=== PATIENT | female | born 1945 | race Caucasian/White ===

== ENCOUNTER 2016-10-21 06:16 | Outpatient (CLI) | payer MEDICARE ==
[~2016-10-21] VITALS: Ht 170.2 cm; Wt 47.2 kg
[~2016-10-21 06:16] MED LIST: LEVO500T69 PO; METH4TAB PO; antibiotic; calcium; inhaler
[2016-10-21] MEDS ORDERED: RT-ALBUINH IH (15:09)
== END 2016-10-21 15:10 ==
LOC: PREOP 06:16
PROVIDERS: ATTEND Surgery
DX: Z01.818 Encounter for other preprocedural examination (principal); K62.5 Hemorrhage of anus and rectum

== ENCOUNTER 2016-10-25 08:40 | Day surgery (SDC) | payer MEDICARE ==
[~2016-10-25] VITALS: Ht 170.2 cm; Wt 47.2 kg
[~2016-10-25 08:40] MED LIST changes: +RT-ALBUINH IH
[2016-10-25] MEDS ORDERED: NS IV 500 ML 500 ML IV PRN (09:10)
[2016-10-25] MEDS ORDERED: NALOXONE 0.4 MG/ML 1 ML (NARCAN) VIAL IVP PRN (09:15)
[2016-10-25] MEDS ORDERED: FLUMAZENIL (ROMAZICON) 0.1 MG/ML 5 ML VIAL INJ PRN (09:15)
[2016-10-25 10:21] VITALS: BP 134/89
[2016-10-25] MEDS ORDERED: MIDAZOLAM 2 MG/2 ML (VERSED) VIAL ONE ×3 (10:31)
[2016-10-25] MEDS ORDERED: fentaNYL INJECTION 100 MCG/2 ML AMP ONE (10:32)
--- NOTE | 2016-10-25 10:41 | Conscious Sedation/ASA ---
Conscious Sedation Pre-Proced ASA Class: 2 Airway Mallampati Classification: (wilton appropriate class) I. II. III, IV Lungs Heart ASA score ASA 1: a normal healthy patient ASA 2: a patient with a mild systemic disease (mid diabetes, controlled hypertension, obesity ASA 3: a patient with a severe systemic disease that limits activity (angina , COPD, prior Myocardial infarction) ASA 4: a patient with an incapacitating disease that is a constant threat to life (CHF, renal failure) ASA 5: a moribund patient not expected to survive 24 hrs. (ruptured aneurysm) ASA 6: a declared brain patient whose organs are being harvested. For emergent operations, add the letter E after the classification Grade 1 Sedation Plan: Discussed options with patient/fam Note The patient is an appropriate candidate to undergo the planned procedure, sedation, and anesthesia. The patient immediately re-assessed prior to indication. TERE LANDA MD Oct 25, 2016 10:41 am
[2016-10-25] MEDS ORDERED: NS IV 500 ML 500 ML ONE (10:49)
[2016-10-25] MEDS: fentaNYL INJECTION 100 MCG/2 ML AMP IVP PRN ×2 (10:52→11:10)
[2016-10-25] MEDS: MIDAZOLAM 2 MG/2 ML (VERSED) VIAL IVP PRN ×3 (10:55→11:05)
--- NOTE | 2016-10-25 11:23 | Endoscopy Procedure Report ---
Endoscopy Report Date: Oct 25, 2016 Preoperative Diagnosis: rectal bleeding Study Performed: Colonoscopy Procedure Instrument: Colonoscope Procedure Procedure and Findings extensive sigmoid diverticulosis.2 mm and 1 mm polyp at the distal sigmoid colon Findings Findings 1.: Polyp, Diverticulosis Copy Copies To 1: TYRON BOOTHE MD, XAVIER M MD Oct 25, 2016 11:23 am
--- NOTE | 2016-10-25 11:24 | Discharge Inst-Simple/Standard ---
Discharge Inst-Standard Discharge Medications New, Converted or Re-Newed RX: Other Patient Instructions/Follow Up Plan of Care/Instructions/FU: to stay on clear liquids. Nothing by mouth from midnight. Please schedule a barium enema for tomorrow morning Activity as Tolerated: Yes Discharge Diet: Liquid Diet TERE LANDA MD Oct 25, 2016 11:24 am
[2016-10-25 11:45] VITALS: BP 118/70
[2016-10-25 12:15] VITALS: BP 130/85
[2016-10-25 12:20] VITALS: BP 130/85
--- NOTE | 2016-10-26 08:39 | PROCEDURE REPORT ---
PROCEDURE PHYSICIAN: TERE LANDA DATE OF PROCEDURE: 10/25/2016 PROCEDURE: 1. Flexible sigmoidoscopy. 2. Snare polypectomy x1. 3. Hot biopsy polypectomy x1. SURGEON: Dr. Landa. INDICATION FOR THE PROCEDURE: This lady came in for colonoscopy to evaluate rectal bleeding of fairly recent onset. An informed consent was obtained after reviewing the procedure in detail. DESCRIPTION OF PROCEDURE: She was placed in left lateral decubitus position and her vital signs were monitored. Conscious sedation was achieved using Versed and fentanyl. Digital rectal examination was unremarkable. The colonoscope was then introduced into the rectum and advanced to the distal sigmoid colon. Due to extensive diverticulosis and the lack of distensibility of the sigmoid colon, the colonoscope could not be advanced further, despite multiple attempts. FINDINGS: 1. Quite extensive diverticulosis. 2. 2 mm polyp at the distal sigmoid colon that was snared and retrieved. 3. 1 mm polyp adjacent to the index polyp noted above, that was excised with hot biopsy forceps. She tolerated the procedure well and was taken back to the nursing area in a stable condition. IMPRESSION: 1. Rectal bleeding. 2. Two small polyps excised from the distal sigmoid colon. Further examination could not be completed and therefore a barium enema will be obtained on 10/26/2016. Job ID: [id number] Dictated Date: 10/25/2016 11:21:46 Worm Raiser Date: 10/26/2016 08:36:19 / isabella DECKER
--- OUTSIDE RECORDS SUMMARY | 2016-11-28 05:50 | XMS REPORT | Continuity of Care Document ---
Author Author [facility] Organization [facility] Address Unknown Phone Unavailable Care Team Providers Care Mounting Inspector Name Role Phone TYRON BOOTHE MD PP Insurance Providers Payer Name Policy Number Subscriber Name Relationship [employer] [facility] Supp [id number] Mahesh Cantrell Self / Same As Patient Wps Medicare [id number] Mahesh Cantrell Self / Same As Patient Advance Directives Directive Response Recorded Date Advance Directives N 04/29/13 11:51am Problems No Known Problems or Medical conditions. Social History History Response Recorded Date/Time Alcohol Use Denies Use 04/29/13 11:51am Recreational Drug Use N 04/29/13 11:51am Allergies, Adverse Reactions, Alerts Allergen Type Severity Reaction Last Updated No Known Drug Allergies 04/29/13 Medications Medication Dose Units Route Sig Qty Days Methylprednisolone (Medrol Dose Pack) 0 PO UD 1 Levofloxacin (Levaquin 500 Mg) 1 Each PO DAILY 10 [calcium] [inhaler] [antibiotic] Response Recorded Date/Time Status not known Unknown Results No Known Relevant Diagnostic Tests, Laboratory Data and/or Discharge Summary. Encounters Encounter Location Date/Time Departed Emergency Room [facility] 01/04 11:38am
--- OUTSIDE RECORDS SUMMARY | 2016-11-28 05:50 | XMS REPORT | Continuity of Care Document ---
Author Author [facility] Organization [facility] Address Unknown Phone Unavailable Allergies Active Description Code Type Severity Reaction Onset Reported/Identified Relationship to Patient Clinical Status Yes No Known Drug Allergies [id number] Drug Allergy Unknown N/ A 04/29/2013 Medications Problems Date Dx Coded Attending Type Code Diagnosis Diagnosed By 10/25/2016 CORDELL LOPEZ, TERE Silverio Ot K57.90 DVRTCLOS OF INTEST, PART UNSP, W/O PERF 10/25/2016 TERE LANDA MD Ot K63.5 POLYP OF COLON 11/02/2016 TERE LANDA MD Ot K57.90 DVRTCLOS OF INTEST, PART UNSP, W/O PERF 11/02/2016 TERE LANDA MD Ot K63.5 POLYP OF COLON Procedures Results Encounters ACCT No. Visit Date/Time Discharge Status Pt. Type Provider Facility Loc./Unit Complaint [id number] 10/25/2016 08:40:00 2016 12:20:00 DIS Outpatient TERE LANDA MD [facility] ENDO RECTAL BLEEDING [id number] 10/21/2016 06:16:00 2016 15:10:00 DIS Outpatient TERE LANDA MD [facility] PREOP RECTAL BLEEDING [id number] 04/08/2014 12:37:00 2013 23:59:59 CLS Outpatient [id number] 04/29/2013 11:38:00 2012 13:44:00 DIS Emergency [id number] 04/23/2013 10:10:00 2012 23:59:59 CLS Outpatient [id number] 10/26/2016 09:57:00 ACT Outpatient TERE LANDA MD [facility] RAD RECTAL BLEEDING
== END 2016-10-25 12:20 | disposition home or self-care (01) ==
LOC: ENDO 08:40
PROVIDERS: ATTEND Surgery
DX: K63.5 Polyp of colon (principal); K57.90 Diverticulosis of intestine, part unspecified, without perforation or abscess without bleeding
CPT/HCPCS: 88305

== ENCOUNTER → 2016-10-26 | Outpatient (CLI) | payer MEDICARE ==
[~2016-10-26] MED LIST changes: +DIATRIZOATE MEGLUM/SODIUM 37% 120 ML (GASTROGRAFIN) RC ONE
--- NOTE | 2016-10-26 15:49 | Diagnostic Imaging Report ---
Gastrografin enema. INDICATION: Incomplete colonoscopy. There are no prior studies available for comparison. FINDINGS: The preliminary films failed to show any sign of pneumoperitoneum or of an acute abnormality. Reportedly, the patient underwent a complete colonoscopy exam yesterday. Gastrografin was introduced through the colon per rectum. There was some delay in the passage of Gastrografin into the colon as the patient did experience several episodes of spasm. Gradually, the contrast did extend through the entire colon and into the cecum. There are innumerable diverticula involving the sigmoid and descending colon. There are also a number of diverticula in the transverse and ascending colon. There is no sign of acute diverticulitis, however. During the initial filling of the cecum, there did appear to be a number of small rounded defects in the cecum. These defects cannot be identified on additional images. These small round defects may have been secondary to air bubbles. No mass or constricting lesion identified. The appendix was not opacified and there was no reflux into the terminal ileum. The postevacuation image shows that there is a moderate amount of residual contrast still present within the colon. IMPRESSION: 1. There is extensive diverticulosis of the sigmoid and descending colon and there are numerous diverticula scattered throughout the remainder of the colon. There is no sign of acute diverticulitis. 2. There is no mass or constricting lesion identified. 3. The multiple small rounded defects within the cecum seen on initial filling are probably related to air bubbles as opposed to an intraluminal nodules. Dictated by: Dictated on workstation # [id number]
== END ==
LOC: RAD 09:57
PROVIDERS: ATTEND Surgery
DX: K57.32 Diverticulitis of large intestine without perforation or abscess without bleeding (principal); K62.5 Hemorrhage of anus and rectum
CPT/HCPCS: 74270

== ENCOUNTER 2018-01-20 07:13 | Day surgery (SDC) | payer MEDICARE ==
[~2018-01-20] VITALS: Ht 170.2 cm; Wt 49.0 kg
[2018-01-20] MEDS: LACTATED RINGERS 1,000 ML IV PRN ×2 (06:40→09:23)
[~2018-01-20 07:13] MED LIST changes: -DIATRIZOATE MEGLUM/SODIUM 37% 120 ML (GASTROGRAFIN) RC ONE
[2018-01-20 07:30] VITALS: BP 140/93
[2018-01-20] MEDS ORDERED: BUP/EPI 0.5% 1:200,000 (SENSORCAINE) 30 ML VIAL ONE (07:32)
[2018-01-20] MEDS ORDERED: ceFAZolin INJECTION 1,000 MG in NS (IVPB) 50 ML IV ONE (07:45)
[2018-01-20] MEDS ORDERED: MIDAZOLAM 2 MG/2 ML (VERSED) VIAL ONE (08:30)
[2018-01-20] MEDS ORDERED: proPOfol 200 MG/20 ML (DIPRIVAN) VIAL IV ONE (08:30)
[2018-01-20] MEDS ORDERED: DEXAMETHASONE 10 MG/ML (DECADRON) 1 ML VIAL ONE (08:30)
[2018-01-20] MEDS ORDERED: LIDOCAINE PF 2% 5 ML (XYLOCAINE) VIAL ONE (08:30)
[2018-01-20] MEDS ORDERED: ONDANSETRON 4 MG/2 ML (SDV) Z0FRAN ONE (08:30)
[2018-01-20] MEDS ORDERED: fentaNYL INJECTION 100 MCG/2 ML AMP ONE (08:31)
--- NOTE | 2018-01-20 08:48 | Progress Note-Pre Operative ---
Pre-Operative Progress Note H&P Reviewed The H&P was reviewed, patient examined and no changes noted. Date Seen by Provider: Jan 16, 2018 Time Seen by Provider: 16:25 Date H&P Reviewed: Jan 20, 2018 Time H&P Reviewed: 08:48 Pre-Operative Diagnosis: Skin lesions*4 TERE LANDA MD Jan 20, 2018 8:48 am
[2018-01-20] MEDS ORDERED: SEVOFLURANE (ULTANE) 15 ML INHAL SOLN ONE ×3 (09:26→10:02)
[2018-01-20] MEDS ORDERED: TRAM50TA2 PO (09:33)
--- NOTE | 2018-01-20 09:33 | Operative Report ---
Operative Report Date of Procedure/Surgery Jan 20, 2018 Surgeon (s) TERE LANDA MD Fruit Or Nut Grower (s): Yamile Metcalf (Med Student) Post-Operative Diagnosis Same Procedure Performed Excision 4 Description of Procedure Anesthesia Type: General Estimated blood loss (mL): Minimal Specimen(s) collected/removed Skin lesions 4 Description of the Procedure Indication for the procedure: This lady presented with a total of 4, darkly pigmented lesions involving the left side of the neck, the skin overlying the left breast, right chest wall and the right lower quadrant of the abdominal wall requiring histologic confirmation. Therefore, she was offered full- thickness excision. Informed consent was obtained after reviewing the details of the procedure and complications of hematoma and wound infection. Should melanoma be confirmed, the potential for additional surgery including sentinel lymph node biopsy was discussed with her. Description of procedure: She was placed supine on the operating table and general anesthesia induced. A gram of Ancef was administered intravenously as prophylaxis against wound infection. 1. Lesion left side of neck: Preemptive analgesia was established using 0.5 percent Marcaine with epinephrine. An elliptical incision 2 cm in length by 1.5 cm in width was made and the lesion excised down to the subcutaneous tissue. Hemostasis was achieved using cautery and the defect closed using 6-0 nylon in a continuous fashion. 2. Lesion, skin over the left breast: A similar excision was performed after making an incision 3 cm in length by 2 cm in width. The defect was closed using 4-0 nylon, in an interrupted fashion 3. Lesion right chest wall: A similar excision was completed by making an incision 2 cm in length by 1.5 cm in width. The defect was closed using 4-0 nylon, in an interrupted fashion. 4. Patient right lower quadrant of the abdominal wall: An incision 2 cm in length by 1.5 cm in width was made and the lesion excised down to the subcutaneous tissue. Hemostasis was achieved using cautery and the incision closed using interrupted 4-0 nylon sutures. She tolerated the procedures well, was extubated in the operating room and taken to the recovery room in a stable condition. Findings of the Procedure see op report Allergies and Home Medications Allergies Coded Allergies: No Known Drug Allergies (Unverified , 01/18/18) Home Medications Albuterol Sulfate 1 Puff Puff, 2 PUFF IH Q4H PRN for SHORTNESS OF BREATH, ( Reported) 1 PUFF = 90 MCG Patient Home Medication List Home Medication List Reviewed: Yes TERE LANDA MD Jan 20, 2018 9:32 am
--- NOTE | 2018-01-20 09:34 | Discharge Inst-Simple/Standard ---
Discharge Inst-Standard Discharge Medications New, Converted or Re-Newed RX: RX on Chart Patient Instructions/Follow Up Plan of Care/Instructions/FU: Band-Aids off in 48 hours. Follow-up with my nurse in 10 days for suture removal Activity as Tolerated: Yes Discharge Diet: No Restrictions TERE LANDA MD Jan 20, 2018 9:34 am
[2018-01-20] MEDS ORDERED: morphine INJ 10 MG/ML 1ML (SYR OR VIAL) IVP PRN (10:15)
--- NOTE | 2018-01-20 10:49 | Anesthesia-General Post-Op ---
General Patient Condition Mental Status/LOC: Same as Preop Cardiovascular: Satisfactory Nausea/Vomiting: Absent Respiratory: Satisfactory Pain: Controlled Complications: Absent Post Op Complications Complications None Follow Up Care/Instructions Patient Instructions None needed. Anesthesia/Patient Condition Patient Condition Patient is doing well, no complaints, stable vital signs, no apparent adverse anesthesia problems. No complications reported per nursing. SIMON ROJO CRNA Jan 20, 2018 10:49
[2018-01-20 11:05] VITALS: BP 149/91
[2018-01-20 11:35] VITALS: BP 149/82
[2018-01-20 12:05] VITALS: BP 133/90
[2018-01-20] MEDS ORDERED: RT-ALBUTEROL SULF 2.5 MG/3 ML PRE-MIX VIAL ONE (12:13)
[2018-01-20] MEDS ORDERED: RT-ALBUTEROL SULF 2.5 MG/3 ML PRE-MIX VIAL INH ONE (12:15)
[2018-01-20 12:40] VITALS: BP 133/90
== END 2018-01-20 12:40 | disposition home or self-care (01) ==
LOC: SDC 07:13
PROVIDERS: ATTEND Surgery
DX: L82.1 Other seborrheic keratosis (principal); J44.9 Chronic obstructive pulmonary disease, unspecified; I34.1 Nonrheumatic mitral (valve) prolapse; Z87.891 Personal history of nicotine dependence; Z79.899 Other long term (current) drug therapy
CPT/HCPCS: 87081; 88305; 94640; 94664

== ENCOUNTER → 2018-10-16 | Outpatient (CLI) | payer MEDICARE ==
[~2018-10-16] MED LIST changes: +TRAM50TA2 PO
--- NOTE | 2018-10-16 15:44 | Diagnostic Imaging Report ---
INDICATION: Dyspnea and cough. PA and lateral views of the chest are obtained with comparison made to study of 04/29/2013. There is extensive air trapping, bilaterally. Prominent interstitial markings are seen throughout the lungs. There is no evidence of pneumothorax or consolidation. No significant pleural fluid is seen. IMPRESSION: Air trapping indicating emphysema and probable COPD. No acute abnormality or adverse change is identified. Dictated by: Dictated on workstation # [id number]
== END ==
LOC: RAD 14:52
PROVIDERS: ATTEND Family Medicine
DX: J43.9 Emphysema, unspecified (principal); R04.2 Hemoptysis
CPT/HCPCS: 71046

== ENCOUNTER 2019-08-15 15:52 | Inpatient (IN) | payer MEDICARE ==
[~2019-08-15] VITALS: Ht 172 cm; Wt 51.2 kg
[~2019-08-15 15:52] MED LIST changes: -TRAM50TA2 PO; +TRM50T PO
[2019-08-15] MEDS ORDERED: fentaNYL INJECTION 100 MCG/2 ML AMP IVP ONE (16:30)
--- NOTE | 2019-08-15 16:48 | ED Lower Extremity ---
General Chief Complaint: Trauma-Non Activation Stated Complaint: L HIP PAIN Nursing Triage Note: Discomfort to Lt hip. Nursing Sepsis Screen: No Definite Risk Source: patient Exam Limitations: no limitations History of Present Illness Date Seen by Provider: Aug 15, 2019 Time Seen by Provider: 16:02 Initial Comments To ER per EMS from home with reports of a fall. She was sitting in a recliner when she got up to answer her phone, her feet became and tangled in the blanket she was wrapped up in causing her to fall landing directly on the left hip. She denies hitting her head or any loss of consciousness. No other injury however she has been unable to bear weight and complains of severe left hip pain. EMS started an IV and gave 50 g of fentanyl in route to the hospital. Location Injury Occurred: Home Onset: just prior to arrival Severity: moderate Pain/Injury Location: left hip Method of Injury: fell Modifying Factors: Improves With Movement Allergies and Home Medications Allergies Coded Allergies: No Known Drug Allergies (Unverified , 01/18/18) Home Medications Albuterol Sulfate 1 Puff Puff, 2 PUFF IH Q4H PRN for SHORTNESS OF BREATH, (Reported) 1 PUFF = 90 MCG Tramadol HCl 50 Mg Tablet, 50 MG PO Q12H PRN for PAIN-MODERATE Prescribed by: TERE LANDA on 01/20/18 0933 Patient Home Medication List Home Medication List Reviewed: Yes Review of Systems Constitutional: see HPI EENTM: see HPI Respiratory: no symptoms reported Cardiovascular: no symptoms reported Genitourinary: no symptoms reported Musculoskeletal: see HPI Skin: no symptoms reported Psychiatric/Neurological: No Symptoms Reported Past Mcrxsdy-Bkzxdv-Cymcib Hx Patient Social History Alcohol Use: Denies Use Recreational Drug Use: No Smoking Status: Former Smoker Type Used: Cigarettes Former Smoker, Quit: May 25, 2016 Recent Foreign Travel: No Contact w/Someone Who Travel: No Recent Infectious Disease Expo: No Recent Hopitalizations: No Physical Abuse: No Sexual Abuse: No Immunizations Up To Date Tetanus Booster (TDap): Unknown Date of Pneumonia Vaccine: May 24, 2016 Date of Influenza Vaccine: May 09, 2017 Seasonal Allergies Seasonal Allergies: Yes (MILD) Past Medical History Surgeries: Yes Appendectomy Respiratory: Yes (O2 1L NC AT NIGHT) COPD Cardiac: Yes (MVP) Valvular Heart Disease Neurological: No Reproductive Disorders: No Sexually Transmitted Disease: No HIV/AIDS: No Gastrointestinal: No Musculoskeletal: No Endocrine: No Loss of Vision: Bilateral Hearing Impairment: Denies Cancer: No Psychosocial: No Integumentary: No Blood Disorders: No Adverse Reaction/Blood Tranf: No (N/A) Physical Exam Vital Signs Vital Signs - First Documented 08/15/19 15:55 Temp 37.0 Pulse 87 Resp 16 B/P (MAP) 139/93 (108) Pulse Ox 95 O2 Delivery Nasal Cannula O2 Flow Rate 2.00 Capillary Refill : Less Than 3 Seconds Height, Weight, BMI Height: 5'7.00" Weight: 108lbs. 0.0oz. 48.370020dr; 15.00 BMI Method:Stated General Appearance: WD/WN, no apparent distress HEENT: PERRL/EOMI, normal ENT inspection Neck: non-tender, full range of motion Respiratory: no respiratory distress, no accessory muscle use Hips: right hip non-tender, right hip normal inspection, right hip normal range of motion; left hip limited range of motion, left hip pain, left hip soft tissue tenderness Legs: bilateral leg non-tender, bilateral leg normal inspection, bilateral leg normal range of motion Knees: bilateral knee non-tender, bilateral knee normal inspection, bilateral knee normal range of motion Ankles: bilateral ankle non-tender, bilateral ankle normal inspection, bilateral ankle normal range of motion Neurologic/Psychiatric: alert, normal mood/affect, oriented x 3 Skin: normal color, warm/dry Strong posterior tibial pulse Progress/Results/Core Measures Results/Orders Lab Results Laboratory Tests Test 08/15/19 16:40 Range/Units White Blood Count 8.9 4.3-11.0 10^3/uL Red Blood Count 4.57 4.35-5.85 10^6/uL Hemoglobin 13.5 11.5-16.0 G/DL Hematocrit 41 35-52 % Mean Corpuscular Volume 89 80-99 FL Mean Corpuscular Hemoglobin 30 25-34 PG Mean Corpuscular Hemoglobin Concent 33 32-36 G/DL Red Cell Distribution Width 13.4 10.0-14.5 % Platelet Count 257 130-400 10^3/uL Mean Platelet Volume 8.8 7.4-10.4 FL Neutrophils (%) (Auto) 65 42-75 % Lymphocytes (%) (Auto) 23 12-44 % Monocytes (%) (Auto) 7 0-12 % Eosinophils (%) (Auto) 5 0-10 % Basophils (%) (Auto) 0 0-10 % Neutrophils # (Auto) 5.7 1.8-7.8 X 10^3 Lymphocytes # (Auto) 2.1 1.0-4.0 X 10^3 Monocytes # (Auto) 0.6 0.0-1.0 X 10^3 Eosinophils # (Auto) 0.4 H 0.0-0.3 10^3/uL Basophils # (Auto) 0.0 0.0-0.1 10^3/uL Prothrombin Time 13.3 12.2-14.7 SEC INR Comment 1.0 0.8-1.4 Sodium Level 140 135-145 MMOL/L Potassium Level 4.0 3.6-5.0 MMOL/L Chloride Level 108 H 98-107 MMOL/L Carbon Dioxide Level 21 21-32 MMOL/L Anion Gap 11 5-14 MMOL/L Blood Urea Nitrogen 14 7-18 MG/DL Creatinine 0.84 0.60-1.30 MG/DL Estimat Glomerular Filtration Rate > 60 BUN/Creatinine Ratio 17 Glucose Level 134 H 70-105 MG/DL Calcium Level 9.1 8.5-10.1 MG/DL Corrected Calcium 9.1 8.5-10.1 MG/DL Total Bilirubin 0.3 0.1-1.0 MG/DL Aspartate Amino Transf (AST/SGOT) 17 5-34 U/L Alanine Aminotransferase (ALT/SGPT) 12 0-55 U/L Alkaline Phosphatase 50 40-136 U/L Total Protein 6.3 L 6.4-8.2 GM/DL Albumin 4.0 3.2-4.5 GM/DL My Orders Orders - SHRAVAN ERICKSON APRN Cbc With Automated Diff (08/15/19 16:26) Comprehensive Metabolic Panel (08/15/19 16:26) Protime With Inr (08/15/19 16:26) Ua Culture If Indicated (08/15/19 16:26) Milligan Cath (08/15/19 16:26) Fentanyl Injection (Sublimaze Injection (08/15/19 16:30) Pelvis With Left Hip 2-3 Views (08/15/19 16:26) Morphine Injection (Morphine Injection (08/15/19 17:10) Medications Given in ED Current Medications Medications Dose Ordered Sig/Missy Route Start Time Stop Time Status Last Admin Dose Admin Fentanyl Citrate 50 mcg ONCE ONCE IVP 08/15/19 16:30 08/15/19 16:31 DC 08/15/19 16:38 50 MCG Vital Signs/I&O 08/15/19 15:55 Temp 37.0 Pulse 87 Resp 16 B/P (MAP) 139/93 (108) Pulse Ox 95 O2 Delivery Nasal Cannula O2 Flow Rate 2.00 Blood Pressure Mean: 108 Departure Communication (Admissions) Time/Spoke to Admitting Phy: 17:[address] Doyle, we will admit to primary care, pain control, 5 pounds of Mcelroy's traction, nothing by mouth after midnight and will plan for operative repair tomorrow. He'll see the patient in the morning. Spoke with Dr. Boothe , agrees to admit, would like home meds restarted. I questioned her about home meds, she states she only takes a nebulizer twice a day albuterol, Ventolin inh aler as needed and Singulair 10 mg at bedtime for history of COPD. NAME: MAHESH CANTRELL [facility] REC#: [id number] PT STATUS: REG ER : 1945 PHYSICIAN: SHRAVAN ERICKSON APRN ADMIT DATE: 08/15/19/ER Signed Date of Exam:08/15/19 PELVIS WITH LEFT HIP 2-3 VIEWS INDICATION: Injury with pain. FINDINGS: There is an intertrochanteric left hip fracture with mild varus angulation. No dislocation. IMPRESSION: Mild varus angulation associated with an acute intertrochanteric left hip fracture without dislocation. Dictated by: Dictated on workstation # [id number] Dict: 08/15/191735 Trans: 08/15/191746 [id number] [id number] Interpreted by: GUSTAVO JEAN-BAPTISTE Electronically signed by: GUSTAVO JEAN-BAPTISTE 08/15/191746 Impression Primary Impression: Closed left hip fracture Disposition: ADMITTED INPATIENT Condition: Stable Admissions Decision to Admit Reason: Admit from ER (General) Decision to Admit/Date: Aug 15, 2019 Time/Decision to Admit Time: 17:56 Departure-Patient Inst. Referrals: TYRON BOOTHE MD (PCP/Family) Primary Care Physician SHRAVAN ERICKSON APRN Aug 15, 2019 16:48
[2019-08-15 16:49] LABS: BASOPHILS % (AUTO) 0 % (0-10); EOSINOPHILS # (AUTO) 0.4 10^3/uL (0.0-0.3); EOSINOPHILS % (AUTO) 5 % (0-10); HEMATOCRIT 41 % (35-52); HEMOGLOBIN 13.5 G/DL (11.5-16.0); LYMPHOCYTES # (AUTO) 2.1 X 10^3 (1.0-4.0); LYMPHOCYTES % (AUTO) 23 % (12-44); MEAN CORPUSCULAR HEMOGLOBIN 30 PG (25-34); MEAN CORPUSCULAR HGB CONC 33 G/DL (32-36); MEAN CORPUSCULAR VOLUME 89 FL (80-99); MEAN PLATELET VOLUME 8.8 FL (7.4-10.4); MONOCYTES # (AUTO) 0.6 X 10^3 (0.0-1.0); MONOCYTES % (AUTO) 7 % (0-12); NEUTROPHILS # (AUTO) 5.7 X 10^3 (1.8-7.8); NEUTROPHILS % (AUTO) 65 % (42-75); PLATELET COUNT 257 10^3/uL (130-400); RED CELL DISTRIBUTION WIDTH 13.4 % (10.0-14.5); WHITE BLOOD COUNT 8.9 10^3/uL (4.3-11.0)
[2019-08-15 17:01] LABS: PROTHROMBIN TIME PATIENT 13.3 SEC (12.2-14.7)
[2019-08-15 17:09] LABS: ALANINE AMINOTRANSFERASE 12 U/L (0-55); ALKALINE PHOSPHATASE 50 U/L (40-136); BILIRUBIN,TOTAL 0.3 MG/DL (0.1-1.0); BUN/CREATININE RATIO 17; CALCIUM 9.1 MG/DL (8.5-10.1); CARBON DIOXIDE 21 MMOL/L (21-32); CHLORIDE 108 MMOL/L (98-107); CREATININE SERUM 0.84 MG/DL (0.60-1.30); GFR ESTIMATED > 60; GLUCOSE 134 MG/DL (70-105); SODIUM 140 MMOL/L (135-145); TOTAL PROTEIN 6.3 GM/DL (6.4-8.2)
[2019-08-15] MEDS ORDERED: morphine INJ 10 MG/ML 1ML (SYR OR VIAL) IVP STA (17:10)
--- NOTE | 2019-08-15 17:20 | NUR ---
Pelvic binder removed by CT staff after provider approval r/t imaging.
--- NOTE | 2019-08-15 17:39 | Diagnostic Imaging Report ---
INDICATION: Injury with pain. FINDINGS: There is an intertrochanteric left hip fracture with mild varus angulation. No dislocation. IMPRESSION: Mild varus angulation associated with an acute intertrochanteric left hip fracture without dislocation. Dictated by: Dictated on workstation # [id number]
[2019-08-15 18:25] LABS: BILIRUBIN,URINE NEGATIVE (NEGATIVE); CLARITY,URINE CLEAR; COLOR,URINE YELLOW; GLUCOSE, URINE (UA) NEGATIVE (NEGATIVE); KETONES,URINE NEGATIVE (NEGATIVE); LEUKOCYTE ESTERASE ,URINE NEGATIVE (NEGATIVE); NITRITE,URINE NEGATIVE (NEGATIVE); PROTEIN,URINE NEGATIVE (NEGATIVE)
[2019-08-15 18:33] LABS: BACTERIA,URINE NEGATIVE /HPF
[2019-08-15] MEDS ORDERED: CATHETER FLUSH 10 ML SYR IV PRN (19:00)
--- NOTE | 2019-08-15 19:00 | NUR ---
MAHESH CANTRELL admitted to room 413-1, with an admitting diagnosis of LEFT HIP FX, on 08/15/19 from ER, accompanied by ER STAFF. MAHESH CANTRELL introduced to surroundings, call light, bed controls, phone, TV, temperature control, lights, meal times, smoking policy, visitor policy, side rail policy, bathrooms and showers. Patient Rights given to patient in the handbook. MAHESH CANTRELL verbalizes understanding that [facility] is not responsible for the loss or damage to any personal effects or valuables that are kept in the patients posession during their hospitalization. MAHESH CANTRELL verbalizes understanding of Interdisciplinary Patient Education. Patient and/or family were informed about the Rapid Response Team and its purpose.
[2019-08-15 19:34] VITALS: BP 144/79
--- NOTE | 2019-08-15 19:48 | NUR ---
RT to assess or reevaluate in 72 hours or as needed. 02 to keep SAT greater than 90%. KIMBERLYN for SOA PRN Addendum: 08/15/19 at 1949 by KARYNA ESCAMILLA RT Amended: Links added.
[2019-08-15] MEDS: DOCUSATE SODIUM 100 MG (COLACE) CAP PO SCH (19:58)
[2019-08-15] MEDS: MONTELUKAST 10 MG (SINGULAIR) TAB PO SCH (19:58)
[2019-08-15] MEDS: NS IV 1000 ML 1,000 ML IV SCH (19:58)
[2019-08-15] MEDS: fentaNYL INJECTION 100 MCG/2 ML AMP IV PRN ×2 (19:58→23:49)
[2019-08-15] MEDS: ONDANSETRON 4 MG/2 ML (SDV) Z0FRAN IV PRN (19:59)
[2019-08-15] MEDS ORDERED: FLU QUADRIvalent (5+ YOA) 2019-2020 (AFLURIA) 0.5 ML IM ONE (20:00)
[2019-08-15] MEDS ORDERED: RT-ALBUTEROL/IPRATROPIUM 3 ML (DUONEB) VIAL INH PRN (21:45)
[2019-08-15] MEDS ORDERED: RT-ALBUTEROL/IPRATROPIUM 3 ML (DUONEB) VIAL INH SCH (21:45)
[2019-08-16] VITALS (13 sets, daily range): BP systolic 111–146; BP diastolic 63–92
[2019-08-16] MEDS: NS IV 1000 ML 1,000 ML IV SCH ×3 (03:40→18:19)
[2019-08-16] MEDS: fentaNYL INJECTION 100 MCG/2 ML AMP IV PRN ×4 (05:23→11:41)
--- NOTE | 2019-08-16 07:13 | History & Physicial ---
History of Present Illness History of Present Illness Reason for visit/HPI 74-year-old female presents to emergency department yesterday afternoon after having sustained a fall landing on her left hip. She apparently was sitting in her recliner with a blanket wrapped around herself. When the phone rang she got up and was unable to untangle her feet thus causing her to fall on the left hip. She denies any injury to the head or upper extremity. There was no loss of consciousness. She has no previous history of any hip fracture. She was with immediate pain to the left hip. Patient was brought in to via [facility] ER by EMS. Date of Admission Aug 15, 2019 at 17:44 Date Seen by a Provider: Aug 16, 2019 Time Seen by a Provider: 06:50 I consulted on this patient on 08/16/19 07:08 Attending Physician Nithin Boothe MD Admitting Physician Nithin Boothe MD Consult Allergies and Home Medications Allergies Coded Allergies: No Known Drug Allergies (Unverified , 01/18/18) Home Medications Albuterol Sulfate 1 Puff Puff, 2 PUFF IH Q4H PRN for SHORTNESS OF BREATH, (Reported) 1 PUFF = 90 MCG Tramadol HCl 50 Mg Tablet, 50 MG PO Q12H PRN for PAIN-MODERATE Prescribed by: TERE LANDA on 01/20/18 0933 Patient Home Medication List Home Medication List Reviewed: Yes Past Yswffsv-Qwiqua-Lagjji Hx Patient Social History Marrital Status: 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) Alcohol Use: Denies Use Recreational Drug Use: No Smoking Status: Former Smoker Former Smoker, Quit: May 25, 2016 Type Used: Cigarettes Recent Foreign Travel: No Contact w/other who traveled: No Recent Hopitalizations: No Recent Infectious Disease Expo: No Immunizations Up To Date Tetanus Booster (TDap): Unknown Date of Pneumonia Vaccine: May 24, 2017 Date of Influenza Vaccine: May 09, 2017 Seasonal Allergies Seasonal Allergies: Yes (MILD) Surgeries Yes Appendectomy Respiratory Yes (O2 1L NC AT NIGHT) Cardiovascular Yes (MVP) Valvular Heart Disease Neurological No Reproductive System Hx Reproductive Disorders: No Sexually Transmitted Disease: No HIV/AIDS: No Gastrointestinal No Musculoskeletal No Endocrine History of Endocrine Disorders: No HEENT Loss of Vision: Bilateral Hearing Impairment: Denies Cancer No Psychosocial History of Psychiatric Problem: No Integumentary History of Skin or Integumenta: No Blood Transfusions History of Blood Disorders: No Adverse Reaction to a Blood Tr: No (N/A) Review of Systems Constitutional: see HPI Physical Exam Vital Signs Vital Signs - First Documented 08/15/19 08/15/19 15:55 19:39 Temp 37.0 Pulse 87 Resp 16 B/P (MAP) 139/93 (108) Pulse Ox 95 O2 Delivery Nasal Cannula O2 Flow Rate 2.00 FiO2 28 Capillary Refill : Less Than 3 SecondsLess Than 3 Seconds Height, Weight, BMI Height: 5'7.00" Weight: 108lbs. 0.0oz. [id number]; 17.30 BMI Method:Stated General Appearance: Mild Distress (With movement of the left lower extremity) Eyes: Bilateral Eye Normal Inspection HEENT: Pharynx Normal Neck: Supple Respiratory: Lungs Clear (But distant lung sounds), No Respiratory Distress Cardiovascular: Regular Rate, Rhythm Gastrointestinal: Soft Rectal: Deferred Extremity: Normal Capillary Refill, Other (Tenderness of the anterior aspect of the left hip and thigh region) Neurologic/Psychiatric: Alert, Oriented x3 Skin: Normal Color Comments [facility], [place] NAME: MAHESH CANTRELL [facility] REC#: [id number] PT STATUS: REG ER : 1945 PHYSICIAN: SHRAVAN ERICKSON APRN ADMIT DATE: 08/15/19/ER Signed Date of Exam:08/15/19 PELVIS WITH LEFT HIP 2-3 VIEWS INDICATION: Injury with pain. FINDINGS: There is an intertrochanteric left hip fracture with mild varus angulation. No dislocation. IMPRESSION: Mild varus angulation associated with an acute intertrochanteric left hip fracture without dislocation. Dictated by: Dictated on workstation # [id number] Dict: 08/15/191735 Trans: 08/15/191746 AS6 [id number] Interpreted by: GUSTAVO JEAN-BAPTISTE Electronically signed by: GUSTAVO JEAN-BAPTISTE 08/15/19 1747 Assessment/Plan Assessment and Plan 1. Left intertrochanteric hip fractureacute -Orthopedics has been consult to and spoken to via ER provider during the afternoon of August 15, 2019. Plan is to repair the hip on August 16, 2019. -Hemoglobin stable -Patient does not have a cardiac history and is medically cleared for surgery. Her main risk factor is her COPD 2. COPD history of -We will maintain her on nasal cannula oxygen. She will also received albuterol breathing treatments as she effectively takes these typically twice daily. -She is currently nothing by mouth and she will have medications for her COPD restarted after surgery. Admission Diagnosis 1. Left intertrochanteric hip fractureacute 2. COPD history of Admission Status: Inpatient Order (span 2 midnights) Reason for Inpatient Admission: Orthopedics for surgical correction of the left intertrochanteric hip fracture Clinical Quality Measures DVT/VTE Risk/Contraindication: Risk Factor Score Per Nursin RFS Level Per Nursing on Admit: 4+=Very High NITHIN BOOTHE MD Aug 16, 2019 07:13
[2019-08-16] MEDS ORDERED: ALBU18HF2 INH (09:11)
[2019-08-16] MEDS ORDERED: ALBU2.5V4 NEB (09:11)
[2019-08-16] MEDS ORDERED: MONT10TA24 PO (09:11)
--- NOTE | 2019-08-16 09:53 | Consultation - Ortho ---
Consult - Ortho Subjective Date of Exam 08/16/19 Chief Complaint Intertrochanteric fracture left hip HPI/Events since last exam Mrs. Crooks is a 74-year-old white female who tripped getting out of her chair yesterday. She stated she landed directly on the left hip. She heard the hip fracture and she had immediate pain. She was brought to the emergency room where she is evaluated and x-rayed noted to have a 2 part intertrochanteric fracture left hip. She was admitted by Dr. Branch, her family physician. She is placed in Mcelroy's traction. She states she did not injure anything other than her hip. She denies any previous hip problems. No previous orthopedic problems other than a fracture of her right wrist several years ago. Medical, Surgical History Reviewed and no additions or changes Social History Reviewed and no additions or changes Family History Reviewed and no additions or changes Review of Systems Reviewed and no additions or changes Allergies: Coded Allergies: No Known Drug Allergies (Unverified , 01/18/18) Home Meds Reported Medications Albuterol Sulfate (Albuterol Sulfate) 2.5 Mg/3 Ml Vial.neb, 2.5 MG NEB BID, EA 08/16/19 Albuterol Sulfate (Ventolin Hfa) 18 Gm Hfa.aer.ad, 2 PUFF INH Q4H PRN for SHORTNESS OF BREATH, INHALER 08/16/19 Montelukast Sodium (Montelukast Sodium) 10 Mg Tablet, 10 MG PO HS, TAB 08/16/19 Discontinued Reported Medications Albuterol Sulfate (PROAIR HFA) 1 Puff Puff, 2 PUFF IH Q4H PRN for SHORTNESS OF BREATH, PUFF 1 PUFF = 90 MCG 10/21/16 Discontinued Scripts Tramadol HCl (Tramadol HCl) 50 Mg Tablet, 50 MG PO Q12H PRN for PAIN-MODERATE, #14 TAB Prov:TERE LANDA MD 01/20/18 Objective Exam Constitutional: [] HEENT: [] Neck: [] No pain with palpation or range of motion Cardiovascular: [] Respiratory: [] Gastrointestinal: [] Genitourinary: [] Skin: [] Back/Spine: [] No pain with palpation Extremities: [] No pain in the upper extremities. No deformity. No crepitation. Full range of motion without pain. Symmetrical strength. Equal ulcers. Normal sensation throughout Lower extremitiespain with palpation and any motion left lower extremity and the left hip region. No pain at the knee or ankle with palpation. Normal sensation to the foot and toes. Equal pulses in lower extremities. Right lower extremity no pain at the hip and knee or ankle with full motion. Normal sensation and good capillary refill. Neurologic: [] Psychiatric: [] Hematologic/lymphatic/immunologic: [] Vital Signs Vital Signs Date Time Temp Pulse Resp B/P (MAP) Pulse Ox O2 Delivery O2 Flow Rate FiO2 08/16/19 09:46 96 Nasal Cannula 2.00 08/16/19 09:34 36.8 81 96 28 08/16/19 08:51 36.8 80 20 125/68 (87) 95 Nasal Cannula 3.00 08/16/19 08:00 95 Nasal Cannula 3.00 08/16/19 07:52 95 Nasal Cannula 2.00 08/16/19 04:30 37.3 82 18 121/69 (86) 96 Nasal Cannula 3.00 08/16/19 00:05 37.0 79 16 111/63 (79) 95 Nasal Cannula 3.00 08/15/19 22:58 96 Nasal Cannula 2.00 08/15/19 19:50 Nasal Cannula 2.00 08/15/19 19:39 37.0 74 97 28 08/15/19 19:34 36.5 78 20 144/79 94 Nasal Cannula 3.00 08/15/19 19:34 36.5 78 20 144/79 (100) 94 Nasal Cannula 3.00 08/15/19 18:35 37.0 76 17 120/89 (108) 98 Nasal Cannula 2.00 08/15/19 15:55 37.0 87 16 139/93 (108) 95 Nasal Cannula 2.00 I & O 08/16/19 07:00 Intake Total 1200 ml Output Total 400 ml Balance 800 ml Lab Results Laboratory Tests 08/15/19 16:40: White Blood Count 8.9, Red Blood Count 4.57, Hemoglobin 13.5, Hematocrit 41, Mean Corpuscular Volume 89, Mean Corpuscular Hemoglobin 30, Mean Corpuscular Hemoglobin Concent 33, Red Cell Distribution Width 13.4, Platelet Count 257, Mean Platelet Volume 8.8, Neutrophils (%) (Auto) 65, Lymphocytes (%) (Auto) 23, Monocytes (%) (Auto) 7, Eosinophils (%) (Auto) 5, Basophils (%) (Auto) 0, Neutrophils # (Auto) 5.7, Lymphocytes # (Auto) 2.1, Monocytes # (Auto) 0.6, Eosinophils # (Auto) 0.4H, Basophils # (Auto) 0.0, Prothrombin Time 13.3, INR Comment 1.0, Sodium Level 140, Potassium Level 4.0, Chloride Level 108H, Carbon Dioxide Level 21, Anion Gap 11, Blood Urea Nitrogen 14, Creatinine 0.84, Estimat Glomerular Filtration Rate > 60, BUN/Creatinine Ratio 17, Glucose Level 134H, Calcium Level 9.1, Corrected Calcium 9.1, Total Bilirubin 0.3, Aspartate Amino Transf (AST/SGOT) 17, Alanine Aminotransferase (ALT/SGPT) 12, Alkaline Phosphatase 50, Total Protein 6.3L, Albumin 4.0 08/15/19 18:11: Urine Color YELLOW, Urine Clarity CLEAR, Urine pH 5.0, Urine Specific Drury >=1.030, Urine Protein NEGATIVE, Urine Glucose (UA) NEGATIVE, Urine Ketones NEGATIVE, Urine Nitrite NEGATIVE, Urine Bilirubin NEGATIVE, Urine Urobilinogen 0.2, Urine Leukocyte Esterase NEGATIVE, Urine RBC (Auto) NEGATIVE, Urine RBC N ONE, Urine WBC NONE, Urine Crystals NONE, Urine Bacteria NEGATIVE, Urine Casts NONE, Urine Mucus SMALLH, Urine Culture Indicated NO Imaging X-rays were reviewed of the pelvis and left hip which is a 2 part intertr ochanteric fracture with mild displacement Assessment and Plan Assessment Intertrochanteric fracture left hip Problem List 2 part intertrochanteric fracture left hip, closed Plan Treatment options were discussed with the patient. I do not feel that nonoperative treatment is an option. I recommended surgical treatment. I talked her about use of the trochanteric fixation nail. Talked to her about the procedure risk complications she would like to proceed. Also talked about use of anabolic sprain postop and also use of Lovenox postop for DVT prophylaxis as well as sequential compression devices. Again she would like to proceed with surgery. She is scheduled for approximately 1 o'clock this afternoon. I did discuss blood loss from the fracture as well as from the surgery and potential for blood transfusion postop which is probably not going to be necessary but we will follow her hemoglobin postop Final Diagonsis Closed 2 part intertrochanteric fracture left hip Level of the visit: Level 3 ELVIS ROBBINS MD Aug 16, 2019 09:53
[2019-08-16] MEDS: DOCUSATE SODIUM 100 MG (COLACE) CAP PO SCH ×2 (10:36→20:49)
[2019-08-16] MEDS ORDERED: LACTATED RINGERS 1,000 ML IV PRN (11:01)
[2019-08-16] MEDS ORDERED: NEO/POLY/BAC (NEOSPORIN) OINT 15 GM TUBE ONE (12:16)
[2019-08-16] MEDS ORDERED: SEVOFLURANE (ULTANE) 15 ML INHAL SOLN ONE ×4 (12:20→14:36)
[2019-08-16] MEDS ORDERED: MIDAZOLAM 2 MG/2 ML (VERSED) VIAL ONE (12:20)
[2019-08-16] MEDS ORDERED: fentaNYL INJECTION 100 MCG/2 ML AMP ONE (12:20)
[2019-08-16] MEDS ORDERED: proPOfol 200 MG/20 ML (DIPRIVAN) VIAL IV ONE (12:20)
[2019-08-16] MEDS ORDERED: DEXAMETHASONE 10 MG/ML (DECADRON) 1 ML VIAL ONE (12:20)
[2019-08-16] MEDS ORDERED: ONDANSETRON 4 MG/2 ML (SDV) Z0FRAN ONE (12:20)
[2019-08-16] MEDS ORDERED: LIDOCAINE PF 2% 5 ML (XYLOCAINE) VIAL ONE (12:20)
--- NOTE | 2019-08-16 12:47 | NUR ---
PATIENT LEFT FLOOR FOR SURGERY. [facility] SENT WITH PATIENT. FAMILY WENT TO SURGERY WAITING ROOM.
[2019-08-16] MEDS ORDERED: ceFAZolin 2 GM/50 ML NS 50 ML IV NR (13:00)
[2019-08-16] MEDS ORDERED: BUPIVACAINE 0.5% 30 ML (SENSORCAINE) VIAL ONE (13:58)
[2019-08-16] MEDS ORDERED: ONDANSETRON 4 MG/2 ML (SDV) Z0FRAN IVP PRN (14:30)
[2019-08-16] MEDS ORDERED: morphine INJ 10 MG/ML 1ML (SYR OR VIAL) IVP ONE (14:30)
[2019-08-16] MEDS ORDERED: HYDROmorphone 2 MG/ML VIAL (DILAUDID) IV ONE (14:30)
[2019-08-16] MEDS ORDERED: PHENYLEPHRINE 100 MCG/ML 10 ML (ANESTHESIA) SYR ONE (14:36)
[2019-08-16] MEDS ORDERED: fentaNYL INJECTION 100 MCG/2 ML AMP IVP PRN (15:00)
--- NOTE | 2019-08-16 15:08 | Operative Report - Ortho ---
Operative Report Surgeon (s)/Hse Advisor (s) Surgeon ELVIS ROBBINS MD Hse Advisor n/a Pre-Operative Diagnosis three-part intertrochanteric fracture left hip/closed Post-Operative Diagnosis same Operative Report Date of Procedure: Aug 16, 2019 Name of Procedure Performed: Short trochanteric fixation nail left hip Description & Findings The patient was seen in the preoperative area and she had no questions or concerns. She was taken to the operating room in her hospital bed and after general anesthesia was placed on the fracture table. Her left leg was placed in the traction boot and adduction and slight internal rotation. The right leg was placed in the well leg chu in flexion and abduction. He was given 2 g Ancef IV preoperatively. Timeout was performed. The left hip was then prepped and draped in the usual sterile manner. The left thigh was marked prior to surgery in her hospital room. Images used to visualize the fracture alignment with traction countertraction off a perineal post. Again was slight internal rotation the fracture lined up very well with some traction. An incision was made just proximal to the tip of the greater trochanter. This was taken down through subjacent tissue and through the gluteal fascia and musculature to the tip of the greater trochanter. Guidewire was placed through the tip of the greater trochanter slightly medial and on the lateral view in line with the femoral shaft. This was then overreamed with a 17 mm reamer. A short trochanteric fixation nail was selected 11 mm x 1 70 mm. This was inserted and positioned for placement of the helical blade. Through the lateral guide guidewire for the helical blade was placed through a skin incision into the central aspect of the neck and head. This was measured and an 85 mm helical blade was selected. Lateral cortex was then opened with the lateral cortex reamer. The 85 mm helical blade was inserted over the guidewire into the central aspect of the neck and head to within about 5 mm of the articular surface on both AP and lateral views. This was then locked into place and then compression was applied using the lateral guide. The lateral guide and guidewire were removed. The guide for the distal locking screw was inserted through a separate incision this was drilled measured and a 38 mm distal locking screw was inserted. Images used to visualize the entire fracture as well as a TFN in excellent alignment was noted. This was noted on both AP and lateral views. At this point the guide was removed. Wounds were irrigated with normal saline. Fascia was closed with 0 Vicryl. Subtenon's ti ssue with 2-0 Vicryl and the skin was closed with skin clips. Wounds were dressed with triple antibiotic ointment, Adaptic and 4 x 4's. ABDs was applied and taped in position. This point anesthesia inserted a fascial iliacus block. The patient was then transferred to her hospital bed and to recovery room in good condition she tolerated procedure well. When she is placed on the hospital bed she had equal internal and external rotation of her hips and had equal length of her legs. Blood [id number] mL's drainsnone Complicationsnone n/a Anesthesia Type Gen. Estimated Blood Loss 100 mls Packing none. Specimen(s) collected/removed none ELVIS ROBBINS MD Aug 16, 2019 15:08
[2019-08-16] MEDS: RT-ALBUTEROL/IPRATROPIUM 3 ML (DUONEB) VIAL INH SCH ×2 (15:16→22:34)
--- NOTE | 2019-08-16 15:20 | NUR ---
PATIENT RETURNED TO FLOOR FROM SURGERY. BEDSIDE REPORT FROM ORNAMENTAL METAL ERECTOR APPRENTICE DESIRE. DRESSING TO LEFT HIP IS DRY. SMALL DRAINAGE SHADOW AREA VISUALIZED AND CIRCLED. ICE TO LEFT HIP. BILATERAL PEDAL PULSES PRESENT. PATIENT DENIES PAIN AND IS RESTING COMFORTABLY WITH EYES CLOSED. WILL CONTINUE TO MONITOR.
--- NOTE | 2019-08-16 16:03 | Diagnostic Imaging Report ---
INDICATION: Hip fracture, undergoing fixation. TECHNIQUE: Three intraprocedural images of the left hip. FINDINGS: The hospital Radiology Department provided fluoroscopic imaging for the clinical service in support of an interventional procedure. A radiologist was not involved in the procedure. Please reference the operating provider's procedure note. FLUOROSCOPY TIME: 55.4 seconds IMPRESSION: Intraoperative imaging demonstrates placement of internal fixation hardware transfixing the intertrochanteric femur fracture. Dictated by: Dictated on workstation # [id number]
[2019-08-16] MEDS: HYDROcodone/APAP 5 MG/325 MG (LORTAB) TAB PO PRN (20:49)
[2019-08-16] MEDS: MONTELUKAST 10 MG (SINGULAIR) TAB PO SCH (20:49)
[2019-08-16] MEDS: ceFAZolin 2 GM/50 ML NS 50 ML IV SCH (20:50)
[2019-08-16] MEDS ORDERED: RT-ALBUTEROL/IPRATROPIUM 3 ML (DUONEB) VIAL INH SCH (21:00)
[2019-08-17] VITALS: BP 114/66
[2019-08-17] MEDS: NS IV 1000 ML 1,000 ML IV SCH ×3 (00:07→17:00)
[2019-08-17] MEDS: RT-ALBUTEROL/IPRATROPIUM 3 ML (DUONEB) VIAL INH SCH ×4 (02:38→19:19)
[2019-08-17 04:00] VITALS: BP 114/61
[2019-08-17 05:09] LABS: HEMOGLOBIN 10.1 G/DL (11.5-16.0)
[2019-08-17] MEDS: ENOXAPARIN 30 MG/0.3 ML (LOVENOX) SYR SC SCH (05:54)
[2019-08-17] MEDS: ceFAZolin 2 GM/50 ML NS 50 ML IV SCH ×2 (05:55→13:49)
[2019-08-17] MEDS: HYDROcodone/APAP 5 MG/325 MG (LORTAB) TAB PO PRN ×3 (05:56→20:34)
--- NOTE | 2019-08-17 06:50 | Anesthesia-General Post-Op ---
General Patient Condition Mental Status/LOC: Same as Preop Cardiovascular: Satisfactory Nausea/Vomiting: Absent Respiratory: Satisfactory Pain: Controlled Complications: Absent Post Op Complications Complications None Follow Up Care/Instructions Patient Instructions None needed. Anesthesia/Patient Condition Patient Condition Patient is doing well, no complaints, stable vital signs, no apparent adverse anesthesia problems. No complications reported per nursing. SIMON ROJO CRNA Aug 17, 2019 06:50
--- NOTE | 2019-08-17 07:18 | Progress Note ---
Subjective Date Seen by a Provider: Aug 17, 2019 Time Seen by a Provider: 07:00 Subjective/Events-last exam Patient in very good spirits this morning. She does have appetite as well. Her pain level is markedly improved from yesterday. She hasn't been up to walk but is planned for this afternoon along with physical therapy. She denies any shortness of breath or dyspnea Objective Exam Vital Signs Date Time Temp Pulse Resp B/P (MAP) Pulse Ox O2 Delivery O2 Flow Rate FiO2 08/17/19 04:00 36.1 69 18 114/61 (78) 97 Nasal Cannula 3.00 08/17/19 02:38 97 Nasal Cannula 2.00 08/17/19 00:00 36.2 74 18 114/66 (82) 95 Nasal Cannula 3.00 08/16/19 22:34 98 Nasal Cannula 2.00 08/16/19 20:00 96 Nasal Cannula 3.00 08/16/19 20:00 37.3 88 16 116/67 (83) 75 Nasal Cannula 3.00 08/16/19 16:00 37.1 87 16 132/66 (88) 95 Nasal Cannula 3.00 08/16/19 15:20 Nasal Cannula 2 08/16/19 15:20 36.4 14 130/89 (103) 96 Nasal Cannula 2 08/16/19 15:10 14 127/73 (91) 96 Nasal Cannula 2 08/16/19 15:05 Nasal Cannula 2 08/16/19 15:00 12 127/74 (91) 95 Nasal Cannula 2 08/16/19 14:50 12 146/82 (103) 98 Nasal Cannula 2 08/16/19 14:50 Nasal Cannula 2 08/16/19 14:40 16 143/92 (109) 98 OxyMask 4 08/16/19 14:35 OxyMask 4 08/16/19 14:30 14 137/71 (93) 99 OxyMask 4 08/16/19 14:20 OxyMask 4 08/16/19 14:20 37.2 21 129/84 (99) 99 OxyMask 4 08/16/19 11:00 96 Nasal Cannula 2.00 08/16/19 09:46 96 Nasal Cannula 2.00 08/16/19 09:34 36.8 81 96 28 08/16/19 08:51 36.8 80 20 125/68 (87) 95 Nasal Cannula 3.00 08/16/19 08:00 95 Nasal Cannula 3.00 08/16/19 07:52 95 Nasal Cannula 2.00 I & O 08/17/19 07:00 Intake Total 2300 ml Output Total 400 ml Balance 1900 ml Capillary Refill : Less Than 3 SecondsLess Than 3 Seconds General Appearance: No Apparent Distress HEENT: Pharynx Normal Neck: Supple Respiratory: Lungs Clear (But distant) Cardiovascular: Regular Rate, Rhythm Gastrointestinal: soft Neurologic/Psychiatric: Alert, Oriented x3 Results Lab Laboratory Tests 08/17/19 04:30: Hemoglobin 10.1#L, Hematocrit 31L Assessment/Plan Assessment/Plan Assess & Plan/Chief Complaint 1. Left intertrochanteric hip fractureacute -Orthopedics has been consult to and spoken to via ER provider during the afternoon of August 15, 2019. Plan is to repair the hip on August 16, 2019. -Hemoglobin stable -Patient does not have a cardiac history and is medically cleared for surgery. Her main risk factor is her COPD 08/17 -Status post repair of fracture day number 2 -Patient receiving Lovenox for DVT prevention -Hemoglobin monitoring 2. COPD history of -We will maintain her on nasal cannula oxygen. She will also received albuterol breathing treatments as she effectively takes these typically twice daily. -She is currently nothing by mouth and she will have medications for her COPD restarted after surgery. 08/17 -COPD today is very stable. She is on nasal cannula oxygen at 3 L. -Her home medications have been restarted Clinical Quality Measures Admission Status Admission Dx 1. Left intertrochanteric hip fractureacute -Orthopedics has been consult to and spoken to via ER provider during the afternoon of August 15, 2019. Plan is to repair the hip on August 16, 2019. -Hemoglobin stable -Patient does not have a cardiac history and is medically cleared for surgery. Her main risk factor is her COPD 2. COPD history of -We will maintain her on nasal cannula oxygen. She will also received albuterol breathing treatments as she effectively takes these typically twice daily. -She is currently nothing by mouth and she will have medications for her COPD restarted after surgery. DVT/VTE Risk/Contraindication: Risk Factor Score Per Nursin RFS Level Per Nursing on Admit: 4+=Very High TYRON BOOTHE MD Aug 17, 2019 07:18
[2019-08-17 08:00] VITALS: BP 112/58
[2019-08-17] MEDS: DOCUSATE SODIUM 100 MG (COLACE) CAP PO SCH ×2 (08:28→20:34)
[2019-08-17] MEDS: ONDANSETRON 4 MG/2 ML (SDV) Z0FRAN IV PRN (08:31)
--- NOTE | 2019-08-17 10:08 | Progress Note - Ortho ---
Progress Note Subjective Date of Exam 08/17/19 Chief Complaint POD#1 short TFN left hip for intertrochanteric fracture HPI/Events since last exam Mrs Crooks is 1 day postop short TFN left hip for intertrochanteric fracture. She states she's having mild pain. No spasms. She has not been out of bed yet or had physical therapy yet this morning. No problems with nausea or vomiting Review of Systems Reviewed and no additions or changes Allergies: Coded Allergies: No Known Drug Allergies (Unverified , 01/18/18) Home Meds Reported Medications Albuterol Sulfate (Albuterol Sulfate) 2.5 Mg/3 Ml Vial.neb, 2.5 MG NEB BID, EA 08/16/19 Albuterol Sulfate (Ventolin Hfa) 18 Gm Hfa.aer.ad, 2 PUFF INH Q4H PRN for SHORTNESS OF BREATH, INHALER 08/16/19 Montelukast Sodium (Montelukast Sodium) 10 Mg Tablet, 10 MG PO HS, TAB 08/16/19 Discontinued Reported Medications Albuterol Sulfate (PROAIR HFA) 1 Puff Puff, 2 PUFF IH Q4H PRN for SHORTNESS OF BREATH, PUFF 1 PUFF = 90 MCG 10/21/16 Discontinued Scripts Tramadol HCl (Tramadol HCl) 50 Mg Tablet, 50 MG PO Q12H PRN for PAIN-MODERATE, #14 TAB Prov:TERE LANDA MD 01/20/18 Objective Exam Constitutional: [] HEENT: [] Neck: [] Cardiovascular: [] Respiratory: [] Gastrointestinal: [] Genitourinary: [] Skin: [] Back/Spine: [] Extremities: [Left leg is in good position and a cold to the right side. No calf tenderness and negative Homans. Dressing is intact. She has normal sensation of the foot and toes with good cap refill and equal pulses. No weakness on dorsiflexion or plantar flexion of the foot and ankle. Mild pain with gentle range of motion left hip. No pain at the knee] Neurologic: [] Psychiatric: [] Hematologic/lymphatic/immunologic: [] Vital Signs Vital Signs Date Time Temp Pulse Resp B/P (MAP) Pulse Ox O2 Delivery O2 Flow Rate FiO2 08/17/19 08:03 97 Nasal Cannula 2.00 08/17/19 08:00 36.9 82 18 112/58 (76) 95 Nasal Cannula 3.00 08/17/19 04:00 36.1 69 18 114/61 (78) 97 Nasal Cannula 3.00 08/17/19 02:38 97 Nasal Cannula 2.00 08/17/19 00:00 36.2 74 18 114/66 (82) 95 Nasal Cannula 3.00 08/16/19 22:34 98 Nasal Cannula 2.00 08/16/19 20:00 96 Nasal Cannula 3.00 08/16/19 20:00 37.3 88 16 116/67 (83) 75 Nasal Cannula 3.00 08/16/19 16:00 37.1 87 16 132/66 (88) 95 Nasal Cannula 3.00 08/16/19 15:20 Nasal Cannula 2 08/16/19 15:20 36.4 14 130/89 (103) 96 Nasal Cannula 2 08/16/19 15:10 14 127/73 (91) 96 Nasal Cannula 2 08/16/19 15:05 Nasal Cannula 2 08/16/19 15:00 12 127/74 (91) 95 Nasal Cannula 2 08/16/19 14:50 12 146/82 (103) 98 Nasal Cannula 2 08/16/19 14:50 Nasal Cannula 2 08/16/19 14:40 16 143/92 (109) 98 OxyMask 4 08/16/19 14:35 OxyMask 4 08/16/19 14:30 14 137/71 (93) 99 OxyMask 4 08/16/19 14:20 OxyMask 4 08/16/19 14:20 37.2 21 129/84 (99) 99 OxyMask 4 08/16/19 11:00 96 Nasal Cannula 2.00 I & O 08/17/19 07:00 Intake Total 2700 ml Output Total 1250 ml Balance 1450 ml Lab Results Laboratory Tests 08/17/19 04:30: Hemoglobin 10.1#L, Hematocrit 31L Microbiology 08/16/19 MRSA Screen - Final, Complete MRSA not isolated Assessment and Plan Assessment Moving well first day postop Hemoglobin 10.1 Problem List Unchanged Plan Physical therapy, partial weightbearing on the left. Walker ambulation. Out of bed to chair as tolerated. Final Diagonsis Status post short TFN left hip Level of the visit: Level 3 Clinical Quality Measures DVT/VTE Risk/Contraindication: Risk Factor Score Per Nursin RFS Level Per Nursing on Admit: 4+=Very High ELVIS ROBBINS MD Aug 17, 2019 10:08
--- NOTE | 2019-08-17 10:13 | Physical Therapy Evaluation ---
PT Evaluation-General Medical Diagnosis Admission Date Aug 15, 2019 at 17:44 Medical Diagnosis: Left Hip Fracture Onset Date: Aug 15, 2019 Therapy Diagnosis Therapy Diagnosis: Debility Height/Weight Height (Feet): 5 Height (Inches): 7.00 Weight (Pounds): 108 Weight (Ounces): 0.0 Precautions Precautions/Isolations: Fall Prevention, Standard Precautions Weight Bear Status Right Lower Extremity: Right Full Weight Bearing Left Lower Extremity: Left Partial Weight Bearing Referral Physician: Vivek Reason for Referral: Evaluation/Treatment Medical History Pertinent Medical History: COPD, Smoking (Former, quit 2015) Additional Medical History Valvular Heart Disease Current History ER via EMS post fall Reviewed History: Yes Social History Home: Single Level Current Living Status: Spouse Entry Into Home: Ramp PT Steps Into Home: 0 PT Steps Inside Home: 0 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 5-Jpirczpidz-ekutomn completes the activity by him/herself with no assistance from a helper. 5-Set-up or Clean-up Assistance-helper sets up or cleans up; patient completes activity. [place] assists only prior to or following the activity. 4-Supervision or Touching Assistance-helper provides verbal cues and/or touching/steadying and/or contact guard assistance as patient completes activity. Assistance may be provided throughout the activity or intermittently. 3-Partial/Moderate Assistance-helper does LESS THAN HALF the effort. Cartwright lifts, holds or supports trunk or limbs, but provides less than half the effort. 2-Substantial/Maximal Assistance-helper does MORE THAN HALF the effort. [place]wright lifts or holds trunk or limbs and provides more than half the effort. 0-Sxqsftzha-aveqev does ALL the effort. Patient does none of the effort to complete the activity. Or, the assistance of 2 or more helpers is required for the patient to complete the activity. If activity was not attempted, code reason: 7-Patient Refused. 9-Not Applicable-not attempted and the patient did not perform the activity before the current illness, exacerbation or injury. 10-Not Attempted due to Environmental Limitations-(lack of equipment, weather restraints, etc.). 88-Not Attempted due to Medical Conditions or Safety Concerns. Bed Mobility: 6 Transfers (B,C,W/C): 6 Gait: 6 Stairs: 6 Indoor Mobility (Ambulation): Independent Stairs: Independent Prior Devices Use: None PT Evaluation-Current Subjective Patient is agreeable to therapy. Pain Numeric Pain Scale: 5-Moderate Pain Location: Left Location Body Site: Hip Objective Patient Orientation: Person, Place, Time, Situation Attachments: Oxygen, Milligan Catheter, IV ROM/Strength ROM Lower Extremities WFL BLE, patient is slow in moving LLE. Strength Lower Extremities WFL except LLE has expected weakness following surgery Integumentary/Posture Integumentary See nursing notes Bowel Incontinence: No Bladder Incontinence: Milligan Cath Posture WFL Neuromuscular (Tone, Coordination, Reflexes) Grossly intact Sensory Vision: Wears Glasses Hearing: Functional Sensation Right Lower Extremit: Intact Sensation Left Lower Extremity: Intact Transfers Roll Left to Right (QC): 3 Sit to Lying (QC): 3 Lying to Sitting/Side of Bed(Q: 3 Sit to Stand (QC): 4 Chair/Knn-mq-Rnngq Xfer(QC): 4 Patient is able to move LLE but in bed mobility lifted leg slightly as a guide but patient actively moved leg. Gait Does the Patient Walk?: Yes Mode of Locomotion: Walk Anticipated Mode of Locomotion: Walk Walk 10 feet (QC): 4 Distance: 10' Gait Assistive Device: FWW Comments/Gait Description CGA for safety. Wheelchair Training Does the Pt Use a Wheelchair?: No Balance Sitting Static: Normal Sitting Dynamic: Normal Standing Static: Normal Standing Dynamic: Normal Assessment/Needs Patient is able to maintain weight bearing status during ambulation. Patient ceased ambulation at this time due to fatigue. Patient encouraged to keep leg moving while sitting in chair or laying in bed throughout the day. Patient will benefit from skilled therapy to aide in reaching maximum LOF while at home. Rehab Potential: Good PT Correction Goals Licensed Reactor Operator Goals PT Correction Goals Time Frame: Aug 24, 2019 Roll Left & Right (QC): 6 Sit to Lying (QC): 6 Lying-Sitting on Side/Bed(QC): 6 Sit to Stand (QC): 6 Chair/Krb-tv-Fiqza Xfer(QC): 6 Does the Patient Walk: Yes Walk 10 feet (QC): 6 Walk 50ft with 2 Turns (QC): 6 Walk 150 ft (QC): 6 Does the Pt use WC or Scooter?: No PT Plan Problem List Problem List: Activity Tolerance, Functional Strength, Safety, Balance, Gait, Transfer, Bed Mobility, ROM Treatment/Plan Treatment Plan: Continue Plan of Care Treatment Plan: Bed Mobility, Education, Functional Activity Evelyn, Functional Strength, Gait, Safety, Therapeutic Exercise, Transfers Treatment Duration: Aug 24, 2019 Frequency: 11 times per week Estimated Hrs Per Day: .5 hour per day Patient and/or Family Agrees t: Yes Safety Risks/Education Patient Education: Gait Training, Transfer Techniques, Safety Issues Teaching Recipient: Patient Teaching Methods: Discussion Response to Teaching: Reinforcement Needed Discharge Recommendations Discharge Status/Home Program Patient would be good candidate for inpatient rehab to recover and reach maximum LOF. Time/GCodes Time In: 952 Time Out: 1009 Total Billed Treatment Time: 17 Total Billed Treatment 1 visit [facility] (17 minutes) KLEVER LAGUNAS PT Aug 17, 2019 10:13
--- NOTE | 2019-08-17 10:52 | Occupational Therapy Eval ---
OT Evaluation-General/PLF Medical Diagnosis Admission Date Aug 15, 2019 at 17:44 Medical Diagnosis: Left Hip Fracture Onset Date: Aug 15, 2019 Therapy Diagnosis Therapy Diagnosis: decreased self care skills Height/Weight Height (Feet): 5 Height (Inches): 7.00 Weight (Pounds): 108 Weight (Ounces): 0.0 Precautions Precautions/Isolations: Fall Prevention, Standard Precautions Safety Interventions: Reorient-PRN Weight Bear Status Weight Bearing Restriction: Partial Weight Bearing Location Restriction: L LE Referral Physician: Vivek Medical History Pertinent Medical History: COPD, Smoking (Former, quit 2016) Additional Medical History valvular heart disease Current History Pt admitted with left hip fracture. Status post short TFN left hip. Pt is PWB left LE Social History Home: Single Level Current Living Status: Spouse (Pt states she assists spouse) Entry Into Home: Ramp Steps Into Home: 0 Steps Inside Home: 0 ADL-Prior Level of Function SCALE: Activities may be completed with or without assistive devices. 1-Znkwygbmfc-xxxbyiq completes the activity by him/herself with no assistance from a helper. 5-Set-up or Clean-up Assistance-helper sets up or cleans up; patient completes activity. [place] assists only prior to or following the activity. 4-Supervision or Touching Assistance-helper provides verbal cues and/or touching/steadying and/or contact guard assistance as patient completes activity. Assistance may be provided throughout the activity or intermittently. 3-Partial/Moderate Assistance-helper does LESS THAN HALF the effort. [place]ax lift s, holds or supports trunk or limbs, but provides less than half the effort. 2-Substantial/Maximal Assistance-helper does MORE THAN HALF the effort. [place] lifts or holds trunk or limbs and provides more than half the effort. 8-Aqmenykzg-zprrcf does ALL the effort. Patient does none of the effort to complete the activity. Or, the assistance of 2 or more helpers is required for the patient to complete the activity. If activity was not attempted, code reason: 7-Patient Refused. 9-Not Applicable-not attempted and the patient did not perform the activity before the current illness, exacerbation or injury. 10-Not Attempted due to Environmental Limitations-(lack of equipment, weather restraints, etc.). 88-Not Attempted due to Medical Conditions or Safety Concerns. ADL PLOF Comments Pt reports being independent with ADLs and mobility prior to admission. Pt states she assists spouse who is in a w/c. 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 Self Care: Independent Functional Cognition: Independent DME/Equipment: Bath Chair, Grab Bars, Shower, Tall Toilet Drive Self: Yes OT Current Status Subjective Pt sitting in chair, agrees to therapy. Pt reports 6/10 pain in left LE. Mental Status/Objective Patient Orientation: Person, Place, Situation Attachments: Milligan Catheter, IV, Oxygen Current Glasses/Contacts: Yes Hand Dominance: Right Upper Extremity ROM WFL Upper Extremity Coordination Intact Upper Extremity Sensation Intact per pt report Upper Extremity Strength grossly WFL ADL-Treatment ADL-Current Pt sitting in chair, participated in UE assessment. Pt states she was able to feed herself this morning, but was only able to eat a little bit. Pt declined bathing or grooming at this time. Education was provided regarding completion of LE ADLs and use of adaptive equipment as needed. Educated pt on role of OT and plan of care. Pt states understanding of education and is in agreement with plan of care. Pt requests to remain seated in chair at this time. All needs met after session. Eating (QC): 6 (per pt report) Education OT Patient Education: Modified ADL techniques, Rehab process Teaching Recipient: Patient Teaching Methods: Discussion Response to Teaching: Verbalize Understanding OT Communication Equipment Repairer Goals Communication Equipment Repairer Goals Time Frame: Aug 31, 2019 Eating (QC): 6 Oral Hygiene (QC): 6 Toileting Hygiene (QC): 6 Shower/Bathe Self (QC): 6 Upper Body Dressing (QC): 6 Lower Body Dressing (QC): 6 On/Off Footwear (QC): 6 Additional Goals: 1-Demonstrate ADL Tasks, 2-Verbalize Understanding, 3- ImproveStrength/Evelyn 1=Demonstrate adherence to instructed precautions during ADL tasks. 2=Patient will verbalize/demonstrate understanding of assistive devices/modifications for ADL. 3=Patient will improve strength/tolerance for activity to enable patient to perform ADL's. OT Education/Plan Problem List/Assessment Assessment: Decreased Activ Tolerance, Impaired Self-Care Skills Pt admitted to hospital with left hip fracture, now s/p surgical intervention. Pt to benefit from skilled OT intervention for ADL training, transfers, strengthening, and home safety education to increase level of function and allow safe return home. Discharge Recommendations Plan/Recommendations: Continue POC Treatment Plan/Plan of Care Treatment,Training & Education: Yes Patient would benefit from OT for education, treatment and training to promote independence in ADL's, mobility, safety and/or upper extremity function for ADL's. Plan of Care: ADL Retraining, Functional Mobility, UE Funct Exercise/Act Treatment Duration: Aug 31, 2019 Frequency: 5 times per week Estimated Hrs Per Day: .25 hour per day Rehab Potential: Good Time/GCodes Start Time: 10:28 Stop Time: 10:40 Total Time Billed (hr/min): 12 Billed Treatment Time 1 visit, EVL(12minutes) STEVEN REBOLLAR OT Aug 17, 2019 10:52
[2019-08-17 12:00] VITALS: BP 113/58
--- NOTE | 2019-08-17 13:02 | NUR ---
"RD ASSESSMENT PMHx: COPD PT INTERACTION: Pt was awake and pleasant during nutrition assessment. Pt states current appetite is poor and has been for some time. Note avg PO intake of <25% x2meal per chart review. Pt states following a regular diet at home and has no issues with chewing/swallowing food. Pt states recent issues with n/v, and reports one episode of emesis after breakfast this morning. Pt states no issues with constipation/diarrhea and that her last BM was 08/15. Note pt currently on bowel regimen of colace BID, per chart review. Pt states no recent wt changes. Note unable to determine recent wt hx, per chart review. ABNORMAL NUTRITION-RELATED LAB VALUES LOW: Pro 6.3 HIGH: Cl 108; glu 134 Est. kcal needs: 9636-7031 kcal/kg Est. Pro needs: 51-61 g Pro | 1.0-1.2 g Pro/kg PES STATEMENT: Inadequate oral intake (NI-2.1) related to loss of appetite | nausea | vomiting as evidenced by pt interview | avg PO intake <25% x2meal INTERVENTION: Continue with current diet order of Regular diet. Add Ensure Clear to meals TID, for increased kcal intake. Provides 250 kcal and 8 g Pro per serving. Will continue to follow and reassess as pt needs and status change. MONITOR/EVALUATE: PO Intake; Plan of Care; Hydration Status; Weight Status; Lab Values Vasiliy Villela, MS, RD, LD"
--- NOTE | 2019-08-17 13:30 | Physical Therapy Daily Note ---
PT Daily Note-Current Subjective Patient in bed pre tx, agrees to PT reluctantly, has 6/10 pain in left leg. Patient is upset about being bothered so much in the hospital. Appearance Patient in recliner post tx with nurse call, phone, tray, family in the room. She doesn't want to be reclined because she says that's how she fell in the first place and now associates being in a recliner with falling. Mental Status Patient Orientation: Person, Place, Situation Attachments: Oxygen, Milligan Catheter, IV Transfers SCALE: Activities may be completed with or without assistive devices. 9-Cpgyaejdpq-wwrnhat completes the activity by him/herself with no assistance from a helper. 5-Set-up or Clean-up Assistance-helper sets up or cleans up; patient completes activity. Jordan assists only prior to or following the activity. 4-Supervision or Touching Assistance-helper provides verbal cues and/or touching/steadying and/or contact guard assistance as patient completes activity. Assistance may be provided throughout the activity or intermittently. 3-Partial/Moderate Assistance-helper does LESS THAN HALF the effort. Jordan lifts, holds or supports trunk or limbs, but provides less than half the effort. 2-Substantial/Maximal Assistance-helper does MORE THAN HALF the effort. Jordan lifts or holds trunk or limbs and provides more than half the effort. 5-Skuppixfg-cifdto does ALL the effort. Patient does none of the effort to complete the activity. Or, the assistance of 2 or more helpers is required for the patient to complete the activity. If activity was not attempted, code reason: 7-Patient Refused. 9-Not Applicable-not attempted and the patient did not perform the activity before the current illness, exacerbation or injury. 10-Not Attempted due to Environmental Limitations-(lack of equipment, weather restraints, etc.). 88-Not Attempted due to Medical Conditions or Safety Concerns. Roll Left & Right (QC): 6 Lying to Sitting/Side of Bed(Q: 4 Sit to Stand (QC): 4 Chair/Vrf-xg-Zykau Xfer(QC): 4 Weight Bearing Right Lower Extremity: Right Full Weight Bearing Left Lower Extremity: Left Partial Weight Bearing Gait Training Distance: 20' Walk 10 feet (QC): 4 Gait Persons Needed: 1 Gait Assistive Device: FWW Patient ambulates slowly but steady, good step through. She doesn't want to ambulate in the hallway and is for some reason opposed to being attached to a portable oxygen tank so she just ambulates in circles in her room beside her bed and then sits in the recliner afterward. Exercises Seated Therapy Exercises: Ankle pumps, Long arc quads Seated Reps: 15 (Patient states she is aware of the ankle pumps and has been doing them all the time already.) Treatments bed mobility and transfers, ambulation, LE exercise. Patient's O2 after ambulation was 93%. Assessment Current Status: Fair Progress further ambulation, patient is complaint with her weight bearing status. PT Detention Goals Automation Manager Goals PT Automation Manager Goals Time Frame: Aug 24, 2019 Roll Left & Right (QC): 6 Sit to Lying (QC): 6 Lying-Sitting on Side/Bed(QC): 6 Sit to Stand (QC): 6 Chair/Kpp-vl-Xsika Xfer(QC): 6 Does the Patient Walk: Yes Walk 10 feet (QC): 6 Walk 50ft with 2 Turns (QC): 6 Walk 150 ft (QC): 6 Does the Pt use WC or Scooter?: No PT Plan Problem List Problem List: Activity Tolerance, Functional Strength, Safety, Balance, Gait, Transfer, Bed Mobility, ROM Treatment/Plan Treatment Plan: Continue Plan of Care Treatment Plan: Bed Mobility, Education, Functional Activity Evelyn, Functional Strength, Gait, Safety, Therapeutic Exercise, Transfers Treatment Duration: Aug 24, 2019 Frequency: 11 times per week Estimated Hrs Per Day: .5 hour per day Patient and/or Family Agrees t: Yes Safety Risks/Education Patient Education: Gait Training, Transfer Techniques, Correct Positioning, Safety Issues Teaching Recipient: Patient Teaching Methods: Demonstration, Discussion Response to Teaching: Reinforcement Needed Time/GCodes Time In: 1311 Time Out: 1324 Total Billed Treatment Time: 13 Total Billed Treatment 1 visit FA SANJANA MCNEAL PT Aug 17, 2019 13:30
--- NOTE | 2019-08-17 15:49 | NUR ---
IRF Evaluation Order received to evaluate patient for the ARU. Chart review complete and findings discussed with Dr. Cobos - patient accepted for admission. Met with patient to discuss details specific to rehabilitation program. Patient states she is familiar with the program as her was once a patient. Patient states she intends to admit to the ARU, rather than pursuing outpatient therapy. Patient agreeable to required therapy regimen and admission. Anticipate admission, 08/19/19. Thank you for this referral.
[2019-08-17 16:22] VITALS: BP 105/56
[2019-08-17 19:46] VITALS: BP 108/58
[2019-08-17] MEDS: MONTELUKAST 10 MG (SINGULAIR) TAB PO SCH (20:34)
[2019-08-18] VITALS: BP 102/58
[2019-08-18] MEDS: NS IV 1000 ML 1,000 ML IV SCH ×3 (01:15→17:15)
[2019-08-18] MEDS: RT-ALBUTEROL/IPRATROPIUM 3 ML (DUONEB) VIAL INH SCH ×4 (02:20→20:51)
[2019-08-18 04:00] VITALS: BP 125/69
[2019-08-18] MEDS: HYDROcodone/APAP 5 MG/325 MG (LORTAB) TAB PO PRN ×2 (04:37→12:12)
[2019-08-18 04:57] LABS: HEMOGLOBIN 8.8 G/DL (11.5-16.0)
[2019-08-18] MEDS: ENOXAPARIN 30 MG/0.3 ML (LOVENOX) SYR SC SCH (06:29)
[2019-08-18 08:00] VITALS: BP 128/60
[2019-08-18] MEDS: DOCUSATE SODIUM 100 MG (COLACE) CAP PO SCH ×2 (09:07→21:18)
--- NOTE | 2019-08-18 09:51 | Physical Therapy Daily Note ---
PT Daily Note-Current Subjective Intense (L) hip pain with any (L) LE movement. (L) hip pain has made sleeping nearly impossible. Pain Numeric Pain Scale: 8 Location: Left Location Body Site: Hip Pain Description: Stabbing Mental Status Patient Orientation: Person, Place, Time, Situation Transfers SCALE: Activities may be completed with or without assistive devices. 2-Ljnpejkovl-ccorvis completes the activity by him/herself with no assistance from a helper. 5-Set-up or Clean-up Assistance-helper sets up or cleans up; patient completes activity. [place] assists only prior to or following the activity. 4-Supervision or Touching Assistance-helper provides verbal cues and/or touching/steadying and/or contact guard assistance as patient completes activity. Assistance may be provided throughout the activity or intermittently. 3-Partial/Moderate Assistance-helper does LESS THAN HALF the effort. [place] lifts, holds or supports trunk or limbs, but provides less than half the effort. 2-Substantial/Maximal Assistance-helper does MORE THAN HALF the effort. [place] lifts or holds trunk or limbs and provides more than half the effort. 7-Nsbvhzqcn-qceupn does ALL the effort. Patient does none of the effort to complete the activity. Or, the assistance of 2 or more helpers is required for the patient to complete the activity. If activity was not attempted, code reason: 7-Patient Refused. 9-Not Applicable-not attempted and the patient did not perform the activity before the current illness, exacerbation or injury. 10-Not Attempted due to Environmental Limitations-(lack of equipment, weather restraints, etc.). 88-Not Attempted due to Medical Conditions or Safety Concerns. Roll Left & Right (QC): 2 Sit to Lying (QC): 2 Lying to Sitting/Side of Bed(Q: 2 Sit to Stand (QC): 2 Weight Bearing Right Lower Extremity: Right Full Weight Bearing Left Lower Extremity: Left Partial Weight Bearing Gait Training Does the Patient Walk?: Yes Distance: 5ft Gait Assistive Device: FWW Exercises Seated Therapy Exercises: LE Protocol Seated Reps: 15 Assessment (L) hip and knee ROM are very limited due to (L) hip pain. She was able to perform sit to stand and ambulate a short distance but was limited by dyspnea. PT Kettle Skimmer Goals Shelter Goals PT Shelter Goals Time Frame: Aug 24, 2019 Roll Left & Right (QC): 6 Sit to Lying (QC): 6 Lying-Sitting on Side/Bed(QC): 6 Sit to Stand (QC): 6 Chair/Pnu-bq-Dxvjd Xfer(QC): 6 Does the Patient Walk: Yes Walk 10 feet (QC): 6 Walk 50ft with 2 Turns (QC): 6 Walk 150 ft (QC): 6 Does the Pt use WC or Scooter?: No PT Plan Treatment/Plan Treatment Plan: Continue Plan of Care Treatment Plan: Bed Mobility, Education, Functional Activity Evelyn, Functional Strength, Gait, Safety, Therapeutic Exercise, Transfers Treatment Duration: Aug 24, 2019 Frequency: 11 times per week Estimated Hrs Per Day: .5 hour per day Patient and/or Family Agrees t: Yes Time/GCodes Time In: 0810 Time Out: 0840 Total Billed Treatment Time: 30 Total Billed Treatment 1, ex 20, gt 10 KENISHA SAINZ PT Aug 18, 2019 09:51
--- NOTE | 2019-08-18 10:49 | Progress Note - Hospitalist ---
Subjective HPI/CC On Admission Date Seen by Provider: Aug 18, 2019 Time Seen by Provider: 11:00 Subjective/Events-last exam Patient feels tired Interrupted night last night Labs reviewed Iron level pending O2 at night 1 liter Bowels not moving and only moves about every 3 days Nebs ordered Singulair home med restarted IRF tomorrow Review of Systems General: Fatigue Musculoskeletal: leg pain Objective Exam Vital Signs Vital Signs Date Time Temp Pulse Resp B/P (MAP) Pulse Ox O2 Delivery O2 Flow Rate FiO2 08/18/19 12:00 37.9 89 18 135/77 (96) 96 Nasal Cannula 2.00 08/16/19 09:34 28 Capillary Refill : Less Than 3 SecondsLess Than 3 Seconds General Appearance: No Apparent Distress, WD/WN, Chronically ill, Thin Respiratory: No Accessory Muscle Use, No Respiratory Distress, Decreased Breath Sounds Cardiovascular: Regular Rate, Rhythm Extremity: Normal Capillary Refill, Normal Inspection, Normal Range of Motion (except left leg), Non Tender, No Calf Tenderness, No Pedal Edema Neurologic/Psychiatric: Alert, Oriented x3, No Motor/Sensory Deficits, Normal Mood/Affect Results/Procedures Lab Laboratory Tests 08/18/19 04:29 08/18/19 11:05 Patient resulted labs reviewed. Assessment/Plan Assessment and Plan Assess & Plan/Chief Complaint Assessment: Left hip fracture s/p uncomplicated repair COPD on O2 at night and takes Singulair Former smoker Post op constipation Post op anemia Lives at home with who is an amputee lower leg Plan: IRF tomorrow Labs reviewed Home meds BM regimen Diagnosis/Problems Diagnosis/Problems (1) Closed left hip fracture Status: Acute (2) COPD (chronic obstructive pulmonary disease) (3) Nocturnal hypoxia (4) Former smoker (5) Anemia (6) Constipation Clinical Quality Measures DVT/VTE Risk/Contraindication: Risk Factor Score Per Nursin RFS Level Per Nursing on Admit: 4+=Very High CARSON SCHAFFER DO Aug 18, 2019 10:49
[2019-08-18] MEDS ORDERED: BISACODYL 10 MG SUPP (DULCOLAX) PR PRN (11:00)
[2019-08-18] MEDS ORDERED: BISACODYL 10 MG SUPP (DULCOLAX) PR ONE (11:00)
[2019-08-18] MEDS ORDERED: SENNA W/DOCUSATE (SENOKOT S) TABLET PO ONE (11:00)
[2019-08-18] MEDS ORDERED: POLYETHYLENE GLYCOL 17 GM (MIRALAX) PACK PO ONE (11:00)
[2019-08-18 11:17] LABS: BASOPHILS % (AUTO) 0 % (0-10); EOSINOPHILS # (AUTO) 0.2 10^3/uL (0.0-0.3); EOSINOPHILS % (AUTO) 2 % (0-10); HEMATOCRIT 29 % (35-52); HEMOGLOBIN 9.5 G/DL (11.5-16.0); LYMPHOCYTES # (AUTO) 1.6 X 10^3 (1.0-4.0); LYMPHOCYTES % (AUTO) 15 % (12-44); MEAN CORPUSCULAR HEMOGLOBIN 30 PG (25-34); MEAN CORPUSCULAR HGB CONC 32 G/DL (32-36); MEAN CORPUSCULAR VOLUME 93 FL (80-99); MEAN PLATELET VOLUME 9.4 FL (7.4-10.4); MONOCYTES # (AUTO) 1.2 X 10^3 (0.0-1.0); MONOCYTES % (AUTO) 11 % (0-12); NEUTROPHILS % (AUTO) 73 % (42-75); PLATELET COUNT 177 10^3/uL (130-400); RED CELL DISTRIBUTION WIDTH 13.3 % (10.0-14.5)
[2019-08-18 11:34] LABS: ALANINE AMINOTRANSFERASE 9 U/L (0-55); ALBUMIN 3.2 GM/DL (3.2-4.5); ALKALINE PHOSPHATASE 39 U/L (40-136); BILIRUBIN,TOTAL 0.3 MG/DL (0.1-1.0); BUN/CREATININE RATIO 15; CALCIUM 7.9 MG/DL (8.5-10.1); CARBON DIOXIDE 22 MMOL/L (21-32); CHLORIDE 111 MMOL/L (98-107); CREATININE SERUM 0.67 MG/DL (0.60-1.30); GFR ESTIMATED > 60; GLUCOSE 98 MG/DL (70-105); POTASSIUM 3.6 MMOL/L (3.6-5.0); SODIUM 142 MMOL/L (135-145); TOTAL PROTEIN 5.3 GM/DL (6.4-8.2)
[2019-08-18 12:00] VITALS: BP 135/77
--- NOTE | 2019-08-18 12:41 | Physical Therapy Daily Note ---
PT Daily Note-Current Subjective Pt agreeable to PT session. States she is willing to work but needs slow movements and patience. Assured pt we will work with her as she needs. Pt stating she needs her leg exercised and moved some before even attempting to get out of bed. States she is having a lot of sharp shooting pains from L hip down leg sporadically. Denies pain at rest but pain increases with movement and WB. Pain Numeric Pain Scale: 9 Location: Left Location Body Site: Hip Comment: pt req and rcv'd pain med from nurse Mental Status Patient Orientation: Person, Place, Eyes Open, Situation Attachments: SCD's, Oxygen, Milligan Catheter, IV Transfers SCALE: Activities may be completed with or without assistive devices. 7-Tofbshdrem-lcltduo completes the activity by him/herself with no assistance from a helper. 5-Set-up or Clean-up Assistance-helper sets up or cleans up; patient completes activity. [place] assists only prior to or following the activity. 4-Supervision or Touching Assistance-helper provides verbal cues and/or touching/steadying and/or contact guard assistance as patient completes activity. Assistance may be provided throughout the activity or intermittently. 3-Partial/Moderate Assistance-helper does LESS THAN HALF the effort. [place] lifts, holds or supports trunk or limbs, but provides less than half the effort. 2-Substantial/Maximal Assistance-helper does MORE THAN HALF the effort. [place] lifts or holds trunk or limbs and provides more than half the effort. 5-Ndzjsztcs-zwkxbx does ALL the effort. Patient does none of the effort to complete the activity. Or, the assistance of 2 or more helpers is required for the patient to complete the activity. If activity was not attempted, code reason: 7-Patient Refused. 9-Not Applicable-not attempted and the patient did not perform the activity before the current illness, exacerbation or injury. 10-Not Attempted due to Environmental Limitations-(lack of equipment, weather restraints, etc.). 88-Not Attempted due to Medical Conditions or Safety Concerns. Sit to Lying (QC): 2 Lying to Sitting/Side of Bed(Q: 2 Sit to Stand (QC): 4 Chair/Jct-cm-Eztry Xfer(QC): 4 physical assisted required with LLE movement in and out of bed as well as [employer] PROGRAMS DIRECTOR pulling into sitting position, CGA with sit to and from stand transfers as well as stand pivot transfers, very slow movements with all movements and activities Weight Bearing Right Lower Extremity: Right Full Weight Bearing Left Lower Extremity: Left Partial Weight Bearing Gait Training Does the Patient Walk?: Yes Distance: 25 Walk 10 feet (QC): 4 (very guarded CGA due to occasional spasms with pain increased to 10/10 through L hip causing increased unsteadiness, pt was able to hold self and correct until spasm passed) Gait Assistive Device: FWW very slow antalgic guarded gait, decreased stance time LLE, decreased L length and height Exercises Supine Ex: Ankle pumps, Quad Set, Heel Slides, Hip abd/add Supine Reps: 15 (AROM to AAROM to PROM at times) Treatments education, safety, bed mobility, transfers, gait, ROM, strength, balance, functional mobility, activity tolerance Assessment pain limiting tolerance to activities although pt is trying. Pt becomes SOA easily with panting, inst for breathing techniques, pt attempts to follow instruction but with some difficulty as pt showing some signs of anxiety PT Shelter Goals Shelter Goals PT Marshmallow Maker Goals Time Frame: Aug 24, 2019 Roll Left & Right (QC): 6 Sit to Lying (QC): 6 Lying-Sitting on Side/Bed(QC): 6 Sit to Stand (QC): 6 Chair/Epg-zd-Kgybe Xfer(QC): 6 Does the Patient Walk: Yes Walk 10 feet (QC): 6 Walk 50ft with 2 Turns (QC): 6 Walk 150 ft (QC): 6 Does the Pt use WC or Scooter?: No PT Plan Treatment/Plan Treatment Plan: Continue Plan of Care Treatment Plan: Bed Mobility, Education, Functional Activity Evelyn, Functional Strength, Gait, Safety, Therapeutic Exercise, Transfers Treatment Duration: Aug 24, 2019 Frequency: 11 times per week Estimated Hrs Per Day: .5 hour per day Patient and/or Family Agrees t: Yes Safety Risks/Education Patient Education: Gait Training, Transfer Techniques, Reviewed Precautions, Correct Positioning, Disease Process, Safety Issues Teaching Recipient: Patient Teaching Methods: Demonstration, Discussion Response to Teaching: Verbalize Understanding, Return Demonstration, Reinforcement Needed Time/GCodes Time In: 1200 Time Out: 1230 Total Billed Treatment Time: 30 Total Billed Treatment 1 visit, GT x1 unit, EX x1 unit LUIS MIGUEL BLOUNT PTA Aug 18, 2019 12:40
--- NOTE | 2019-08-18 14:12 | Progress Note - Ortho ---
Progress Note Subjective Date of Exam 08/18/19 Chief Complaint POD#2 short TFN left hip for three-part intertrochanteric fracture HPI/Events since last exam Mrs Crooks is doing fairly well at 2 days postop. She states she's having some waves of pain from the hip go down into the leg but no numbness or tingling. With therapy this morning she did very well. Other than that she has no complaints. Review of Systems Reviewed and no additions or changes Allergies: Coded Allergies: No Known Drug Allergies (Unverified , 01/18/18) Home Meds Reported Medications Albuterol Sulfate (Albuterol Sulfate) 2.5 Mg/3 Ml Vial.neb, 2.5 MG NEB BID, EA 08/16/19 Albuterol Sulfate (Ventolin Hfa) 18 Gm Hfa.aer.ad, 2 PUFF INH Q4H PRN for SHORTNESS OF BREATH, INHALER 08/16/19 Montelukast Sodium (Montelukast Sodium) 10 Mg Tablet, 10 MG PO HS, TAB 08/16/19 Discontinued Reported Medications Albuterol Sulfate (PROAIR HFA) 1 Puff Puff, 2 PUFF IH Q4H PRN for SHORTNESS OF BREATH, PUFF 1 PUFF = 90 MCG 10/21/16 Discontinued Scripts Tramadol HCl (Tramadol HCl) 50 Mg Tablet, 50 MG PO Q12H PRN for PAIN-MODERATE, #14 TAB Prov:TERE LANDA MD 01/20/18 Objective Exam Constitutional: [] HEENT: [] Neck: [] Cardiovascular: [] Respiratory: [] Gastrointestinal: [] Genitourinary: [] Skin: [] Back/Spine: [] Extremities: [Dressing is intact. Appealed addressing back her incisions are healing well without redness or drainage. No bleeding. No calf tenderness and negative Homans. No weakness in left lower extremity compared to the right. Equal pulses and equal position of the leg] Neurologic: [] Psychiatric: [] Hematologic/lymphatic/immunologic: [] Vital Signs Vital Signs Date Time Temp Pulse Resp B/P (MAP) Pulse Ox O2 Delivery O2 Flow Rate FiO2 08/18/19 12:00 37.9 89 18 135/77 (96) 96 Nasal Cannula 2.00 08/18/19 10:24 94 Nasal Cannula 2.00 08/18/19 08:00 37.5 93 18 128/60 (82) 94 Nasal Cannula 2.00 08/18/19 08:00 Nasal Cannula 2.00 08/18/19 07:03 97 Nasal Cannula 2.00 08/18/19 04:00 37.6 89 18 125/69 (87) 90 Nasal Cannula 2.00 08/18/19 02:20 94 Nasal Cannula 2.00 08/18/19 00:00 37.6 93 16 102/58 (73) 91 Nasal Cannula 2.00 08/17/19 20:00 98 Nasal Cannula 2.00 08/17/19 19:46 37.5 90 18 108/58 (75) 96 Nasal Cannula 2.00 08/17/19 19:19 94 Nasal Cannula 2.00 08/17/19 16:22 37.3 88 17 105/56 (72) 95 Nasal Cannula 2.00 08/17/19 15:18 94 Nasal Cannula 2.00 I & O 08/18/19 07:00 Intake Total 3400 ml Output Total 2025 ml Balance 1375 ml Lab Results Laboratory Tests 08/18/19 04:29: Hemoglobin 8.8L, Hematocrit 27L 08/18/19 11:05: Hemoglobin 9.5L, Hematocrit 29L, White Blood Count 11.0, Red Blood Count 3.16L, Mean Corpuscular Volume 93, Mean Corpuscular Hemoglobin 30, Mean Corpuscular Hemoglobin Concent 32, Red Cell Distribution Width 13.3, Platelet Count 177, Mean Platelet Volume 9.4, Neutrophils (%) (Auto) 73, Lymphocytes (%) (Auto) 15, Monocytes (%) (Auto) 11, Eosinophils (%) (Auto) 2, Basophils (%) (Auto) 0, Neutrophils # (Auto) 8.0H, Lymphocytes # (Auto) 1.6, Monocytes # (Auto) 1.2H, Eosinophils # (Auto) 0.2, Basophils # (Auto) 0.0, Sodium Level 142, Potassium Level 3.6, Chloride Level 111H, Carbon Dioxide Level 22, Anion Gap 9, Blood Urea Nitrogen 10, Creatinine 0.67, Estimat Glomerular Filtration Rate > 60, BUN/Creatinine Ratio 15, Glucose Level 98, Calcium Level 7.9L, Corrected Calcium 8.5, Total Bilirubin 0.3, Aspartate Amino Transf (AST/SGOT) 20, Alanine Amino transferase (ALT/SGPT) 9, Alkaline Phosphatase 39L, Total Protein 5.3L, Albumin 3.2 Microbiology 08/16/19 MRSA Screen - Final, Complete MRSA not isolated Assessment and Plan Assessment Doing well second day postop Problem List Unchanged Plan Continue walker ambulation partial weightbearing on the left Final Diagonsis Status post short TFN left hip fracture Level of the visit: Level 3 Clinical Quality Measures DVT/VTE Risk/Contraindication: Risk Factor Score Per Nursin RFS Level Per Nursing on Admit: 4+=Very High ELVIS ROBBINS MD Aug 18, 2019 14:12
--- NOTE | 2019-08-18 14:30 | NUR ---
Doctor here and dressing removed. This RN applied a new dressing.
[2019-08-18 16:00] VITALS: BP 117/71
[2019-08-18 20:14] VITALS: BP 129/65
[2019-08-18] MEDS ORDERED: RT-ALBUTEROL SULF 2.5 MG/3 ML PRE-MIX VIAL INH SCH (21:00)
[2019-08-18] MEDS ORDERED: POLYETHYLENE GLYCOL 17 GM (MIRALAX) PACK PO SCH (21:00)
[2019-08-18] MEDS ORDERED: MONTELUKAST 10 MG (SINGULAIR) TAB PO SCH (21:00)
[2019-08-18] MEDS: MONTELUKAST 10 MG (SINGULAIR) TAB PO SCH (21:17)
[2019-08-18] MEDS: SENNA W/DOCUSATE (SENOKOT S) TABLET PO SCH (21:18)
[2019-08-19] VITALS: BP 119/69
[2019-08-19] MEDS: NS IV 1000 ML 1,000 ML IV SCH ×2 (01:22→08:24)
[2019-08-19] MEDS: RT-ALBUTEROL/IPRATROPIUM 3 ML (DUONEB) VIAL INH SCH (02:42)
[2019-08-19 02:53] VITALS: BP 119/69
[2019-08-19 04:55] VITALS: BP 136/70
[2019-08-19 05:10] LABS: BASOPHILS % (AUTO) 0 % (0-10); EOSINOPHILS # (AUTO) 0.2 10^3/uL (0.0-0.3); EOSINOPHILS % (AUTO) 3 % (0-10); HEMATOCRIT 26 % (35-52); HEMOGLOBIN 8.5 G/DL (11.5-16.0); LYMPHOCYTES # (AUTO) 1.4 X 10^3 (1.0-4.0); LYMPHOCYTES % (AUTO) 19 % (12-44); MEAN CORPUSCULAR HEMOGLOBIN 30 PG (25-34); MEAN CORPUSCULAR HGB CONC 33 G/DL (32-36); MEAN CORPUSCULAR VOLUME 92 FL (80-99); MEAN PLATELET VOLUME 9.4 FL (7.4-10.4); MONOCYTES # (AUTO) 0.9 X 10^3 (0.0-1.0); MONOCYTES % (AUTO) 12 % (0-12); NEUTROPHILS # (AUTO) 4.9 X 10^3 (1.8-7.8); NEUTROPHILS % (AUTO) 66 % (42-75); PLATELET COUNT 174 10^3/uL (130-400); RED CELL DISTRIBUTION WIDTH 12.8 % (10.0-14.5); WHITE BLOOD COUNT 7.3 10^3/uL (4.3-11.0)
[2019-08-19 05:32] LABS: ALANINE AMINOTRANSFERASE 9 U/L (0-55); ALBUMIN 2.7 GM/DL (3.2-4.5); ALKALINE PHOSPHATASE 32 U/L (40-136); BILIRUBIN,TOTAL 0.5 MG/DL (0.1-1.0); BUN/CREATININE RATIO 10; CALCIUM 7.7 MG/DL (8.5-10.1); CARBON DIOXIDE 20 MMOL/L (21-32); CHLORIDE 112 MMOL/L (98-107); CREATININE SERUM 0.58 MG/DL (0.60-1.30); GFR ESTIMATED > 60; GLUCOSE 104 MG/DL (70-105); POTASSIUM 3.3 MMOL/L (3.6-5.0); SODIUM 141 MMOL/L (135-145); TOTAL PROTEIN 4.7 GM/DL (6.4-8.2)
[2019-08-19] MEDS: ENOXAPARIN 30 MG/0.3 ML (LOVENOX) SYR SC SCH (06:10)
[2019-08-19 08:00] VITALS: BP 123/63
[2019-08-19] MEDS ORDERED: RT-ALBUTEROL/IPRATROPIUM 3 ML (DUONEB) VIAL INH SCH (08:00)
[2019-08-19] MEDS: DOCUSATE SODIUM 100 MG (COLACE) CAP PO SCH (08:24)
[2019-08-19] MEDS: SENNA W/DOCUSATE (SENOKOT S) TABLET PO SCH (08:24)
--- NOTE | 2019-08-19 09:16 | Discharge Summary ---
Diagnosis/Chief Complaint Date of Admission Aug 15, 2019 at 17:44 Date of Discharge Discharge Date: Aug 19, 2019 Discharge Diagnosis Left hip fracture Postop anemia COPD Former smoker Postop constipation Discharge Summary Discharge Physical Examination Allergies: Coded Allergies: No Known Drug Allergies (Unverified , 01/18/18) Vitals & I&Os Vital Signs Date Time Temp Pulse Resp B/P (MAP) Pulse Ox O2 Delivery O2 Flow Rate FiO2 08/19/19 10:27 37.3 98 16 123/63 99 Nasal Cannula 2.00 08/19/19 02:53 28 General Appearance: Alert, Oriented X3, Cooperative Respiratory: Clear to Auscultation, Normal Air Movement Cardiovascular: Regular Rate Psych/Mental Status: Mental Status NL Hospital Course Was the Problem List Reviewed?: Yes Hospital course: Patient had an uneventful hospital course after she sustained a hip fracture after a fall at home had an uncomplicated repair pain was well- controlled oxygen maintained for chronic COPD with chronic hypoxia and bowel started to move at time of discharge to inpatient rehabilitation. All labs remained stable slightly low iron level will be treated with oral Niferex and patient will be required to complete structure physical therapy in order to return home. Labs (last 24 hrs) Laboratory Tests 08/15/19 16:40: White Blood Count 8.9, Red Blood Count 4.57, Hemoglobin 13.5, Hematocrit 41, Mean Corpuscular Volume 89, Mean Corpuscular Hemoglobin 30, Mean Corpuscular Hemoglobin Concent 33, Red Cell Distribution Width 13.4, Platelet Count 257, Mean Platelet Volume 8.8, Neutrophils (%) (Auto) 65, Lymphocytes (%) (Auto) 23, Monocytes (%) (Auto) 7, Eosinophils (%) (Auto) 5, Basophils (%) (Auto) 0, Neutrophils # (Auto) 5.7, Lymphocytes # (Auto) 2.1, Monocytes # (Auto) 0.6, Eosinophils # (Auto) 0.4H, Basophils # (Auto) 0.0, Prothrombin Time 13.3, INR Comment 1.0, Sodium Level 140, Potassium Level 4.0, Chloride Level 108H, Carbon Dioxide Level 21, Anion Gap 11, Blood Urea Nitrogen 14, Creatinine 0.84, Estimat Glomerular Filtration Rate > 60, BUN/Creatinine Ratio 17, Glucose Level 134H, Calcium Level 9.1, Corrected Calcium 9.1, Total Bilirubin 0.3, Aspartate Amino Transf (AST/SGOT) 17, Alanine Aminotransferase (ALT/SGPT) 12, Alkaline Phosphatase 50, Total Protein 6.3L, Albumin 4.0 08/15/19 18:11: Urine Color YELLOW, Urine Clarity CLEAR, Urine pH 5.0, Urine Specific [place] >=1.030, Urine Protein NEGATIVE, Urine Glucose (UA) NEGATIVE, Urine Ketones NEGATIVE, Urine Nitrite NEGATIVE, Urine Bilirubin NEGATIVE, Urine Urobilinogen 0.2, Urine Leukocyte Esterase NEGATIVE, Urine RBC (Auto) NEGATIVE, Urine RBC NONE, Urine WBC NONE, Urine Crystals NONE, Urine Bacteria NEGATIVE, Urine Casts NONE, Urine Mucus SMALLH, Urine Culture Indicated NO 08/17/19 04:30: Hemoglobin 10.1#L, Hematocrit 31L 08/18/19 04:29: Hemoglobin 8.8L, Hematocrit 27L 08/18/19 11:05: White Blood Count 11.0, Red Blood Count 3.16L, Hemoglobin 9.5L, Hematocrit 29L, Mean Corpuscular Volume 93, Mean Corpuscular Hemoglobin 30, Mean Corpuscular Hemoglobin Concent 32, Red Cell Distribution Width 13.3, Platelet Count 177, Mean Platelet Volume 9.4, Neutrophils (%) (Auto) 73, Lymphocytes (%) (Auto) 15, Monocytes (%) (Auto) 11, Eosinophils (%) (Auto) 2, Basophils (%) (Auto) 0, Neutrophils # (Auto) 8.0H, Lymphocytes # (Auto) 1.6, Monocytes # (Auto) 1.2H, Eosinophils # (Auto) 0.2, Basophils # (Auto) 0.0, Sodium Level 142, Potassium Level 3.6, Chloride Level 111H, Carbon Dioxide Level 22, Anion Gap 9, Blood Urea Nitrogen 10, Creatinine 0.67, Estimat Glomerular Filtration Rate > 60, BUN/Creatinine Ratio 15, Glucose Level 98, Calcium Level 7.9L, Corrected Calcium 8.5, Iron Level 18L, Total Bilirubin 0.3, Aspartate Amino Transf (AST/SGOT) 20, Alanine Aminotransferase (ALT/SGPT) 9, Alkaline Phosphatase 39L, Total Protein 5.3L, Albumin 3.2 08/19/19 05:00: White Blood Count 7.3, Red Blood Count 2.81L, Hemoglobin 8.5L, Hematocrit 26L, Mean Corpuscular Volume 92, Mean Corpuscular Hemoglobin 30, Mean Corpuscular Hemoglobin Concent 33, Red Cell Distribution Width 12.8, Platelet Count 174, Mean Platelet Volume 9.4, Neutrophils (%) (Auto) 66, Lymphocytes (%) (Auto) 19, Monocytes (%) (Auto) 12, Eosinophils (%) (Auto) 3, Basophils (%) (Auto) 0, Neutrophils # (Auto) 4.9, Lymphocytes # (Auto) 1.4, Monocytes # (Auto) 0.9, Eosinophils # (Auto) 0.2, Basophils # (Auto) 0.0, Sodium Level 141, Potassium Level 3.3L, Chloride Level 112H, Carbon Dioxide Level 20L, Anion Gap 9, Blood Urea Nitrogen 6L, Creatinine 0.58L, Estimat Glomerular Filtration Rate > 60, BUN/Creatinine Ratio 10, Glucose Level 104, Calcium Level 7.7L, Corrected Ca lcium 8.7, Total Bilirubin 0.5, Aspartate Amino Transf (AST/SGOT) 17, Alanine Aminotransferase (ALT/SGPT) 9, Alkaline Phosphatase 32L, Total Protein 4.7L, Albumin 2.7L Microbiology 08/16/19 MRSA Screen - Final, Complete MRSA not isolated Pending Labs Microbiology Date/Time Source Procedure Growth Status 08/16/19 00:15 Nasal MRSA Screen - Final MRSA not isolated Complete Laboratory Tests 08/15/19 16:40: White Blood Count 8.9, Red Blood Count 4.57, Hemoglobin 13.5, Hematocrit 41, Mean Corpuscular Volume 89, Mean Corpuscular Hemoglobin 30, Mean Corpuscular Hemoglobin Concent 33, Red Cell Distribution Width 13.4, Platelet Count 257, Mean Platelet Volume 8.8, Neutrophils (%) (Auto) 65, Lymphocytes (%) (Auto) 23, Monocytes (%) (Auto) 7, Eosinophils (%) (Auto) 5, Basophils (%) (Auto) 0, Neutrophils # (Auto) 5.7, Lymphocytes # (Auto) 2.1, Monocytes # (Auto) 0.6, Eosinophils # (Auto) 0.4, Basophils # (Auto) 0.0, Prothrombin Time 13.3, INR Comment 1.0, Sodium Level 140, Potassium Level 4.0, Chloride Level 108, Carbon Dioxide Level 21, Anion Gap 11, Blood Urea Nitrogen 14, Creatinine 0.84, Estimat Glomerular Filtration Rate > 60, BUN/Creatinine Ratio 17, Glucose Level 134, Calcium Level 9.1, Corrected Calcium 9.1, Total Bilirubin 0.3, Aspartate Amino Transf (AST/SGOT) 17, Alanine Aminotransferase (ALT/SGPT) 12, Alkaline Phosphatase 50, Total Protein 6.3, Albumin 4.0 08/15/19 18:11: Urine Color YELLOW, Urine Clarity CLEAR, Urine pH 5.0, Urine Specific [place] >=1.030, Urine Protein NEGATIVE, Urine Glucose (UA) NEGATIVE, Urine Ketones NEGATIVE, Urine Nitrite NEGATIVE, Urine Bilirubin NEGATIVE, Urine Urobilinogen 0.2, Urine Leukocyte Esterase NEGATIVE, Urine RBC (Auto) NEGATIVE, Urine RBC NONE, Urine WBC NONE, Urine Crystals NONE, Urine Bacteria NEGATIVE, Urine Casts NONE, Urine Mucus SMALL, Urine Culture Indicated NO 08/17/19 04:30: Hemoglobin 10.1, Hematocrit 31 08/18/19 04:29: Hemoglobin 8.8, Hematocrit 27 08/18/19 11:05: White Blood Count 11.0, Red Blood Count 3.16, Hemoglobin 9.5, Hematocrit 29, Mean Corpuscular Volume 93, Mean Corpuscular Hemoglobin 30, Mean Corpuscular Hemoglobin Concent 32, Red Cell Distribution Width 13.3, Platelet Count 177, Mean Platelet Volume 9.4, Neutrophils (%) (Auto) 73, Lymphocytes (%) (Auto) 15, Monocytes (%) (Auto) 11, Eosinophils (%) (Auto) 2, Basophils (%) (Auto) 0, Neutrophils # (Auto) 8.0, Lymphocytes # (Auto) 1.6, Monocytes # (Auto) 1.2, Eosinophils # (Auto) 0.2, Basophils # (Auto) 0.0, Sodium Level 142, Potassium Level 3.6, Chloride Level 111, Carbon Dioxide Level 22, Anion Gap 9, Blood Urea Nitrogen 10, Creatinine 0.67, Estimat Glomerular Filtration Rate > 60, BUN/Creatinine Ratio 15, Glucose Level 98, Calcium Level 7.9, Corrected Calcium 8.5, Iron Level 18, Total Bilirubin 0.3, Aspartate Amino Transf (AST/SGOT) 20, Alanine Aminotransferase (ALT/SGPT) 9, Alkaline Phosphatase 39, Total Protein 5.3, Albumin 3.2 08/19/19 05:00: White Blood Count 7.3, Red Blood Count 2.81, Hemoglobin 8.5, Hematocrit 26, Mean Corpuscular Volume 92, Mean Corpuscular Hemoglobin 30, Mean Corpuscular Hemoglobin Concent 33, Red Cell Distribution Width 12.8, Platelet Count 174, Mean Platelet Volume 9.4, Neutrophils (%) (Auto) 66, Lymphocytes (%) (Auto) 19, Monocytes (%) (Auto) 12, Eosinophils (%) (Auto) 3, Basophils (%) (Auto) 0, Neutrophils # (Auto) 4.9, Lymphocytes # (Auto) 1.4, Monocytes # (Auto) 0.9, Eosinophils # (Auto) 0.2, Basophils # (Auto) 0.0, Sodium Level 141, Potassium Level 3.3, Chloride Level 112, Carbon Dioxide Level 20, Anion Gap 9, Blood Urea Nitrogen 6, Creatinine 0.58, Estimat Glomerular Filtration Rate > 60, BUN/Creatinine Ratio 10, Glucose Level 104, Calcium Level 7.7, Corrected Calcium 8.7, Total Bilirubin 0.5, Aspartate Amino Transf (AST/SGOT) 17, Alanine Aminotransferase (ALT/SGPT) 9, Alkaline Phosphatase 32, Total Protein 4.7, Al bumin 2.7 Discharge Home Medications: Active Scripts Active Reported Albuterol Sulfate 2.5 Mg/3 Ml Vial.neb 2.5 Mg NEB BID Ventolin Hfa (Albuterol Sulfate) 18 Gm Hfa.aer.ad 2 Puff INH Q4H PRN Montelukast Sodium 10 Mg Tablet 10 Mg PO HS Instructions to patient/family Please see electronic discharge instructions given to patient. Diagnosis/Problems Diagnosis/Problems (1) Closed left hip fracture Status: Acute (2) COPD (chronic obstructive pulmonary disease) (3) Nocturnal hypoxia (4) Former smoker (5) Anemia (6) Constipation Clinical Quality Measures DVT/VTE Risk/Contraindication: Risk Factor Score Per Nursin RFS Level Per Nursing on Admit: 4+=Very High CARSON SCHAFFER DO Aug 19, 2019 09:16
[2019-08-19] MEDS ORDERED: KCL 10 MEQ TAB (MICRO K) PO ONE (09:30)
[2019-08-19 10:27] VITALS: BP 123/63
--- NOTE | 2019-08-19 10:51 | NUR ---
report given to Vaishnavi WISEMAN in ARU. patient transferred to room 229 with all belongings. patient alert and orientated dressing and IV in tact
--- NOTE | 2019-08-20 11:53 | Physician Query Clarification ---
PQ-Further Specificity Admission/Discharge Admission Date: Aug 15, 2019 at 17:44 Discharge Date: Aug 19, 2019 at 10:27 The medical record reflects the following clinical scenario: History/Risk Factors: S/P ORIF displaced intertrochanteric fracture lt femur Clinical Findings: Hgb/Hct 8.12/17 Treatment: oral niferex Question: Can you further specify postop anemia per the clinical indicators above? Please document a response in the Progress Notes or Discharge Summary. 1. postop anemia due to acute blood loss 2. postop anemia due to dilutional anemia 3. Other, with explanation of the clinical findings. 4. Clinically undetermined, no explanation for the clinical findings. PHYSICIAN RESPONSE Can you specify per above: 1 Please remember a lack of response to the above will prompt a phone page by CDI/Coding staff. In responding to this query, please exercise your independent professional judgment. The purpose of this communication is to more accurately reflect the complexity of your patients condition. The fact that a question is asked does not imply that any particular answer is desired or expected. Thank you for your timely response to this clarification. Requestors name: Sara THIS PHYSICIAN QUERY FORM IS A PERMANENT PART OF THE MEDICAL RECORD SARA CASTAÑEDA Aug 20, 2019 11:53 CARSON SCHAFFER DO Aug 21, 2019 20:24
== END 2019-08-19 10:27 | DRG 481 ==
LOC: EDUNIT# 15:52 → ER 15:55 → 4TH 17:44
PROVIDERS: ADMIT Family Medicine; ATTEND Family Medicine
PROC: 0QS704Z Reposition Left Upper Femur with Internal Fixation Device, Open Approach (ICD-10-PCS; principal; 2019-08-16 13:00)
DX: S72.142A Displaced intertrochanteric fracture of left femur, initial encounter for closed fracture (principal); J44.9 Chronic obstructive pulmonary disease, unspecified; D62 Acute posthemorrhagic anemia; K59.09 Other constipation; R09.02 Hypoxemia; J30.2 Other seasonal allergic rhinitis; I34.1 Nonrheumatic mitral (valve) prolapse; Z99.81 Dependence on supplemental oxygen; Z87.891 Personal history of nicotine dependence; W18.31XA Fall on same level due to stepping on an object, initial encounter; Y92.009 Unspecified place in unspecified non-institutional (private) residence as the place of occurrence of the external cause
CPT/HCPCS: 36415; 51702; 80053; 81000; 83540; 85014; 85018; 85025; 85610; 87081; 94640; 94664; 94760; 96374; 96375

== ENCOUNTER 2019-08-19 10:20 | Inpatient (IN) | payer MEDICARE ==
[~2019-08-19] VITALS: Ht 170 cm; Wt 49.7 kg
[~2019-08-19 10:20] MED LIST changes: +ALBU18HF2 INH; +ALBU2.5V4 NEB; +ALPRAZolam 0.25 MG (XANAX) TAB PO PRN; +BISACODYL 10 MG SUPP (DULCOLAX) PR PRN; +CALCIUM CARBONATE 500 MG (TUMS) TAB.CHEW PO PRN; +DOCUSATE SODIUM 100 MG (COLACE) CAP PO PRN; +DOCUSATE SODIUM 100 MG (COLACE) CAP PO SCH; +FLEET ENEMA ADULT 1 EA BTL PR PRN; +LACTULOSE SYRUP 10GM/15ML (ENULOSE) 30ML UDC PO PRN; +LOPERAMIDE 2 MG (IMODIUM) TABLET PO PRN; +MONT10TA24 PO; +SENNA W/DOCUSATE (SENOKOT S) TABLET PO SCH; +guaiFENesin/CODEINE (ROBITUSSIN AC) 10ML UDC PO PRN; +polyethylene glycoL POWDER 17 GM (MIRALAX) PACK PO SCH
--- NOTE | 2019-08-19 10:20 | NUR ---
Pt admitted to room 229-1, with an admitting diagnosis of S/P Lt hip nailing after fall at home from 4th floor via w/c, accompanied by RN, & PCT. MAHESH CANTRELL introduced to surroundings, call light, bed controls, phone, TV, temperature control, lights, meal times, smoking policy, visitor policy, side rail policy, bathrooms and showers. Patient Rights given to patient in the handbook. MAHESH CANTRELL verbalizes understanding that [facility] is not responsible for the loss or damage to any personal effects or valuables that are kept in the patients posession during their hospitalization. The following Patient Care Plans were discussed with the pt: Discharge Planning, Impaired Mobility, Potential for fall/injury, Alteration in skin integrity. MAHESH CANTRELL verbalizes understanding of Interdisciplinary Patient Education. Patient and/or family were informed about the Rapid Response Team and its purpose. Patient received Patient Rights Booklet, which includes Privacy Act Statement and Data Collection Information Summary.
[2019-08-19 10:25] VITALS: BP 114/68
--- NOTE | 2019-08-19 12:50 | PM&R Post Admission Assessment ---
PM&R Date of Visit: Aug 19, 2019 Time of Visit: 12:30 History of Present Illness Chief complaint: Debility following left hip fracture History of present illness: This is a 74-year-old white female clinic patient of Dr. 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 She had an uncomplicated [facility] course and is ready for structured physical therapy in order to return home. Bowels are moving slowly although she reports she is not a regular bowel movement person but will continue stool softeners to keep the bowel movements soft. Postop anemia with slight iron level low at 40 prompted Niferex treatment. She has been maintained on oxygen of 2 L at night and nebulizer treatments along with Singulair regular home medicine. Her prior level of functioning was independent without the use of assistive devices. 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) Alcohol Use: Denies Use Smoking Status: Former Smoker Former Smoker, Quit: May 25, 2016 Type Used: Cigarettes Recent Hopitalizations: No Immunizations Up To Date Tetanus Booster (TDap): Unknown Date of Pneumonia Vaccine: May 24, 2017 Date of Influenza Vaccine: May 09, 2017 Seasonal Allergies Seasonal Allergies: Yes (MILD) Past Medical History Surgeries: Appendectomy Respiratory: COPD nighttime hypoxia O2 at night at 2 L Cardiac: Valvular Heart Disease Reproductive: No Sexually Transmitted Disease: No HIV/AIDS: No Musculoskeletal: Osteoporosis Loss of Vision: Bilateral Hearing Impairment: Denies History of Blood Disorders: No Adverse Reaction to Blood Louis: No (N/A) PM&R Allergy/Meds/Data Review Allergies Coded Allergies: No Known Drug Allergies (Unverified , 01/18/18) Home Medications Scheduled Albuterol Sulfate (Albuterol Sulfate), 2.5 MG NEB BID, (Reported) Montelukast Sodium (Montelukast Sodium), 10 MG PO HS, (Reported) Scheduled PRN Albuterol Sulfate (Ventolin Hfa), 2 PUFF INH Q4H PRN for SHORTNESS OF BREATH, (Reported) Discontinued Medications Albuterol Sulfate (Proair Hfa), 2 PUFF IH Q4H PRN for SHORTNESS OF BREATH, (Reported) Discontinued Reason: New Order Tramadol HCl (Tramadol HCl), 50 MG PO Q12H PRN for PAIN-MODERATE Discontinued Reason: No Longer Taking Current Medications Current Medications Reviewed Review of Systems Constitutional: see HPI, weakness Gastrointestinal: constipation Musculoskeletal: joint pain Psychiatric/Neurological: Anxiety, Depressed Physical Exam Physical Exam Vital Signs Vital Signs - First Documented 08/19/19 08/19/19 10:25 10:28 Temp 37.7 Pulse 97 Resp 22 B/P (MAP) 114/68 (83) Pulse Ox 86 O2 Delivery Room Air O2 Flow Rate 2.00 Capillary Refill : Height, Weight, BMI Height: 5'7.00" Weight: 108lbs. 0.0oz. 48.903198lt; 17.30 BMI Method:Stated General Appearance: No Apparent Distress, Chronically ill, Thin Eyes: Bilateral Eye Normal Inspection, Bilateral Eye PERRL HEENT: PERRL/EOMI, Normal ENT Inspection, Pharynx Normal Neck: Full Range of Motion, Normal Inspection, Non Tender, Supple, Carotid Bruit Respiratory: Chest Non Tender, Lungs Clear, Normal Breath Sounds, No Accessory Muscle Use, No Respiratory Distress, Decreased Breath Sounds Cardiovascular: Regular Rate, Rhythm, No Edema, No Gallop, No JVD, No Murmur, Normal Peripheral Pulses Gastrointestinal: Normal Bowel Sounds, No Organomegaly, No Pulsatile Mass, Non Tender, Soft Back: Normal Inspection, No CVA Tenderness, No Vertebral Tenderness Extremity: Normal Capillary Refill, Normal Inspection, Normal Range of Motion (except left leg), Non Tender, No Calf Tenderness, No Pedal Edema Neurologic/Psychiatric: Alert, Oriented x3, No Motor/Sensory Deficits, Normal Mood/Affect Skin: Normal Color, Warm/Dry Lymphatic: No Adenopathy PM&R Medical Assessment & Plan REHAB/MEDICAL ASSESSMENT AND PLAN: REHAB IMPAIRMENT GROUP: Left hip fracture ETIOLOGIC DIAGNOSIS: Left hip fracture The comorbidities that impact the patients function and/or functional outcome by: COPD maintain on oxygen at night, osteoporosis, thin habitus, poor reserve REHAB PLAN: The patient is being admitted to our comprehensive inpatient rehabilitation facility and can tolerate the intensity of service consisting of at least: 180 minutes of therapy a day, 5 out of 7 days a week Rehab treatment will consist of: PT and OT we'll focus on regaining independent ADLs and strength and prevent falls in order to return home with the use of a walker The patient/family has a good understanding of our discharge process and will benefit from an interdisciplinary inpatient rehabilitation program. The patient has potential to make improvement and is in need of at least two of the following multidisciplinary therapies including but not limited to physical, occupational, speech, and prosthetics and orthotics. Additionally the patient will need services from respiratory, nutritional services, wound care, psychology, etc. (Customize this to each patient). Given the patients complex condition and risk of further medical complications, rehabilitation services cannot be safely or effectively provided at a lower level of care such as a chcf facility. BARRIERS TO DISCHARGE: is an amputee and she lives at home ESTIMATED LOS: 7 days DISPOSITION: Home RELEVANT CHANGES SINCE PREADMISSION SCREENING: I have compared the patients medical and functional status at the time of the preadmission screening and there are: no changes PROGNOSIS: Good REHABILITATION GOALS: 1. PT and OT focused on regaining independence in ambulation and pain control All the above goals were reviewed with the patient and he/she is in agreement. By signing this document, I acknowledge that I have personally performed a full physical examination on this patient within 24 hours of admission to this inpatient rehabilitation facility and have determined the patient to be able to tolerate the above course of treatment at an intensive level for a reasonable period of time. I will be completing a detailed individualized Plan of Care for this patient by day #4 of the patients stay based upon the Preadmission Screen, the Post-Admission Evaluation, and the therapy evaluations. Admission Dx/Comorbidities: (1) Closed left hip fracture Status: Acute ICD Codes: S72.002A - Fracture of unspecified part of neck of left femur, initial encounter for closed fracture (2) Former smoker ICD Codes: Z87.891 - Personal history of nicotine dependence (3) Nocturnal hypoxia ICD Codes: G47.34 - Idiopathic sleep related nonobstructive alveolar hypoventilation (4) Anemia ICD Codes: D64.9 - Anemia, unspecified (5) Constipation ICD Codes: K59.00 - Constipation, unspecified (6) COPD (chronic obstructive pulmonary disease) ICD Codes: J44.9 - Chronic obstructive pulmonary disease, unspecified CARSON SCHAFFER DO Aug 19, 2019 12:50
[2019-08-19] MEDS ORDERED: CATHETER FLUSH 10 ML SYR IV PRN (13:00)
[2019-08-19] MEDS ORDERED: fentaNYL INJECTION 100 MCG/2 ML AMP IVP PRN (13:00)
[2019-08-19] MEDS ORDERED: BISACODYL 10 MG SUPP (DULCOLAX) PR PRN (13:00)
[2019-08-19] MEDS ORDERED: FLU QUADRIvalent (5+ YOA) 2019-2020 (AFLURIA) 0.5 ML IM ONE (17:00)
[2019-08-19 17:22] VITALS: BP 123/64
[2019-08-19] MEDS: RT-ALBUTEROL/IPRATROPIUM 3 ML (DUONEB) VIAL INH SCH (18:57)
[2019-08-19] MEDS: DOCUSATE SODIUM 100 MG (COLACE) CAP PO SCH (20:23)
[2019-08-19] MEDS: MELATONIN 3 MG TABLET PO PRN (20:23)
[2019-08-19] MEDS: MONTELUKAST 10 MG (SINGULAIR) TAB PO SCH (20:23)
[2019-08-19] MEDS: polyethylene glycoL POWDER 17 GM (MIRALAX) PACK PO SCH (20:24)
[2019-08-19] MEDS: SENNA W/DOCUSATE (SENOKOT S) TABLET PO SCH (20:24)
[2019-08-19] MEDS ORDERED: SENNA W/DOCUSATE (SENOKOT S) TABLET PO SCH (21:00)
[2019-08-19] MEDS ORDERED: MONTELUKAST 10 MG (SINGULAIR) TAB PO SCH (21:00)
[2019-08-19] MEDS ORDERED: DOCUSATE SODIUM 100 MG (COLACE) CAP PO SCH (21:00)
[2019-08-20 06:00] VITALS: BP 126/76
[2019-08-20] MEDS: ONDANSETRON 4 MG (ZOFRAN) ORAL DISSOLVE TAB PO PRN ×2 (06:06→17:23)
[2019-08-20] MEDS: ENOXAPARIN 30 MG/0.3 ML (LOVENOX) SYR SC SCH (06:06)
[2019-08-20] MEDS: HYDROcodone/APAP 5 MG/325 MG (LORTAB) TAB PO PRN ×3 (06:38→18:09)
[2019-08-20 06:41] LABS: BASOPHILS % (AUTO) 0 % (0-10); EOSINOPHILS # (AUTO) 0.5 10^3/uL (0.0-0.3); EOSINOPHILS % (AUTO) 7 % (0-10); HEMATOCRIT 26 % (35-52); HEMOGLOBIN 8.2 G/DL (11.5-16.0); LYMPHOCYTES # (AUTO) 1.6 X 10^3 (1.0-4.0); LYMPHOCYTES % (AUTO) 22 % (12-44); MEAN CORPUSCULAR HEMOGLOBIN 29 PG (25-34); MEAN CORPUSCULAR HGB CONC 32 G/DL (32-36); MEAN CORPUSCULAR VOLUME 91 FL (80-99); MEAN PLATELET VOLUME 9.6 FL (7.4-10.4); MONOCYTES # (AUTO) 0.7 X 10^3 (0.0-1.0); MONOCYTES % (AUTO) 10 % (0-12); NEUTROPHILS # (AUTO) 4.4 X 10^3 (1.8-7.8); NEUTROPHILS % (AUTO) 61 % (42-75); PLATELET COUNT 236 10^3/uL (130-400); WHITE BLOOD COUNT 7.2 10^3/uL (4.3-11.0)
[2019-08-20] MEDS ORDERED: KCL 10 MEQ TAB (MICRO K) PO SCH (07:00)
[2019-08-20 07:01] LABS: ALANINE AMINOTRANSFERASE 12 U/L (0-55); ALBUMIN 2.9 GM/DL (3.2-4.5); ALKALINE PHOSPHATASE 42 U/L (40-136); BILIRUBIN,TOTAL 0.7 MG/DL (0.1-1.0); BUN/CREATININE RATIO 12; CALCIUM 8.2 MG/DL (8.5-10.1); CARBON DIOXIDE 26 MMOL/L (21-32); CHLORIDE 111 MMOL/L (98-107); CREATININE SERUM 0.59 MG/DL (0.60-1.30); GFR ESTIMATED > 60; GLUCOSE 102 MG/DL (70-105); POTASSIUM 3.4 MMOL/L (3.6-5.0); SODIUM 143 MMOL/L (135-145)
[2019-08-20] MEDS: RT-ALBUTEROL/IPRATROPIUM 3 ML (DUONEB) VIAL INH SCH ×2 (07:36→18:52)
--- NOTE | 2019-08-20 08:11 | NUR ---
REVIEWED MED REC IT WAS REPORTED UPON ADMISSION TO 4TH FLOOR. NO CHANGES WERE MADE WHEN THE PATIENT DISCHARGED TO REHAB.
[2019-08-20] MEDS: SENNA W/DOCUSATE (SENOKOT S) TABLET PO SCH ×2 (08:18→20:45)
--- NOTE | 2019-08-20 08:38 | PM&R Progress Note ---
Subjective HPI/CC On Admission Date Seen by Provider: Aug 20, 2019 Time Seen by Provider: 08:45 Subjective/Events-last exam Pt doing pretty well today. Appears to be pretty comfortable. Denies any pain. Bowel medication will be maintained to prevent narcotic bowel. O2 maintained during activity for COPD, she uses it at night only at home. Checked meds and labs Conferred with RN Reviewed therapy notes Review of Systems General: Fatigue Pulmonary: Dyspnea Musculoskeletal: leg pain Objective Exam Vital Signs Vital Signs Date Time Temp Pulse Resp B/P (MAP) Pulse Ox O2 Delivery O2 Flow Rate FiO2 08/20/19 18:53 98 Nasal Cannula 2.00 08/20/19 18:00 37.5 80 18 129/72 (91) 08/20/19 16:18 28 Capillary Refill : Less Than 3 SecondsLess Than 3 Seconds General Appearance: No Apparent Distress, Chronically ill, Thin HEENT: PERRL/EOMI, Normal ENT Inspection, Pharynx Normal Neck: Full Range of Motion, Normal Inspection, Non Tender, Supple, Carotid Bruit Respiratory: Chest Non Tender, Lungs Clear, Normal Breath Sounds, No Accessory Muscle Use, No Respiratory Distress, Decreased Breath Sounds Cardiovascular: Regular Rate, Rhythm, No Edema, No Gallop, No JVD, No Murmur, Normal Peripheral Pulses Gastrointestinal: Normal Bowel Sounds, No Organomegaly, No Pulsatile Mass, Non Tender, Soft Back: Normal Inspection, No CVA Tenderness, No Vertebral Tenderness Extremity: Normal Capillary Refill, Normal Inspection, Normal Range of Motion (except left leg), Non Tender, No Calf Tenderness, No Pedal Edema Neurologic/Psychiatric: Alert, Oriented x3, No Motor/Sensory Deficits, Normal Mood/Affect Skin: Normal Color, Warm/Dry Lymphatic: No Adenopathy Results/Procedures Lab Laboratory Tests 08/20/19 05:45 Patient resulted labs reviewed. FIM Transfers Therapy Code Descriptions/Definitions Functional [place] Measure: 0=Not Assessed/NA 4=Minimal Assistance 1=Total Assistance 5=Supervision or Setup 2=Maximal Assistance 6=Modified [place] 3=Moderate Assistance 7=Complete IndependenceSCALE: Activities may be completed with or without assistive devices. 3-Tvstbiwjwl-fzuqlyk completes the activity by him/herself with no assistance from a helper. 5-Set-up or Clean-up Assistance-helper sets up or cleans up; patient completes activity. [place] assists only prior to or following the activity. 4-Supervision or Touching Assistance-helper provides verbal cues and/or touching/steadying and/or contact guard assistance as patient completes ac tivity. Assistance may be provided throughout the activity or intermittently. 3-Partial/Moderate Assistance-helper does LESS THAN HALF the effort. [place] lifts, holds or supports trunk or limbs, but provides less than half the effort. 2-Substantial/Maximal Assistance-helper does MORE THAN HALF the effort. [place] lifts or holds trunk or limbs and provides more than half the effort. 1-Ohxarhykv-bdotbd does ALL the effort. Patient does none of the effort to complete the activity. Or, the assistance of 2 or more helpers is required for the patient to complete the activity. If activity was not attempted, code reason: 7-Patient Refused. 9-Not Applicable-not attempted and the patient did not perform the activity before the current illness, exacerbation or injury. 10-Not Attempted due to Environmental Limitations-(lack of equipment, weather restraints, etc.). 88-Not Attempted due to Medical Conditions or Safety Concerns. Assessment/Plan Assessment and Plan Assess & Plan/Chief Complaint Assessment: Left hip fracture s/p uncomplicated repair COPD O2 dependency Frail status Former smoker Post op anemia Post op constipation Plan: BM regimen IRF protocol Monitor closely (1) Closed left hip fracture Status: Acute (2) Former smoker (3) Nocturnal hypoxia (4) Anemia (5) Constipation (6) COPD (chronic obstructive pulmonary disease) CARSON SCHAFFER DO Aug 20, 2019 08:38
[2019-08-20] MEDS: IRON POLYSAC 150 MG CAP (NIFEREX) PO SCH (09:04)
[2019-08-20] MEDS: DOCUSATE SODIUM 100 MG (COLACE) CAP PO SCH ×2 (09:04→20:45)
--- NOTE | 2019-08-20 09:23 | Physical Therapy Evaluation ---
PT Evaluation-General Medical Diagnosis Admission Date Aug 19, 2019 at 10:20 Medical Diagnosis: left hip fracture Onset Date: Aug 15, 2019 Therapy Diagnosis Therapy Diagnosis: impaired mobility, strength, endurance Height/Weight Height (Feet): 5 Height (Inches): 7.00 Weight (Pounds): 108 Weight (Ounces): 0.0 Precautions Precautions/Isolations: Fall Prevention, Standard Precautions, Pressure Ulcer Weight Bear Status Partial Weight Bearing Referral Physician: Itzel Cobos DO Reason for Referral: Evaluation/Treatment Medical History Pertinent Medical History: COPD, Smoking Additional Medical History Valvular Heart Disease Reviewed History: Yes Social History Home: Single Level Current Living Status: Spouse Entry Into Home: Ramp 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 6-Vsdqwcftif-coqxiuz completes the activity by him/herself with no assistance from a helper. 5-Set-up or Clean-up Assistance-helper sets up or cleans up; patient completes activity. [place] assists only prior to or following the activity. 4-Supervision or Touching Assistance-helper provides verbal cues and/or touching/steadying and/or contact guard assistance as patient completes activity. Assistance may be provided throughout the activity or intermittently. 3-Partial/Moderate Assistance-helper does LESS THAN HALF the effort. [place] lifts, holds or supports trunk or limbs, but provides less than half the effort. 2-Substantial/Maximal Assistance-helper does MORE THAN HALF the effort. [place] lifts or holds trunk or limbs and provides more than half the effort. 5-Dbebsbozu-czzvyc does ALL the effort. Patient does none of the effort to complete the activity. Or, the assistance of 2 or more helpers is required for the patient to complete the activity. If activity was not attempted, code reason: 7-Patient Refused. 9-Not Applicable-not attempted and the patient did not perform the activity before the current illness, exacerbation or injury. 10-Not Attempted due to Environmental Limitations-(lack of equipment, weather restraints, etc.). 88-Not Attempted due to Medical Conditions or Safety Concerns. Bed Mobility: 6 Transfers (B,C,W/C): 6 Gait: 6 Stairs: 6 Indoor Mobility (Ambulation): Independent Stairs: Independent PT Evaluation-Current Subjective Patient in bed pre tx, agrees to PT, has no pain at rest but 5/10 pain with activity. Pt/Family Goals to be independent at home Objective Patient Orientation: Person, Place, Situation ROM/Strength ROM Lower Extremities limited on LLE due to surgery Strength Lower Extremities NT due to fracture and surgery Sensory Vision: Wears Glasses Hearing: Functional Sensation Right Lower Extremit: Intact Sensation Left Lower Extremity: Intact Transfers Roll Left to Right (QC): 6 Sit to Lying (QC): 3 Lying to Sitting/Side of Bed(Q: 3 Sit to Stand (QC): 4 Chair/Xvm-pu-Ndrax Xfer(QC): 4 Toilet Transfer: 4 Car Transfer (QC): 3 Patient performs bed mobility with independence, supine <-> sit min assist, sit <-> stand CGA, transfers CGA, car transfer min assist. Patient has good use of hands on armrest when standing and sitting. Gait Does the Patient Walk?: Yes Mode of Locomotion: Walk Anticipated Mode of Locomotion: Walk Walk 10 feet (QC): 4 Walk 50 ft with 2 Turns(QC): 4 Walk 150 ft (QC): 88 Walking 10ft/uneven surface-QC: 4 Distance: 120', 60'x2 Gait Assistive Device: FWW Comments/Gait Description Patient can ambulate 120' with a rolling walker with CGA (including 50' with at least 2 turns of 90 degrees and 10' over an uneven surface). Patient ambulates slowly and is compliant with partial weight bearing on her left leg using the walker. Wheelchair Training Does the Pt Use a Wheelchair?: No Stairs #of Steps: 1 1 Step (curb) (QC): 4 4 Steps (QC): 88 12 Steps (QC): 88 Walking Assistive Device: Walker Patient can go up and down 1 step using a rolling walker with CGA, cues for foot placement and positioning. Balance Sitting Static: Normal Sitting Dynamic: Normal Standing Static: Good Standing Dynamic: Good Picking up an Object (QC): 88 Treatment NuStep level 1 for 15 min, parallel bars exercises left leg only x15 (hip flex, hip abd, hamstring curls, marching), LAQ left side for 5 min, supine exercises x15 LLE (AP, QS, HS, SAQ, SLR, hip abd, GS) Assessment/Needs Patient gets SOB with activity and needs frequent rest breaks, pain with activity. Rehab Potential: Fair PT Short Term Goals Short Term Goals Time Frame: Aug 27, 2019 Roll Left & Right: 6 Sit to lyin Lying to sitting on side of be: 4 Sit to stand: 4 Chair/baf-mt-ghqqr transfer: 4 Walk 10 feet: 4 Walk 50 feet with two turns: 4 Walk 150 feet: 4 PT Smoke Eater Goals Retirement Goals PT Smoke Eater Goals Time Frame: Sep 10, 2019 Roll Left & Right (QC): 6 Sit to Lying (QC): 6 Lying-Sitting on Side/Bed(QC): 6 Sit to Stand (QC): 6 Chair/Egz-uu-Veacy Xfer(QC): 6 Toilet Transfer (QC): 6 Car Transfer (QC): 6 Walk 10 feet (QC): 6 Walk 50ft with 2 Turns (QC): 6 Walk 150 ft (QC): 6 Walking 10ft on Uneven Surface: 6 1 Step (curb) (QC): 4 4 Steps (QC): 4 PT Plan Problem List Problem List: Activity Tolerance, Functional Strength, Safety, Balance, Gait, Transfer, Bed Mobility, ROM Treatment/Plan Treatment Plan: Continue Plan of Care Treatment Plan: Bed Mobility, Education, Functional Activity Evelyn, Functional Strength, Group Therapy, Gait, Safety, Therapeutic Exercise, Transfers Treatment Duration: Sep 10, 2019 Frequency: At least 5 of 7 days/Wk (IRF) Estimated Hrs Per Day: 1.5 hours per day Patient and/or Family Agrees t: Yes Safety Risks/Education Patient Education: Gait Training, Transfer Techniques, Steps, Reviewed Precautions, Correct Positioning, Safety Issues Teaching Recipient: Patient Teaching Methods: Demonstration, Discussion Response to Teaching: Reinforcement Needed Discharge Recommendations Plan Patient will perform bed mobility and transfer training, balance and endurance training, functional strengthening, stair training, gait training, and education, to improve functional mobility and independence at home. Therapy Discharge Recommendati: Home & Family Time/GCodes Time In: 0800 Time Out: 0930 Total Billed Treatment Time: 90 Total Billed Treatment 1 visit EVM 30' GT 30' EX 30' SANJANA ESCOBAR PT Aug 20, 2019 09:23
--- NOTE | 2019-08-20 10:34 | Occupational Therapy Eval ---
OT Evaluation-General/PLF Medical Diagnosis Admission Date Aug 19, 2019 at 10:20 Medical Diagnosis: left hip fracture Onset Date: Aug 15, 2019 Therapy Diagnosis Therapy Diagnosis: Decreased ADL function Height/Weight Height (Feet): 5 Height (Inches): 7.00 Weight (Pounds): 108 Weight (Ounces): 0.0 Precautions Precautions/Isolations: Fall Prevention, Standard Precautions, Pressure Ulcer Safety Interventions: None Weight Bear Status Weight Bearing Restriction: Partial Weight Bearing Location Restriction: L LE Referral Physician: Itzel Cobos DO Referral Reason: Activity Tolerance, Self Care, Evaluation/Treatment, Strengthening/ROM Medical History Pertinent Medical History: COPD, Smoking Additional Medical History see above Current History Pt got tangled in blanket when rising from chair and fell on L hip. ER called. Hip fx with nail in place. Reviewed History: Yes Social History Home: Single Level Current Living Status: Spouse Entry Into Home: Ramp ADL-Prior Level of Function SCALE: Activities may be completed with or without assistive devices. 7-Acvigywxnz-mpqnhuk completes the activity by him/herself with no assistance from a helper. 5-Set-up or Clean-up Assistance-helper sets up or cleans up; patient completes activity. Napoleon assists only prior to or following the activity. 4-Supervision or Touching Assistance-helper provides verbal cues and/or touching/steadying and/or contact guard assistance as patient completes a ctivity. Assistance may be provided throughout the activity or intermittently. 3-Partial/Moderate Assistance-helper does LESS THAN HALF the effort. Napoleon lifts, holds or supports trunk or limbs, but provides less than half the effort. 2-Substantial/Maximal Assistance-helper does MORE THAN HALF the effort. Napoleon lifts or holds trunk or limbs and provides more than half the effort. 0-Cweglxydj-dhrdaf does ALL the effort. Patient does none of the effort to complete the activity. Or, the assistance of 2 or more helpers is required for the patient to complete the activity. If activity was not attempted, code reason: 7-Patient Refused. 9-Not Applicable-not attempted and the patient did not perform the activity before the current illness, exacerbation or injury. 10-Not Attempted due to Environmental Limitations-(lack of equipment, weather restraints, etc.). 88-Not Attempted due to Medical Conditions or Safety Concerns. ADL PLOF Comments Pt IND without AE. Self Care: Independent Functional Cognition: Independent DME/Equipment: Bath Chair, Grab Bars, Shower, Tall Toilet DME/Equipment Comments Pt has GBs in shower and by toilet, shower, SC, tall toilet. Pt does not own walker. 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 Pt seen in recliner chair, agreeable to OT eval/ treat. Pt states she is "wearing down" post-PT session, states at ~60 min that she requires a rest break and would like to have time between OT/ speech. Mental Status/Objective Patient Orientation: Person, Place, Situation, Normal For Age Attachments: Oxygen (2L) Current Glasses/Contacts: Yes Hearing Aids: No Dentures/Partials: No Hand Dominance: Right Upper Extremity ROM WFL BUE Upper Extremity Coordination WFL BUE Upper Extremity Sensation WFL no c/o paresthesias Upper Extremity Strength WFL BUE ~4/5 Edema: LLE into medial thigh ADL-Treatment Eating (QC): 6 Oral Hygiene (QC): 4 (SBA at sink.) Shower/Bathe Self (QC): 3 (Pt requires assist with BLE/ feet. Pt given and educated on LHS and use of it for BLE/ feet- able to complete with LHS. Pt completes nael/ bottom with SBA at walker.) Upper Body Dressing (QC): 5 (s/u) Lower Body Dressing (QC): 3 (Pt requires min A for LB dressing (cues for dressing LLE first, assist in threading), pt requires SBA in stance to complete over hips; pt educated on use of dressing stick for doffing. ) On/Off Footwear (QC): 2 (Pt requires max A for LLE sock doff/ donning. Pt educated on dressing stick for sock doffing and sock donning with sock aide. Pt completes with SBA (cues) with AE.) Toileting Hygiene (QC): 4 (SBA in stance.) Other Treatments Pt completes eval/ history while in recliner chair. Pt demonstrates fair-good UE strength. OT role and ARU standards explained. Pt states she is "fairly healthy," and has had no major health concerns prior to fall. Pt states she assists with all IADLs, driving. Pt's house s/u for who is double ambutee with shower, gbs, and tall toilet, ramp. Pt SOB in stance, use of 02 throughout session at 2 L. Pt states at home she utilizes 2L at night and intermittently through day; here, however, pt states she has been SOB and has been utilizing 2L throughout day. Pt completes ~6 sit to stands from recliner to walker, able to complete with SBA-SUP. Pt ambulates to sink and brushes teeth, SOB noted. Cues for breathing techniques. Post-ADLs, YOLANDA hose donned with TD. Pt states she is worn out and does not desire to continue/ requires rest. Pt educated on minutes required and goals of further session. Pt agrees, call light in reach, all needs met. Education OT Patient Education: Correct positioning, Modified ADL techniques, Progress toward Goal/Update tx plan, Purpose of tx/functional activities, Rehab process, Safety issues, Transfer techniques, Use of adapted equipment Teaching Recipient: Patient Teaching Methods: Demonstration, Discussion Response to Teaching: Verbalize Understanding, Return Demonstration OT Short Term Goals Short Term Goals Upper body dressin Lower body dressin OT Factorer Goals Longterm Goals Time Frame: Sep 03, 2019 Eating (QC): 6 Oral Hygiene (QC): 6 Toileting Hygiene (QC): 6 Shower/Bathe Self (QC): 6 Upper Body Dressing (QC): 6 Lower Body Dressing (QC): 6 On/Off Footwear (QC): 6 Additional Goals: 1-Demonstrate ADL Tasks, 2-Verbalize Understanding, 3- ImproveStrength/Evelyn 1=Demonstrate adherence to instructed precautions during ADL tasks. 2=Patient will verbalize/demonstrate understanding of assistive devices/modifications for ADL. 3=Patient will improve strength/tolerance for activity to enable patient to perform ADL's. OT Education/Plan Problem List/Assessment Assessment: Decreased Activ Tolerance, Edema, Impaired Funct Balance, Impaired I ADL's, Impaired Self-Care Skills Discharge Recommendations Plan/Recommendations: Continue POC Therapy Discharge Recommendati: Home & Family Treatment Plan/Plan of Care Treatment,Training & Education: Yes Patient would benefit from OT for education, treatment and training to promote independence in ADL's, mobility, safety and/or upper extremity function for ADL's. Plan of Care: ADL Retraining, Functional Mobility, UE Funct Exercise/Act Treatment Duration: Sep 03, 2019 Frequency: At least 5 of 7 days/Wk (IRF) Estimated Hrs Per Day: 1.5 hours per day Agreement: Yes Rehab Potential: Fair Time/GCodes Start Time: 09:30 Stop Time: 10:40 Total Time Billed (hr/min): 70 Billed Treatment Time 1, EVL (10), ADL 4 (60)= 70 FIDENCIO NARAYANAN OTR Aug 20, 2019 10:34
--- NOTE | 2019-08-20 11:39 | Progress Note - Ortho ---
Progress Note Subjective Date of Exam 08/20/19 Chief Complaint POD#4 short TFN left hip HPI/Events since last exam Mrs. Crooks is 4 days postop short TFN left hip for three-part intertrochanteric fracture. She states she is having less pain. She is up ambulating with a walker with therapy partial weightbearing on the left. She states she is having no problems. She has noted some swelling and bruising in her left thigh. She denies any numbness or tingling. She denies any calf tenderness or pain Review of Systems Reviewed and no additions or changes Allergies: Coded Allergies: No Known Drug Allergies (Unverified , 01/18/18) Home Meds Reported Medications Albuterol Sulfate (Albuterol Sulfate) 2.5 Mg/3 Ml Vial.neb, 2.5 MG NEB BID, EA 08/16/19 Albuterol Sulfate (Ventolin Hfa) 18 Gm Hfa.aer.ad, 2 PUFF INH Q4H PRN for SHORTNESS OF BREATH, INHALER 08/16/19 Montelukast Sodium (Montelukast Sodium) 10 Mg Tablet, 10 MG PO HS, TAB 08/16/19 Discontinued Reported Medications Albuterol Sulfate (PROAIR HFA) 1 Puff Puff, 2 PUFF IH Q4H PRN for SHORTNESS OF B REATH, PUFF 1 PUFF = 90 MCG 10/21/16 Discontinued Scripts Tramadol HCl (Tramadol HCl) 50 Mg Tablet, 50 MG PO Q12H PRN for PAIN-MODERATE, #14 TAB Prov:TERE LANDA MD 01/20/18 Objective Exam Constitutional: [] HEENT: [] Neck: [] Cardiovascular: [] Respiratory: [] Gastrointestinal: [] Genitourinary: [] Skin: [] Back/Spine: [] Extremities: Mild swelling left thigh. Dressing intact. No calf tenderness negative Homans. Good position of the left leg equal to the right. No weakness in the left lower extremity. Normal sensation of the foot and toes with good capillary refill and equal pulses] Neurologic: [] Psychiatric: [] Hematologic/lymphatic/immunologic: [] Vital Signs Vital Signs Date Time Temp Pulse Resp B/P (MAP) Pulse Ox O2 Delivery O2 Flow Rate FiO2 08/20/19 08:00 Nasal Cannula 2.00 08/20/19 07:36 96 Nasal Cannula 2.00 08/20/19 06:00 Nasal Cannula 2.00 08/20/19 06:00 37.1 89 20 126/76 (93) 93 Nasal Cannula 2.00 08/19/19 21:00 97 Nasal Cannula 2.00 08/19/19 18:57 98 Nasal Cannula 2.00 08/19/19 17:22 37.8 92 21 123/64 (83) 97 Nasal Cannula 2.00 I & O 08/20/19 07:00 Intake Total 950 ml Output Total 2100 ml Balance -1150 ml Lab Results Laboratory Tests 08/20/19 05:45: White Blood Count 7.2, Red Blood Count 2.79L, Hemoglobin 8.2L, Hematocrit 26L, Mean Corpuscular Volume 91, Mean Corpuscular Hemoglobin 29, Mean Corpuscular Hemoglobin Concent 32, Red Cell Distribution Width 13.0, Platelet Count 236, Mean Platelet Volume 9.6, Neutrophils (%) (Auto) 61, Lymphocytes (%) (Auto) 22, Monocytes (%) (Auto) 10, Eosinophils (%) (Auto) 7, Basophils (%) (Auto) 0, Neutrophils # (Auto) 4.4, Lymphocytes # (Auto) 1.6, Monocytes # (Auto) 0.7, Eosinophils # (Auto) 0.5H, Basophils # (Auto) 0.0, Sodium Level 143, Potassium Level 3.4L, Chloride Level 111H, Carbon Dioxide Level 26, Anion Gap 6, Blood Urea Nitrogen 7, Creatinine 0.59L, Estimat Glomerular Filtration Rate > 60, BUN/Creatinine Ratio 12, Glucose Level 102, Calcium Level 8.2L, Corrected Calcium 9.1, Total Bilirubin 0.7, Aspartate Amino Transf (AST/SGOT) 18, Alanine Aminotransferase (ALT/SGPT) 12, Alkaline Phosphatase 42, Total Protein 5.0L, Albumin 2.9L Assessment and Plan Assessment Doing well 4 days postop Problem List Unchanged Plan Continue with physical therapy, walker ambulation partial weightbearing on the left Final Diagonsis Status post short TFN left hip Level of the visit: Level 3 Clinical Quality Measures DVT/VTE Risk/Contraindication: Risk Factor Score Per Nursin RFS Level Per Nursing on Admit: 4+=Very High ELVIS ROBBINS MD Aug 20, 2019 11:39
[2019-08-20] MEDS: KCL 10 MEQ TAB (MICRO K) PO SCH ×2 (12:42→19:19)
--- NOTE | 2019-08-20 13:17 | NUR ---
Pt is Buddhism and declines Communion until she sees a electronic prepress operator.
--- NOTE | 2019-08-20 13:24 | ST Cognitive Linguistic Eval ---
Speech Evaluation-General Medical Diagnosis left hip fracture Onset Date: Aug 15, 2019 Therapy Diagnosis Therapy Diagnosis: Cognitive-communication Referral Referring Physician: Dr. Cobos Reason for Referral: Evaluation/Treatment Medical History Pertinent Medical History: COPD, Smoking Reviewed History: Yes Social History Current Living Status: Spouse Speech PLF-Current Status Prior Level of Function Patient reports that she wishes to return home to prior level of mobility and independence. Subjective Patient was alert and cooperative for all evaluation tasks. Patient reported that she was feeling very tired from having a full morning of PT and OT. Patient was sitting upright in her chair for the duration of the evaluation. Language Eval: Auditory Comprehends Simple Yes/No Ques: Functional Indent/Objects Multiple Mcghee: Functional Ident/Pics in Multiple Mcghee: Functional Follows 1-Step Commands: Functional Follows Complex Directions: Functional Follows General Conversations: Functional Language Eval: Verbal Language Completes Spontaneous Greeting: Functional Produces Auto, Serial Info: Functional Imitates Simple Words/Phrases: Functional Word Finding: Functional Requests Basic Needs: Functional States Basic Personal Info: Functional Expresses Complex Ideas: Functional Objective Cognitive Domain Attention: WNL Memory: WNL Problem Solving: Functional Executive Functions: WNL Visuospatial Skills: WNL Composite Severity Rating: WNL Clock Drawing Severity Rating: WNL Objective Formal/Standardized Tests [facility] Mental Status (UMS) Examination was administered. Results Patient was administered the SLUMS and scored 29/30 which falls within normal limits of cognitive function. Oral Motor/Speech Production Within functional limits. Impression Patient was admitted to the ARU s/p left hip injury. Patient scored a 29/30 on the SLUMS which is indicative of normal cognitive functions. Patient does not require skilled ST therapy at this time. Speech Patient Assess Expression of Ideas/Wants: Expression (4) Understanding Verbal Content: Understands (4) Brief Interview-Mental Status: Yes Repetition of Three Words: Three (3) Temporal Orientation: Year: Correct (3) Temporal Orientation: Month: Accurate within 5 days(2) Temporal Orientation: Day: Correct (1) Recall : Wear to say "Sock": Yes, no cue required (2) Recall : Color: Yes, no cue required (2) Recall : Bed: Yes, no cue required (2) Memory/Recall Ability: Current season, That he or she is in a hsp/hsp unit Speech-Plan Patient/Family Goals Patient/Family Goals: Patient reports that she would like to return home upon discharge from the ARU. Treatment Plan Speech Therapy Treatment Plan: Discontinue ST Treatment Duration: Aug 20, 2019 Frequency: 1 time per week Estimated Hrs Per Day: .25 hour per day Rehab Potential: Fair Barriers to Learning: Current medical status Pt/Family Agrees to Plan: Yes Safety Risks/Education Teaching Recipient: Patient Teaching Methods: Demonstration, Discussion Response to Teaching: Verbalize Understanding Education Topics Provided: Patient understood rationale behind evaluation tasks and safety awareness upon discharge from the ARU. Time Speech Therapy Time In: 11:15 Speech Therapy Time Out: 11:30 Total Billed Time: 15 Billed Treatment Time 1, SHADIA Anderson Aug 20, 2019 13:24
--- NOTE | 2019-08-20 13:43 | NUR ---
CM/SS ADMISSION Patient was admitted to ARU 08/19/19 from [facility] Med/Surg for Left Hip Fracture and post surgical repair. Patient was IADL and driving prior to falling at home. She was in a chair with their pet dog and her feet became tangled in a blanket when trying to get up. She was unable to prevent the accident and sustained the fracture during the fall. She resides with her spouse Catarino Crooks who is disabled, Right BKA approximately 9 years ago. He does not drive due to vision loss. Their home accommodates his needs, including ramp entry. Patient indicates he is capable to care for himself except for cooking and she has a friend who is preparing meals in portions he can heat up. CONTACTS: Patient has a daughter, Olive Javier, and three granddaughters who will be assisting as needed both now and after her discharge and return home. Olive Javier, Daughter [phone] Granddaughters: Zion 19; Tony 17; Dennis 10 DME: Patient has not used any assistive devices for herself, new FWW is anticipated and other recommendations to follow from therapy team. She is established with home O2 through [employer] at 1L nocturnal. She did purchase an Inogen which she just received, she intends to use it for ambulation and times when she feels SOA and needs supplemental O2 to recover. Monitor O2 saturations. PCP: Dr. Nithin Branch MD INSURANCE: Medicare, [facility] Supp ADVANCED DIRECTIVE: None at this time and patient stated no interest at present for further information. PHARMACY: [facility] Purpose of Weekly Team Conference was explained, patient indicated understanding. Her plans are to return home as before. Monitoring for DME and possible HHC RN/PT.
--- NOTE | 2019-08-20 14:21 | NUR ---
RD ASSESSMENT PMHx: PT INTERACTION: Pt was awake and pleasant during nutrition assessment. Pt states current appetite is fair. Note avg PO intake of <50% x2meal, per chart review. Pt states the amount of food provided by [facility] is "too much for her to consume. I eat until I am full and it's not a lot of food." Pt states no recent issues with n/v/c/d at this time. Note last BM was 08/20 and pt currently on bowel regimen of miralax HS; senna BID; and colace BID, per chart review. Pt states no recent wt changes. Note unable to determine recent wt hx, per chart review. ABNORMAL NUTRITION-RELATED LAB VALUES LOW: K 3.4; cr 0.59; Ca 8.2; Pro 5.0; alb 2.9 HIGH: Est. kcal needs: 8811-2864 kcal | 25-30 kcal/kg Est. Pro needs: 65-76 g Pro | 1.2-1.4 g Pro/kg PES STATEMENT: Inadequate oral intake (NI-2.1) related to loss of appetite as evidenced by pt interview | avg PO intake <50% x2meal INTERVENTION: Continue with current diet order of Regular diet. Continue with current supplementation order of Ensure Clear with meals TID. Provides 250 kcal and 8 g Pro per serving. Will continue to follow and reassess as pt needs and status change. MONITOR/EVALUATE: PO Intake; Plan of Care; Hydration Status; Weight Status; Lab Values Vasiliy Villela, MS, RD, LD
[2019-08-20 16:18] VITALS: BP 126/76
[2019-08-20 18:00] VITALS: BP 129/72
[2019-08-20] MEDS: MELATONIN 3 MG TABLET PO PRN (19:19)
[2019-08-20] MEDS: MONTELUKAST 10 MG (SINGULAIR) TAB PO SCH (20:45)
[2019-08-20] MEDS: polyethylene glycoL POWDER 17 GM (MIRALAX) PACK PO SCH (20:48)
[2019-08-20] MEDS: ONDANSETRON 4 MG/2 ML (SDV) Z0FRAN IV PRN (21:06)
--- NOTE | 2019-08-20 21:17 | Individualized Plan of Care ---
Individualized Plan of Care Rehab Nursing IPOC Order Admission Date Aug 19, 2019 at 10:20 Current Orders Orders Admission Order(Inpt,Obs,Sdc) (08/18/19 12:11) Darwin Newton (08/18/19 12:11) Sequential Compression Device Q4H (08/18/19 12:11) Chip Washer-Inpt Rehab Con (08/18/19 12:11) Rehab Nursing Orders-Ipoc (08/18/19 12:11) Physical Therapy Rehab Orders (08/18/19 12:11) Occupational Therapy Rehab Ord (08/18/19 12:11) Speech Therapy Rehab Orders (08/18/19 12:11) General/Regular (08/18/19 Dinner) Precautions (Aru) (08/18/19 12:11) Rehab-Intensity Of Therapy (08/18/19 12:11) Initiate Admission Nursing Pro .admission (08/18/19 12:11) Alprazolam Tablet (Xanax Tablet) (08/18/19 12:15) Calcium Carbonate Chew Tablet (Antacid C (08/18/19 12:15) Diphenhydramine Tablet (Benadryl Tablet) (08/18/19 12:15) Docusate Sodium Capsule (Colace Capsule) (08/18/19 21:00) Docusate Sodium Capsule (Colace Capsule) (08/18/19 12:15) Bisacodyl Suppository (Dulcolax Supposit (08/18/19 12:15) Lactulose Oral Solution (Enulose Oral So (08/18/19 12:15) Na Phos/Na Biphos Enema (Fleet Enema Vicente (08/18/19 12:15) Guaifenesin/Codeine Syrup (Robitussin Ac (08/18/19 12:15) Loperamide Tablet (Imodium Tablet) (08/18/19 12:15) Melatonin Tablet (Melatonin Tablet) (08/18/19 12:15) Ondansetron Oral Dissolve Tab (Zofran (08/18/19 12:15) Senna S Tablet (Senokot S Tablet) (08/18/19 21:00) Admission Arrival Bed Request (08/19/19 10:20) General/Regular (08/19/19 Lunch) Code/Resuscitation (08/19/19 12:50) Ambulate 08,12,20 (08/19/19 12:50) Oxygen-Administer 07,19 (08/19/19 12:50) Ensure Clear (08/19/19 Dinner) General/Regular (08/19/19 Dinner) Albuterol/Ipra Inhalation Soln (Duoneb I (08/19/19 21:00) Hydrocodone/Apap 5/325 Tablet (Lortab 5 (08/19/19 13:00) Enoxaparin Injection (Lovenox Injection) (08/20/19 07:00) Montelukast Tablet (Singulair Tablet) (08/19/19 21:00) Ondansetron Injection (Zofran Injectio (08/19/19 13:00) Polyethylene Glycol Powder Pkt (Miralax (08/19/19 21:00) Sodium Chloride Flush (Catheter Flush Sy (08/19/19 13:00) Fentanyl Injection (Sublimaze Injection (08/19/19 13:00) Consult Orthopedic Surgery (08/19/19 12:50) Incentive Spirometry Initial (08/19/19 12:50) Rt Request For Service (08/19/19 12:50) Svn Small Volume Nebulizer (08/19/19 12:50) Incentive Spirometry (Nursing) Q2H (08/19/19 12:50) Catheter(Urinary) Discontinue (08/19/19 12:50) Nursing Communication (Order) (08/19/19 12:50) Potassium Chloride (Tablet) (Klor Con Ta (08/20/19 07:00) Iron Polysaccaride Capsule (Niferex Caps (08/20/19 09:00) Cbc With Automated Diff (08/20/19 06:00) Comprehensive Metabolic Panel (08/20/19 06:00) Sequential Compression Device Q4H (08/19/19 14:36) Dvt/Vte Risk - Notifiy Physici Q4H (08/19/19 14:36) Docusate Sodium Capsule (Colace Capsule) (08/19/19 21:00) Senna S Tablet (Senokot S Tablet) (08/19/19 21:00) Montelukast Tablet (Singulair Tablet) (08/19/19 21:00) Influenza Quad (5+Yoa) 2018- (Afluria (08/19/19 17:00) Potassium Chloride (Tablet) (Klor Con Ta (08/20/19 12:00) Patient Visit (08/20/19 ) Speech Sound Lang Comp (08/20/19 ) Patient Visit (08/20/19 ) Pt Eval Moderate Complexity (08/20/19 ) Gait Training, Ea 15 Min (08/20/19 ) Exercise Therap, Ea 15 Min (08/20/19 ) Albuterol/Ipra Inhalation Soln (Duoneb I (08/20/19 21:00) Mat Initiate Protocol (08/20/19 16:18) Albuterol/Ipra Inhalation Soln (Duoneb I (08/20/19 17:00) Patient Visit (08/21/19 ) Gait Training, Ea 15 Min (08/21/19 ) Exercise Therap, Ea 15 Min (08/21/19 ) Sodium Chloride Flush (Catheter Flush Sy (08/21/19 13:45) Sodium Chloride Flush (Catheter Flush Sy (08/21/19 14:00) Rehab Nursing Orders: Ongoing Assess. of Cognitive Status, Ongoing Assess. of Function Status, Bowel Management, Disease Management & Educaiton, DVT Prophylaxis, Fall Prevention, Fluid/Electrolyte/Nutrition Mgmt, Infection Prevention, Medication Management & Education, Management of Risks & Complications, Management of Skin Intergrity, Nutrition Management, Pain Management, Patient/Family Support, Safety Management, Weight Bearing Precaution Intensity of Therapy to be met Patient to be seen: Min.3h per day/5 of 7d PT IPOC Problem List: Activity Tolerance, Functional Strength, Safety, Balance, Gait, Transfer, Bed Mobility, ROM Treatment Plan: Continue Plan of Care Bed Mobility, Education, Functional Activity Evelyn, Functional Strength, Group Therapy, Gait, Safety, Therapeutic Exercise, Transfers Treatment Duration: Sep 10, 2019 Frequency: At least 5 of 7 days/Wk (IRF) Estimated Hrs Per Day: 1.5 hours per day OT IPOC Problems: Decreased Activ Tolerance, Edema, Impaired Funct Balance, Impaired I ADL's, Impaired Self-Care Skills OT Treatment, Training and Edu: Yes Plan of Care: ADL Retraining, Functional Mobility, UE Funct Exercise/Act Treatment Duration: Sep 03, 2019 Frequency: At least 5 of 7 days/Wk (IRF) Estimated Hrs Per Day: 1.[address] IPOC Speech Therapy Treatment Plan: Discontinue ST Treatment Duration: Aug 20, 2019 Frequency: 1 time per week Estimated Hrs Per Day: .25 hour per day Chip Washer/Case Mgmt Chip Washer/Case Managemen: Discharge Planning Dietitian/Customer Engagement Analyst Dietitian/Customer Engagement Analyst to monitor nutritional status and make changes and/or recommendations as needed and work with speech pathology on dietary upgrades as the occur. Physician IPOC Medical Issues being managed closely and that require the 24 hour availability of a physician: Recent hip fracture with severe O2 dependent COPD will be at risk for decompensation Medical Issues: Bowel/Bladder Function, DVT Prophylaxis, Falls Precautions, Fluid/Electrolyte/Nutrition Balance, Infection Protection, Pain Management Brief Synthesis of Preadmission Screen, Post-Admission Evaluation, and Therapy Evaluations: PT and OT will aggressively treat patient to regain function in order to return home Medical Prognosis: Good Anticipated Length of Stay: 7 days CARSON SCHAFFER DO Aug 20, 2019 21:17
[2019-08-21] MEDS: RT-ALBUTEROL/IPRATROPIUM 3 ML (DUONEB) VIAL INH SCH ×4 (02:37→21:28)
[2019-08-21 05:46] VITALS: BP 149/70
[2019-08-21] MEDS: KCL 10 MEQ TAB (MICRO K) PO SCH ×3 (06:11→16:17)
[2019-08-21] MEDS: ONDANSETRON 4 MG (ZOFRAN) ORAL DISSOLVE TAB PO PRN (06:11)
[2019-08-21] MEDS: HYDROcodone/APAP 5 MG/325 MG (LORTAB) TAB PO PRN ×4 (06:12→21:17)
[2019-08-21] MEDS: ENOXAPARIN 30 MG/0.3 ML (LOVENOX) SYR SC SCH (06:12)
--- NOTE | 2019-08-21 08:00 | NUR ---
STATES [place] ADEQUATELY CONTROLLING LEFT HIP PAIN. GETS SOB WITH EXERTION. O2 EXTENSION TUBING PUT ON SO PATIENT WILL WEAR OXYGEN WHEN GOING TO BATHROOM. NO OTHER O Addendum: 08/21/19 at 0955 by FRANCOIS CHUN RN COMPLAINTS.
[2019-08-21] MEDS: SENNA W/DOCUSATE (SENOKOT S) TABLET PO SCH ×2 (08:01→20:06)
[2019-08-21] MEDS: DOCUSATE SODIUM 100 MG (COLACE) CAP PO SCH ×2 (08:01→20:06)
[2019-08-21] MEDS: IRON POLYSAC 150 MG CAP (NIFEREX) PO SCH (08:02)
--- NOTE | 2019-08-21 08:02 | PM&R Progress Note ---
Subjective HPI/CC On Admission Date Seen by Provider: Aug 21, 2019 Time Seen by Provider: 08:00 Subjective/Events-last exam Potassium 10 milliequivalents with meal was ordered Bowels moved today Hgb 8.2 Zofran before breakfast for uneasy stomach Lortab working for the pain Checked meds and labs Conferred with RN Reviewed therapy notes Review of Systems General: Fatigue Pulmonary: Dyspnea Musculoskeletal: leg pain Objective Exam Vital Signs Vital Signs Date Time Temp Pulse Resp B/P (MAP) Pulse Ox O2 Delivery O2 Flow Rate FiO2 08/21/19 17:08 37.4 76 18 115/72 (86) 94 Nasal Cannula 2.00 08/20/19 16:18 28 Capillary Refill : Less Than 3 SecondsLess Than 3 Seconds General Appearance: No Apparent Distress, Chronically ill, Thin HEENT: PERRL/EOMI, Normal ENT Inspection, Pharynx Normal Neck: Full Range of Motion, Normal Inspection, Non Tender, Supple, Carotid Bruit Respiratory: Chest Non Tender, Lungs Clear, Normal Breath Sounds, No Accessory Muscle Use, No Respiratory Distress, Decreased Breath Sounds Cardiovascular: Regular Rate, Rhythm, No Edema, No Gallop, No JVD, No Murmur, Normal Peripheral Pulses Gastrointestinal: Normal Bowel Sounds, No Organomegaly, No Pulsatile Mass, Non Tender, Soft Back: Normal Inspection, No CVA Tenderness, No Vertebral Tenderness Extremity: Normal Capillary Refill, Normal Inspection, Normal Range of Motion (except left leg), Non Tender, No Calf Tenderness, No Pedal Edema Neurologic/Psychiatric: Alert, Oriented x3, No Motor/Sensory Deficits, Normal Mood/Affect Skin: Normal Color, Warm/Dry Lymphatic: No Adenopathy Results/Procedures Lab Patient resulted labs reviewed. FIM Transfers Therapy Code Descriptions/Definitions Functional [place] Measure: 0=Not Assessed/NA 4=Minimal Assistance 1=Total Assistance 5=Supervision or Setup 2=Maximal Assistance 6=Modified [place] 3=Moderate Assistance 7=Complete IndependenceSCALE: Activities may be completed with or without assistive devices. 8-Lsaytpyptk-gemvedm completes the activity by him/herself with no assistance from a helper. 5-Set-up or Clean-up Assistance-helper sets up or cleans up; patient completes activity. [place] assists only prior to or following the activity. 4-Supervision or Touching Assistance-helper provides verbal cues and/or touching/steadying and/or contact guard assistance as patient completes activity. Assistance may be provided throughout the activity or intermittently. 3-Partial/Moderate Assistance-helper does LESS THAN HALF the effort. [place] lifts, holds or supports trunk or limbs, but provides less than half the effort. 2-Substantial/Maximal Assistance-helper does MORE THAN HALF the effort. [place] lifts or holds trunk or limbs and provides more than half the effort. 0-Rfwfqvyvx-khszfp does ALL the effort. Patient does none of the effort to complete the activity. Or, the assistance of 2 or more helpers is required for the patient to complete the activity. If activity was not attempted, code reason: 7-Patient Refused. 9-Not Applicable-not attempted and the patient did not perform the activity before the current illness, exacerbation or injury. 10-Not Attempted due to Environmental Limitations-(lack of equipment, weather restraints, etc.). 88-Not Attempted due to Medical Conditions or Safety Concerns. Roll Left to Right (QC): 6 Sit to Lying (QC): 3 Sit to Stand (QC): 4 Chair/Xff-rl-Ixqru Xfer(QC): 4 Car Transfer (QC): 3 Gait Training Does the Patient Walk?: Yes Walk 10 feet (QC): 4 Walk 50 ft with 2 Turns(QC): 4 Walk 150 ft (QC): 88 Walking 10ft/uneven surface-QC: 4 Gait Assistive Device: FWW Wheelchair Training Does the Pt Use a Wheelchair?: No Stair Training #of Steps: 1 1 Step (curb) (QC): 4 4 Steps (QC): 88 12 Steps (QC): 88 Balance Picking up an Object (QC): 88 ADL-Treatment Eating (QC): 6 Oral Hygiene (QC): 4 (SBA at sink.) Shower/Bathe Self (QC): 3 (Pt requires assist with BLE/ feet. Pt given and educated on LHS and use of it for BLE/ feet- able to complete with LHS. Pt completes nael/ bottom with SBA at walker.) Upper Body Dressing (QC): 5 (s/u) Lower Body Dressing (QC): 3 (Pt requires min A for LB dressing (cues for dressing LLE first, assist in threading), pt requires SBA in stance to complete over hips; pt educated on use of dressing stick for doffing. ) On/Off Footwear (QC): 2 (Pt requires max A for LLE sock doff/ donning. Pt educated on dressing stick for sock doffing and sock donning with sock aide. Pt completes with SBA (cues) with AE.) Toileting Hygiene (QC): 4 (SBA in stance.) Assessment/Plan Assessment and Plan Assess & Plan/Chief Complaint Assessment: Left hip fracture s/p uncomplicated repair COPD O2 dependency Frail status Former smoker Post op anemia Post op constipation resolving Plan: BM regimen IRF protocol Monitor closely Pain control (1) Closed left hip fracture Status: Acute (2) Former smoker (3) Nocturnal hypoxia (4) Anemia (5) Constipation (6) COPD (chronic obstructive pulmonary disease) CARSON SCHAFFER DO Aug 21, 2019 08:02
--- NOTE | 2019-08-21 09:23 | Physical Therapy Daily Note ---
PT Daily Note-Current Subjective Patient in bed pre tx, agrees to PT, has 6/10 pain, states she has already had pain meds. Appearance Patient in recliner post tx with nurse call, phone, tray, legs not elevated, all needs met. Mental Status Patient Orientation: Person, Place, Situation Attachments: Oxygen 2L O2 nasal canula Transfers SCALE: Activities may be completed with or without assistive devices. 5-Wthgdjyhyy-iufxjlk completes the activity by him/herself with no assistance from a helper. 5-Set-up or Clean-up Assistance-helper sets up or cleans up; patient completes activity. [place] assists only prior to or following the activity. 4-Supervision or Touching Assistance-helper provides verbal cues and/or touching/steadying and/or contact guard assistance as patient completes activity. Assistance may be provided throughout the activity or intermittently. 3-Partial/Moderate Assistance-helper does LESS THAN HALF the effort. [place] lifts, holds or supports trunk or limbs, but provides less than half the effort. 2-Substantial/Maximal Assistance-helper does MORE THAN HALF the effort. [place] lifts or holds trunk or limbs and provides more than half the effort. 5-Heaaixszk-wkkhul does ALL the effort. Patient does none of the effort to co mplete the activity. Or, the assistance of 2 or more helpers is required for the patient to complete the activity. If activity was not attempted, code reason: 7-Patient Refused. 9-Not Applicable-not attempted and the patient did not perform the activity before the current illness, exacerbation or injury. 10-Not Attempted due to Environmental Limitations-(lack of equipment, weather restraints, etc.). 88-Not Attempted due to Medical Conditions or Safety Concerns. Roll Left & Right (QC): 6 Lying to Sitting/Side of Bed(Q: 4 Sit to Stand (QC): 4 Chair/Feu-ux-Utcot Xfer(QC): 4 supine -> sit with SBA today, no assist needed with left leg but required quite a bit of effort on her part. Weight Bearing Partial Weight Bearing Gait Training Distance: 150'x2, 120'x2 Walk 10 feet (QC): 4 Walk 50 ft with 2 Turns(QC): 4 Walk 150 ft (QC): 4 Gait Assistive Device: FWW SBA, slow, antalgic, compliant with PWB on left leg, steady. Patient needs a rolling walker for home, outreach and education social worker notified. Exercises Supine Ex: Ankle pumps, Quad Set, Glut sets, Heel Slides, Short Arc Quads, Straight leg raise, Hip abd/add Supine Reps: 20 (AAROM with SLR, hip abd, and heel slides) Standing: Hamstring curls, 3 way Ex=Flex, Abd, Ext (not extension), Marching Standing Reps: 20 (just left leg) NuStep Minutes: 15 NuStep Workload: 1 Treatments bed mobility and transfers, ambulation, LE exercise and ROM Assessment Current Status: Fair Progress improving ambulation but patient still needs frequent rest breaks due to fatigue and SOB PT Short Term Goals Short Term Goals Time Frame: Aug 27, 2019 Roll Left & Right: 6 Sit to lyin Lying to sitting on side of be: 4 Sit to stand: 4 Chair/xlc-bw-otwdp transfer: 4 Walk 10 feet: 4 Walk 50 feet with two turns: 4 Walk 150 feet: 4 PT Custodial Goals Storage Consultant Goals PT Custodial Goals Time Frame: Sep 10, 2019 Roll Left & Right (QC): 6 Sit to Lying (QC): 6 Lying-Sitting on Side/Bed(QC): 6 Sit to Stand (QC): 6 Chair/Otz-uj-Binsa Xfer(QC): 6 Toilet Transfer (QC): 6 Car Transfer (QC): 6 Walk 10 feet (QC): 6 Walk 50ft with 2 Turns (QC): 6 Walk 150 ft (QC): 6 Walking 10ft on Uneven Surface: 6 1 Step (curb) (QC): 4 4 Steps (QC): 4 PT Plan Problem List Problem List: Activity Tolerance, Functional Strength, Safety, Balance, Gait, Transfer, Bed Mobility, ROM Treatment/Plan Treatment Plan: Continue Plan of Care Treatment Plan: Bed Mobility, Education, Functional Activity Evelyn, Functional Strength, Group Therapy, Gait, Safety, Therapeutic Exercise, Transfers Treatment Duration: Sep 10, 2019 Frequency: At least 5 of 7 days/Wk (IRF) Estimated Hrs Per Day: 1.5 hours per day Patient and/or Family Agrees t: Yes Safety Risks/Education Patient Education: Gait Training, Transfer Techniques, Reviewed Precautions, Correct Positioning, Safety Issues Teaching Recipient: Patient Teaching Methods: Demonstration, Discussion Response to Teaching: Reinforcement Needed Time/GCodes Time In: 0800 Time Out: 0930 Total Billed Treatment Time: 90 Total Billed Treatment 1 visit GT 45' EX 45' SANJANA ESCOBAR PT Aug 21, 2019 09:23
--- NOTE | 2019-08-21 09:35 | Occupational Ther Daily Note ---
OT Current Status-Daily Note Subjective Pt seen in bed, states just got settled in bed. Pt agreeable to OT tx session, denies OOB. Min pain while in supine. Mental Status/Objective Patient Orientation: Normal For Age Attachments: Oxygen ADL-Treatment Therapy Code Descriptions/Definitions Functional [place] Measure: 0=Not Assessed/NA 4=Minimal Assistance 1=Total Assistance 5=Supervision or Setup 2=Maximal Assistance 6=Modified [place] 3=Moderate Assistance 7=Complete IndependenceSCALE: Activities may be completed with or without assistive devices. 0-Stkrhdjfiv-swedahf completes the activity by him/herself with no assistance from a helper. 5-Set-up or Clean-up Assistance-helper sets up or cleans up; patient completes activity. [place] assists only prior to or following the activity. 4-Supervision or Touching Assistance-helper provides verbal cues and/or touching/steadying and/or contact guard assistance as patient completes activity. Assistance may be provided throughout the activity or intermittently. 3-Partial/Moderate Assistance-helper does LESS THAN HALF the effort. [place] lifts, holds or supports trunk or limbs, but provides less than half the effort. 2-Substantial/Maximal Assistance-helper does MORE THAN HALF the effort. [place] lifts or holds trunk or limbs and provides more than half the effort. 0-Dybxtsuqk-ihyieb does ALL the effort. Patient does none of the effort to complete the activity. Or, the assistance of 2 or more helpers is required for the patient to complete the activity. If activity was not attempted, code reason: 7-Patient Refused. 9-Not Applicable-not attempted and the patient did not perform the activity before the current illness, exacerbation or injury. 10-Not Attempted due to Environmental Limitations-(lack of equipment, weather restraints, etc.). 88-Not Attempted due to Medical Conditions or Safety Concerns. Other Treatment Pt completes UE exercises with HEPand mod cues/ demonstration for guidance. Pt completes 5-10 reps of each exercise; back flies, shoulder external rotation, biceps, triceps, and scaption. Educated on benefits. Pt has phone call during session, pt left in bed with call light in reach, all needs met. Education OT Patient Education: Exercise program, Home exercise program Teaching Recipient: Patient Teaching Methods: Demonstration, Discussion Response to Teaching: Verbalize Understanding, Return Demonstration OT Short Term Goals Short Term Goals Upper body dressin Lower body dressin OT Retirement Goals Laminating Machine Offbearer Goals Time Frame: Sep 03, 2019 Eating (QC): 6 Oral Hygiene (QC): 6 Toileting Hygiene (QC): 6 Shower/Bathe Self (QC): 6 Upper Body Dressing (QC): 6 Lower Body Dressing (QC): 6 On/Off Footwear (QC): 6 Additional Goals: 1-Demonstrate ADL Tasks, 2-Verbalize Understanding, 3- ImproveStrength/Evelyn 1=Demonstrate adherence to instructed precautions during ADL tasks. 2=Patient will verbalize/demonstrate understanding of assistive devices/modif ications for ADL. 3=Patient will improve strength/tolerance for activity to enable patient to perform ADL's. OT Education/Plan Problem List/Assessment Assessment: Decreased Activ Tolerance, Edema, Impaired I ADL's, Impaired Self- Care Skills Discharge Recommendations Plan/Recommendations: Continue POC Treatment Plan/Plan of Care Patient would benefit from OT for education, treatment and training to promote i ndependence in ADL's, mobility, safety and/or upper extremity function for ADL's. Plan of Care: ADL Retraining, Functional Mobility, UE Funct Exercise/Act Treatment Duration: Sep 03, 2019 Frequency: At least 5 of 7 days/Wk (IRF) Estimated Hrs Per Day: 1.5 hours per day Agreement: Yes Rehab Potential: Fair Time/GCodes Start Time: 13:00 Stop Time: 13:10 Total Time Billed (hr/min): 10 Billed Treatment Time 1, EX (10) This note is for 08/20/19, delayed note. FIDENCIO NARAYANAN OTR Aug 21, 2019 09:35
--- NOTE | 2019-08-21 11:50 | Occupational Ther Daily Note ---
OT Current Status-Daily Note Subjective Pt sitting upright in recliner, finishing with RT. Pt declined bathing/dressing on this date, stating her family is supposed to be bringing her new clothes this evening and she would prefer to complete these tomorrow. Pt stated her pain in her left hip 6-01/31, requesting pain pill. OT notified nursing. Mental Status/Objective Attachments: Oxygen (1L) ADL-Treatment Therapy Code Descriptions/Definitions Functional [place] Measure: 0=Not Assessed/NA 4=Minimal Assistance 1=Total Assistance 5=Supervision or Setup 2=Maximal Assistance 6=Modified [place] 3=Moderate Assistance 7=Complete IndependenceSCALE: Activities may be completed with or without assistive devices. 7-Phhuounfmh-xbgqdmp completes the activity by him/herself with no assistance from a helper. 5-Set-up or Clean-up Assistance-helper sets up or cleans up; patient completes activity. [place] assists only prior to or following the activity. 4-Supervision or Touching Assistance-helper provides verbal cues and/or touching/steadying and/or contact guard assistance as patient completes activity. Assistance may be provided throughout the activity or intermittently. 3-Partial/Moderate Assistance-helper does LESS THAN HALF the effort. [place] lifts, holds or supports trunk or limbs, but provides less than half the effort. 2-Substantial/Maximal Assistance-helper does MORE THAN HALF the effort. [place] lifts or holds trunk or limbs and provides more than half the effort. 2-Kifxpjmvi-tvsepj does ALL the effort. Patient does none of the effort to complete the activity. Or, the assistance of 2 or more helpers is required for the patient to complete the activity. If activity was not attempted, code reason: 7-Patient Refused. 9-Not Applicable-not attempted and the patient did not perform the activity before the current illness, exacerbation or injury. 10-Not Attempted due to Environmental Limitations-(lack of equipment, weather restraints, etc.). 88-Not Attempted due to Medical Conditions or Safety Concerns. Oral Hygiene (QC): 5 (set up/clean up of task at tray table as pt sat in recliner. ) Toileting Hygiene (QC): 4 (SBA in stance) Toilet Transfer (QC): 4 (SBA during transfer on/off toilet) Other Treatment Pt sitting in recliner at start of session, declines bathing/dressing but agreeable to washing her face and brushing her teeth. Pt stated she is currently fatigued after walking back to her room from PT, she agreed to complete ADLs at seated level. OT set up tasks at tray table, pt was able to complete tasks as she sat in recliner. Pt then agreed to performing functional mobility to the gym in order to work on BUE functional endurance and strength. Pt used FWW as she ambulated to the gym with SBA, OT managed O2 tank. Pt then completed the following functional activities: 1) 1" foam pegboard with 1lb wrist cuff BUES, pt placed/removed x100 pegs, alternating hands, no rest breaks required. 2) Arm bike, min resistance x15 mins with 5 rest breaks throughout task. She was able to take breaks as needed and utilized pursed lip breathing without cues. 3) pt removed small objects from red theraputty, no rest breaks needed & 4) nut/bolts fine motor activity with no rest breaks required. Pt then ambulated back to her room where she completed toileting, then requested to lay down. Pt completed sit to supine transfer with assist of BLEs into bed. Post OT session, pt laying in bed, call light in reach and all needs met. Education OT Patient Education: Correct positioning, Energy conservation, Exercise program, Modified ADL techniques, Progress toward Goal/Update tx plan, Purpose of tx/functional activities, Transfer techniques Teaching Recipient: Patient Teaching Methods: Demonstration, Discussion Response to Teaching: Verbalize Understanding, Return Demonstration OT Short Term Goals Short Term Goals Upper body dressin Lower body dressin OT Manganese Heater Goals Manganese Heater Goals Time Frame: Sep 03, 2019 Eating (QC): 6 Oral Hygiene (QC): 6 Toileting Hygiene (QC): 6 Shower/Bathe Self (QC): 6 Upper Body Dressing (QC): 6 Lower Body Dressing (QC): 6 On/Off Footwear (QC): 6 Additional Goals: 1-Demonstrate ADL Tasks, 2-Verbalize Understanding, 3- ImproveStrength/Evelyn 1=Demonstrate adherence to instructed precautions during ADL tasks. 2=Patient will verbalize/demonstrate understanding of assistive devices/modifications for ADL. 3=Patient will improve strength/tolerance for activity to enable patient to perform ADL's. OT Education/Plan Problem List/Assessment Assessment: Decreased Activ Tolerance, Decreased UE Strength, Impaired I ADL's, Impaired Self-Care Skills Discharge Recommendations Plan/Recommendations: Continue POC Treatment Plan/Plan of Care Patient would benefit from OT for education, treatment and training to promote independence in ADL's, mobility, safety and/or upper extremity function for ADL's. Plan of Care: ADL Retraining, Functional Mobility, UE Funct Exercise/Act Treatment Duration: Sep 03, 2019 Frequency: At least 5 of 7 days/Wk (IRF) Estimated Hrs Per Day: 1.5 hours per day Agreement: Yes Rehab Potential: Fair Time/GCodes Start Time: 09:35 Stop Time: 11:05 Total Time Billed (hr/min): 90 Billed Treatment Time 1, ADL 2 (25'), Ex (15'), FA 3 (50') SERENA RAMIREZ OT Aug 21, 2019 11:50
[2019-08-21] MEDS ORDERED: CATHETER FLUSH 10 ML SYR IV PRN (13:45)
[2019-08-21] MEDS: CATHETER FLUSH 10 ML SYR IV SCH ×2 (14:35→20:06)
[2019-08-21 17:08] VITALS: BP 115/72
--- NOTE | 2019-08-21 18:00 | NUR ---
STATES APPETITE HAS IMPROVED TODAY. NO COMPLAINTS OF NAUSEA.
[2019-08-21] MEDS: MONTELUKAST 10 MG (SINGULAIR) TAB PO SCH (20:06)
[2019-08-21] MEDS: polyethylene glycoL POWDER 17 GM (MIRALAX) PACK PO SCH (20:09)
[2019-08-22] MEDS: RT-ALBUTEROL/IPRATROPIUM 3 ML (DUONEB) VIAL INH SCH ×4 (02:44→21:11)
[2019-08-22] MEDS: RT-ALBUTEROL/IPRATROPIUM 3 ML (DUONEB) VIAL INH PRN (03:14)
[2019-08-22 05:15] VITALS: BP 115/72
[2019-08-22] MEDS: KCL 10 MEQ TAB (MICRO K) PO SCH ×3 (06:23→16:56)
[2019-08-22] MEDS: ENOXAPARIN 30 MG/0.3 ML (LOVENOX) SYR SC SCH (06:23)
[2019-08-22] MEDS: CATHETER FLUSH 10 ML SYR IV SCH ×3 (06:23→20:15)
[2019-08-22] MEDS: HYDROcodone/APAP 5 MG/325 MG (LORTAB) TAB PO PRN ×2 (07:14→16:04)
--- NOTE | 2019-08-22 08:00 | NUR ---
COMPLAIN NAUSEA THIS AM. STATES FOOD DID NOT TASTE GOOD THIS MORNING. HIP PAIN IMPROVED AFTER LORTAB.
--- NOTE | 2019-08-22 08:33 | PM&R Progress Note ---
Subjective HPI/CC On Admission Date Seen by Provider: Aug 22, 2019 Time Seen by Provider: 08:45 Subjective/Events-last exam Pt ate a little better. Giulia not taken and now she is queasy from breakfast. Remains at 2 Liters from nasal cannula. Overall feels much better and pain is controlled. Checked meds and labs Conferred with RN Reviewed therapy notes Review of Systems General: Fatigue Pulmonary: Dyspnea Musculoskeletal: leg pain Objective Exam Vital Signs Vital Signs Date Time Temp Pulse Resp B/P (MAP) Pulse Ox O2 Delivery O2 Flow Rate FiO2 08/22/19 20:20 Nasal Cannula 2.00 08/22/19 17:39 37.2 74 18 127/73 (91) 96 08/20/19 16:18 28 Capillary Refill : Less Than 3 SecondsLess Than 3 Seconds General Appearance: No Apparent Distress, Chronically ill, Thin HEENT: PERRL/EOMI, Normal ENT Inspection, Pharynx Normal Neck: Full Range of Motion, Normal Inspection, Non Tender, Supple, Carotid Bruit Respiratory: Chest Non Tender, Lungs Clear, Normal Breath Sounds, No Accessory Muscle Use, No Respiratory Distress, Decreased Breath Sounds Cardiovascular: Regular Rate, Rhythm, No Edema, No Gallop, No JVD, No Murmur, Normal Peripheral Pulses Gastrointestinal: Normal Bowel Sounds, No Organomegaly, No Pulsatile Mass, Non Tender, Soft Back: Normal Inspection, No CVA Tenderness, No Vertebral Tenderness Extremity: Normal Capillary Refill, Normal Inspection, Normal Range of Motion (except left leg), Non Tender, No Calf Tenderness, No Pedal Edema Neurologic/Psychiatric: Alert, Oriented x3, No Motor/Sensory Deficits, Normal Mood/Affect Skin: Normal Color, Warm/Dry Lymphatic: No Adenopathy Results/Procedures Lab Patient resulted labs reviewed. FIM Transfers Therapy Code Descriptions/Definitions Functional [place] Measure: 0=Not Assessed/NA 4=Minimal Assistance 1=Total Assistance 5=Supervision or Setup 2=Maximal Assistance 6=Modified [place] 3=Moderate Assistance 7=Complete IndependenceSCALE: Activities may be completed with or without assistive devices. 6-Dzmklaqdnj-mfgzbpt completes the activity by him/herself with no assistance from a helper. 5-Set-up or Clean-up Assistance-helper sets up or cleans up; patient completes activity. [place] assists only prior to or following the activity. 4-Supervision or Touching Assistance-helper provides verbal cues and/or touching/steadying and/or contact guard assistance as patient completes activity. Assistance may be provided throughout the activity or intermittently. 3-Partial/Moderate Assistance-helper does LESS THAN HALF the effort. [place] lifts, holds or supports trunk or limbs, but provides less than half the effort. 2-Substantial/Maximal Assistance-helper does MORE THAN HALF the effort. [place] lifts or holds trunk or limbs and provides more than half the effort. 8-Hcgedghla-qrguhj does ALL the effort. Patient does none of the effort to complete the activity. Or, the assistance of 2 or more helpers is required for the patient to complete the activity. If activity was not attempted, code reason: 7-Patient Refused. 9-Not Applicable-not attempted and the patient did not perform the activity before the current illness, exacerbation or injury. 10-Not Attempted due to Environmental Limitations-(lack of equipment, weather restraints, etc.). 88-Not Attempted due to Medical Conditions or Safety Concerns. Roll Left to Right (QC): 6 Sit to Lying (QC): 3 Sit to Stand (QC): 4 Chair/Juw-nv-Xiynk Xfer(QC): 4 Car Transfer (QC): 3 Gait Training Does the Patient Walk?: Yes Distance: 150'x2, 120'x2 Walk 10 feet (QC): 4 Walk 50 ft with 2 Turns(QC): 4 Walk 150 ft (QC): 4 Walking 10ft/uneven surface-QC: 4 Gait Assistive Device: FWW Wheelchair Training Does the Pt Use a Wheelchair?: No Stair Training #of Steps: 1 1 Step (curb) (QC): 4 4 Steps (QC): 88 12 Steps (QC): 88 Balance Picking up an Object (QC): 88 ADL-Treatment Eating (QC): 6 Oral Hygiene (QC): 5 (set up/clean up of task at tray table as pt sat in recliner. ) Shower/Bathe Self (QC): 3 (Pt requires assist with BLE/ feet. Pt given and educated on LHS and use of it for BLE/ feet- able to complete with LHS. Pt compl etes nael/ bottom with SBA at walker.) Upper Body Dressing (QC): 5 (s/u) Lower Body Dressing (QC): 3 (Pt requires min A for LB dressing (cues for dressing LLE first, assist in threading), pt requires SBA in stance to complete over hips; pt educated on use of dressing stick for doffing. ) On/Off Footwear (QC): 2 (Pt requires max A for LLE sock doff/ donning. Pt educated on dressing stick for sock doffing and sock donning with sock aide. Pt completes with SBA (cues) with AE.) Toileting Hygiene (QC): 4 (SBA in stance) Toilet Transfer (QC): 4 (SBA during transfer on/off toilet) Assessment/Plan Assessment and Plan Assess & Plan/Chief Complaint Assessment: Left hip fracture s/p uncomplicated repair COPD O2 dependency Frail status Former smoker Post op anemia Post op constipation resolving Plan: BM regimen IRF protocol Monitor closely Pain control (1) Closed left hip fracture Status: Acute (2) Former smoker (3) Nocturnal hypoxia (4) Anemia (5) Constipation (6) COPD (chronic obstructive pulmonary disease) CARSON SCHAFFER DO Aug 22, 2019 08:33
--- NOTE | 2019-08-22 09:44 | Occupational Ther Daily Note ---
OT Current Status-Daily Note Subjective Pt agreeable to therapy this am. Reports 6/10 pain in left LE, states she already had pain medication. Mental Status/Objective Attachments: Oxygen ADL-Treatment Pt in restroom when therapist arrives. Pt able to complete toileting hygiene and clothing management with SBA. Stood with supervision using grab bar. Pt transferred to walk in shower with SBA and verbal cues for safety using grab bar and FWW. Pt requires assist to doff YOLANDA hose, but able to doff other clothing without assist. Seated bathing completed using hand held shower. Pt able to wash/dry upper body with set up. Assist to dry left foot. Don pullover shirt with setup. Pt donned underwear and pants with CGA for balance during standing for pant hike. Pt required assist to don YOLANDA hose. Pt donned right sock with set up. Used sock aid to don left sock with verbal cues for technique. Pt requires increased time for ADL tasks. Pt fatigues with activity and requires occasional rest breaks throughout ADL tasks. Therapy Code Descriptions/Definitions Functional [place] Measure: 0=Not Assessed/NA 4=Minimal Assistance 1=Total Assistance 5=Supervision or Setup 2=Maximal Assistance 6=Modified [place] 3=Moderate Assistance 7=Complete IndependenceSCALE: Activities may be completed with or without assistive devices. 2-Wwnvaqbnvn-fmptyvf completes the activity by him/herself with no assistance from a helper. 5-Set-up or Clean-up Assistance-helper sets up or cleans up; patient completes activity. [place] assists only prior to or following the activity. 4-Supervision or Touching Assistance-helper provides verbal cues and/or touching/steadying and/or contact guard assistance as patient completes activity. Assistance may be provided throughout the activity or intermittently. 3-Partial/Moderate Assistance-helper does LESS THAN HALF the effort. [place] lifts, holds or supports trunk or limbs, but provides less than half the effort. 2-Substantial/Maximal Assistance-helper does MORE THAN HALF the effort. [place] lifts or holds trunk or limbs and provides more than half the effort. 0-Rsdvadnry-hpcmml does ALL the effort. Patient does none of the effort to complete the activity. Or, the assistance of 2 or more helpers is required for the patient to complete the activity. If activity was not attempted, code reason: 7-Patient Refused. 9-Not Applicable-not attempted and the patient did not perform the activity before the current illness, exacerbation or injury. 10-Not Attempted due to Environmental Limitations-(lack of equipment, weather restraints, etc.). 88-Not Attempted due to Medical Conditions or Safety Concerns. Oral Hygiene (QC): 7 (Pt declined to complete at this time.) Shower/Bathe Self (QC): 3 Upper Body Dressing (QC): 5 Lower Body Dressing (QC): 4 On/Off Footwear: 3 (assist for YOLANDA hose) Toileting Hygiene (QC): 4 (SBA) Toilet Transfer (QC): 4 (SBA) Other Treatment Pt performed gait to therapy gym with FWW, able to maintain WB status. Assist to manage O2. Pt completed arm bike activity [id number] to increase overall strength and activity tolerance needed for functional task completion. Pt performed task with minimal resistance and slow pace. Pt took 4 rest breaks during task secondary to decreased activity tolerance. Pt returned to room, transferred to EOB with SBA. Sit to supine with assist for left LE. Pt resting in bed with needs met after session. Education OT Patient Education: Modified ADL techniques Teaching Recipient: Patient Teaching Methods: Discussion Response to Teaching: Verbalize Understanding OT Short Term Goals Short Term Goals Upper body dressin Lower body dressin OT Installation And Repair Technician Goals Installation And Repair Technician Goals Time Frame: Sep 03, 2019 Eating (QC): 6 Oral Hygiene (QC): 6 Toileting Hygiene (QC): 6 Shower/Bathe Self (QC): 6 Upper Body Dressing (QC): 6 Lower Body Dressing (QC): 6 On/Off Footwear (QC): 6 Additional Goals: 1-Demonstrate ADL Tasks, 2-Verbalize Understanding, 3-ImproveStrength/Evelyn 1=Demonstrate adherence to instructed precautions during ADL tasks. 2=Patient will verbalize/demonstrate understanding of assistive devices/modifications for ADL. 3=Patient will improve strength/tolerance for activity to enable patient to perform ADL's. OT Education/Plan Discharge Recommendations Plan/Recommendations: Continue POC Treatment Plan/Plan of Care Patient would benefit from OT for education, treatment and training to promote independence in ADL's, mobility, safety and/or upper extremity function for ADL's. Plan of Care: ADL Retraining, Functional Mobility, UE Funct Exercise/Act Treatment Duration: Sep 03, 2019 Frequency: At least 5 of 7 days/Wk (IRF) Estimated Hrs Per Day: 1.5 hours per day Agreement: Yes Rehab Potential: Fair Time/GCodes Start Time: 08:00 Stop Time: 09:30 Total Time Billed (hr/min): 90 Billed Treatment Time 1 visit, ADLx5(70minutes), EX(20minutes) STEVEN REBOLLAR OT Aug 22, 2019 09:44
[2019-08-22] MEDS: IRON POLYSAC 150 MG CAP (NIFEREX) PO SCH (10:11)
[2019-08-22] MEDS: DOCUSATE SODIUM 100 MG (COLACE) CAP PO SCH ×2 (10:11→20:15)
[2019-08-22] MEDS: SENNA W/DOCUSATE (SENOKOT S) TABLET PO SCH ×2 (10:11→20:15)
--- NOTE | 2019-08-22 10:53 | Physical Therapy Daily Note ---
PT Daily Note-Current Subjective Pt laying Supine in bed upon arrival. Pt reports feeling nauseated, nurse aware. Pt agrees to PT. Pain Numeric Pain Scale: 6 Location: Left Location Body Site: Hip Pain Description: Ache, Tightness Mental Status Patient Orientation: Person, Place, Situation Attachments: Oxygen (2L) Transfers SCALE: Activities may be completed with or without assistive devices. 8-Jccctzxnbu-wdiklsx completes the activity by him/herself with no assistance from a helper. 5-Set-up or Clean-up Assistance-helper sets up or cleans up; patient completes activity. [place] assists only prior to or following the activity. 4-Supervision or Touching Assistance-helper provides verbal cues and/or touching/steadying and/or contact guard assistance as patient completes activity. Assistance may be provided throughout the activity or intermittently. 3-Partial/Moderate Assistance-helper does LESS THAN HALF the effort. [place] lifts, holds or supports trunk or limbs, but provides less than half the effort. 2-Substantial/Maximal Assistance-helper does MORE THAN HALF the effort. [place] lifts or holds trunk or limbs and provides more than half the effort. 6-Nvkmsernh-fjurdb does ALL the effort. Patient does none of the effort to complete the activity. Or, the assistance of 2 or more helpers is required for the patient to complete the activity. If activity was not attempted, code reason: 7-Patient Refused. 9-Not Applicable-not attempted and the patient did not perform the activity before the current illness, exacerbation or injury. 10-Not Attempted due to Environmental Limitations-(lack of equipment, weather restraints, etc.). 88-Not Attempted due to Medical Conditions or Safety Concerns. Roll Left & Right (QC): 5 Sit to Lying (QC): 4 Lying to Sitting/Side of Bed(Q: 4 Sit to Stand (QC): 5 Toilet Transfer (QC): 5 Weight Bearing Right Lower Extremity: Right Full Weight Bearing Left Lower Extremity: Left Full Weight Bearing Gait Training Does the Patient Walk?: Yes Distance: 150' x2 Walk 10 feet (QC): 5 Walk 50 ft with 2 Turns(QC): 5 Walk 150 ft (QC): 5 Gait Persons Needed: 1 Gait Assistive Device: FWW Pt walks with slow but steady joão. Pt reports more SOA today. Exercises Seated Therapy Exercises: Ankle pumps, Long arc quads, Hip flexion, Kicking activity Seated Reps: 15 NuStep Minutes: 10 NuStep Workload: 1 Treatments Pt transfers from bed to standing. Pt uses restroom then ambulates in hallway. Pt completes Seated Ex in chair and uses NuStep for 10m at WL 1 due to hip pain. Pt ambulates in hallway. Pt returns to room to rest in bed at end of Rx. Pt has all needs met, call light in hand. Assessment Current Status: Fair Progress Pt feels more SOA today, Nurse advised. Dr Cobos had listened to pt's lungs and did not hear anything to be concern with at this time. PT Short Term Goals Short Term Goals Time Frame: Aug 27, 2019 Roll Left & Right: 6 Sit to lyin Lying to sitting on side of be: 4 Sit to stand: 4 Chair/jdv-yv-mhiad transfer: 4 Walk 10 feet: 4 Walk 50 feet with two turns: 4 Walk 150 feet: 4 PT [place] Digger Goals Mcfp Goals PT Mcfp Goals Time Frame: Sep 10, 2019 Roll Left & Right (QC): 6 Sit to Lying (QC): 6 Lying-Sitting on Side/Bed(QC): 6 Sit to Stand (QC): 6 Chair/Yxb-fd-Tifgg Xfer(QC): 6 Toilet Transfer (QC): 6 Car Transfer (QC): 6 Walk 10 feet (QC): 6 Walk 50ft with 2 Turns (QC): 6 Walk 150 ft (QC): 6 Walking 10ft on Uneven Surface: 6 1 Step (curb) (QC): 4 4 Steps (QC): 4 PT Plan Problem List Problem List: Activity Tolerance, Functional Strength, Transfer Treatment/Plan Treatment Plan: Continue Plan of Care Treatment Plan: Bed Mobility, Education, Functional Activity Evelyn, Functional Strength, Group Therapy, Gait, Safety, Therapeutic Exercise, Transfers Treatment Duration: Sep 10, 2019 Frequency: At least 5 of 7 days/Wk (IRF) Estimated Hrs Per Day: 1.5 hours per day Patient and/or Family Agrees t: Yes Safety Risks/Education Patient Education: Gait Training, Transfer Techniques, Correct Positioning, Safety Issues Teaching Recipient: Patient Teaching Methods: Discussion Response to Teaching: Verbalize Understanding Time/GCodes Time In: 945 Time Out: 1045 Total Billed Treatment Time: 60 Total Billed Treatment 1, GT (20m), EX x2 (25m) & FA (15m) LUIS ESTEBAN [employer]CEL POST WEIGHER Aug 22, 2019 10:53
--- NOTE | 2019-08-22 11:25 | Physician Query Clarification ---
PQ-Further Specificity Admission/Discharge Admission Date: Aug 19, 2019 at 10:20 Discharge Date: The medical record reflects the following clinical scenario: History/Risk Factors: LT Intertrochanteric femur fracture, postop anemia, COPD Clinical Findings: Hgb 8.2 Treatment: 150 mg PO Niferex Question: Can you further specify postop anemia per the clinical indicators above? Please document a response in the Progress Notes or Discharge Summary. 1. postop anemia due to acute blood loss 2. postop anemia unknown etiology 3. Other, with explanation of the clinical findings. 4. Clinically undetermined, no explanation for the clinical findings. PHYSICIAN RESPONSE Can you specify per above: 1 Please remember a lack of response to the above will prompt a phone page by CDI/Coding staff. In responding to this query, please exercise your independent professional judgment. The purpose of this communication is to more accurately reflect the complexity of your patients condition. The fact that a question is asked does not imply that any particular answer is desired or expected. Thank you for your timely response to this clarification. Requestors name: Sara THIS PHYSICIAN QUERY FORM IS A PERMANENT PART OF THE MEDICAL RECORD SARA CASTAÑEDA Aug 22, 2019 11:25 CARSON SCHAFFER DO Aug 22, 2019 20:51
[2019-08-22] MEDS: ONDANSETRON 4 MG/2 ML (SDV) Z0FRAN IV PRN (12:23)
--- NOTE | 2019-08-22 14:28 | Physical Therapy Daily Note ---
PT Daily Note-Current Subjective Pt laying Supine in bed with HOB raised. Pt reports more nausea this afternoon, Nurse is aware & has given med. Pt agrees to limited PT due to nausea. Pain Numeric Pain Scale: 6 Location: Left Location Body Site: Hip Pain Description: Ache, Tightness Mental Status Patient Orientation: Person, Place, Time, Situation Attachments: Oxygen (2L) Transfers SCALE: Activities may be completed with or without assistive devices. 5-Gaiqjagztv-eajsqix completes the activity by him/herself with no assistance from a helper. 5-Set-up or Clean-up Assistance-helper sets up or cleans up; patient completes activity. [place] assists only prior to or following the activity. 4-Supervision or Touching Assistance-helper provides verbal cues and/or touch ing/steadying and/or contact guard assistance as patient completes activity. Assistance may be provided throughout the activity or intermittently. 3-Partial/Moderate Assistance-helper does LESS THAN HALF the effort. [place] lifts, holds or supports trunk or limbs, but provides less than half the effort. 2-Substantial/Maximal Assistance-helper does MORE THAN HALF the effort. [place] lifts or holds trunk or limbs and provides more than half the effort. 9-Ymjfqywmq-fsqjdu does ALL the effort. Patient does none of the effort to complete the activity. Or, the assistance of 2 or more helpers is required for the patient to complete the activity. If activity was not attempted, code reason: 7-Patient Refused. 9-Not Applicable-not attempted and the patient did not perform the activity before the current illness, exacerbation or injury. 10-Not Attempted due to Environmental Limitations-(lack of equipment, weather restraints, etc.). 88-Not Attempted due to Medical Conditions or Safety Concerns. Roll Left & Right (QC): 5 Sit to Lying (QC): 4 Lying to Sitting/Side of Bed(Q: 4 Sit to Stand (QC): 5 Weight Bearing Right Lower Extremity: Right Full Weight Bearing Left Lower Extremity: Left Full Weight Bearing Gait Training Does the Patient Walk?: Yes Distance: 15 x2 Walk 10 feet (QC): 5 Gait Persons Needed: 1 Gait Assistive Device: FWW Exercises Supine Ex: Ankle pumps, Quad Set, Glut sets, Heel Slides, Straight leg raise, Hip abd/add Supine Reps: 20 Treatments Pt transfers from bed to standing and ambulates to restroom. Pt returns to bed to rest then completes Supine Ex in bed with several RB as needed for SOA. Pt resting in bed at end of Rx with all needs met, call light in hand. Assessment Current Status: Fair Progress Pt continues to reports nausea during Rx but participated despite this fact. PT Short Term Goals Short Term Goals Time Frame: Aug 27, 2019 Roll Left & Right: 6 Sit to lyin Lying to sitting on side of be: 4 Sit to stand: 4 Chair/fgu-bx-kksqk transfer: 4 Walk 10 feet: 4 Walk 50 feet with two turns: 4 Walk 150 feet: 4 PT Sleeve Sewer Goals Sleeve Sewer Goals PT Sleeve Sewer Goals Time Frame: Sep 10, 2019 Roll Left & Right (QC): 6 Sit to Lying (QC): 6 Lying-Sitting on Side/Bed(QC): 6 Sit to Stand (QC): 6 Chair/Ojc-bg-Hadjf Xfer(QC): 6 Toilet Transfer (QC): 6 Car Transfer (QC): 6 Walk 10 feet (QC): 6 Walk 50ft with 2 Turns (QC): 6 Walk 150 ft (QC): 6 Walking 10ft on Uneven Surface: 6 1 Step (curb) (QC): 4 4 Steps (QC): 4 PT Plan Problem List Problem List: Activity Tolerance, Functional Strength, Gait, Transfer Treatment/Plan Treatment Plan: Continue Plan of Care Treatment Plan: Bed Mobility, Education, Functional Activity Evelyn, Functional Strength, Group Therapy, Gait, Safety, Therapeutic Exercise, Transfers Treatment Duration: Sep 10, 2019 Frequency: At least 5 of 7 days/Wk (IRF) Estimated Hrs Per Day: 1.5 hours per day Patient and/or Family Agrees t: Yes Safety Risks/Education Patient Education: Gait Training, Transfer Techniques, Correct Positioning, Safety Issues Teaching Recipient: Patient Teaching Methods: Discussion Response to Teaching: Verbalize Understanding Time/GCodes Time In: 1300 Time Out: 1330 Total Billed Treatment Time: 30 Total Billed Treatment 1, EX x2 (30m) LUIS ESTEBAN PTA Aug 22, 2019 14:28
--- NOTE | 2019-08-22 16:00 | NUR ---
IV SITE 7 DAYS OLD AND MICHELE'Shilpa.
[2019-08-22 17:39] VITALS: BP 127/73
[2019-08-22] MEDS: polyethylene glycoL POWDER 17 GM (MIRALAX) PACK PO SCH (19:53)
[2019-08-22] MEDS: MONTELUKAST 10 MG (SINGULAIR) TAB PO SCH (20:15)
[2019-08-23] MEDS: RT-ALBUTEROL/IPRATROPIUM 3 ML (DUONEB) VIAL INH SCH ×3 (01:26→22:12)
[2019-08-23 05:30] VITALS: BP 124/72
[2019-08-23] MEDS: CATHETER FLUSH 10 ML SYR IV SCH (05:46)
[2019-08-23] MEDS: KCL 10 MEQ TAB (MICRO K) PO SCH ×3 (06:02→17:21)
[2019-08-23] MEDS: ENOXAPARIN 30 MG/0.3 ML (LOVENOX) SYR SC SCH (06:02)
[2019-08-23 06:12] LABS: HEMOGLOBIN 9.4 G/DL (11.5-16.0); MEAN PLATELET VOLUME 9.3 FL (7.4-10.4); RED CELL DISTRIBUTION WIDTH 13.8 % (10.0-14.5); WHITE BLOOD COUNT 7.7 10^3/uL (4.3-11.0)
[2019-08-23] MEDS: HYDROcodone/APAP 5 MG/325 MG (LORTAB) TAB PO PRN ×2 (07:44→17:21)
--- NOTE | 2019-08-23 07:45 | NUR ---
MEDICATED REQUESTED WITH [facility] PRIOR TO PHYSICAL THERAPY. DENIES NAUSEA THIS AM. IS RELIEVED THAT IS FEELING BETTER TODAY.
[2019-08-23] MEDS: SENNA W/DOCUSATE (SENOKOT S) TABLET PO SCH ×2 (08:13→21:21)
[2019-08-23] MEDS: DOCUSATE SODIUM 100 MG (COLACE) CAP PO SCH ×2 (08:13→21:21)
[2019-08-23] MEDS: IRON POLYSAC 150 MG CAP (NIFEREX) PO SCH (08:14)
--- NOTE | 2019-08-23 08:56 | PM&R Progress Note ---
Subjective HPI/CC On Admission Date Seen by Provider: Aug 23, 2019 Time Seen by Provider: 09:00 Subjective/Events-last exam Will DC the heplock No nausea today Slept pretty well last night Had a small BM today Participating in all therapy Checked meds and labs Conferred with RN Reviewed therapy notes Review of Systems Pulmonary: Dyspnea Musculoskeletal: leg pain Objective Exam Vital Signs Vital Signs Date Time Temp Pulse Resp B/P (MAP) Pulse Ox O2 Delivery O2 Flow Rate FiO2 08/24/19 05:09 37.0 83 20 130/73 (92) 96 Nasal Cannula 2.00 08/23/19 15:39 28 Capillary Refill : Less Than 3 SecondsLess Than 3 Seconds General Appearance: No Apparent Distress, Chronically ill, Thin HEENT: PERRL/EOMI, Normal ENT Inspection, Pharynx Normal Neck: Full Range of Motion, Normal Inspection, Non Tender, Supple, Carotid Bruit Respiratory: Chest Non Tender, Lungs Clear, Normal Breath Sounds, No Accessory Muscle Use, No Respiratory Distress, Decreased Breath Sounds Cardiovascular: Regular Rate, Rhythm, No Edema, No Gallop, No JVD, No Murmur, Normal Peripheral Pulses Gastrointestinal: Normal Bowel Sounds, No Organomegaly, No Pulsatile Mass, Non Tender, Soft Back: Normal Inspection, No CVA Tenderness, No Vertebral Tenderness Extremity: Normal Capillary Refill, Normal Inspection, Normal Range of Motion (except left leg), Non Tender, No Calf Tenderness, No Pedal Edema Neurologic/Psychiatric: Alert, Oriented x3, No Motor/Sensory Deficits, Normal Mood/Affect Skin: Normal Color, Warm/Dry Lymphatic: No Adenopathy Results/Procedures Lab Patient resulted labs reviewed. FIM Transfers Therapy Code Descriptions/Definitions Functional [place] Measure: 0=Not Assessed/NA 4=Minimal Assistance 1=Total Assistance 5=Supervision or Setup 2=Maximal Assistance 6=Modified [place] 3=Moderate Assistance 7=Complete IndependenceSCALE: Activities may be completed with or without assistive devices. 6-Iabjpbemro-ybyqxjm completes the activity by him/herself with no assistance from a helper. 5-Set-up or Clean-up Assistance-helper sets up or cleans up; patient completes activity. [place] assists only prior to or following the activity. 4-Supervision or Touching Assistance-helper provides verbal cues and/or touching/steadying and/or contact guard assistance as patient completes activity. Assistance may be provided throughout the activity or intermittently. 3-Partial/Moderate Assistance-helper does LESS THAN HALF the effort. [place] lifts, holds or supports trunk or limbs, but provides less than half the effort. 2-Substantial/Maximal Assistance-helper does MORE THAN HALF the effort. [place] lifts or holds trunk or limbs and provides more than half the effort. 8-Ngnaxzshz-yftohj does ALL the effort. Patient does none of the effort to complete the activity. Or, the assistance of 2 or more helpers is required for the patient to complete the activity. If activity was not attempted, code reason: 7-Patient Refused. 9-Not Applicable-not attempted and the patient did not perform the activity before the current illness, exacerbation or injury. 10-Not Attempted due to Environmental Limitations-(lack of equipment, weather restraints, etc.). 88-Not Attempted due to Medical Conditions or Safety Concerns. Roll Left to Right (QC): 5 Sit to Lying (QC): 4 Sit to Stand (QC): 5 Chair/Qlt-re-Lsymb Xfer(QC): 4 Car Transfer (QC): 3 Gait Training Does the Patient Walk?: Yes Distance: 15 x2 Walk 10 feet (QC): 5 Walk 50 ft with 2 Turns(QC): 5 Walk 150 ft (QC): 5 Walking 10ft/uneven surface-QC: 4 Gait Persons Needed: 1 Gait Assistive Device: FWW Wheelchair Training Does the Pt Use a Wheelchair?: No Stair Training #of Steps: 1 1 Step (curb) (QC): 4 4 Steps (QC): 88 12 Steps (QC): 88 Balance Picking up an Object (QC): 88 ADL-Treatment Eating (QC): 6 Oral Hygiene (QC): 7 (Pt declined to complete at this time.) Shower/Bathe Self (QC): 3 Upper Body Dressing (QC): 5 Lower Body Dressing (QC): 4 On/Off Footwear (QC): 3 (assist for YOLANDA hose) Toileting Hygiene (QC): 4 (SBA) Toilet Transfer (QC): 4 (SBA) Assessment/Plan Assessment and Plan Assess & Plan/Chief Complaint Assessment: Left hip fracture s/p uncomplicated repair COPD O2 dependency Frail status Former smoker Post op anemia Post op constipation resolving Plan: BM regimen IRF protocol Monitor closely Pain control Maintain O2 at daytime may need that addition when she DC (1) Closed left hip fracture Status: Acute (2) Former smoker (3) Nocturnal hypoxia (4) Anemia (5) Constipation (6) COPD (chronic obstructive pulmonary disease) CARSON SCHAFFER DO Aug 23, 2019 08:56
--- NOTE | 2019-08-23 09:00 | NUR ---
PER PATIENT'S REQUEST IF WEIGHT BEARING STATUS COULD BE CHANGED: DR. ROBBINS STATES XRAY WILL BE DONE 2 WEEKS POST OP AND WILL DETERMINE AT THAT TIME IF WEIGHT BEARING STATUS COULD BE CHANGED. TO KEEP LEFT LE PWB AT THIS TIME.
--- NOTE | 2019-08-23 09:00 | Physical Therapy Daily Note ---
PT Daily Note-Current Subjective Pt sitting in recliner upon arrival. Pt agrees to PT and reports feeling better, no nausea this morning. Pain Numeric Pain Scale: 5-Moderate Pain Location: Left Location Body Site: Hip Pain Description: Ache, Tightness Mental Status Patient Orientation: Person, Place, Time, Situation Attachments: Oxygen (2L) Transfers SCALE: Activities may be completed with or without assistive devices. 2-Lirchhjbyr-nzywtyq completes the activity by him/herself with no assistance from a helper. 5-Set-up or Clean-up Assistance-helper sets up or cleans up; patient completes activity. [place] assists only prior to or following the activity. 4-Supervision or Touching Assistance-helper provides verbal cues and/or touching/steadying and/or contact guard assistance as patient completes activity. Assistance may be provided throughout the activity or intermittently. 3-Partial/Moderate Assistance-helper does LESS THAN HALF the effort. [place] lifts, holds or supports trunk or limbs, but provides less than half the effort. 2-Substantial/Maximal Assistance-helper does MORE THAN HALF the effort. [place] lifts or holds trunk or limbs and provides more than half the effort. 8-Lahuvtetz-faotio does ALL the effort. Patient does none of the effort to complete the activity. Or, the assistance of 2 or more helpers is required for the patient to complete the activity. If activity was not attempted, code reason: 7-Patient Refused. 9-Not Applicable-not attempted and the patient did not perform the activity befo re the current illness, exacerbation or injury. 10-Not Attempted due to Environmental Limitations-(lack of equipment, weather re straints, etc.). 88-Not Attempted due to Medical Conditions or Safety Concerns. Sit to Stand (QC): 5 Weight Bearing Right Lower Extremity: Right Full Weight Bearing Left Lower Extremity: Left Full Weight Bearing Gait Training Does the Patient Walk?: Yes Distance: 150' x2 Walk 10 feet (QC): 5 Walk 50 ft with 2 Turns(QC): 5 Walk 150 ft (QC): 5 Gait Persons Needed: 1 Gait Assistive Device: FWW Wheelchair Training Does the Pt Use a Wheelchair?: No Exercises Seated Therapy Exercises: Ankle pumps, Long arc quads, Hip flexion, Kicking activity Seated Reps: 15 NuStep Minutes: 15 NuStep Workload: 1 Treatments Pt transfers to standing then ambulates to restroom. Pt ambulates in hallway. Pt completes Seated Ex in chair as well as uses NuStep for 15 at WL 1 for ROM. Pt ambulates back to room at end of Rx to rest with all needs met, call light in hand. Assessment Current Status: Good Progress Pt tolerates Rx well, increased strength and endurance. Nurse reports same WB status of PWB per surgeon until Xray next week. PT Short Term Goals Short Term Goals Time Frame: Aug 27, 2019 Roll Left & Right: 6 Sit to lyin Lying to sitting on side of be: 4 Sit to stand: 4 Chair/rdp-ll-knwef transfer: 4 Walk 10 feet: 4 Walk 50 feet with two turns: 4 Walk 150 feet: 4 PT Size Worker Goals Size Worker Goals PT [facility] Goals Time Frame: Sep 10, 2019 Roll Left & Right (QC): 6 Sit to Lying (QC): 6 Lying-Sitting on Side/Bed(QC): 6 Sit to Stand (QC): 6 Chair/Rar-oy-Ydyrm Xfer(QC): 6 Toilet Transfer (QC): 6 Car Transfer (QC): 6 Walk 10 feet (QC): 6 Walk 50ft with 2 Turns (QC): 6 Walk 150 ft (QC): 6 Walking 10ft on Uneven Surface: 6 1 Step (curb) (QC): 4 4 Steps (QC): 4 PT Plan Problem List Problem List: Activity Tolerance, Functional Strength, Gait Treatment/Plan Treatment Plan: Continue Plan of Care Treatment Plan: Bed Mobility, Education, Functional Activity Evelyn, Functional Strength, Group Therapy, Gait, Safety, Therapeutic Exercise, Transfers Treatment Duration: Sep 10, 2019 Frequency: At least 5 of 7 days/Wk (IRF) Estimated Hrs Per Day: 1.5 hours per day Patient and/or Family Agrees t: Yes Safety Risks/Education Patient Education: Gait Training, Transfer Techniques, Correct Positioning, Safety Issues Teaching Recipient: Patient Teaching Methods: Discussion Response to Teaching: Verbalize Understanding Time/GCodes Time In: 800 Time Out: 900 Total Billed Treatment Time: 60 Total Billed Treatment 1, GT (20m), FA (10m) & EX x2 (30m) LUIS ESTEBAN LICENSED GUIDE Aug 23, 2019 09:00
--- NOTE | 2019-08-23 11:01 | Occupational Ther Daily Note ---
OT Current Status-Daily Note Subjective Pt seen in recliner chair. Pt states mod pain in L hip during stance and sit to stands. Pt agreeable to OT tx session with goals of sponge bath and UB/ standing tolerance with PWB status. Mental Status/Objective Patient Orientation: Normal For Age Attachments: Oxygen ADL-Treatment Therapy Code Descriptions/Definitions Functional [place] Measure: 0=Not Assessed/NA 4=Minimal Assistance 1=Total Assistance 5=Supervision or Setup 2=Maximal Assistance 6=Modified [place] 3=Moderate Assistance 7=Complete IndependenceSCALE: Activities may be completed with or without assistive devices. 5-Zvzxjrxuqa-ahlzuti completes the activity by him/herself with no assistance from a helper. 5-Set-up or Clean-up Assistance-helper sets up or cleans up; patient completes activity. [place] assists only prior to or following the activity. 4-Supervision or Touching Assistance-helper provides verbal cues and/or t ouching/steadying and/or contact guard assistance as patient completes activity. Assistance may be provided throughout the activity or intermittently. 3-Partial/Moderate Assistance-helper does LESS THAN HALF the effort. [place] lifts, holds or supports trunk or limbs, but provides less than half the effort. 2-Substantial/Maximal Assistance-helper does MORE THAN HALF the effort. [place] lifts or holds trunk or limbs and provides more than half the effort. 6-Qpqcjghfp-njwgwq does ALL the effort. Patient does none of the effort to complete the activity. Or, the assistance of 2 or more helpers is required for the patient to complete the activity. If activity was not attempted, code reason: 7-Patient Refused. 9-Not Applicable-not attempted and the patient did not perform the activity before the current illness, exacerbation or injury. 10-Not Attempted due to Environmental Limitations-(lack of equipment, weather restraints, etc.). 88-Not Attempted due to Medical Conditions or Safety Concerns. Eating (QC): 6 Oral Hygiene (QC): 4 (SUP with walker in front of sink. Good balance) Shower/Bathe Self (QC): 4 (SUP during stance/ nael/ bottom hygiene. Pt washes all areas.) Upper Body Dressing (QC): 5 Lower Body Dressing (QC): 4 ( Pt doffs/ dons with SUP) On/Off Footwear: 5 (Pt doffs socks with mod I, able to doff R yolanda hose, requires assist doffing L YOLANDA hose. Pt dons R YOLANDA hose IND, dons L with s/u for threading hose onto sock aide. Completes with mod I post-s/u.) Toileting Hygiene (QC): 4 (SUP) Toilet Transfer (QC): 4 (SUP, use of walker.) Other Treatment Pt states "worn out" from PT session. Denies shower, agrees to modified sponge bath. Pt completes bathing/ dressing tasks in recliner chair. Pt's L proximal leg edematous, pt educated on manual edema drainage techniques through retrograde massage of bruised areas. L hip dressing not touched. Pt educated on completing while laying in bed to encourage edema management. Pt then completes standing tolerance activity with UB movements, completes 2 rounds of 5 min standing at walker while doffing/ donning resistance clothes pins on table with ~75* shoulder flexion to prepare for hbah-wv-nqxl tasks of hairdressing. Pt completes, 02 lkerkaykp80% or above. Pt sits in recliner, completes 2 sets of 20 reps of UB ex with 1# weights donned bilaterally. Pt completes shoulder flexion to 90*, shoulder abduction full range, and bicep curls. Pt requires rest breaks to maintain breaths. Pt and OT discuss kitchen modifications/ rest breaks in home. Pt states she can bring chair in or go to table. Pt stays in recliner end of session, call light in reach, all needs met. Education OT Patient Education: Correct positioning, Exercise program, Home exercise program, Modified ADL techniques, Purpose of tx/functional activities, Reviewed precautions, Safety issues, Use of adapted equipment Teaching Recipient: Patient Teaching Methods: Demonstration, Discussion Response to Teaching: Verbalize Understanding, Return Demonstration OT Short Term Goals Short Term Goals Upper body dressin Lower body dressin OT Care Home Goals Care Home Goals Time Frame: Sep 03, 2019 Eating (QC): 6 (met) Oral Hygiene (QC): 6 Toileting Hygiene (QC): 6 Shower/Bathe Self (QC): 6 Upper Body Dressing (QC): 6 Lower Body Dressing (QC): 6 On/Off Footwear (QC): 6 Additional Goals: 1-Demonstrate ADL Tasks, 2-Verbalize Understanding, 3- ImproveStrength/Evelyn 1=Demonstrate adherence to instructed precautions during ADL tasks. 2=Patient will verbalize/demonstrate understanding of assistive devices/modifications for ADL. 3=Patient will improve strength/tolerance for activity to enable patient to perform ADL's. OT Education/Plan Problem List/Assessment Assessment: Decreased Activ Tolerance, Edema, Impaired Bed Mobility, Impaired I ADL's, Impaired Self-Care Skills Discharge Recommendations Plan/Recommendations: Continue POC Therapy Discharge Recommendati: Home & Family Treatment Plan/Plan of Care Treatment,Training & Education: Yes Patient would benefit from OT for education, treatment and training to promote independence in ADL's, mobility, safety and/or upper extremity function for ADL's. Plan of Care: ADL Retraining, Functional Mobility, UE Funct Exercise/Act Treatment Duration: Sep 03, 2019 Frequency: At least 5 of 7 days/Wk (IRF) Estimated Hrs Per Day: 1.5 hours per day Agreement: Yes Rehab Potential: Fair Time/GCodes Start Time: 09:30 Stop Time: 11:00 Total Time Billed (hr/min): 90 Billed Treatment Time 1, ADL 3 (45), MAN (15), EX 2 (30)= 90 FIDENCIO NARAYANAN OTR Aug 23, 2019 11:01
--- NOTE | 2019-08-23 11:38 | NUR ---
Pt expecting visit from [facility] today. Declines sacraments until then.
--- NOTE | 2019-08-23 15:24 | NUR ---
CM/SS WEEKLY TEAM CONFERENCE SUMMARY Reviewed Summary with patient and she is in agreement to a re-evaluation in 7 days. Patient still having nausea/queasiness, pleasant and appeared better during our conversation. Still on O2, following for possible continuous need/upgrade. Patient still verbalizes pain with any weight bear and that ortho surgeon plans xray to review. Patient's spouse has been here to visit her daily but he apparently wasn't feeling well today and will be staying home. DME: Aware a FWW is needed, possible upgrade of home O2. HHC: Following for progress closer to discharge regarding any recommendations.
--- NOTE | 2019-08-23 15:36 | Physical Therapy Daily Note ---
PT Daily Note-Current Subjective Pt sitting in recliner upon arrival. Pt asks to use restroom to begin Rx. Pain Numeric Pain Scale: 5-Moderate Pain Location: Left Location Body Site: Hip Pain Description: Ache, Tightness Mental Status Patient Orientation: Person, Place, Time, Situation Transfers SCALE: Activities may be completed with or without assistive devices. 9-Udjzokkdrj-dmmfetx completes the activity by him/herself with no assistance from a helper. 5-Set-up or Clean-up Assistance-helper sets up or cleans up; patient completes activity. [place] assists only prior to or following the activity. 4-Supervision or Touching Assistance-helper provides verbal cues and/or touching/steadying and/or contact guard assistance as patient completes activity. Assistance may be provided throughout the activity or intermittently. 3-Partial/Moderate Assistance-helper does LESS THAN HALF the effort. [place] lifts, holds or supports trunk or limbs, but provides less than half the effort. 2-Substantial/Maximal Assistance-helper does MORE THAN HALF the effort. [place] lifts or holds trunk or limbs and provides more than half the effort. 7-Slqjcxvfk-onmqkr does ALL the effort. Patient does none of the effort to complete the activity. Or, the assistance of 2 or more helpers is required for the patient to complete the activity. If activity was not attempted, code reason: 7-Patient Refused. 9-Not Applicable-not attempted and the patient did not perform the activity before the current illness, exacerbation or injury. 10-Not Attempted due to Environmental Limitations-(lack of equipment, weather restraints, etc.). 88-Not Attempted due to Medical Conditions or Safety Concerns. Sit to Lying (QC): 4 Lying to Sitting/Side of Bed(Q: 4 Sit to Stand (QC): 4 Toilet Transfer (QC): 4 Weight Bearing Right Lower Extremity: Right Full Weight Bearing Left Lower Extremity: Left Full Weight Bearing Wheelchair Training Does the Pt Use a Wheelchair?: No Exercises Supine Ex: Ankle pumps, Quad Set, Glut sets, Heel Slides, Hip abd/add Supine Reps: 15 Treatments Pt transfers from recliner to standing, uses restroom before returning to EOB. Pt transfers to supine and completes Supine Ex. Pt resting in bed with all needs met, call light in hand. Assessment Current Status: Good Progress Pt is fatigued in afternoon. Pt is able to complete Ex despite reporting pain with movement. PT Short Term Goals Short Term Goals Time Frame: Aug 27, 2019 Roll Left & Right: 6 Sit to lyin Lying to sitting on side of be: 4 Sit to stand: 4 Chair/avz-cg-cdddv transfer: 4 Walk 10 feet: 4 Walk 50 feet with two turns: 4 Walk 150 feet: 4 PT Technical Services Analyst Goals Technical Services Analyst Goals PT Technical Services Analyst Goals Time Frame: Sep 10, 2019 Roll Left & Right (QC): 6 Sit to Lying (QC): 6 Lying-Sitting on Side/Bed(QC): 6 Sit to Stand (QC): 6 Chair/Pqi-gi-Fntjm Xfer(QC): 6 Toilet Transfer (QC): 6 Car Transfer (QC): 6 Walk 10 feet (QC): 6 Walk 50ft with 2 Turns (QC): 6 Walk 150 ft (QC): 6 Walking 10ft on Uneven Surface: 6 1 Step (curb) (QC): 4 4 Steps (QC): 4 PT Plan Problem List Problem List: Activity Tolerance, Functional Strength, Transfer Treatment/Plan Treatment Plan: Continue Plan of Care Treatment Plan: Bed Mobility, Education, Functional Activity Evelyn, Functional Strength, Group Therapy, Gait, Safety, Therapeutic Exercise, Transfers Treatment Duration: Sep 10, 2019 Frequency: At least 5 of 7 days/Wk (IRF) Estimated Hrs Per Day: 1.5 hours per day Patient and/or Family Agrees t: Yes Safety Risks/Education Patient Education: Correct Positioning, Safety Issues Teaching Recipient: Patient Teaching Methods: Discussion Response to Teaching: Verbalize Understanding Time/GCodes Time In: 1300 Time Out: 1330 Total Billed Treatment Time: 30 Total Billed Treatment 1, FA (10m) & EX (20m) LUIS ESTEBAN OFFICE MAIL CLERK Aug 23, 2019 15:36
[2019-08-23 15:39] VITALS: BP 124/72
[2019-08-23 18:00] VITALS: BP 128/75
[2019-08-23] MEDS: polyethylene glycoL POWDER 17 GM (MIRALAX) PACK PO SCH (20:21)
[2019-08-23] MEDS: MONTELUKAST 10 MG (SINGULAIR) TAB PO SCH (21:21)
[2019-08-24] MEDS: RT-ALBUTEROL/IPRATROPIUM 3 ML (DUONEB) VIAL INH SCH ×4 (03:26→19:34)
[2019-08-24 05:09] VITALS: BP 130/73
[2019-08-24] MEDS: ENOXAPARIN 30 MG/0.3 ML (LOVENOX) SYR SC SCH (05:58)
[2019-08-24] MEDS: KCL 10 MEQ TAB (MICRO K) PO SCH ×3 (05:58→16:46)
[2019-08-24] MEDS: HYDROcodone/APAP 5 MG/325 MG (LORTAB) TAB PO PRN ×2 (07:59→20:45)
[2019-08-24] MEDS: SENNA W/DOCUSATE (SENOKOT S) TABLET PO SCH ×2 (08:00→20:45)
[2019-08-24] MEDS: DOCUSATE SODIUM 100 MG (COLACE) CAP PO SCH ×2 (08:00→20:45)
[2019-08-24] MEDS: IRON POLYSAC 150 MG CAP (NIFEREX) PO SCH (08:00)
--- NOTE | 2019-08-24 09:03 | Occupational Ther Daily Note ---
OT Current Status-Daily Note Subjective Pt seated upright in recliner at start of session, agreeable to OT tx with focus on ADLs. She states her pain is decreasing, and is no longer a sharp pain. She did not verbalize her pain rating during tx. Mental Status/Objective Attachments: Oxygen (2L) ADL-Treatment Therapy Code Descriptions/Definitions Functional [place] Measure: 0=Not Assessed/NA 4=Minimal Assistance 1=Total Assistance 5=Supervision or Setup 2=Maximal Assistance 6=Modified [place] 3=Moderate Assistance 7=Complete IndependenceSCALE: Activities may be completed with or without assistive devices. 4-Wrguxjnbsi-ojykjve completes the activity by him/herself with no assistance from a helper. 5-Set-up or Clean-up Assistance-helper sets up or cleans up; patient completes activity. [place] assists only prior to or following the activity. 4-Supervision or Touching Assistance-helper provides verbal cues and/or touching/steadying and/or contact guard assistance as patient completes activity. Assistance may be provided throughout the activity or intermittently. 3-Partial/Moderate Assistance-helper does LESS THAN HALF the effort. [place] lifts, holds or supports trunk or limbs, but provides less than half the effort. 2-Substantial/Maximal Assistance-helper does MORE THAN HALF the effort. [place] lifts or holds trunk or limbs and provides more than half the effort. 8-Svssdhoey-ogldsi does ALL the effort. Patient does none of the effort to complete the activity. Or, the assistance of 2 or more helpers is required for the patient to complete the activity. If activity was not attempted, code reason: 7-Patient Refused. 9-Not Applicable-not attempted and the patient did not perform the activity bef ore the current illness, exacerbation or injury. 10-Not Attempted due to Environmental Limitations-(lack of equipment, weather r estraints, etc.). 88-Not Attempted due to Medical Conditions or Safety Concerns. Oral Hygiene (QC): 4 (SBA standing at sink) Shower/Bathe Self (QC): 4 (SBA in stance at grab bars during buttocks/ pericare.) Upper Body Dressing (QC): 5 (set up and clean up assist) Lower Body Dressing (QC): 4 (SBA in stance at FWW, set up and clean up assist. Pt able to complete all parts of task. Pt used dressing stick.) On/Off Footwear: 2 (Pt able to doff/red BLE socks, required total assist donning YOLANDA hose. Pt used dressing stick and sock aide.) Toileting Hygiene (QC): 4 (SBA in stance for clothing management. Pt completed all parts of task.) Toilet Transfer (QC): 4 (SBA on/off toilet using GB and FWW.) Other Treatment Pt completed ADL session in her room, then performed functional mobility to therapy gym using FWW with SBA as OT managed O2 tank and lines.. In order to increase BUE strength and functional endurance with tasks, pt completed x15 mins on arm bike with min resistance, 4 rest breaks during task. Pt then completed fine motor nuts/bolts, functional activity in order to increase functional en durance with tasks and fine motor skills. Pt performed functional mobility back to her room using FWW with SBA as OT managed O2 tank & lines. Post OT session, pt seated in recliner, call light in reach and all needs met. Education OT Patient Education: Correct positioning, Energy conservation, Exercise program, Modified ADL techniques, Progress toward Goal/Update tx plan, Purpose of tx/functional activities, Transfer techniques, Use of adapted equipment Teaching Recipient: Patient Teaching Methods: Demonstration, Discussion Response to Teaching: Verbalize Understanding, Return Demonstration OT Short Term Goals Short Term Goals Upper body dressin Lower body dressin OT Detention Goals Attenuator Goals Time Frame: Sep 03, 2019 Eating (QC): 6 (met) Oral Hygiene (QC): 6 Toileting Hygiene (QC): 6 Shower/Bathe Self (QC): 6 Upper Body Dressing (QC): 6 Lower Body Dressing (QC): 6 On/Off Footwear (QC): 6 Additional Goals: 1-Demonstrate ADL Tasks, 2-Verbalize Understanding, 3- ImproveStrength/Evelyn 1=Demonstrate adherence to instructed precautions during ADL tasks. 2=Patient will verbalize/demonstrate understanding of assistive devic es/modifications for ADL. 3=Patient will improve strength/tolerance for activity to enable patient to perform ADL's. OT Education/Plan Problem List/Assessment Assessment: Decreased Activ Tolerance, Decreased UE Strength, Impaired Funct Balance, Impaired I ADL's, Impaired Self-Care Skills Discharge Recommendations Plan/Recommendations: Continue POC Treatment Plan/Plan of Care Patient would benefit from OT for education, treatment and training to promote independence in ADL's, mobility, safety and/or upper extremity function for ADL's. Plan of Care: ADL Retraining, Functional Mobility, UE Funct Exercise/Act Treatment Duration: Sep 03, 2019 Frequency: At least 5 of 7 days/Wk (IRF) Estimated Hrs Per Day: 1.5 hours per day Agreement: Yes Rehab Potential: Fair Time/GCodes Start Time: 08:00 Stop Time: 09:30 Total Time Billed (hr/min): 90 Billed Treatment Time 1, ADL 4 (60'), EX (20'), FA (10') SERENA RAMIREZ OT Aug 24, 2019 09:03
--- NOTE | 2019-08-24 09:47 | PM&R Progress Note ---
Subjective HPI/CC On Admission Date Seen by Provider: Aug 24, 2019 Time Seen by Provider: 12:00 Subjective/Events-last exam Had a BM today. IS not really being used. X-ray next week to see if we can lift the weight restrictions. Hematoma noted and that is resolving. Participating in all therapy Checked meds and labs Conferred with RN Reviewed therapy notes Review of Systems General: Fatigue Pulmonary: Dyspnea Musculoskeletal: leg pain Objective Exam Vital Signs Vital Signs Date Time Temp Pulse Resp B/P (MAP) Pulse Ox O2 Delivery O2 Flow Rate FiO2 08/24/19 09:46 95 Nasal Cannula 2.00 08/24/19 05:09 37.0 83 20 130/73 (92) 08/23/19 15:39 28 Capillary Refill : Less Than 3 SecondsLess Than 3 Seconds General Appearance: No Apparent Distress, Chronically ill, Thin HEENT: PERRL/EOMI, Normal ENT Inspection, Pharynx Normal Neck: Full Range of Motion, Normal Inspection, Non Tender, Supple, Carotid Bruit Respiratory: Chest Non Tender, Lungs Clear, Normal Breath Sounds, No Accessory Muscle Use, No Respiratory Distress, Decreased Breath Sounds Cardiovascular: Regular Rate, Rhythm, No Edema, No Gallop, No JVD, No Murmur, Normal Peripheral Pulses Gastrointestinal: Normal Bowel Sounds, No Organomegaly, No Pulsatile Mass, Non Tender, Soft Back: Normal Inspection, No CVA Tenderness, No Vertebral Tenderness Extremity: Normal Capillary Refill, Normal Inspection, Normal Range of Motion (except left leg), Non Tender, No Calf Tenderness, No Pedal Edema Neurologic/Psychiatric: Alert, Oriented x3, No Motor/Sensory Deficits, Normal Mood/Affect Skin: Normal Color, Warm/Dry Lymphatic: No Adenopathy Results/Procedures Lab Patient resulted labs reviewed. FIM Transfers Therapy Code Descriptions/Definitions Functional [place] Measure: 0=Not Assessed/NA 4=Minimal Assistance 1=Total Assistance 5=Supervision or Setup 2=Maximal Assistance 6=Modified [place] 3=Moderate Assistance 7=Complete IndependenceSCALE: Activities may be completed with or without assistive devices. 7-Bojvjnwhci-yzyhqtm completes the activity by him/herself with no assistance from a helper. 5-Set-up or Clean-up Assistance-helper sets up or cleans up; patient completes activity. [place] assists only prior to or following the activity. 4-Supervision or Touching Assistance-helper provides verbal cues and/or touching/steadying and/or contact guard assistance as patient completes activity. Assistance may be provided throughout the activity or intermittently. 3-Partial/Moderate Assistance-helper does LESS THAN HALF the effort. [place] lifts, holds or supports trunk or limbs, but provides less than half the effort. 2-Substantial/Maximal Assistance-helper does MORE THAN HALF the effort. [place] lifts or holds trunk or limbs and provides more than half the effort. 3-Qzomfsdov-nxjuhq does ALL the effort. Patient does none of the effort to complete the activity. Or, the assistance of 2 or more helpers is required for the patient to complete the activity. If activity was not attempted, code reason: 7-Patient Refused. 9-Not Applicable-not attempted and the patient did not perform the activity before the current illness, exacerbation or injury. 10-Not Attempted due to Environmental Limitations-(lack of equipment, weather restraints, etc.). 88-Not Attempted due to Medical Conditions or Safety Concerns. Roll Left to Right (QC): 5 Sit to Lying (QC): 4 Sit to Stand (QC): 4 Chair/Bid-xt-Axgfb Xfer(QC): 4 Car Transfer (QC): 3 Gait Training Does the Patient Walk?: Yes Distance: 150' x2 Walk 10 feet (QC): 5 Walk 50 ft with 2 Turns(QC): 5 Walk 150 ft (QC): 5 Walking 10ft/uneven surface-QC: 4 Gait Persons Needed: 1 Gait Assistive Device: FWW Wheelchair Training Does the Pt Use a Wheelchair?: No Stair Training #of Steps: 1 1 Step (curb) (QC): 4 4 Steps (QC): 88 12 Steps (QC): 88 Balance Picking up an Object (QC): 88 ADL-Treatment Eating (QC): 6 Oral Hygiene (QC): 4 Shower/Bathe Self (QC): 4 Upper Body Dressing (QC): 5 Lower Body Dressing (QC): 4 On/Off Footwear (QC): 2 Toileting Hygiene (QC): 4 Toilet Transfer (QC): 4 Assessment/Plan Assessment and Plan Assess & Plan/Chief Complaint Assessment: Left hip fracture s/p uncomplicated repair COPD O2 dependency Frail status Former smoker Post op anemia Post op constipation resolving Plan: BM regimen IRF protocol Monitor closely Pain control Maintain O2 at daytime may need that addition when she DC Xrays next week to see if wt restrictions can be lifted (1) Closed left hip fracture Status: Acute (2) Former smoker (3) Nocturnal hypoxia (4) Anemia (5) Constipation (6) COPD (chronic obstructive pulmonary disease) CARSON SCHAFFER DO Aug 24, 2019 09:47
--- NOTE | 2019-08-24 11:07 | Physical Therapy Daily Note ---
PT Daily Note-Current Subjective Pt. agrees to Rx , states she has had it reinforced by Dr that she is to only bear 50% wt LLE. Pt. denies pain until the end of Rx when she states on the walk back that she Mental Status Patient Orientation: Normal For Age Transfers SCALE: Activities may be completed with or without assistive devices. 2-Ztzkmpemmv-jqfzsby completes the activity by him/herself with no assistance from a helper. 5-Set-up or Clean-up Assistance-helper sets up or cleans up; patient completes activity. [place] assists only prior to or following the activity. 4-Supervision or Touching Assistance-helper provides verbal cues and/or touching/steadying and/or contact guard assistance as patient completes activity. Assistance may be provided throughout the activity or intermittently. 3-Partial/Moderate Assistance-helper does LESS THAN HALF the effort. [place] lifts, holds or supports trunk or limbs, but provides less than half the effort. 2-Substantial/Maximal Assistance-helper does MORE THAN HALF the effort. [place] lifts or holds trunk or limbs and provides more than half the effort. 1-Muiynxjol-zntrns does ALL the effort. Patient does none of the effort to complete the activity. Or, the assistance of 2 or more helpers is required for the patient to complete the activity. If activity was not attempted, code reason: 7-Patient Refused. 9-Not Applicable-not attempted and the patient did not perform the activity before the current illness, exacerbation or injury. 10-Not Attempted due to Environmental Limitations-(lack of equipment, weather restraints, etc.). 88-Not Attempted due to Medical Conditions or Safety Concerns. Roll Left & Right (QC): 6 Sit to Lying (QC): 5 Lying to Sitting/Side of Bed(Q: 5 Sit to Stand (QC): 5 pt. uses UEs to assist LLE into and out of bed Weight Bearing Right Lower Extremity: Right Full Weight Bearing Left Lower Extremity: Left Full Weight Bearing Gait Training Does the Patient Walk?: Yes Walk 10 feet (QC): 5 Walk 50 ft with 2 Turns(QC): 5 Walk 150 ft (QC): 5 Gait Persons Needed: 1 Gait Assistive Device: FWW emphasized walking with flat foot, heel touching but maintaining 50% wt bearing on LLE. pt. did accomplish this and was educated as to why and keeping left heel cord stretched Exercises Supine Ex: Ankle pumps, Quad Set, Rolling, Glut sets, Heel Slides, Short Arc Quads, Scooting, Straight leg raise, Hip abd/add Supine Reps: 15 Seated Therapy Exercises: Ankle pumps, Sit to stand, Long arc quads, Hip abd/add Seated Reps: 15 NuStep Minutes: 10 NuStep Workload: 3 Assessment Current Status: Good Progress PT Short Term Goals Short Term Goals Time Frame: Aug 27, 2019 Roll Left & Right: 6 Sit to lyin Lying to sitting on side of be: 4 Sit to stand: 4 Chair/nhe-pq-jlgke transfer: 4 Walk 10 feet: 4 Walk 50 feet with two turns: 4 Walk 150 feet: 4 PT Snf Goals Snf Goals PT Multiple Punch Press Operator Goals Time Frame: Sep 10, 2019 Roll Left & Right (QC): 6 Sit to Lying (QC): 6 Lying-Sitting on Side/Bed(QC): 6 Sit to Stand (QC): 6 Chair/Jdx-ew-Npqsj Xfer(QC): 6 Toilet Transfer (QC): 6 Car Transfer (QC): 6 Walk 10 feet (QC): 6 Walk 50ft with 2 Turns (QC): 6 Walk 150 ft (QC): 6 Walking 10ft on Uneven Surface: 6 1 Step (curb) (QC): 4 4 Steps (QC): 4 PT Plan Treatment/Plan Treatment Plan: Continue Plan of Care Treatment Plan: Bed Mobility, Education, Functional Activity Evelyn, Functional Strength, Group Therapy, Gait, Safety, Therapeutic Exercise, Transfers Treatment Duration: Sep 10, 2019 Frequency: At least 5 of 7 days/Wk (IRF) Estimated Hrs Per Day: 1.5 hours per day Patient and/or Family Agrees t: Yes Safety Risks/Education Patient Education: Gait Training, Transfer Techniques, Correct Positioning, Disease Process, Safety Issues Teaching Recipient: Patient Teaching Methods: Demonstration, Discussion Response to Teaching: Verbalize Understanding, Return Demonstration, Reinforcement Needed Time/GCodes Time In: 1000 Time Out: 1100 Total Billed Treatment Time: 60 Total Billed Treatment 1,GT15m,EX25m,FA20m KATIE ZARATE [employer] Aug 24, 2019 11:07
--- NOTE | 2019-08-24 14:28 | Physical Therapy Daily Note ---
PT Daily Note-Current Subjective Pt. agrees to Rx. States she is having some pain in her right hip but wants to wait until this evening for a pain pill til bed time if she can Pain Numeric Pain Scale: 5-Moderate Pain Location: Right Location Body Site: Hip Pain Description: Ache Mental Status Patient Orientation: Normal For Age Transfers SCALE: Activities may be completed with or without assistive devices. 3-Oipxotrvkg-dadihmi completes the activity by him/herself with no assistance from a helper. 5-Set-up or Clean-up Assistance-helper sets up or cleans up; patient completes activity. [place] assists only prior to or following the activity. 4-Supervision or Touching Assistance-helper provides verbal cues and/or touching/steadying and/or contact guard assistance as patient completes ac tivity. Assistance may be provided throughout the activity or intermittently. 3-Partial/Moderate Assistance-helper does LESS THAN HALF the effort. [place] lifts, holds or supports trunk or limbs, but provides less than half the effort. 2-Substantial/Maximal Assistance-helper does MORE THAN HALF the effort. [place] lifts or holds trunk or limbs and provides more than half the effort. 8-Tttbrclgs-ptlhad does ALL the effort. Patient does none of the effort to complete the activity. Or, the assistance of 2 or more helpers is required for the patient to complete the activity. If activity was not attempted, code reason: 7-Patient Refused. 9-Not Applicable-not attempted and the patient did not perform the activity before the current illness, exacerbation or injury. 10-Not Attempted due to Environmental Limitations-(lack of equipment, weather restraints, etc.). 88-Not Attempted due to Medical Conditions or Safety Concerns. all sit to stand indep, all sup to sit and sit to sup min to CGA Weight Bearing Right Lower Extremity: Right Full Weight Bearing Left Lower Extremity: Left Full Weight Bearing Gait Training Does the Patient Walk?: Yes Gait Assistive Device: FWW 170 ft x 2 maintaining wt bearing status as ordered at [facility] Exercises Supine Ex: Ankle pumps, Quad Set, Rolling, Glut sets, Heel Slides, Short Arc Quads, Scooting, Straight leg raise (assisted R), Hip abd/add Supine Reps: 15 Assessment Current Status: Good Progress PT Short Term Goals Short Term Goals Time Frame: Aug 27, 2019 Roll Left & Right: 6 Sit to lyin Lying to sitting on side of be: 4 Sit to stand: 4 Chair/pqf-lk-bnbtj transfer: 4 Walk 10 feet: 4 Walk 50 feet with two turns: 4 Walk 150 feet: 4 PT [place]inder Goals Group Home Goals PT [place] Winder Goals Time Frame: Sep 10, 2019 Roll Left & Right (QC): 6 Sit to Lying (QC): 6 Lying-Sitting on Side/Bed(QC): 6 Sit to Stand (QC): 6 Chair/Nnb-jd-Ajopc Xfer(QC): 6 Toilet Transfer (QC): 6 Car Transfer (QC): 6 Walk 10 feet (QC): 6 Walk 50ft with 2 Turns (QC): 6 Walk 150 ft (QC): 6 Walking 10ft on Uneven Surface: 6 1 Step (curb) (QC): 4 4 Steps (QC): 4 PT Plan Treatment/Plan Treatment Plan: Continue Plan of Care Treatment Plan: Bed Mobility, Education, Functional Activity [place], Functional Strength, Group Therapy, Gait, Safety, Therapeutic Exercise, Transfers Treatment Duration: Sep 10, 2019 Frequency: At least 5 of 7 days/Wk (IRF) Estimated Hrs Per Day: 1.5 hours per day Patient and/or Family Agrees t: Yes Safety Risks/Education Patient Education: Gait Training, Transfer Techniques, Correct Positioning, Disease Process, Safety Issues Teaching Recipient: Patient Teaching Methods: Demonstration, Discussion Response to Teaching: Verbalize Understanding, Return Demonstration, Reinforcement Needed Time/GCodes Time In: 1400 Time Out: 1430 Total Billed Treatment Time: 30 Total Billed Treatment 1,GT15m,EX15m KATIE ZARATE [employer] Aug 24, 2019 14:28
[2019-08-24 18:00] VITALS: BP 111/64
[2019-08-24] MEDS: polyethylene glycoL POWDER 17 GM (MIRALAX) PACK PO SCH (19:52)
[2019-08-24] MEDS: MONTELUKAST 10 MG (SINGULAIR) TAB PO SCH (20:45)
[2019-08-25] MEDS: RT-ALBUTEROL/IPRATROPIUM 3 ML (DUONEB) VIAL INH SCH ×4 (02:10→20:29)
[2019-08-25 05:29] VITALS: BP 124/71
[2019-08-25] MEDS: ENOXAPARIN 30 MG/0.3 ML (LOVENOX) SYR SC SCH (06:23)
[2019-08-25] MEDS: KCL 10 MEQ TAB (MICRO K) PO SCH ×3 (06:23→17:02)
[2019-08-25] MEDS: SENNA W/DOCUSATE (SENOKOT S) TABLET PO SCH ×2 (08:17→20:26)
[2019-08-25] MEDS: HYDROcodone/APAP 5 MG/325 MG (LORTAB) TAB PO PRN ×2 (08:17→20:26)
[2019-08-25] MEDS: IRON POLYSAC 150 MG CAP (NIFEREX) PO SCH (08:17)
[2019-08-25] MEDS: DOCUSATE SODIUM 100 MG (COLACE) CAP PO SCH ×2 (08:17→20:26)
--- NOTE | 2019-08-25 12:25 | PM&R Progress Note ---
Subjective HPI/CC On Admission Date Seen by Provider: Aug 25, 2019 Time Seen by Provider: 12:30 Subjective/Events-last exam Had a BM today. IS not really being used. X-ray next week to see if we can lift the weight restrictions. Hematoma noted and that is resolving. Visitors come to see her today Chronically minimal appetite Participating in all therapy Checked meds and labs Conferred with RN Reviewed therapy notes Review of Systems Pulmonary: Dyspnea Musculoskeletal: leg pain Objective Exam Vital Signs Vital Signs Date Time Temp Pulse Resp B/P (MAP) Pulse Ox O2 Delivery O2 Flow Rate FiO2 08/25/19 09:27 97 Nasal Cannula 2.00 08/25/19 05:29 36.8 78 18 124/71 (88) 08/23/19 15:39 28 Capillary Refill : Less Than 3 SecondsLess Than 3 Seconds General Appearance: No Apparent Distress, Chronically ill, Thin HEENT: PERRL/EOMI, Normal ENT Inspection, Pharynx Normal Neck: Full Range of Motion, Normal Inspection, Non Tender, Supple, Carotid Bruit Respiratory: Chest Non Tender, Lungs Clear, Normal Breath Sounds, No Accessory Muscle Use, No Respiratory Distress, Decreased Breath Sounds Cardiovascular: Regular Rate, Rhythm, No Edema, No Gallop, No JVD, No Murmur, Normal Peripheral Pulses Gastrointestinal: Normal Bowel Sounds, No Organomegaly, No Pulsatile Mass, Non Tender, Soft Back: Normal Inspection, No CVA Tenderness, No Vertebral Tenderness Extremity: Normal Capillary Refill, Normal Inspection, Normal Range of Motion (except left leg), Non Tender, No Calf Tenderness, No Pedal Edema Neurologic/Psychiatric: Alert, Oriented x3, No Motor/Sensory Deficits, Normal Mood/Affect Skin: Normal Color, Warm/Dry Lymphatic: No Adenopathy Results/Procedures Lab Patient resulted labs reviewed. FIM Transfers Therapy Code Descriptions/Definitions Functional [place] Measure: 0=Not Assessed/NA 4=Minimal Assistance 1=Total Assistance 5=Supervision or Setup 2=Maximal Assistance 6=Modified [place] 3=Moderate Assistance 7=Complete IndependenceSCALE: Activities may be completed with or without assistive devices. 0-Bkmmkfsldf-jhymzwd completes the activity by him/herself with no assistance from a helper. 5-Set-up or Clean-up Assistance-helper sets up or cleans up; patient completes activity. [place] assists only prior to or following the activity. 4-Supervision or Touching Assistance-helper provides verbal cues and/or touching/steadying and/or contact guard assistance as patient completes activity. Assistance may be provided throughout the activity or intermittently. 3-Partial/Moderate Assistance-helper does LESS THAN HALF the effort. [place] lif ts, holds or supports trunk or limbs, but provides less than half the effort. 2-Substantial/Maximal Assistance-helper does MORE THAN HALF the effort. [place] lifts or holds trunk or limbs and provides more than half the effort. 5-Dvkpxuaho-pqvjnb does ALL the effort. Patient does none of the effort to complete the activity. Or, the assistance of 2 or more helpers is required for the patient to complete the activity. If activity was not attempted, code reason: 7-Patient Refused. 9-Not Applicable-not attempted and the patient did not perform the activity before the current illness, exacerbation or injury. 10-Not Attempted due to Environmental Limitations-(lack of equipment, weather restraints, etc.). 88-Not Attempted due to Medical Conditions or Safety Concerns. Roll Left to Right (QC): 6 Sit to Lying (QC): 5 Sit to Stand (QC): 5 Chair/Quc-cf-Imkmv Xfer(QC): 4 Car Transfer (QC): 3 Gait Training Does the Patient Walk?: Yes Distance: 150' x2 Walk 10 feet (QC): 5 Walk 50 ft with 2 Turns(QC): 5 Walk 150 ft (QC): 5 Walking 10ft/uneven surface-QC: 4 Gait Persons Needed: 1 Gait Assistive Device: FWW Wheelchair Training Does the Pt Use a Wheelchair?: No Stair Training #of Steps: 1 1 Step (curb) (QC): 4 4 Steps (QC): 88 12 Steps (QC): 88 Balance Picking up an Object (QC): 88 ADL-Treatment Eating (QC): 6 Oral Hygiene (QC): 4 Shower/Bathe Self (QC): 4 Upper Body Dressing (QC): 5 Lower Body Dressing (QC): 4 On/Off Footwear (QC): 2 Toileting Hygiene (QC): 4 Toilet Transfer (QC): 4 Assessment/Plan Assessment and Plan Assess & Plan/Chief Complaint Assessment: Left hip fracture s/p uncomplicated repair COPD O2 dependency Frail status Former smoker Post op anemia Post op constipation resolving Plan: BM regimen IRF protocol Monitor closely Pain control Maintain O2 at daytime may need that addition when she DC Xrays next week to see if wt restrictions can be lifted Very frail status BMI 18 (1) Closed left hip fracture Status: Acute (2) Former smoker (3) Nocturnal hypoxia (4) Anemia (5) Constipation (6) COPD (chronic obstructive pulmonary disease) CARSON SCHAFFER DO Aug 25, 2019 12:25
[2019-08-25 16:28] VITALS: BP 106/73
[2019-08-25] MEDS: MONTELUKAST 10 MG (SINGULAIR) TAB PO SCH (20:26)
[2019-08-25] MEDS: polyethylene glycoL POWDER 17 GM (MIRALAX) PACK PO SCH (20:32)
[2019-08-26 05:21] VITALS: BP 122/75
[2019-08-26] MEDS: ENOXAPARIN 30 MG/0.3 ML (LOVENOX) SYR SC SCH (06:21)
[2019-08-26] MEDS: KCL 10 MEQ TAB (MICRO K) PO SCH ×3 (06:21→17:27)
[2019-08-26] MEDS: SENNA W/DOCUSATE (SENOKOT S) TABLET PO SCH ×2 (08:25→20:19)
[2019-08-26] MEDS: DOCUSATE SODIUM 100 MG (COLACE) CAP PO SCH ×2 (08:25→20:19)
[2019-08-26] MEDS: IRON POLYSAC 150 MG CAP (NIFEREX) PO SCH (08:25)
[2019-08-26] MEDS: HYDROcodone/APAP 5 MG/325 MG (LORTAB) TAB PO PRN ×2 (08:26→20:20)
[2019-08-26] MEDS: RT-ALBUTEROL/IPRATROPIUM 3 ML (DUONEB) VIAL INH SCH ×3 (09:01→19:27)
--- NOTE | 2019-08-26 11:55 | PM&R Progress Note ---
Subjective HPI/CC On Admission Date Seen by Provider: Aug 26, 2019 Time Seen by Provider: 12:00 Subjective/Events-last exam Had a BM today. IS not really being used even though we have encouraged her to use it X-ray this week to see if we can lift the weight restrictions. Hematoma noted and that is resolving. Visitors have come to see her again today Chronically minimal appetite Participating in all therapy Checked meds and labs Conferred with RN Reviewed therapy notes Review of Systems Musculoskeletal: leg pain Objective Exam Vital Signs Vital Signs Date Time Temp Pulse Resp B/P (MAP) Pulse Ox O2 Delivery O2 Flow Rate FiO2 08/26/19 09:01 98 Nasal Cannula 2.00 08/26/19 05:21 36.8 85 18 122/75 (91) 08/23/19 15:39 28 Capillary Refill : Less Than 3 SecondsLess Than 3 Seconds General Appearance: No Apparent Distress, Chronically ill, Thin HEENT: PERRL/EOMI, Normal ENT Inspection, Pharynx Normal Neck: Full Range of Motion, Normal Inspection, Non Tender, Supple, Carotid Bruit Respiratory: Chest Non Tender, Lungs Clear, Normal Breath Sounds, No Accessory Muscle Use, No Respiratory Distress, Decreased Breath Sounds Cardiovascular: Regular Rate, Rhythm, No Edema, No Gallop, No JVD, No Murmur, Normal Peripheral Pulses Gastrointestinal: Normal Bowel Sounds, No Organomegaly, No Pulsatile Mass, Non Tender, Soft Back: Normal Inspection, No CVA Tenderness, No Vertebral Tenderness Extremity: Normal Capillary Refill, Normal Inspection, Normal Range of Motion (except left leg), Non Tender, No Calf Tenderness, No Pedal Edema Neurologic/Psychiatric: Alert, Oriented x3, No Motor/Sensory Deficits, Normal Mood/Affect Skin: Normal Color, Warm/Dry Lymphatic: No Adenopathy Results/Procedures Lab Patient resulted labs reviewed. FIM Transfers Therapy Code Descriptions/Definitions Functional [place] Measure: 0=Not Assessed/NA 4=Minimal Assistance 1=Total Assistance 5=Supervision or Setup 2=Maximal Assistance 6=Modified [place] 3=Moderate Assistance 7=Complete IndependenceSCALE: Activities may be completed with or without assistive devices. 1-Wcziknvowp-diuwxia completes the activity by him/herself with no assistance from a helper. 5-Set-up or Clean-up Assistance-helper sets up or cleans up; patient completes activity. [place] assists only prior to or following the activity. 4-Supervision or Touching Assistance-helper provides verbal cues and/or touching/steadying and/or contact guard assistance as patient completes activity. Assistance may be provided throughout the activity or intermittently. 3-Partial/Moderate Assistance-helper does LESS THAN HALF the effort. [place] lifts, holds or supports trunk or limbs, but provides less than half the effort. 2-Substantial/Maximal Assistance-helper does MORE THAN HALF the effort. [place] lifts or holds trunk or limbs and provides more than half the effort. 4-Urlzjjegu-pxttgb does ALL the effort. Patient does none of the effort to complete the activity. Or, the assistance of 2 or more helpers is required for the patient to complete the activity. If activity was not attempted, code reason: 7-Patient Refused. 9-Not Applicable-not attempted and the patient did not perform the activity before the current illness, exacerbation or injury. 10-Not Attempted due to Environmental Limitations-(lack of equipment, weather restraints, etc.). 88-Not Attempted due to Medical Conditions or Safety Concerns. Roll Left to Right (QC): 6 Sit to Lying (QC): 5 Sit to Stand (QC): 5 Chair/Qrb-bn-Nmuyb Xfer(QC): 4 Car Transfer (QC): 3 Gait Training Does the Patient Walk?: Yes Distance: 150' x2 Walk 10 feet (QC): 5 Walk 50 ft with 2 Turns(QC): 5 Walk 150 ft (QC): 5 Walking 10ft/uneven surface-QC: 4 Gait Persons Needed: 1 Gait Assistive Device: FWW Wheelchair Training Does the Pt Use a Wheelchair?: No Stair Training #of Steps: 1 1 Step (curb) (QC): 4 4 Steps (QC): 88 12 Steps (QC): 88 Balance Picking up an Object (QC): 88 ADL-Treatment Eating (QC): 6 Oral Hygiene (QC): 4 Shower/Bathe Self (QC): 4 Upper Body Dressing (QC): 5 Lower Body Dressing (QC): 4 On/Off Footwear (QC): 2 Toileting Hygiene (QC): 4 Toilet Transfer (QC): 4 Assessment/Plan Assessment and Plan Assess & Plan/Chief Complaint Assessment: Left hip fracture s/p uncomplicated repair COPD O2 dependency Frail status Former smoker Post op anemia Post op constipation resolving Plan: BM regimen IRF protocol Monitor closely Pain control Maintain O2 at daytime may need that addition when she DC Xrays this week to see if wt restrictions can be lifted Very frail status BMI 18 (1) Closed left hip fracture Status: Acute (2) Former smoker (3) Nocturnal hypoxia (4) Anemia (5) Constipation (6) COPD (chronic obstructive pulmonary disease) CARSON SCHAFFER DO Aug 26, 2019 11:55
[2019-08-26 18:12] VITALS: BP 96/66
[2019-08-26] MEDS: MONTELUKAST 10 MG (SINGULAIR) TAB PO SCH (20:19)
[2019-08-26] MEDS: polyethylene glycoL POWDER 17 GM (MIRALAX) PACK PO SCH (20:23)
[2019-08-27] MEDS: RT-ALBUTEROL/IPRATROPIUM 3 ML (DUONEB) VIAL INH SCH ×4 (02:34→21:57)
[2019-08-27 05:11] VITALS: BP 125/77
[2019-08-27] MEDS: KCL 10 MEQ TAB (MICRO K) PO SCH ×3 (06:39→17:38)
[2019-08-27] MEDS: ENOXAPARIN 30 MG/0.3 ML (LOVENOX) SYR SC SCH (06:39)
[2019-08-27 07:21] LABS: BASOPHILS # (AUTO) 0.1 10^3/uL (0.0-0.1); BASOPHILS % (AUTO) 1 % (0-10); EOSINOPHILS # (AUTO) 0.3 10^3/uL (0.0-0.3); EOSINOPHILS % (AUTO) 4 % (0-10); HEMATOCRIT 33 % (35-52); HEMOGLOBIN 10.4 G/DL (11.5-16.0); LYMPHOCYTES # (AUTO) 2.2 X 10^3 (1.0-4.0); LYMPHOCYTES % (AUTO) 26 % (12-44); MEAN CORPUSCULAR HEMOGLOBIN 31 PG (25-34); MEAN CORPUSCULAR HGB CONC 32 G/DL (32-36); MEAN CORPUSCULAR VOLUME 96 FL (80-99); MEAN PLATELET VOLUME 9.1 FL (7.4-10.4); MONOCYTES # (AUTO) 0.9 X 10^3 (0.0-1.0); MONOCYTES % (AUTO) 11 % (0-12); NEUTROPHILS % (AUTO) 59 % (42-75); PLATELET COUNT 440 10^3/uL (130-400); RED CELL DISTRIBUTION WIDTH 14.6 % (10.0-14.5); WHITE BLOOD COUNT 8.5 10^3/uL (4.3-11.0)
[2019-08-27 07:45] LABS: ALANINE AMINOTRANSFERASE 26 U/L (0-55); ALBUMIN 3.7 GM/DL (3.2-4.5); ALKALINE PHOSPHATASE 126 U/L (40-136); BUN/CREATININE RATIO 28; CALCIUM 9.2 MG/DL (8.5-10.1); CARBON DIOXIDE 26 MMOL/L (21-32); CHLORIDE 105 MMOL/L (98-107); CREATININE SERUM 0.69 MG/DL (0.60-1.30); GFR ESTIMATED > 60; GLUCOSE 94 MG/DL (70-105); POTASSIUM 4.7 MMOL/L (3.6-5.0); SODIUM 139 MMOL/L (135-145)
[2019-08-27] MEDS: IRON POLYSAC 150 MG CAP (NIFEREX) PO SCH (08:05)
[2019-08-27] MEDS: HYDROcodone/APAP 5 MG/325 MG (LORTAB) TAB PO PRN ×3 (08:05→21:11)
[2019-08-27] MEDS: DOCUSATE SODIUM 100 MG (COLACE) CAP PO SCH ×2 (08:07→20:35)
[2019-08-27] MEDS: SENNA W/DOCUSATE (SENOKOT S) TABLET PO SCH ×2 (08:07→20:35)
--- NOTE | 2019-08-27 08:40 | PM&R Progress Note ---
Subjective HPI/CC On Admission Date Seen by Provider: Aug 27, 2019 Time Seen by Provider: 08:45 Subjective/Events-last exam Pt doing very well. Hgb 10.2. Pain pill given in the morning before therapy. Nausea continues. Showed me a picture of her granddaughters prom dress she got in [place]. Participating in all therapy Checked meds and labs Conferred with RN Reviewed therapy notes Review of Systems General: Fatigue Musculoskeletal: leg pain Objective Exam Vital Signs Vital Signs Date Time Temp Pulse Resp B/P (MAP) Pulse Ox O2 Delivery O2 Flow Rate FiO2 08/27/19 18:15 36.7 88 20 106/62 (77) 98 Nasal Cannula 2.00 08/23/19 15:39 28 Capillary Refill : Less Than 3 SecondsLess Than 3 Seconds General Appearance: No Apparent Distress, Chronically ill, Thin HEENT: PERRL/EOMI, Normal ENT Inspection, Pharynx Normal Neck: Full Range of Motion, Normal Inspection, Non Tender, Supple, Carotid Bruit Respiratory: Chest Non Tender, Lungs Clear, Normal Breath Sounds, No Accessory Muscle Use, No Respiratory Distress, Decreased Breath Sounds Cardiovascular: Regular Rate, Rhythm, No Edema, No Gallop, No JVD, No Murmur, Normal Peripheral Pulses Gastrointestinal: Normal Bowel Sounds, No Organomegaly, No Pulsatile Mass, Non Tender, Soft Back: Normal Inspection, No CVA Tenderness, No Vertebral Tenderness Extremity: Normal Capillary Refill, Normal Inspection, Normal Range of Motion (except left leg), Non Tender, No Calf Tenderness, No Pedal Edema Neurologic/Psychiatric: Alert, Oriented x3, No Motor/Sensory Deficits, Normal Mood/Affect Skin: Normal Color, Warm/Dry Lymphatic: No Adenopathy Results/Procedures Lab Laboratory Tests 08/27/19 06:30 Patient resulted labs reviewed. FIM Transfers Therapy Code Descriptions/Definitions Functional [place] Measure: 0=Not Assessed/NA 4=Minimal Assistance 1=Total Assistance 5=Supervision or Setup 2=Maximal Assistance 6=Modified [place] 3=Moderate Assistance 7=Complete IndependenceSCALE: Activities may be completed with or without assistive devices. 5-Fayhfydgkm-ypahuvc completes the activity by him/herself with no assistance from a helper. 5-Set-up or Clean-up Assistance-helper sets up or cleans up; patient completes activity. [place] assists only prior to or following the activity. 4-Supervision or Touching Assistance-helper provides verbal cues and/or touching/steadying and/or contact guard assistance as patient completes activity. Assistance may be provided throughout the activity or intermittently. 3-Partial/Moderate Assistance-helper does LESS THAN HALF the effort. [place] lifts, holds or supports trunk or limbs, but provides less than half the effort. 2-Substantial/Maximal Assistance-helper does MORE THAN HALF the effort. [place] lifts or holds trunk or limbs and provides more than half the effort. 4-Jmgniiqon-qpekav does ALL the effort. Patient does none of the effort to complete the activity. Or, the assistance of 2 or more helpers is required for the patient to complete the activity. If activity was not attempted, code reason: 7-Patient Refused. 9-Not Applicable-not attempted and the patient did not perform the activity before the current illness, exacerbation or injury. 10-Not Attempted due to Environmental Limitations-(lack of equipment, weather restraints, etc.). 88-Not Attempted due to Medical Conditions or Safety Concerns. Roll Left to Right (QC): 6 Sit to Lying (QC): 5 Sit to Stand (QC): 5 Chair/Zdg-he-Geyiu Xfer(QC): 4 Car Transfer (QC): 3 Gait Training Does the Patient Walk?: Yes Distance: 150' x2 Walk 10 feet (QC): 5 Walk 50 ft with 2 Turns(QC): 5 Walk 150 ft (QC): 5 Walking 10ft/uneven surface-QC: 4 Gait Persons Needed: 1 Gait Assistive Device: FWW Wheelchair Training Does the Pt Use a Wheelchair?: No Stair Training #of Steps: 1 1 Step (curb) (QC): 4 4 Steps (QC): 88 12 Steps (QC): 88 Balance Picking up an Object (QC): 88 ADL-Treatment Eating (QC): 6 Oral Hygiene (QC): 4 Shower/Bathe Self (QC): 4 Upper Body Dressing (QC): 5 Lower Body Dressing (QC): 4 On/Off Footwear (QC): 2 Toileting Hygiene (QC): 4 Toilet Transfer (QC): 4 Assessment/Plan Assessment and Plan Assess & Plan/Chief Complaint Assessment: Left hip fracture s/p uncomplicated repair COPD O2 dependency Frail status Former smoker Post op anemia Post op constipation resolving Plan: BM regimen IRF protocol Monitor closely Pain control Maintain O2 at daytime may need that addition when she DC Xrays this week to see if wt restrictions can be lifted Very frail status BMI 18 (1) Closed left hip fracture Status: Acute (2) Former smoker (3) Nocturnal hypoxia (4) Anemia (5) Constipation (6) COPD (chronic obstructive pulmonary disease) CARSON SCHAFFER DO Aug 27, 2019 08:39
--- NOTE | 2019-08-27 10:45 | Occupational Ther Daily Note ---
OT Current Status-Daily Note Subjective Pt states 6/10 pain this am. Seen in bed, states good weekend/ slept well. Pt agreeable to OT tx session. Mental Status/Objective Patient Orientation: Normal For Age Attachments: Oxygen (2L) ADL-Treatment Therapy Code Descriptions/Definitions Functional [place] Measure: 0=Not Assessed/NA 4=Minimal Assistance 1=Total Assistance 5=Supervision or Setup 2=Maximal Assistance 6=Modified [place] 3=Moderate Assistance 7=Complete IndependenceSCALE: Activities may be completed with or without assistive devices. 8-Upxaeugaze-vrjznwp completes the activity by him/herself with no assistance from a helper. 5-Set-up or Clean-up Assistance-helper sets up or cleans up; patient completes activity. [place] assists only prior to or following the activity. 4-Supervision or Touching Assistance-helper provides verbal cues and/or touching/steadying and/or contact guard assistance as patient completes activi ty. Assistance may be provided throughout the activity or intermittently. 3-Partial/Moderate Assistance-helper does LESS THAN HALF the effort. [place] lifts, holds or supports trunk or limbs, but provides less than half the effort. 2-Substantial/Maximal Assistance-helper does MORE THAN HALF the effort. [place] lifts or holds trunk or limbs and provides more than half the effort. 9-Ehjpymicr-azuhrk does ALL the effort. Patient does none of the effort to complete the activity. Or, the assistance of 2 or more helpers is required for the patient to complete the activity. If activity was not attempted, code reason: 7-Patient Refused. 9-Not Applicable-not attempted and the patient did not perform the activity before the current illness, exacerbation or injury. 10-Not Attempted due to Environmental Limitations-(lack of equipment, weather restraints, etc.). 88-Not Attempted due to Medical Conditions or Safety Concerns. Eating (QC): 6 Oral Hygiene (QC): 6 Shower/Bathe Self (QC): 5 (s/u in shower. Completes on shower bench. ) Upper Body Dressing (QC): 6 (completes in chair.) Lower Body Dressing (QC): 4 (Pt completes undergarments/ pants with SBA. ) On/Off Footwear: 4 (Assist in doffing YOLANDA hose on L side. Completes doffing R YOLANDA hose with dressing stick. Dons YOLANDA hose with sock aide, socks without AE) Toileting Hygiene (QC): 4 (SUP) Toilet Transfer (QC): 4 (SUP) Other Treatment Pt completes bed mob with SUP, sit to stand SUP, completes toileting/ showering in bathroom. Pt dresses on chair inside bathroom. Pt's nurse notified of pt position for dressing change. Education on use of supply chain intern for Pt completes standing tolerance/ UB ex with theraband in stance in front of walker in room. Pt completes 15 reps of each exercise bilaterally with mod cues for slow movement and min-mod rest breaks to catch breath: shoulder flexion, horizontal shoulder adduction, internal/ external shoulder rotation, shoulder extension past midline. Pt dresses in pants post-dressing change. Ambulates with walker and 02 (2L) to therapy gym, completes 15 minutes min resistance arm bike with 3 rest breaks. Pt educated on use of minimal resistance for longer time period to increase respiratory/ muscle endurance. Pt ambulates back to room, sits in recliner chair, all needs met, call light in reach. Education OT Patient Education: Exercise program, Home exercise program, Modified ADL techniques, Progress toward Goal/Update tx plan, Safety issues, Use of adapted equipment Teaching Recipient: Patient Teaching Methods: Demonstration, Discussion Response to Teaching: Verbalize Understanding, Return Demonstration OT Short Term Goals Short Term Goals Upper body dressin Lower body dressin OT Mammalogy Teacher Goals Mammalogy Teacher Goals Time Frame: Sep 03, 2019 Eating (QC): 6 (met) Oral Hygiene (QC): 6 Toileting Hygiene (QC): 6 Shower/Bathe Self (QC): 6 Upper Body Dressing (QC): 6 Lower Body Dressing (QC): 6 On/Off Footwear (QC): 6 Additional Goals: 1-Demonstrate ADL Tasks, 2-Verbalize Understanding, 3- ImproveStrength/Evelyn 1=Demonstrate adherence to instructed precautions during ADL tasks. 2=Patient will verbalize/demonstrate understanding of assistive devices/modifications for ADL. 3=Patient will improve strength/tolerance for activity to enable patient to perform ADL's. OT Education/Plan Problem List/Assessment Assessment: Decreased Activ Tolerance, Edema, Impaired I ADL's, Impaired Self- Care Skills Discharge Recommendations Plan/Recommendations: Continue POC Therapy Discharge Recommendati: Home & Family Equpiment Recommendations-D/C: Hip Kit, Other, See Comments (shanta wmoack.) Treatment Plan/Plan of Care Treatment,Training & Education: Yes Patient would benefit from OT for education, treatment and training to promote independence in ADL's, mobility, safety and/or upper extremity function for ADL's. Plan of Care: ADL Retraining, Functional Mobility, UE Funct Exercise/Act Treatment Duration: Sep 03, 2019 Frequency: At least 5 of 7 days/Wk (IRF) Estimated Hrs Per Day: 1.5 hours per day Agreement: Yes Rehab Potential: Fair Time/GCodes Start Time: 09:30 Stop Time: 11:00 Total Time Billed (hr/min): 90 Billed Treatment Time 1, ADL 4 (60), EX 2 (30)= 90 FIDENCIO NARAYANAN OTR Aug 27, 2019 10:45
--- NOTE | 2019-08-27 11:35 | NUR ---
CM/SS CONCURRENT NOTE Reviewed EMR and patient progress with therapies. She continues to require continuous O2 and weight bear status remains at partial until post surgical x-rays are performed/reviewed.
--- NOTE | 2019-08-27 12:04 | Physical Therapy Daily Note ---
PT Daily Note-Current Subjective Pt. agrees to Rx. States she feels she is making good progress. Agrees to try steps but is a little skeptical Pain Location: No Pain Reported Mental Status Patient Orientation: Normal For Age Transfers SCALE: Activities may be completed with or without assistive devices. 7-Xcqrmsnepq-iztgmbi completes the activity by him/herself with no assistance from a helper. 5-Set-up or Clean-up Assistance-helper sets up or cleans up; patient completes activity. [place] assists only prior to or following the activity. 4-Supervision or Touching Assistance-helper provides verbal cues and/or touching/steadying and/or contact guard assistance as patient completes activity. Assistance may be provided throughout the activity or intermittently. 3-Partial/Moderate Assistance-helper does LESS THAN HALF the effort. [place] lifts, holds or supports trunk or limbs, but provides less than half the effort. 2-Substantial/Maximal Assistance-helper does MORE THAN HALF the effort. [place] lifts or holds trunk or limbs and provides more than half the effort. 5-Sbadtyuit-faojfu does ALL the effort. Patient does none of the effort to complete the activity. Or, the assistance of 2 or more helpers is required for the patient to complete the activity. If activity was not attempted, code reason: 7-Patient Refused. 9-Not Applicable-not attempted and the patient did not perform the activity before the current illness, exacerbation or injury. 10-Not Attempted due to Environmental Limitations-(lack of equipment, weather restraints, etc.). 88-Not Attempted due to Medical Conditions or Safety Concerns. Roll Left & Right (QC): 6 Sit to Lying (QC): 6 Lying to Sitting/Side of Bed(Q: 6 Sit to Stand (QC): 6 Chair/Cim-qi-Wzktx Xfer(QC): 6 Weight Bearing Right Lower Extremity: Right Full Weight Bearing Left Lower Extremity: Left Full Weight Bearing Gait Training Does the Patient Walk?: Yes Walk 10 feet (QC): 5 Walk 50 ft with 2 Turns(QC): 5 Walk 150 ft (QC): 5 Gait Persons Needed: 1 Gait Assistive Device: FWW Stair Training Stair Training: Handrails/: 2 handrails #of Steps: 4 4 Steps (QC): 4 Stairs: Pattern: Step to maintained proper wt bearing , educated about sequence etc Exercises Supine Ex: Ankle pumps, Quad Set, Rolling, Glut sets, Heel Slides, Short Arc Quads, Scooting, Straight leg raise (assisted), Hip abd/add Supine Reps: 15 Seated Therapy Exercises: Ankle pumps, Sit to stand, Long arc quads Seated Reps: 15 NuStep Minutes: 10 NuStep Workload: 2 PT Short Term Goals Short Term Goals Time Frame: Aug 27, 2019 Roll Left & Right: 6 Sit to lyin Lying to sitting on side of be: 4 Sit to stand: 4 Chair/xih-yq-ssnqb transfer: 4 Walk 10 feet: 4 Walk 50 feet with two turns: 4 Walk 150 feet: 4 PT Senior Living Goals Senior Living Goals PT Water Softener Servicer Goals Time Frame: Sep 10, 2019 Roll Left & Right (QC): 6 Sit to Lying (QC): 6 Lying-Sitting on Side/Bed(QC): 6 Sit to Stand (QC): 6 Chair/Lzm-ha-Rtmng Xfer(QC): 6 Toilet Transfer (QC): 6 Car Transfer (QC): 6 Walk 10 feet (QC): 6 Walk 50ft with 2 Turns (QC): 6 Walk 150 ft (QC): 6 Walking 10ft on Uneven Surface: 6 1 Step (curb) (QC): 4 4 Steps (QC): 4 PT Plan Treatment/Plan Treatment Plan: Continue Plan of Care Treatment Plan: Bed Mobility, Education, Functional Activity [place], Functional Strength, Group Therapy, Gait, Safety, Therapeutic Exercise, Transfers Treatment Duration: Sep 10, 2019 Frequency: At least 5 of 7 days/Wk (IRF) Estimated Hrs Per Day: 1.5 hours per day Patient and/or Family Agrees t: Yes Safety Risks/Education Patient Education: Gait Training, Transfer Techniques, Steps, Correct Positioning, Disease Process, Safety Issues Teaching Recipient: Patient Teaching Methods: Demonstration, Discussion Response to Teaching: Verbalize Understanding, Return Demonstration, Reinforcement Needed Time/GCodes Time In: 1100 Time Out: 1200 Total Billed Treatment Time: 60 Total Billed Treatment 1,EX30m,FA15m,GT15m KATIE ZARATE VETERINARY X RAY OPERATOR Aug 27, 2019 12:04
--- NOTE | 2019-08-27 14:03 | Physical Therapy Daily Note ---
PT Daily Note-Current Subjective Agrees to Rx. c/o pain in hip at 01/01, nurse called to request meds for pain Pain Numeric Pain Scale: 6 Location: Left Location Body Site: Hip Pain Description: Ache Mental Status Patient Orientation: Normal For Age Transfers SCALE: Activities may be completed with or without assistive devices. 2-Xadwkmfzyw-klrucoq completes the activity by him/herself with no assistance from a helper. 5-Set-up or Clean-up Assistance-helper sets up or cleans up; patient completes activity. [place] assists only prior to or following the activity. 4-Supervision or Touching Assistance-helper provides verbal cues and/or touching/steadying and/or contact guard assistance as patient completes activity. Assistance may be provided throughout the activity or intermittently. 3-Partial/Moderate Assistance-helper does LESS THAN HALF the effort. [place] lifts, holds or supports trunk or limbs, but provides less than half the effort. 2-Substantial/Maximal Assistance-helper does MORE THAN HALF the effort. [place] lifts or holds trunk or limbs and provides more than half the effort. 4-Bqattfnil-wtrwzc does ALL the effort. Patient does none of the effort to complete the activity. Or, the assistance of 2 or more helpers is required for the patient to complete the activity. If activity was not attempted, code reason: 7-Patient Refused. 9-Not Applicable-not attempted and the patient did not perform the activity before the current illness, exacerbation or injury. 10-Not Attempted due to Environmental Limitations-(lack of equipment, weather restraints, etc.). 88-Not Attempted due to Medical Conditions or Safety Concerns. all sup to sit and sit to stand SBA Weight Bearing Right Lower Extremity: Right Full Weight Bearing Left Lower Extremity: Left Full Weight Bearing Gait Training Does the Patient Walk?: Yes Gait Assistive Device: FWW 250ft, 150 ft SBA, no LOB, regards wt bearing restrictions Exercises Supine Ex: Ankle pumps, Quad Set, Rolling, Glut sets, Heel Slides, Short Arc Quads, Scooting, Straight leg raise (assisted left), Hip abd/add Supine Reps: 10 (x2) Seated Therapy Exercises: Ankle pumps, Sit to stand, Long arc quads, Hip abd/add Seated Reps: 12 Assessment Current Status: Good Progress PT Short Term Goals Short Term Goals Time Frame: Aug 27, 2019 Roll Left & Right: 6 Sit to lyin Lying to sitting on side of be: 4 Sit to stand: 4 Chair/ezl-od-sxwdy transfer: 4 Walk 10 feet: 4 Walk 50 feet with two turns: 4 Walk 150 feet: 4 PT Long-Term Goals Long-Term Goals PT Delinquent Tax Collection Assistant Goals Time Frame: Sep 10, 2019 Roll Left & Right (QC): 6 Sit to Lying (QC): 6 Lying-Sitting on Side/Bed(QC): 6 Sit to Stand (QC): 6 Chair/Nlp-ue-Alyoi Xfer(QC): 6 Toilet Transfer (QC): 6 Car Transfer (QC): 6 Walk 10 feet (QC): 6 Walk 50ft with 2 Turns (QC): 6 Walk 150 ft (QC): 6 Walking 10ft on Uneven Surface: 6 1 Step (curb) (QC): 4 4 Steps (QC): 4 PT Plan Treatment/Plan Treatment Plan: Continue Plan of Care Treatment Plan: Bed Mobility, Education, Functional Activity Evelyn, Functional Strength, Group Therapy, Gait, Safety, Therapeutic Exercise, Transfers Treatment Duration: Sep 10, 2019 Frequency: At least 5 of 7 days/Wk (IRF) Estimated Hrs Per Day: 1.5 hours per day Patient and/or Family Agrees t: Yes Safety Risks/Education Patient Education: Gait Training, Transfer Techniques, Safety Issues Teaching Recipient: Patient Teaching Methods: Demonstration, Discussion Response to Teaching: Verbalize Understanding, Return Demonstration Time/GCodes Time In: 1325 Time Out: 1355 Total Billed Treatment Time: 30 Total Billed Treatment 1,GT15m,EX15m KATIE ZARATE OUTDOOR POWER EQUIPMENT MECHANIC Aug 27, 2019 14:03
--- NOTE | 2019-08-27 14:56 | NUR ---
"RD ASSESSMENT PMHx: valvular heart disease PT INTERACTION: Pt was awake and pleasant during nutrition follow-up. Pt states she has been eating well since last assessment. Note avg PO intake of 44% x6d, per chart review. Pt states her normal PO intake is not a lot, and despite what the reports say, she is eating enough to feel full. Pt states no issues with n/v/c/d since last assessment. Note last BM was 2/2 and pt currently on bowel regimen of miralax HS; senna BID; and colace BID, per chart review. ABNORMAL NUTRITION-RELATED LAB VALUES LOW: Pro 6.0 HIGH: BUN 19 Est. kcal needs: 9687-6157 kcal | 25-30 kcal/kg Est. Pro needs: 65-76 g Pro | 1.2-1.4 g Pro/kg PES STATEMENT: Given pt's PO intake, no nutrition diagnosis at this time (NO-1.1) INTERVENTION: Continue with current diet order of Regular diet. Will continue to follow and reassess as pt needs and status change. MONITOR/EVALUATE: PO Intake; Plan of Care; Hydration Status; Weight Status; Lab Values Vasiliy Villela, MS, RD, LD"
[2019-08-27 18:15] VITALS: BP 106/62
[2019-08-27] MEDS: polyethylene glycoL POWDER 17 GM (MIRALAX) PACK PO SCH (20:35)
[2019-08-27] MEDS: MONTELUKAST 10 MG (SINGULAIR) TAB PO SCH (20:35)
[2019-08-28] MEDS: RT-ALBUTEROL/IPRATROPIUM 3 ML (DUONEB) VIAL INH SCH ×4 (01:55→19:23)
[2019-08-28 05:26] VITALS: BP 123/63
[2019-08-28] MEDS: KCL 10 MEQ TAB (MICRO K) PO SCH ×3 (06:16→17:25)
[2019-08-28] MEDS: ENOXAPARIN 30 MG/0.3 ML (LOVENOX) SYR SC SCH (06:16)
[2019-08-28] MEDS: SENNA W/DOCUSATE (SENOKOT S) TABLET PO SCH ×2 (07:52→21:34)
[2019-08-28] MEDS: IRON POLYSAC 150 MG CAP (NIFEREX) PO SCH (07:52)
[2019-08-28] MEDS: HYDROcodone/APAP 5 MG/325 MG (LORTAB) TAB PO PRN ×3 (07:52→21:35)
[2019-08-28] MEDS: DOCUSATE SODIUM 100 MG (COLACE) CAP PO SCH ×2 (07:52→21:34)
--- NOTE | 2019-08-28 09:11 | Physical Therapy Daily Note ---
PT Daily Note-Current Subjective Pt sitting in recliner upon arrival. Pt agrees to PT. Pt reports pain is improving, bruising from surgery is also improving. Pain Numeric Pain Scale: 6 Location: Left Location Body Site: Hip Pain Description: Ache, Tightness Mental Status Patient Orientation: Person, Place, Time, Situation Attachments: Oxygen (2L) Transfers SCALE: Activities may be completed with or without assistive devices. 1-Ykokrhkdab-swirhdt completes the activity by him/herself with no assistance from a helper. 5-Set-up or Clean-up Assistance-helper sets up or cleans up; patient completes activity. [place] assists only prior to or following the activity. 4-Supervision or Touching Assistance-helper provides verbal cues and/or touching/steadying and/or contact guard assistance as patient completes activity. Assistance may be provided throughout the activity or intermittently. 3-Partial/Moderate Assistance-helper does LESS THAN HALF the effort. [place] lifts, holds or supports trunk or limbs, but provides less than half the effort. 2-Substantial/Maximal Assistance-helper does MORE THAN HALF the effort. [place] lifts or holds trunk or limbs and provides more than half the effort. 0-Jhkokbsxw-luweum does ALL the effort. Patient does none of the effort to com plete the activity. Or, the assistance of 2 or more helpers is required for the patient to complete the activity. If activity was not attempted, code reason: 7-Patient Refused. 9-Not Applicable-not attempted and the patient did not perform the activity before the current illness, exacerbation or injury. 10-Not Attempted due to Environmental Limitations-(lack of equipment, weather restraints, etc.). 88-Not Attempted due to Medical Conditions or Safety Concerns. Sit to Stand (QC): 5 Weight Bearing Right Lower Extremity: Right Full Weight Bearing Left Lower Extremity: Left Full Weight Bearing Gait Training Does the Patient Walk?: Yes Distance: 150', 75', 75',125' Walk 10 feet (QC): 5 Walk 50 ft with 2 Turns(QC): 5 Walk 150 ft (QC): 5 Gait Persons Needed: 1 Gait Assistive Device: FWW Pt fatigues quickly, reporting SOA. Pt takes short RB to recover. Wheelchair Training Does the Pt Use a Wheelchair?: No Stair Training Stair Training: Handrails/: 2 handrails #of Steps: 4 1 Step (curb) (QC): 5 4 Steps (QC): 5 Stairs: Pattern: Step to Exercises Seated Therapy Exercises: Ankle pumps, Long arc quads, Hip flexion, Kicking activity Seated Reps: 20 NuStep Minutes: 8 NuStep Workload: 4 Treatments Pt transfers from recliner to standing. Pt ambualtes in hallway. Pt uses NuStep for 8m at WL 4 but takes a couple of RB during. Pt completes Seated Ex. Pt ambulates in hallway with a couple of RB before returning to room to rest in recliner at end of Rx. Pt has all needs met, call light in hand. Assessment Current Status: Fair Progress Pt fatigues quickly, citing SOA. Pt reports feeling "stuffy in my nose". Nurse is notified for possible medication relief. PT Short Term Goals Short Term Goals Time Frame: Aug 27, 2019 Roll Left & Right: 6 Sit to lyin Lying to sitting on side of be: 4 Sit to stand: 4 Chair/abj-qc-lchfc transfer: 4 Walk 10 feet: 4 Walk 50 feet with two turns: 4 Walk 150 feet: 4 PT Aviation Electrician Goals Aviation Electrician Goals PT Aviation Electrician Goals Time Frame: Sep 10, 2019 Roll Left & Right (QC): 6 Sit to Lying (QC): 6 Lying-Sitting on Side/Bed(QC): 6 Sit to Stand (QC): 6 Chair/Rcz-rh-Nvadk Xfer(QC): 6 Toilet Transfer (QC): 6 Car Transfer (QC): 6 Walk 10 feet (QC): 6 Walk 50ft with 2 Turns (QC): 6 Walk 150 ft (QC): 6 Walking 10ft on Uneven Surface: 6 1 Step (curb) (QC): 4 4 Steps (QC): 4 PT Plan Problem List Problem List: Activity Tolerance, Functional Strength Treatment/Plan Treatment Plan: Continue Plan of Care Treatment Plan: Bed Mobility, Education, Functional Activity Evelyn, Functional Strength, Group Therapy, Gait, Safety, Therapeutic Exercise, Transfers Treatment Duration: Sep 10, 2019 Frequency: At least 5 of 7 days/Wk (IRF) Estimated Hrs Per Day: 1.5 hours per day Patient and/or Family Agrees t: Yes Safety Risks/Education Patient Education: Gait Training, Transfer Techniques, Correct Positioning, Safety Issues Teaching Recipient: Patient Teaching Methods: Discussion Response to Teaching: Verbalize Understanding Time/GCodes Time In: 810 Time Out: 910 Total Billed Treatment Time: 60 Total Billed Treatment 1, GT x2 (35m) & EX x2 (25m) LUIS ESTEBAN COMPUTATIONAL THEORY SCIENTIST Aug 28, 2019 09:11
--- NOTE | 2019-08-28 09:41 | PM&R Progress Note ---
Subjective HPI/CC On Admission Date Seen by Provider: Aug 28, 2019 Time Seen by Provider: 09:45 Subjective/Events-last exam Coarseness in lungs noted by nurse, but when I listened to her she was clear after a breathing treatment Flu vaccine will be given No significant complaints Frail status and thin due to poor appetite but that is chronic and pt doing very well Will discuss disposition tomorrow Checked meds and labs Conferred with RN Reviewed therapy notes Review of Systems Pulmonary: Dyspnea Musculoskeletal: leg pain Objective Exam Vital Signs Vital Signs Date Time Temp Pulse Resp B/P (MAP) Pulse Ox O2 Delivery O2 Flow Rate FiO2 08/28/19 16:00 37.2 67 16 108/70 (83) 96 Room Air 08/28/19 14:51 2.00 08/23/19 15:39 28 Capillary Refill : Less Than 3 SecondsLess Than 3 Seconds General Appearance: No Apparent Distress, Chronically ill, Thin HEENT: PERRL/EOMI, Normal ENT Inspection, Pharynx Normal Neck: Full Range of Motion, Normal Inspection, Non Tender, Supple, Carotid Bru it Respiratory: Chest Non Tender, Lungs Clear, Normal Breath Sounds, No Accessory Muscle Use, No Respiratory Distress, Decreased Breath Sounds Cardiovascular: Regular Rate, Rhythm, No Edema, No Gallop, No JVD, No Murmur, Normal Peripheral Pulses Gastrointestinal: Normal Bowel Sounds, No Organomegaly, No Pulsatile Mass, Non Tender, Soft Back: Normal Inspection, No CVA Tenderness, No Vertebral Tenderness Extremity: Normal Capillary Refill, Normal Inspection, Normal Range of Motion (except left leg), Non Tender, No Calf Tenderness, No Pedal Edema Neurologic/Psychiatric: Alert, Oriented x3, No Motor/Sensory Deficits, Normal Mood/Affect Skin: Normal Color, Warm/Dry Lymphatic: No Adenopathy Results/Procedures Lab Patient resulted labs reviewed. FIM Transfers Therapy Code Descriptions/Definitions Functional [place] Measure: 0=Not Assessed/NA 4=Minimal Assistance 1=Total Assistance 5=Supervision or Setup 2=Maximal Assistance 6=Modified [place] 3=Moderate Assistance 7=Complete IndependenceSCALE: Activities may be completed with or without assistive devices. 0-Qcmaffbfjr-zksaqig completes the activity by him/herself with no assistance from a helper. 5-Set-up or Clean-up Assistance-helper sets up or cleans up; patient completes activity. [place] assists only prior to or following the activity. 4-Supervision or Touching Assistance-helper provides verbal cues and/or touching/steadying and/or contact guard assistance as patient completes activity. Assistance may be provided throughout the activity or intermittently. 3-Partial/Moderate Assistance-helper does LESS THAN HALF the effort. [place] lifts, holds or supports trunk or limbs, but provides less than half the effort. 2-Substantial/Maximal Assistance-helper does MORE THAN HALF the effort. [place] lifts or holds trunk or limbs and provides more than half the effort. 8-Wasbxowzm-mspkse does ALL the effort. Patient does none of the effort to complete the activity. Or, the assistance of 2 or more helpers is required for the patient to complete the activity. If activity was not attempted, code reason: 7-Patient Refused. 9-Not Applicable-not attempted and the patient did not perform the activity before the current illness, exacerbation or injury. 10-Not Attempted due to Environmental Limitations-(lack of equipment, weather restraints, etc.). 88-Not Attempted due to Medical Conditions or Safety Concerns. Roll Left to Right (QC): 6 Sit to Lying (QC): 6 Sit to Stand (QC): 5 Chair/Tvg-cq-Goedj Xfer(QC): 6 Car Transfer (QC): 3 Gait Training Does the Patient Walk?: Yes Distance: 150', 75', 75',125' Walk 10 feet (QC): 5 Walk 50 ft with 2 Turns(QC): 5 Walk 150 ft (QC): 5 Walking 10ft/uneven surface-QC: 4 Gait Persons Needed: 1 Gait Assistive Device: FWW Wheelchair Training Does the Pt Use a Wheelchair?: No Stair Training Stair Training: Handrails/: 2 handrails #of Steps: 4 1 Step (curb) (QC): 5 4 Steps (QC): 5 12 Steps (QC): 88 Stairs: Pattern: Step to Balance Picking up an Object (QC): 88 ADL-Treatment Eating (QC): 6 Oral Hygiene (QC): 6 Shower/Bathe Self (QC): 5 (s/u in shower. Completes on shower bench. ) Upper Body Dressing (QC): 6 (completes in chair.) Lower Body Dressing (QC): 4 (Pt completes undergarments/ pants with SBA. ) On/Off Footwear (QC): 4 (Assist in doffing YOLANDA hose on L side. Completes doffing R YOLANDA hose with dressing stick. Dons YOLANDA hose with sock aide, socks without AE) Toileting Hygiene (QC): 4 (SUP) Toilet Transfer (QC): 4 (SUP) Assessment/Plan Assessment and Plan Assess & Plan/Chief Complaint Assessment: Left hip fracture s/p uncomplicated repair COPD O2 dependency Frail status Former smoker Post op anemia Post op constipation resolving Plan: BM regimen IRF protocol Monitor closely Pain control Maintain O2 at daytime may need that addition when she DC Xrays this week to see if wt restrictions can be lifted Very frail status BMI 18 (1) Closed left hip fracture Status: Acute (2) Former smoker (3) Nocturnal hypoxia (4) Anemia (5) Constipation (6) COPD (chronic obstructive pulmonary disease) CARSON SCHAFFER DO Aug 28, 2019 09:41
--- NOTE | 2019-08-28 11:01 | Occupational Ther Daily Note ---
OT Current Status-Daily Note Subjective Pt seen in recliner chair, pt agreeable to OT tx session. Pt states 5-6/10 pain in L hip. Mental Status/Objective Patient Orientation: Normal For Age Attachments: Oxygen (2L) ADL-Treatment Therapy Code Descriptions/Definitions Functional [place] Measure: 0=Not Assessed/NA 4=Minimal Assistance 1=Total Assistance 5=Supervision or Setup 2=Maximal Assistance 6=Modified [place] 3=Moderate Assistance 7=Complete IndependenceSCALE: Activities may be completed with or without assistive devices. 9-Khxqrhiulv-ovwrydo completes the activity by him/herself with no assistance from a helper. 5-Set-up or Clean-up Assistance-helper sets up or cleans up; patient completes activity. [place] assists only prior to or following the activity. 4-Supervision or Touching Assistance-helper provides verbal cues and/or touching/steadying and/or contact guard assistance as patient completes activity. Assistance may be provided throughout the activity or intermittently. 3-Partial/Moderate Assistance-helper does LESS THAN HALF the effort. [place] lifts, holds or supports trunk or limbs, but provides less than half the effort. 2-Substantial/Maximal Assistance-helper does MORE THAN HALF the effort. [place] lifts or holds trunk or limbs and provides more than half the effort. 3-Ojgadpwxy-dvsmql does ALL the effort. Patient does none of the effort to complete the activity. Or, the assistance of 2 or more helpers is required for the patient to complete the activity. If activity was not attempted, code reason: 7-Patient Refused. 9-Not Applicable-not attempted and the patient did not perform the activity before the current illness, exacerbation or injury. 10-Not Attempted due to Environmental Limitations-(lack of equipment, weather restraints, etc.). 88-Not Attempted due to Medical Conditions or Safety Concerns. Eating (QC): 6 Oral Hygiene (QC): 6 Shower/Bathe Self (QC): 7 Upper Body Dressing (QC): 5 (s/u) Lower Body Dressing (QC): 5 (s/u) On/Off Footwear: 5 (s/u- clothing items and sock aide given to pt. Pt completes YOLANDA hose and sock donning with IND.) Toileting Hygiene (QC): 7 Toilet Transfer (QC): 7 Other Treatment Pt completes sit to stands to change clothing items with walker/ with SUP. Pt expresses she would like to work towards higher endurance as her SOB has increased this morning. States she just finished breathing tx. Pt asked if she would need to work towards anything to master home environment, pt states no due to home set up. Pt completes oral hygiene with IND with walker. Pt ambulates to gym with SBA, no SOB noted. Pt completes standing tolerance activities (5 min intervals), SOB noted at 5 minutes with pure standing, at 2 min with increased UB activity. Pt completes standing activities with UB movement/ without for total of 15 minutes. Pt sits when needed, able to self-manage breaks. Pt completes UB ex EOB, focusing on strength, endurance, and balance. Pt completes with weighted bar and 4# attached: 15 reps of each: shoulder flexion, abdominal twists, bicep curls. Pt completes same movements in standing, SOB noted at ~1 min with added weight. Pt denies arm bike, states rather complete additional standing ex, completes 10 min of standing with 3 breaks in between. Pt returns to room, completes footwear with s/u. All needs met, call light in reach. Education OT Patient Education: Correct positioning, Exercise program, Home exercise program, Safety issues Teaching Recipient: Patient Teaching Methods: Demonstration, Discussion Response to Teaching: Verbalize Understanding, Return Demonstration OT Short Term Goals Short Term Goals Upper body dressin Lower body dressin OT Senior Care Goals Senior Care Goals Time Frame: Sep 03, 2019 Eating (QC): 6 (met) Oral Hygiene (QC): 6 (met) Toileting Hygiene (QC): 6 Shower/Bathe Self (QC): 6 Upper Body Dressing (QC): 6 Lower Body Dressing (QC): 6 On/Off Footwear (QC): 6 Additional Goals: 1-Demonstrate ADL Tasks, 2-Verbalize Understanding, 3- ImproveStrength/Evelyn 1=Demonstrate adherence to instructed precautions during ADL tasks. 2=Patient will verbalize/demonstrate understanding of assistive devices/modifications for ADL. 3=Patient will improve strength/tolerance for activity to enable patient to perform ADL's. OT Education/Plan Problem List/Assessment Assessment: Decreased Activ Tolerance, Edema, Impaired I ADL's, Impaired Self- Care Skills Discharge Recommendations Plan/Recommendations: Continue POC Therapy Discharge Recommendati: Home & Family Equpiment Recommendations-D/C: Sock Aide, Walker Bag or Basket Treatment Plan/Plan of Care Treatment,Training & Education: Yes Patient would benefit from OT for education, treatment and training to promote independence in ADL's, mobility, safety and/or upper extremity function for ADL's. Plan of Care: ADL Retraining, Functional Mobility, UE Funct Exercise/Act Treatment Duration: Sep 03, 2019 Frequency: At least 5 of 7 days/Wk (IRF) Estimated Hrs Per Day: 1.5 hours per day Agreement: Yes Rehab Potential: Fair Time/GCodes Start Time: 09:30 Stop Time: 11:00 Total Time Billed (hr/min): 90 Billed Treatment Time 1, ADL, FA, EX 4 (90) FIDENCIO NARAYANAN OTR Aug 28, 2019 11:01
[2019-08-28] MEDS: diphenhydrAMINE 25 MG TAB (BENADRYL) PO PRN ×2 (13:33→21:34)
--- NOTE | 2019-08-28 13:50 | Physical Therapy Daily Note ---
PT Daily Note-Current Subjective Pt sitting in recliner upon arrival. Pt reports just using restroom but would like to walk for PT Rx. Pain Numeric Pain Scale: 6 Location: Left Location Body Site: Hip Pain Description: Ache, Tightness Mental Status Patient Orientation: Person, Place, Time, Situation Attachments: Oxygen (2L) Transfers SCALE: Activities may be completed with or without assistive devices. 6-Cyrspzqdsb-owarxtp completes the activity by him/herself with no assistance from a helper. 5-Set-up or Clean-up Assistance-helper sets up or cleans up; patient completes activity. [place] assists only prior to or following the activity. 4-Supervision or Touching Assistance-helper provides verbal cues and/or touching/steadying and/or contact guard assistance as patient completes activity. Assistance may be provided throughout the activity or intermittently. 3-Partial/Moderate Assistance-helper does LESS THAN HALF the effort. [place] lifts, holds or supports trunk or limbs, but provides less than half the effort. 2-Substantial/Maximal Assistance-helper does MORE THAN HALF the effort. [place] lifts or holds trunk or limbs and provides more than half the effort. 9-Dotowpwxp-qpffxr does ALL the effort. Patient does none of the effort to complete the activity. Or, the assistance of 2 or more helpers is required for the patient to complete the activity. If activity was not attempted, code reason: 7-Patient Refused. 9-Not Applicable-not attempted and the patient did not perform the activity before the current illness, exacerbation or injury. 10-Not Attempted due to Environmental Limitations-(lack of equipment, weather restraints, etc.). 88-Not Attempted due to Medical Conditions or Safety Concerns. Sit to Lying (QC): 5 Lying to Sitting/Side of Bed(Q: 5 Sit to Stand (QC): 5 Weight Bearing Right Lower Extremity: Right Full Weight Bearing Left Lower Extremity: Left Full Weight Bearing Gait Training Does the Patient Walk?: Yes Distance: 150', 100' Walk 10 feet (QC): 5 Walk 50 ft with 2 Turns(QC): 5 Walk 150 ft (QC): 5 Gait Persons Needed: 1 Gait Assistive Device: FWW Exercises Supine Ex: Ankle pumps, Quad Set, Glut sets, Heel Slides, Hip abd/add Supine Reps: 15 Treatments Pt transfers from recliner to standing and ambulates in hallway using FWW. Pt returns to room to rest Supine in bed. Pt completes Supine EX in bed before resting. Pt has all needs met, call light in hand. Assessment Current Status: Good Progress Pt is motivated to continue to get stronger. Pt demonstrates decrease in pain during Rx with increase of mobility. PT Short Term Goals Short Term Goals Time Frame: Aug 27, 2019 Roll Left & Right: 6 Sit to lyin Lying to sitting on side of be: 4 Sit to stand: 4 Chair/qny-va-nkodh transfer: 4 Walk 10 feet: 4 Walk 50 feet with two turns: 4 Walk 150 feet: 4 PT Admissions Counselor Goals Fpc Goals PT Fpc Goals Time Frame: Sep 10, 2019 Roll Left & Right (QC): 6 Sit to Lying (QC): 6 Lying-Sitting on Side/Bed(QC): 6 Sit to Stand (QC): 6 Chair/Ykk-tm-Iivut Xfer(QC): 6 Toilet Transfer (QC): 6 Car Transfer (QC): 6 Walk 10 feet (QC): 6 Walk 50ft with 2 Turns (QC): 6 Walk 150 ft (QC): 6 Walking 10ft on Uneven Surface: 6 1 Step (curb) (QC): 4 4 Steps (QC): 4 PT Plan Problem List Problem List: Activity Tolerance, Functional Strength Treatment/Plan Treatment Plan: Continue Plan of Care Treatment Plan: Bed Mobility, Education, Functional Activity Evelyn, Functional Strength, Group Therapy, Gait, Safety, Therapeutic Exercise, Transfers Treatment Duration: Sep 10, 2019 Frequency: At least 5 of 7 days/Wk (IRF) Estimated Hrs Per Day: 1.5 hours per day Patient and/or Family Agrees t: Yes Safety Risks/Education Patient Education: Gait Training, Transfer Techniques, Correct Positioning, Safety Issues Teaching Recipient: Patient Teaching Methods: Discussion Response to Teaching: Verbalize Understanding Time/GCodes Time In: 1315 Time Out: 1345 Total Billed Treatment Time: 30 Total Billed Treatment 1, GT (15m) & EX (15m) LUIS ESTEBAN PTA Aug 28, 2019 13:50
[2019-08-28 16:00] VITALS: BP 108/70
--- NOTE | 2019-08-28 20:30 | NUR ---
STATES EATING BETTER THE PAST FEW DAYS - STATES FOOD IS TASTING GOOD. STATES [facility] WORKED WELL THIS AFTERNOON FOR SINUS/ALLERGIES AND REQUESTING IT AGAIN TONIGHT.
[2019-08-28] MEDS: MONTELUKAST 10 MG (SINGULAIR) TAB PO SCH (21:00)
--- NOTE | 2019-08-28 21:00 | NUR ---
PATIENT REQUESTED [facility] TONIGHT FOR ALLERGIES, SO TERESA HELD.
[2019-08-28] MEDS: polyethylene glycoL POWDER 17 GM (MIRALAX) PACK PO SCH (21:34)
[2019-08-29] MEDS: RT-ALBUTEROL/IPRATROPIUM 3 ML (DUONEB) VIAL INH SCH ×2 (03:30→19:55)
[2019-08-29 06:00] VITALS: BP 111/65
[2019-08-29] MEDS: ENOXAPARIN 30 MG/0.3 ML (LOVENOX) SYR SC SCH (06:12)
[2019-08-29] MEDS: KCL 10 MEQ TAB (MICRO K) PO SCH ×3 (06:12→17:42)
[2019-08-29 08:24] VITALS: BP 156/79
[2019-08-29] MEDS: HYDROcodone/APAP 5 MG/325 MG (LORTAB) TAB PO PRN ×3 (08:52→22:10)
[2019-08-29] MEDS: IRON POLYSAC 150 MG CAP (NIFEREX) PO SCH (08:53)
[2019-08-29] MEDS: SENNA W/DOCUSATE (SENOKOT S) TABLET PO SCH ×2 (08:54→21:03)
[2019-08-29] MEDS: DOCUSATE SODIUM 100 MG (COLACE) CAP PO SCH ×2 (08:54→21:03)
--- NOTE | 2019-08-29 09:49 | PM&R Progress Note ---
Subjective HPI/CC On Admission Date Seen by Provider: Aug 29, 2019 Time Seen by Provider: 09:30 Subjective/Events-last exam Pt doing very well. Set for discharge on Tuesday. Pain pills taken about three times a day- morning, evening and night-time. Bowels are moving well. Remaining on oxygen 14/02. Checked meds and labs Conferred with RN Reviewed therapy notes Review of Systems Pulmonary: Dyspnea Musculoskeletal: leg pain Objective Exam Vital Signs Vital Signs Date Time Temp Pulse Resp B/P (MAP) Pulse Ox O2 Delivery O2 Flow Rate FiO2 08/29/19 18:01 37.0 57 20 115/70 (85) 98 Nasal Cannula 2.00 08/29/19 10:13 28 Capillary Refill : Less Than 3 SecondsLess Than 3 Seconds General Appearance: No Apparent Distress, Chronically ill, Thin HEENT: PERRL/EOMI, Normal ENT Inspection, Pharynx Normal Neck: Full Range of Motion, Normal Inspection, Non Tender, Supple, Carotid Bruit Respiratory: Chest Non Tender, Lungs Clear, Normal Breath Sounds, No Accessory Muscle Use, No Respiratory Distress, Decreased Breath Sounds Cardiovascular: Regular Rate, Rhythm, No Edema, No Gallop, No JVD, No Murmur, Normal Peripheral Pulses Gastrointestinal: Normal Bowel Sounds, No Organomegaly, No Pulsatile Mass, Non Tender, Soft Back: Normal Inspection, No CVA Tenderness, No Vertebral Tenderness Extremity: Normal Capillary Refill, Normal Inspection, Normal Range of Motion (except left leg), Non Tender, No Calf Tenderness, No Pedal Edema Neurologic/Psychiatric: Alert, Oriented x3, No Motor/Sensory Deficits, Normal Mood/Affect Skin: Normal Color, Warm/Dry Lymphatic: No Adenopathy Results/Procedures Lab Patient resulted labs reviewed. FIM Transfers Therapy Code Descriptions/Definitions Functional [place] Measure: 0=Not Assessed/NA 4=Minimal Assistance 1=Total Assistance 5=Supervision or Setup 2=Maximal Assistance 6=Modified [place] 3=Moderate Assistance 7=Complete IndependenceSCALE: Activities may be completed with or without assistive devices. 5-Fvnwnjmggr-mdgbmro completes the activity by him/herself with no assistance from a helper. 5-Set-up or Clean-up Assistance-helper sets up or cleans up; patient completes activity. [place] assists only prior to or following the activity. 4-Supervision or Touching Assistance-helper provides verbal cues and/or touching/steadying and/or contact guard assistance as patient completes activity. Assistance may be provided throughout the activity or intermittently. 3-Partial/Moderate Assistance-helper does LESS THAN HALF the effort. [place] lifts, holds or supports trunk or limbs, but provides less than half the effort. 2-Substantial/Maximal Assistance-helper does MORE THAN HALF the effort. [place] lifts or holds trunk or limbs and provides more than half the effort. 4-Wyubwgoos-wloaek does ALL the effort. Patient does none of the effort to complete the activity. Or, the assistance of 2 or more helpers is required for the patient to complete the activity. If activity was not attempted, code reason: 7-Patient Refused. 9-Not Applicable-not attempted and the patient did not perform the activity before the current illness, exacerbation or injury. 10-Not Attempted due to Environmental Limitations-(lack of equipment, weather restraints, etc.). 88-Not Attempted due to Medical Conditions or Safety Concerns. Roll Left to Right (QC): 6 Sit to Lying (QC): 5 Sit to Stand (QC): 5 Chair/Xlq-tj-Ubtmq Xfer(QC): 6 Car Transfer (QC): 3 Gait Training Does the Patient Walk?: Yes Distance: 150', 100' Walk 10 feet (QC): 5 Walk 50 ft with 2 Turns(QC): 5 Walk 150 ft (QC): 5 Walking 10ft/uneven surface-QC: 4 Gait Persons Needed: 1 Gait Assistive Device: FWW Wheelchair Training Does the Pt Use a Wheelchair?: No Stair Training Stair Training: Handrails/: 2 handrails #of Steps: 4 1 Step (curb) (QC): 5 4 Steps (QC): 5 12 Steps (QC): 88 Stairs: Pattern: Step to Balance Picking up an Object (QC): 88 ADL-Treatment Eating (QC): 6 Oral Hygiene (QC): 6 Shower/Bathe Self (QC): 7 Upper Body Dressing (QC): 5 (s/u) Lower Body Dressing (QC): 5 (s/u) On/Off Footwear (QC): 5 (s/u- clothing items and sock aide given to pt. Pt completes YOLANDA hose and sock donning with IND.) Toileting Hygiene (QC): 7 Toilet Transfer (QC): 7 Assessment/Plan Assessment and Plan Assess & Plan/Chief Complaint Assessment: Left hip fracture s/p uncomplicated repair COPD O2 dependency Frail status Former smoker Post op anemia Post op constipation resolving Plan: BM regimen IRF protocol Monitor closely Pain control Maintain O2 at daytime may need that addition when she DC Xrays this week to see if wt restrictions can be lifted Very frail status BMI 18 DC Tuesday (1) Closed left hip fracture Status: Acute (2) Former smoker (3) Nocturnal hypoxia (4) Anemia (5) Constipation (6) COPD (chronic obstructive pulmonary disease) CARSON SCHAFFER DO Aug 29, 2019 09:49
[2019-08-29 10:13] VITALS: BP 111/65
[2019-08-29] MEDS: RT-ALBUTEROL/IPRATROPIUM 3 ML (DUONEB) VIAL INH PRN (10:57)
--- NOTE | 2019-08-29 11:02 | Occupational Ther Daily Note ---
OT Current Status-Daily Note Subjective Pt seen in recliner, states 6/10 pain in L hip. Pt states had pain meds ~30 min prior, agreeable to ADLs in room. Mental Status/Objective Patient Orientation: Normal For Age Attachments: Oxygen (2L) ADL-Treatment Therapy Code Descriptions/Definitions Functional [place] Measure: 0=Not Assessed/NA 4=Minimal Assistance 1=Total Assistance 5=Supervision or Setup 2=Maximal Assistance 6=Modified [place] 3=Moderate Assistance 7=Complete IndependenceSCALE: Activities may be completed with or without assistive devices. 9-Jvtpiqyqbi-jqfbyqp completes the activity by him/herself with no assistance from a helper. 5-Set-up or Clean-up Assistance-helper sets up or cleans up; patient completes activity. [place] assists only prior to or following the activity. 4-Supervision or Touching Assistance-helper provides verbal cues and/or touching/steadying and/or contact guard assistance as patient completes activity. Assistance may be provided throughout the activity or intermittently. 3-Partial/Moderate Assistance-helper does LESS THAN HALF the effort. [place] lifts, holds or supports trunk or limbs, but provides less than half the effort. 2-Substantial/Maximal Assistance-helper does MORE THAN HALF the effort. [place] lifts or holds trunk or limbs and provides more than half the effort. 2-Rhtvnibcf-tldiyq does ALL the effort. Patient does none of the effort to complete the activity. Or, the assistance of 2 or more helpers is required for the patient to complete the activity. If activity was not attempted, code reason: 7-Patient Refused. 9-Not Applicable-not attempted and the patient did not perform the activity before the current illness, exacerbation or injury. 10-Not Attempted due to Environmental Limitations-(lack of equipment, weather restraints, etc.). 88-Not Attempted due to Medical Conditions or Safety Concerns. Eating (QC): 6 Oral Hygiene (QC): 6 Shower/Bathe Self (QC): 4 (SUP during transfersshowering with mod I on bench.) Upper Body Dressing (QC): 6 Lower Body Dressing (QC): 6 (completes with IND.) On/Off Footwear: 6 (Completes mod I with sock aide for YOLANDA hose/ sock on L and IND on R) Toileting Hygiene (QC): 4 (SUP) Toilet Transfer (QC): 4 (SUP) Other Treatment Pt completes showering/ dressing in bathroom. Oral hygiene in stance at sink. Pt completes all with 2L O2 attached. Pt increased IND with ADLs (LB dress/ footwear) this date. Pt returns to recliner chair, nursing notified of pt position for dressing change. Pt requires bathroom, comletes toileting with SUP. Pt requires rest post-shower/ toileting, recovers breath in ~2 min. Pt ambulates to gym, requires rest break once there. Pt picks items up from floor with vice president of manufacturing, transfers item to hand and to OT across body- completes with good balance. Pt then completes standing tolerance/ UE movements at arm arch- compeltes 2 rounds and requires rest break x2. Pt then completes LB/ UB movements/ ex EOM to increase endurance/ strength. Pt completes 3 exercises with 2 minute intervals and 3 exercises with 1 minute intervals. Pt requires ~1-2 min rest break in between for respiratory recovery. pt returns to room, call light in reach, all needs met. Pt states if she returns home this week she would like to go Tuesday due to timing/ working of family members.Pt and OT agree pt ready for d/c. Pt requires walker, walker basket, hip kit for d/c. Education OT Patient Education: Exercise program, Home exercise program, Safety issues Teaching Recipient: Patient Teaching Methods: Demonstration, Discussion Response to Teaching: Verbalize Understanding, Return Demonstration OT Short Term Goals Short Term Goals Upper body dressin Lower body dressin OT Temporary Administrative Assistant Goals Snf Goals Time Frame: Sep 03, 2019 Eating (QC): 6 (met) Oral Hygiene (QC): 6 (met) Toileting Hygiene (QC): 6 Shower/Bathe Self (QC): 6 Upper Body Dressing (QC): 6 (met) Lower Body Dressing (QC): 6 On/Off Footwear (QC): 6 (met) Additional Goals: 1-Demonstrate ADL Tasks, 2-Verbalize Understanding, 3- ImproveStrength/Evelyn 1=Demonstrate adherence to instructed precautions during ADL tasks. 2=Patient will verbalize/demonstrate understanding of assistive devices/modif ications for ADL. 3=Patient will improve strength/tolerance for activity to enable patient to perform ADL's. OT Education/Plan Problem List/Assessment Assessment: Decreased Activ Tolerance, Edema (small amount still present -inner L thigh), Impaired I ADL's Discharge Recommendations Plan/Recommendations: Continue POC Therapy Discharge Recommendati: Home & Family Equpiment Recommendations-D/C: Hip Kit, Walker Bag or Basket Treatment Plan/Plan of Care Treatment,Training & Education: Yes Patient would benefit from OT for education, treatment and training to promote independence in ADL's, mobility, safety and/or upper extremity function for ADL's. Plan of Care: ADL Retraining, Functional Mobility, UE Funct Exercise/Act Treatment Duration: Sep 03, 2019 Frequency: At least 5 of 7 days/Wk (IRF) Estimated Hrs Per Day: 1.5 hours per day Agreement: Yes Rehab Potential: Fair Time/GCodes Start Time: 09:30 Stop Time: 11:00 Total Time Billed (hr/min): 90 Billed Treatment Time 1, ADL 3, EX 3 (90) FIDENCIO NARAYANAN OTR Aug 29, 2019 11:02
--- NOTE | 2019-08-29 12:13 | Physical Therapy Daily Note ---
PT Daily Note-Current Subjective Pt sitting in recliner upon arrival. Pt agrees to PT, citing feeling good & ready to D/C later this week. Pain Numeric Pain Scale: 4 Location: Left Location Body Site: Hip Pain Description: Ache, Tightness Mental Status Patient Orientation: Person, Place, Time, Situation Attachments: Oxygen (2L) Transfers SCALE: Activities may be completed with or without assistive devices. 9-Qlxjvozgvr-vjnihnp completes the activity by him/herself with no assistance from a helper. 5-Set-up or Clean-up Assistance-helper sets up or cleans up; patient completes activity. [place] assists only prior to or following the activity. 4-Supervision or Touching Assistance-helper provides verbal cues and/or touching/steadying and/or contact guard assistance as patient completes activity. Assistance may be provided throughout the activity or intermittently. 3-Partial/Moderate Assistance-helper does LESS THAN HALF the effort. [place] lifts, holds or supports trunk or limbs, but provides less than half the effort. 2-Substantial/Maximal Assistance-helper does MORE THAN HALF the effort. [place] lifts or holds trunk or limbs and provides more than half the effort. 5-Obfsyezpi-zdpxsy does ALL the effort. Patient does none of the effort to complete the activity. Or, the assistance of 2 or more helpers is required for the patient to complete the activity. If activity was not attempted, code reason: 7-Patient Refused. 9-Not Applicable-not attempted and the patient did not perform the activity before the current illness, exacerbation or injury. 10-Not Attempted due to Environmental Limitations-(lack of equipment, weather restraints, etc.). 88-Not Attempted due to Medical Conditions or Safety Concerns. Sit to Lying (QC): 5 Lying to Sitting/Side of Bed(Q: 5 Sit to Stand (QC): 6 Chair/Oca-ne-Aepoh Xfer(QC): 5 Car Transfer (QC): 5 Pt is using gait belt looped to assist lifting L LE into bed. Weight Bearing Right Lower Extremity: Right Full Weight Bearing Left Lower Extremity: Left Full Weight Bearing Gait Training Does the Patient Walk?: Yes Distance: 150', 150' Walk 10 feet (QC): 6 Walk 50 ft with 2 Turns(QC): 6 Walk 150 ft (QC): 6 Gait Persons Needed: 1 Gait Assistive Device: FWW Wheelchair Training Does the Pt Use a Wheelchair?: No Stair Training Stair Training: Handrails/: 2 handrails #of Steps: 8 1 Step (curb) (QC): 5 4 Steps (QC): 5 Stairs: Pattern: Step to Exercises Seated Therapy Exercises: Ankle pumps, Long arc quads, Hip flexion, Kicking activity Seated Reps: 15 (2 sets of 15 reps) Treatments Pt transfers from recliner to standing. Pt practices EOB to Supine in bed, using gait belt looped to assist lifting L LE. Pt transfers from bed to standing and ambulates in hallway. Pt completes 2 sets of 4 steps. Pt completes Seated EX in chair before ambulating again in hallway. Pt returns to room to rest at end of Rx with all needs met, call light in hand. Assessment Current Status: Good Progress Pt is gaining strength, mobility & independence of tasks. PT Short Term Goals Short Term Goals Time Frame: Aug 27, 2019 Roll Left & Right: 6 Sit to lyin Lying to sitting on side of be: 4 Sit to stand: 4 Chair/trk-kp-umqhu transfer: 4 Walk 10 feet: 4 Walk 50 feet with two turns: 4 Walk 150 feet: 4 PT Weatherization Specialist Goals Intermediate Goals PT Intermediate Goals Time Frame: Sep 10, 2019 Roll Left & Right (QC): 6 Sit to Lying (QC): 6 Lying-Sitting on Side/Bed(QC): 6 Sit to Stand (QC): 6 Chair/Rwb-zk-Nlwwv Xfer(QC): 6 Toilet Transfer (QC): 6 Car Transfer (QC): 6 Walk 10 feet (QC): 6 Walk 50ft with 2 Turns (QC): 6 Walk 150 ft (QC): 6 Walking 10ft on Uneven Surface: 6 1 Step (curb) (QC): 4 4 Steps (QC): 4 PT Plan Problem List Problem List: Activity Tolerance Treatment/Plan Treatment Plan: Continue Plan of Care Treatment Plan: Bed Mobility, Education, Functional Activity [place], Functional Strength, Group Therapy, Gait, Safety, Therapeutic Exercise, Transfers Treatment Duration: Sep 10, 2019 Frequency: At least 5 of 7 days/Wk (IRF) Estimated Hrs Per Day: 1.5 hours per day Patient and/or Family Agrees t: Yes Safety Risks/Education Patient Education: Gait Training, Transfer Techniques, Steps, Correct Positioning, Safety Issues Teaching Recipient: Patient Teaching Methods: Discussion Response to Teaching: Verbalize Understanding Time/GCodes Time In: 1100 Time Out: 1200 Total Billed Treatment Time: 60 Total Billed Treatment 1, GT (20m), FA (10m), EX x2 (30m) LUIS ESTEBAN SHAREPOINT NET DEVELOPER Aug 29, 2019 12:13
[2019-08-29] MEDS: diphenhydrAMINE 25 MG TAB (BENADRYL) PO PRN ×2 (14:17→22:09)
--- NOTE | 2019-08-29 14:24 | NUR ---
Pt requested pain med & Benadryl for hip pain, & allergies. Pt states, "I think I should have asked for the pain pill earlier, because I just got done working w therapy; also states that she believes that the Benadryl has been helping unclog her sinuses; states that earlier, she was able to blow her nose, & she got out quite a bit of clear mucous." Pt declined offer of humidifier placed on . Pt agreed to saline nasal gel for her nose, notified Dr. Cobos, & rec'd orders.
[2019-08-29] MEDS ORDERED: SOD CHL GEL 0.5 OZ (AYR SALINE NASAL GEL) TUBE TOP PRN (14:30)
--- NOTE | 2019-08-29 14:53 | Physical Therapy Daily Note ---
PT Daily Note-Current Subjective Pt resting in recliner upon arrival. Pt agrees to PT. Pain Numeric Pain Scale: 4 Location: Left Location Body Site: Hip Pain Description: Ache, Tightness Mental Status Patient Orientation: Person, Place, Time, Situation Attachments: Oxygen (2L) Transfers SCALE: Activities may be completed with or without assistive devices. 6-Wwvqowdqtt-faljrlu completes the activity by him/herself with no assistance from a helper. 5-Set-up or Clean-up Assistance-helper sets up or cleans up; patient completes activity. [place] assists only prior to or following the activity. 4-Supervision or Touching Assistance-helper provides verbal cues and/or touching/steadying and/or contact guard assistance as patient completes activity. Assistance may be provided throughout the activity or intermittently. 3-Partial/Moderate Assistance-helper does LESS THAN HALF the effort. [place] lifts, holds or supports trunk or limbs, but provides less than half the effort. 2-Substantial/Maximal Assistance-helper does MORE THAN HALF the effort. [place] lifts or holds trunk or limbs and provides more than half the effort. 5-Nitdjijaq-lwlzba does ALL the effort. Patient does none of the effort to complete the activity. Or, the assistance of 2 or more helpers is required for the patient to complete the activity. If activity was not attempted, code reason: 7-Patient Refused. 9-Not Applicable-not attempted and the patient did not perform the activity before the current illness, exacerbation or injury. 10-Not Attempted due to Environmental Limitations-(lack of equipment, weather restraints, etc.). 88-Not Attempted due to Medical Conditions or Safety Concerns. Sit to Stand (QC): 6 Toilet Transfer (QC): 6 Weight Bearing Right Lower Extremity: Right Full Weight Bearing Left Lower Extremity: Left Full Weight Bearing Gait Training Does the Patient Walk?: Yes Distance: 325' Walk 10 feet (QC): 6 Walk 50 ft with 2 Turns(QC): 6 Walk 150 ft (QC): 6 Gait Persons Needed: 1 Gait Assistive Device: FWW Pt takes standing RB as needed to recover as pt fatigues. Wheelchair Training Does the Pt Use a Wheelchair?: No Treatments Pt transfers from recliner to standing to use restroom. Pt then ambulates in hallway, taking standing RB as needed. Pt returns to room at end of Rx to rest in bed. Pt has all needs met at end of Rx, call light in hand. Assessment Current Status: Good Progress Pt reports decrease in pain during Rx compared to previous Rx but asks for pain med after Rx complete. PT Short Term Goals Short Term Goals Time Frame: Aug 27, 2019 Roll Left & Right: 6 Sit to lyin Lying to sitting on side of be: 4 Sit to stand: 4 Chair/rxk-cv-sgjtj transfer: 4 Walk 10 feet: 4 Walk 50 feet with two turns: 4 Walk 150 feet: 4 PT [facility] Goals Form Builder Goals PT Form Builder Goals Time Frame: Sep 10, 2019 Roll Left & Right (QC): 6 Sit to Lying (QC): 6 Lying-Sitting on Side/Bed(QC): 6 Sit to Stand (QC): 6 Chair/Tyo-en-Auisx Xfer(QC): 6 Toilet Transfer (QC): 6 Car Transfer (QC): 6 Walk 10 feet (QC): 6 Walk 50ft with 2 Turns (QC): 6 Walk 150 ft (QC): 6 Walking 10ft on Uneven Surface: 6 1 Step (curb) (QC): 4 4 Steps (QC): 4 PT Plan Problem List Problem List: Activity Tolerance, Functional Strength Treatment/Plan Treatment Plan: Continue Plan of Care Treatment Plan: Bed Mobility, Education, Functional Activity [place]elyn, Functional Strength, Group Therapy, Gait, Safety, Therapeutic Exercise, Transfers Treatment Duration: Sep 10, 2019 Frequency: At least 5 of 7 days/Wk (IRF) Estimated Hrs Per Day: 1.5 hours per day Patient and/or Family Agrees t: Yes Safety Risks/Education Patient Education: Gait Training, Transfer Techniques, Correct Positioning, Safety Issues Teaching Recipient: Patient Teaching Methods: Discussion Response to Teaching: Verbalize Understanding Time/GCodes Time In: 1345 Time Out: 1415 Total Billed Treatment Time: 30 Total Billed Treatment 1, FA (15m) & GT (15m) LUIS ESTEBAN BALLROOM DANCE INSTRUCTOR Aug 29, 2019 14:53
--- NOTE | 2019-08-29 16:35 | NUR ---
CM/SS WEEKLY TEAM CONFERENCE SUMMARY Visited with patient and her daughter Olive Javier. They are in agreement for targeted discharge 09/01/19, and would like to take patient home by noon. DME: FWW needed, will coordinate with patient preferred agency, [facility]. Patient requests this item be delivered to her hospital room Tuesday. Patient will have RT study for continuous O2 with orders to [facility] as appropriate. Daughter will private pay purchase walker basket and hip kit. HHC: For RN and PT, to be arranged with patient preferred agency. Finalize discharge when orders received.
[2019-08-29 18:01] VITALS: BP 115/70
[2019-08-29] MEDS: MONTELUKAST 10 MG (SINGULAIR) TAB PO SCH (21:03)
[2019-08-29] MEDS: polyethylene glycoL POWDER 17 GM (MIRALAX) PACK PO SCH (21:04)
[2019-08-30 05:07] VITALS: BP 109/66
[2019-08-30] MEDS: ENOXAPARIN 30 MG/0.3 ML (LOVENOX) SYR SC SCH (06:19)
[2019-08-30] MEDS: KCL 10 MEQ TAB (MICRO K) PO SCH (06:19)
[2019-08-30] MEDS: IRON POLYSAC 150 MG CAP (NIFEREX) PO SCH (07:52)
[2019-08-30] MEDS: DOCUSATE SODIUM 100 MG (COLACE) CAP PO SCH ×2 (07:53→21:52)
[2019-08-30] MEDS: SENNA W/DOCUSATE (SENOKOT S) TABLET PO SCH ×2 (07:53→21:52)
--- NOTE | 2019-08-30 08:41 | PM&R Progress Note ---
Subjective HPI/CC On Admission Date Seen by Provider: Aug 30, 2019 Time Seen by Provider: 08:45 Subjective/Events-last exam DC is planned for Tuesday X ray today and Dr. Doyle saw her and lifted all weight bearing restrictions Will get her flu shot today Will get home O2 evaluation because she will need daytime oxygen on Tuesday when she is discharged since she only takes it at home anyway Remaining on oxygen 14/02. Checked meds and labs Conferred with RN Reviewed therapy notes Review of Systems Pulmonary: Dyspnea Musculoskeletal: leg pain Objective Exam Vital Signs Vital Signs Date Time Temp Pulse Resp B/P (MAP) Pulse Ox O2 Delivery O2 Flow Rate FiO2 08/30/19 17:19 37.3 53 16 117/69 (85) 96 Nasal Cannula 2.00 08/29/19 10:13 28 Capillary Refill : Less Than 3 SecondsLess Than 3 Seconds General Appearance: No Apparent Distress, Chronically ill, Thin HEENT: PERRL/EOMI, Normal ENT Inspection, Pharynx Normal Neck: Full Range of Motion, Normal Inspection, Non Tender, Supple, Carotid Br uit Respiratory: Chest Non Tender, Lungs Clear, Normal Breath Sounds, No Accessory Muscle Use, No Respiratory Distress, Decreased Breath Sounds Cardiovascular: Regular Rate, Rhythm, No Edema, No Gallop, No JVD, No Murmur, Normal Peripheral Pulses Gastrointestinal: Normal Bowel Sounds, No Organomegaly, No Pulsatile Mass, Non Tender, Soft Back: Normal Inspection, No CVA Tenderness, No Vertebral Tenderness Extremity: Normal Capillary Refill, Normal Inspection, Normal Range of Motion (except left leg), Non Tender, No Calf Tenderness, No Pedal Edema Neurologic/Psychiatric: Alert, Oriented x3, No Motor/Sensory Deficits, Normal Mood/Affect Skin: Normal Color, Warm/Dry Lymphatic: No Adenopathy Results/Procedures Lab Patient resulted labs reviewed. FIM Transfers Therapy Code Descriptions/Definitions Functional [place] Measure: 0=Not Assessed/NA 4=Minimal Assistance 1=Total Assistance 5=Supervision or Setup 2=Maximal Assistance 6=Modified [place] 3=Moderate Assistance 7=Complete IndependenceSCALE: Activities may be completed with or without assistive devices. 7-Ifpkieqkdl-wrpfsaj completes the activity by him/herself with no assistance from a helper. 5-Set-up or Clean-up Assistance-helper sets up or cleans up; patient completes activity. [place] assists only prior to or following the activity. 4-Supervision or Touching Assistance-helper provides verbal cues and/or touching/steadying and/or contact guard assistance as patient completes activity. Assistance may be provided throughout the activity or intermittently. 3-Partial/Moderate Assistance-helper does LESS THAN HALF the effort. [place] lifts, holds or supports trunk or limbs, but provides less than half the effort. 2-Substantial/Maximal Assistance-helper does MORE THAN HALF the effort. [place] lifts or holds trunk or limbs and provides more than half the effort. 5-Hejpawilo-nkiwwr does ALL the effort. Patient does none of the effort to complete the activity. Or, the assistance of 2 or more helpers is required for the patient to complete the activity. If activity was not attempted, code reason: 7-Patient Refused. 9-Not Applicable-not attempted and the patient did not perform the activity before the current illness, exacerbation or injury. 10-Not Attempted due to Environmental Limitations-(lack of equipment, weather restraints, etc.). 88-Not Attempted due to Medical Conditions or Safety Concerns. Roll Left to Right (QC): 6 Sit to Lying (QC): 5 Sit to Stand (QC): 6 Chair/Tsh-ah-Wdzhz Xfer(QC): 5 Car Transfer (QC): 5 Gait Training Does the Patient Walk?: Yes Distance: 325' Walk 10 feet (QC): 6 Walk 50 ft with 2 Turns(QC): 6 Walk 150 ft (QC): 6 Walking 10ft/uneven surface-QC: 4 Gait Persons Needed: 1 Gait Assistive Device: FWW Wheelchair Training Does the Pt Use a Wheelchair?: No Stair Training Stair Training: Handrails/: 2 handrails #of Steps: 8 1 Step (curb) (QC): 5 4 Steps (QC): 5 12 Steps (QC): 88 Stairs: Pattern: Step to Balance Picking up an Object (QC): 88 ADL-Treatment Eating (QC): 6 Oral Hygiene (QC): 6 Shower/Bathe Self (QC): 4 (SUP during transfersshowering with mod I on bench.) Upper Body Dressing (QC): 6 Lower Body Dressing (QC): 6 (completes with IND.) On/Off Footwear (QC): 6 (Completes mod I with sock aide for YOLANDA hose/ sock on L and IND on R) Toileting Hygiene (QC): 4 (SUP) Toilet Transfer (QC): 4 (SUP) Assessment/Plan Assessment and Plan Assess & Plan/Chief Complaint Assessment: Left hip fracture s/p uncomplicated repair COPD O2 dependency Frail status Former smoker Post op anemia Post op constipation resolving Plan: BM regimen IRF protocol Monitor closely Pain control Maintain O2 at daytime may need that addition when she DC Xrays this week to see if wt restrictions can be lifted Very frail status BMI 18 DC Tuesday (1) Closed left hip fracture Status: Acute (2) Former smoker (3) Nocturnal hypoxia (4) Anemia (5) Constipation (6) COPD (chronic obstructive pulmonary disease) CARSON SCHAFFER DO Aug 30, 2019 08:41
[2019-08-30] MEDS: RT-ALBUTEROL/IPRATROPIUM 3 ML (DUONEB) VIAL INH SCH (09:05)
[2019-08-30] MEDS: HYDROcodone/APAP 5 MG/325 MG (LORTAB) TAB PO PRN ×2 (09:05→21:55)
--- NOTE | 2019-08-30 09:25 | NUR ---
DR. ROBBINS HERE TO SEE PATIENT. ORDERS TO REMOVE URBANO AND APPLY STERI STRIPS TO LEFT HIP INCISION. ALSO, ADVANCE TO FULL WEIGHT BEARING.
--- NOTE | 2019-08-30 09:56 | Diagnostic Imaging Report ---
INDICATION: Follow-up left hip fracture. TIME OF EXAM: 8:18 AM FINDINGS: Postsurgical changes of left hip are noted. There is intramedullary rajeev and compression screw transfixing the left hip fracture. Alignment is anatomic. Femoral acetabular alignment is normal. Hardware is intact. IMPRESSION: Satisfactory postop left hip. Dictated by: Dictated on workstation # [id number]
--- NOTE | 2019-08-30 10:04 | Progress Note - Ortho ---
Progress Note Subjective Date of Exam 08/30/19 Chief Complaint POD#14 HPI/Events since last exam Mrs Crooks is 14 days postop short TFN left hip for a three-part intertroch anteric fracture. She states the pain is less but improving. No other complaints. Review of Systems Reviewed and no additions or changes Allergies: Coded Allergies: No Known Drug Allergies (Unverified , 01/18/18) Home Meds Reported Medications Albuterol Sulfate (Albuterol Sulfate) 2.5 Mg/3 Ml Vial.neb, 2.5 MG NEB BID, EA 08/16/19 Albuterol Sulfate (Ventolin Hfa) 18 Gm Hfa.aer.ad, 2 PUFF INH Q4H PRN for SHORTNESS OF BREATH, INHALER 08/16/19 Montelukast Sodium (Montelukast Sodium) 10 Mg Tablet, 10 MG PO HS, TAB 08/16/19 Objective Exam Constitutional: [] HEENT: [] Neck: [] Cardiovascular: [] Respiratory: [] Gastrointestinal: [] Genitourinary: [] Skin: [] Back/Spine: [] Extremities: [Incisions are healing well without redness or drainage. Good motion left hip with minimal pain. No calf tenderness and negative Homans. She is neurovascularly intact in both lower extremities. Equal position of both lower extremities] Neurologic: [] Psychiatric: [] Hematologic/lymphatic/immunologic: [] Vital Signs Vital Signs Date Time Temp Pulse Resp B/P (MAP) Pulse Ox O2 Delivery O2 Flow Rate FiO2 08/30/19 09:05 97 Nasal Cannula 2.00 08/30/19 08:43 Nasal Cannula 2.00 08/30/19 05:07 37.2 69 16 109/66 (80) 98 Nasal Cannula 2.00 08/29/19 21:28 Nasal Cannula 2.00 08/29/19 19:55 99 Nasal Cannula 2.00 08/29/19 18:01 37.0 57 20 115/70 (85) 98 Nasal Cannula 2.00 08/29/19 10:57 98 Nasal Cannula 2.00 08/29/19 10:13 36.8 91 98 28 I & O 08/30/19 07:00 Intake Total 1400 ml Balance 1400 ml Imaging X-rays taken today shows good position of the short TFN left hip in good position of the three-part intertrochanteric fracture. There is some minimal displacement. Assessment and Plan Assessment Doing well at 14 days post op Problem List Unchanged Plan Increase wt to full wt as tolerated on left. The patient is planning on D/C home on 09/01. F/U in the office in 2 weeks. Repeat xrays at that time [place] out today Final Diagonsis S/P short TFN left hip for 3 part intertrochanteric fracture left hip Level of the visit: Level 3 Clinical Quality Measures DVT/VTE Risk/Contraindication: Risk Factor Score Per Nursin RFS Level Per Nursing on Admit: 4+=Very High ELVIS ROBBINS MD Aug 30, 2019 10:04
[2019-08-30] MEDS ORDERED: ACHD5005 PO (10:19)
[2019-08-30] MEDS ORDERED: IRON150C3 PO (10:19)
[2019-08-30] MEDS ORDERED: MONT10TA24 PO (10:19)
[2019-08-30] MEDS ORDERED: DOCU-244 PO (10:19)
--- NOTE | 2019-08-30 10:21 | D/C HH Face to Face Order ---
D/C Face to Face Orders Reconcile Patient Problems Problems Reviewed?: Yes Instructions for Patient Home Health Patient Instructions/FollowUp: Dr Branch in [address] Doyle 1 week Physician to follow Patient: Dr Branch Discharge Diet for Home: No Restrictions Patient Problems: hip fracture copd Goals for Patient: [place] Patient Data-Allergies,Ht & Wt Patient Allergies: Coded Allergies: No Known Drug Allergies (Unverified , 01/18/18) Height (Feet): 5 Height (Inches): 7.00 Weight (Pounds): 108 Weight (Ounces): 0.0 Home Health Need/Face to Face Date of Face to Face: Aug 30, 2019 Clinical Findings: Generalized weakness and fatigue, Muscle weakness, Pain with ambulation, Unsteady gait I have seen Pt jprk-jk-lpkb: Yes Discharged To: Home Diagnosis/Conditions: hip fracture copd Patient is Homebound due to: CognItive deficits, Rob fall risk due to instabilty, Muscle weakness, Pain w/ambulation, Shortness of breath/distress Homebound Status Due to the above stated illness, injury or surgical procedure (medical condition or diagnosis) and associated clinical findings, the patient is homebound because of his/her inability to leave home except with aid of a supportive device and/or person AND leaving the home requires a considerable and taxing effort or is medically contraindicated. Pt req the following assistanc: Walker Home Health Nursing Orders Home Health Services Order: Nursing Services, Drawer Liner-Evaluate & Treat, Physical Therapy-Evaluate & Treat Certify Stmt I certify that this patient is under my care and that I, a nurse practitioner or a physician; a travel assistant working with me, had a face to face encounter that - meets the physician face to face encounter requirements with this patient as dated. CARSON SCHAFFER DO Aug 30, 2019 10:21
--- NOTE | 2019-08-30 11:10 | Occupational Ther Daily Note ---
OT Current Status-Daily Note Subjective Pt states 6/10 pain, had x-ray this morning. States she is now FWB rather than partial. Pt agreeable to OT tx session, goals of showering tomorrow rather than today. Mental Status/Objective Patient Orientation: Normal For Age Attachments: Oxygen (2L) ADL-Treatment Therapy Code Descriptions/Definitions Functional [place] Measure: 0=Not Assessed/NA 4=Minimal Assistance 1=Total Assistance 5=Supervision or Setup 2=Maximal Assistance 6=Modified [place] 3=Moderate Assistance 7=Complete IndependenceSCALE: Activities may be completed with or without assistive devices. 8-Zmbpjtjioc-dptflsm completes the activity by him/herself with no assistance from a helper. 5-Set-up or Clean-up Assistance-helper sets up or cleans up; patient completes activity. [place] assists only prior to or following the activity. 4-Supervision or Touching Assistance-helper provides verbal cues and/or touching/steadying and/or contact guard assistance as patient completes activity. Assistance may be provided throughout the activity or intermittently. 3-Partial/Moderate Assistance-helper does LESS THAN HALF the effort. [place] lifts, holds or supports trunk or limbs, but provides less than half the effort. 2-Substantial/Maximal Assistance-helper does MORE THAN HALF the effort. [place] lifts or holds trunk or limbs and provides more than half the effort. 6-Irqncxdkb-ndlcpw does ALL the effort. Patient does none of the effort to complete the activity. Or, the assistance of 2 or more helpers is required for the patient to complete the activity. If activity was not attempted, code reason: 7-Patient Refused. 9-Not Applicable-not attempted and the patient did not perform the activity before the current illness, exacerbation or injury. 10-Not Attempted due to Environmental Limitations-(lack of equipment, weather restraints, etc.). 88-Not Attempted due to Medical Conditions or Safety Concerns. Eating (QC): 6 Oral Hygiene (QC): 6 Shower/Bathe Self (QC): 7 Upper Body Dressing (QC): 6 Lower Body Dressing (QC): 6 (without use of AE.) On/Off Footwear: 6 (with sock aide.) Toileting Hygiene (QC): 6 Toilet Transfer (QC): 6 Other Treatment Pt completes toileting/ dressing/ oral hygiene in room. Pt able to ambulate to washer/ dryer, demonstrates ability to reach in washer and dryer to retrieve items with good balance. Pt agrees to endurance ex in gym, ambulates with walker. Pt stands at table height completing limited AROM for 8 min prior to taking 3 min rest break. Pt completes standing tolerance once more at 8 min, rests for 2 min. Pt completes UE ex in stance with weighted bar, shifts weight on each leg. Pt able to complete 1 min of this activity prior to rest break. Pt then completes torso twists with 5# bar in stance, completes 2x for 1 min each. Pt states her breathing is better due to nasal gel, but requires breaks. Pt completes standing balance activity with good balance, states need for BM. Completes toileting with IND. Pt denies return to gym, states she is "worn out and hurting." Pt denies need for pain meds, completes modified theraband ex seated in chair (5 reps per side and then break of each ex: back flies, ext shoulder rotation, shoulder scaption). Pt remains in chair end of session, all needs met, call light in reach. Education OT Patient Education: Exercise program, Home exercise program, Modified ADL techniques, Purpose of tx/functional activities, Reviewed precautions, Use of adapted equipment Teaching Recipient: Patient Teaching Methods: Demonstration, Discussion Response to Teaching: Verbalize Understanding, Return Demonstration OT Short Term Goals Short Term Goals Upper body dressin (met) Lower body dressin (met) OT Group Home Goals Group Home Goals Time Frame: Sep 03, 2019 Eating (QC): 6 (met) Oral Hygiene (QC): 6 (met) Toileting Hygiene (QC): 6 (met) Shower/Bathe Self (QC): 6 Upper Body Dressing (QC): 6 (met) Lower Body Dressing (QC): 6 (met) On/Off Footwear (QC): 6 (met) Additional Goals: 1-Demonstrate ADL Tasks, 2-Verbalize Understanding, 3-ImproveStrength/Evelyn 1=Demonstrate adherence to instructed precautions during ADL tasks. 2=Patient will verbalize/demonstrate understanding of assistive devices/modifications for ADL. 3=Patient will improve strength/tolerance for activity to enable patient to perform ADL's. OT Education/Plan Problem List/Assessment Assessment: Decreased Activ Tolerance, Impaired I ADL's Discharge Recommendations Plan/Recommendations: Continue POC Therapy Discharge Recommendati: Home & Family Treatment Plan/Plan of Care Treatment,Training & Education: Yes Patient would benefit from OT for education, treatment and training to promote independence in ADL's, mobility, safety and/or upper extremity function for ADL's. Plan of Care: ADL Retraining, Functional Mobility, UE Funct Exercise/Act Treatment Duration: Sep 03, 2019 Frequency: At least 5 of 7 days/Wk (IRF) Estimated Hrs Per Day: 1.5 hours per day Agreement: Yes Rehab Potential: Fair Time/GCodes Start Time: 09:30 Stop Time: 11:00 Total Time Billed (hr/min): 90 Billed Treatment Time 1, ADL 2 (30), EX 4 (60)= 90 FIDENCIO NARAYANAN OTR Aug 30, 2019 11:10
--- NOTE | 2019-08-30 11:53 | Physical Therapy Daily Note ---
PT Daily Note-Current Subjective Pt sitting in recliner upon arrival. Pt agrees to Rx. Pain Numeric Pain Scale: 3 Location: Left Location Body Site: Hip Pain Description: Ache, Tightness Mental Status Patient Orientation: Person, Place, Time, Situation Attachments: Oxygen (2L) Transfers SCALE: Activities may be completed with or without assistive devices. 6-Rbayzdwewu-adcwzae completes the activity by him/herself with no assistance from a helper. 5-Set-up or Clean-up Assistance-helper sets up or cleans up; patient completes activity. [place] assists only prior to or following the activity. 4-Supervision or Touching Assistance-helper provides verbal cues and/or touching/steadying and/or contact guard assistance as patient completes activity. Assistance may be provided throughout the activity or intermittently. 3-Partial/Moderate Assistance-helper does LESS THAN HALF the effort. [place] lifts, holds or supports trunk or limbs, but provides less than half the effort. 2-Substantial/Maximal Assistance-helper does MORE THAN HALF the effort. [place] lifts or holds trunk or limbs and provides more than half the effort. 3-Llbrxhkjr-rbdijq does ALL the effort. Patient does none of the effort to complete the activity. Or, the assistance of 2 or more helpers is required for the patient to complete the activity. If activity was not attempted, code reason: 7-Patient Refused. 9-Not Applicable-not attempted and the patient did not perform the activity before the current illness, exacerbation or injury. 10-Not Attempted due to Environmental Limitations-(lack of equipment, weather restraints, etc.). 88-Not Attempted due to Medical Conditions or Safety Concerns. Sit to Stand (QC): 6 Weight Bearing Right Lower Extremity: Right Full Weight Bearing Left Lower Extremity: Left Full Weight Bearing Gait Training Does the Patient Walk?: Yes Distance: 150' x2 Walk 10 feet (QC): 6 Walk 50 ft with 2 Turns(QC): 6 Walk 150 ft (QC): 6 Gait Persons Needed: 1 Gait Assistive Device: FWW Pt still walks with analgetic pattern. Pt had Xray this morning and reported that she was advised everything looked good and was allowed to FWB now. Wheelchair Training Does the Pt Use a Wheelchair?: No Stair Training Stair Training: Handrails/: 2 handrails #of Steps: 8 1 Step (curb) (QC): 6 4 Steps (QC): 6 12 Steps (QC): 7 Stairs: Pattern: Step to Exercises Standing: Hip Abduction, Hamstring curls, Marching, Mini squats, Weight shifts Standing Reps: 15 NuStep Minutes: 10 NuStep Workload: 3 Treatments Pt transfers from recliner to standing. Pt uses restroom. Pt ambulates in hallway using FWW. Pt completes Standing Ex at //bars followed by 2 sets of 4 steps. Pt returns to room to rest in recliner at end of Rx. Pt has all needs met, call light in hand. Assessment Current Status: Good Progress Pt occasionally needs RB for SOA even on O2. PT Short Term Goals Short Term Goals Time Frame: Aug 27, 2019 Roll Left & Right: 6 Sit to lyin Lying to sitting on side of be: 4 Sit to stand: 4 Chair/ghp-qb-vwhrs transfer: 4 Walk 10 feet: 4 Walk 50 feet with two turns: 4 Walk 150 feet: 4 PT Appeals Referee Goals Appeals Referee Goals PT Appeals Referee Goals Time Frame: Sep 10, 2019 Roll Left & Right (QC): 6 Sit to Lying (QC): 6 Lying-Sitting on Side/Bed(QC): 6 Sit to Stand (QC): 6 Chair/Igt-za-Rlozh Xfer(QC): 6 Toilet Transfer (QC): 6 Car Transfer (QC): 6 Walk 10 feet (QC): 6 Walk 50ft with 2 Turns (QC): 6 Walk 150 ft (QC): 6 Walking 10ft on Uneven Surface: 6 1 Step (curb) (QC): 4 4 Steps (QC): 4 PT Plan Problem List Problem List: Activity Tolerance, Functional Strength Treatment/Plan Treatment Plan: Continue Plan of Care Treatment Plan: Bed Mobility, Education, Functional Activity [place], Functional Strength, Group Therapy, Gait, Safety, Therapeutic Exercise, Transfers Treatment Duration: Sep 10, 2019 Frequency: At least 5 of 7 days/Wk (IRF) Estimated Hrs Per Day: 1.5 hours per day Patient and/or Family Agrees t: Yes Safety Risks/Education Patient Education: Gait Training, Transfer Techniques, Steps, Correct Positi oning, Safety Issues Teaching Recipient: Patient Teaching Methods: Discussion Response to Teaching: Verbalize Understanding Time/GCodes Time In: 1100 Time Out: 1200 Total Billed Treatment Time: 60 Total Billed Treatment 1, GT (15m), EX (20m) & FA x2 (25m) LUIS ESTEBAN FELT HAT MELLOWING MACHINE OPERATOR Aug 30, 2019 11:53
--- NOTE | 2019-08-30 11:57 | NUR ---
URBANO REMOVED FROM LEFT HIP INCISION. STERI STRIPS APPLIED USING MASTISOL. PATIENT TOLERATED WELL. FLU SHOT GIVEN PER PATIENT'S REQUEST.
--- NOTE | 2019-08-30 15:11 | Physical Therapy Daily Note ---
PT Daily Note-Current Subjective Pt sitting in recliner upon arrival. Pt agrees to PT and reports having been working on EX in room. Pain Numeric Pain Scale: 3 Location: Left Location Body Site: Hip Pain Description: Ache Mental Status Patient Orientation: Person, Place, Time, Situation Attachments: Oxygen (2L) Transfers SCALE: Activities may be completed with or without assistive devices. 3-Mvrdwveejj-harwhpn completes the activity by him/herself with no assistance from a helper. 5-Set-up or Clean-up Assistance-helper sets up or cleans up; patient completes activity. [place] assists only prior to or following the activity. 4-Supervision or Touching Assistance-helper provides verbal cues and/or touching/steadying and/or contact guard assistance as patient completes activity. Assistance may be provided throughout the activity or intermittently. 3-Partial/Moderate Assistance-helper does LESS THAN HALF the effort. [place] lifts, holds or supports trunk or limbs, but provides less than half the effort. 2-Substantial/Maximal Assistance-helper does MORE THAN HALF the effort. [place] lifts or holds trunk or limbs and provides more than half the effort. 2-Dkcjbobdo-annpze does ALL the effort. Patient does none of the effort to complete the activity. Or, the assistance of 2 or more helpers is required for the patient to complete the activity. If activity was not attempted, code reason: 7-Patient Refused. 9-Not Applicable-not attempted and the patient did not perform the activity before the current illness, exacerbation or injury. 10-Not Attempted due to Environmental Limitations-(lack of equipment, weather restraints, etc.). 88-Not Attempted due to Medical Conditions or Safety Concerns. Weight Bearing Right Lower Extremity: Right Full Weight Bearing Left Lower Extremity: Left Full Weight Bearing Exercises Supine Ex: Ankle pumps, Quad Set, Glut sets, Heel Slides, Straight leg raise, Hip abd/add Supine Reps: 15 Seated Therapy Exercises: Ankle pumps, Long arc quads, Hip flexion, Kicking activity Seated Reps: 15 Treatments Pt completes Supine & Seated EX in room. Pt declines needing to use restroom as she had just returned. Pt resting with all needs met, call light in hand. Assessment Current Status: Good Progress Pt tolerates Rx well. Pt declines having any questions and looking forward to D/C on Tuesday. PT Short Term Goals Short Term Goals Time Frame: Aug 27, 2019 Roll Left & Right: 6 Sit to lyin Lying to sitting on side of be: 4 Sit to stand: 4 Chair/izd-ed-ytiap transfer: 4 Walk 10 feet: 4 Walk 50 feet with two turns: 4 Walk 150 feet: 4 PT Senior Manager [employer] Goals Group Home Goals PT Senior Manager [employer] Goals Time Frame: Sep 10, 2019 Roll Left & Right (QC): 6 Sit to Lying (QC): 6 Lying-Sitting on Side/Bed(QC): 6 Sit to Stand (QC): 6 Chair/Ssy-pv-Twjwa Xfer(QC): 6 Toilet Transfer (QC): 6 Car Transfer (QC): 6 Walk 10 feet (QC): 6 Walk 50ft with 2 Turns (QC): 6 Walk 150 ft (QC): 6 Walking 10ft on Uneven Surface: 6 1 Step (curb) (QC): 4 4 Steps (QC): 4 PT Plan Problem List Problem List: Activity Tolerance Treatment/Plan Treatment Plan: Continue Plan of Care Treatment Plan: Bed Mobility, Education, Functional Activity Evelyn, Functional Strength, Group Therapy, Gait, Safety, Therapeutic Exercise, Transfers Treatment Duration: Sep 10, 2019 Frequency: At least 5 of 7 days/Wk (IRF) Estimated Hrs Per Day: 1.5 hours per day Patient and/or Family Agrees t: Yes Safety Risks/Education Patient Education: Safety Issues Teaching Recipient: Patient Teaching Methods: Discussion Response to Teaching: Verbalize Understanding Time/GCodes Time In: 1415 Time Out: 1445 Total Billed Treatment Time: 30 Total Billed Treatment 1, FA (10m) & EX (20m) LUIS ESTEBAN PTA Aug 30, 2019 15:11
[2019-08-30 17:19] VITALS: BP 117/69
[2019-08-30] MEDS: MONTELUKAST 10 MG (SINGULAIR) TAB PO SCH (21:51)
[2019-08-30] MEDS: polyethylene glycoL POWDER 17 GM (MIRALAX) PACK PO SCH (21:52)
[2019-08-30] MEDS: diphenhydrAMINE 25 MG TAB (BENADRYL) PO PRN (21:55)
[2019-08-31 06:16] VITALS: BP 112/68
[2019-08-31] MEDS: ENOXAPARIN 30 MG/0.3 ML (LOVENOX) SYR SC SCH (06:40)
[2019-08-31] MEDS: HYDROcodone/APAP 5 MG/325 MG (LORTAB) TAB PO PRN ×2 (08:07→21:49)
[2019-08-31] MEDS: RT-ALBUTEROL/IPRATROPIUM 3 ML (DUONEB) VIAL INH SCH ×2 (08:49→23:58)
--- NOTE | 2019-08-31 09:00 | Physical Therapy Daily Note ---
PT Daily Note-Current Subjective Pt. agrees to Rx but reluctantly stating she was hoping to have a shower 1sr. Pt. agreeable after schedule and plan was explained. Pt. c/o she is having more trouble getting her air today "but this is just how it is...this happens" "I need a breathing rx" c/o left hip pain at 6/10 ans states it decreased to 4/10 after supine LE exercises and up a little while Pain Numeric Pain Scale: 4 Location: Left Location Body Site: Hip Pain Description: Ache Appearance appears SOA off and on during Rx. O2 on at 2L with sats steadily reading at 98 and 99%, HR 101, nursing consulted , RT called for Rx Mental Status Patient Orientation: Normal For Age Attachments: Oxygen (2L) Transfers SCALE: Activities may be completed with or without assistive devices. 4-Mzsasmwjsh-qezlwwb completes the activity by him/herself with no assistance from a helper. 5-Set-up or Clean-up Assistance-helper sets up or cleans up; patient completes activity. [place] assists only prior to or following the activity. 4-Supervision or Touching Assistance-helper provides verbal cues and/or touching/steadying and/or contact guard assistance as patient completes activity. Assistance may be provided throughout the activity or intermittently. 3-Partial/Moderate Assistance-helper does LESS THAN HALF the effort. [place] lifts, holds or supports trunk or limbs, but provides less than half the effort. 2-Substantial/Maximal Assistance-helper does MORE THAN HALF the effort. [place] lifts or holds trunk or limbs and provides more than half the effort. 5-Ngivbnwjd-ewoikb does ALL the effort. Patient does none of the effort to complete the activity. Or, the assistance of 2 or more helpers is required for the patient to complete the activity. If activity was not attempted, code reason: 7-Patient Refused. 9-Not Applicable-not attempted and the patient did not perform the activity before the current illness, exacerbation or injury. 10-Not Attempted due to Environmental Limitations-(lack of equipment, weather restraints, etc.). 88-Not Attempted due to Medical Conditions or Safety Concerns. Roll Left & Right (QC): 6 Sit to Lying (QC): 6 Lying to Sitting/Side of Bed(Q: 6 Sit to Stand (QC): 6 Chair/Fev-me-Fxzhg Xfer(QC): 6 Toilet Transfer (QC): 6 Car Transfer (QC): 6 Weight Bearing Right Lower Extremity: Right Full Weight Bearing Left Lower Extremity: Left Full Weight Bearing Gait Training Does the Patient Walk?: Yes Walk 10 feet (QC): 6 Walk 50 ft with 2 Turns(QC): 6 Walk 150 ft (QC): 6 Walking 10ft/uneven surface-QC: 6 Gait Persons Needed: 0 Gait Assistive Device: FWW managed with extended O2 tubing well with no LOB or incident Stair Training Stair Training: Handrails/: 2 handrails #of Steps: 4 1 Step (curb) (QC): 6 4 Steps (QC): 6 12 Steps (QC): 88 (pt. with SOB this date) Stairs: Pattern: Step to pt. has ramp at home and work Balance Picking up an Object (QC): 88 Exercises Supine Ex: Ankle pumps, Quad Set, Rolling, Glut sets, Heel Slides, Short Arc Quads, Scooting, Straight leg raise, Hip abd/add Supine Reps: 15 Seated Therapy Exercises: Ankle pumps, Sit to stand, Long arc quads, Hip abd/add Seated Reps: 20 Assessment Current Status: Good Progress pt. anxious and having periods of SOB with activity today. rest periods taken to help pt catch breath and breathing rx called PT Short Term Goals Short Term Goals Time Frame: Aug 27, 2019 Roll Left & Right: 6 Sit to lyin Lying to sitting on side of be: 4 Sit to stand: 4 Chair/uvo-gr-nxffz transfer: 4 Walk 10 feet: 4 Walk 50 feet with two turns: 4 Walk 150 feet: 4 PT Intermediate Goals Intermediate Goals PT Banquet Supervisor Goals Time Frame: Sep 10, 2019 Roll Left & Right (QC): 6 Sit to Lying (QC): 6 Lying-Sitting on Side/Bed(QC): 6 Sit to Stand (QC): 6 Chair/Xwp-bi-Dbiap Xfer(QC): 6 Toilet Transfer (QC): 6 Car Transfer (QC): 6 Walk 10 feet (QC): 6 Walk 50ft with 2 Turns (QC): 6 Walk 150 ft (QC): 6 Walking 10ft on Uneven Surface: 6 1 Step (curb) (QC): 4 4 Steps (QC): 4 PT Plan Treatment/Plan Treatment Plan: Continue Plan of Care Treatment Plan: Bed Mobility, Education, Functional Activity Evelyn, Functional Strength, Group Therapy, Gait, Safety, Therapeutic Exercise, Transfers Treatment Duration: Sep 10, 2019 Frequency: At least 5 of 7 days/Wk (IRF) Estimated Hrs Per Day: 1.5 hours per day Patient and/or Family Agrees t: Yes Safety Risks/Education Patient Education: Gait Training, Transfer Techniques, Steps, Correct Positioning, Disease Process, Safety Issues Teaching Recipient: Patient Teaching Methods: Demonstration, Discussion Response to Teaching: Verbalize Understanding, Return Demonstration, Reinforcement Needed educated on use of extended O2 tube about home and in room, shows prudent and safe demonstration Time/GCodes Time In: 800 Time Out: 900 Total Billed Treatment Time: 60 Total Billed Treatment 1,EX20m,FA25m,GT15m KATIE ZARATE RELAY ASSEMBLER Aug 31, 2019 09:00
--- NOTE | 2019-08-31 09:10 | PM&R Progress Note ---
Subjective HPI/CC On Admission Date Seen by Provider: Aug 31, 2019 Time Seen by Provider: 09:15 Subjective/Events-last exam Pt set for DC tomorrow I have all the orders setup for her Sent in her Singulair as requested of her home medication She will see Dr. Branch in one week Complete weight bearing 100% is working very well for her Home O2 will be required continuously at 2 liters and that order was written Remaining on oxygen 14/02. Checked meds and labs Conferred with RN Reviewed therapy notes Review of Systems Pulmonary: Dyspnea Musculoskeletal: leg pain Objective Exam Vital Signs Vital Signs Date Time Temp Pulse Resp B/P (MAP) Pulse Ox O2 Delivery O2 Flow Rate FiO2 08/31/19 09:51 97 2.00 08/31/19 09:00 Nasal Cannula 08/31/19 06:16 36.9 75 16 112/68 (83) 08/29/19 10:13 28 Capillary Refill : Less Than 3 SecondsLess Than 3 Seconds General Appearance: No Apparent Distress, Chronically ill, Thin HEENT: PERRL/EOMI, Normal ENT Inspection, Pharynx Normal Neck: Full Range of Motion, Normal Inspection, Non Tender, Supple, Carotid Bruit Respiratory: Chest Non Tender, Lungs Clear, Normal Breath Sounds, No Accessory Muscle Use, No Respiratory Distress, Decreased Breath Sounds Cardiovascular: Regular Rate, Rhythm, No Edema, No Gallop, No JVD, No Murmur, Normal Peripheral Pulses Gastrointestinal: Normal Bowel Sounds, No Organomegaly, No Pulsatile Mass, Non Tender, Soft Back: Normal Inspection, No CVA Tenderness, No Vertebral Tenderness Extremity: Normal Capillary Refill, Normal Inspection, Normal Range of Motion (except left leg), Non Tender, No Calf Tenderness, No Pedal Edema Neurologic/Psychiatric: Alert, Oriented x3, No Motor/Sensory Deficits, Normal Mood/Affect Skin: Normal Color, Warm/Dry Lymphatic: No Adenopathy Results/Procedures Lab Patient resulted labs reviewed. FIM Transfers Therapy Code Descriptions/Definitions Functional [place] Measure: 0=Not Assessed/NA 4=Minimal Assistance 1=Total Assistance 5=Supervision or Setup 2=Maximal Assistance 6=Modified [place] 3=Moderate Assistance 7=Complete IndependenceSCALE: Activities may be completed with or without assistive devices. 5-Smpjlqvvgh-jsuvmla completes the activity by him/herself with no assistance from a helper. 5-Set-up or Clean-up Assistance-helper sets up or cleans up; patient completes activity. [place] assists only prior to or following the activity. 4-Supervision or Touching Assistance-helper provides verbal cues and/or touchi ng/steadying and/or contact guard assistance as patient completes activity. Assistance may be provided throughout the activity or intermittently. 3-Partial/Moderate Assistance-helper does LESS THAN HALF the effort. [place] lifts, holds or supports trunk or limbs, but provides less than half the effort. 2-Substantial/Maximal Assistance-helper does MORE THAN HALF the effort. [place] lifts or holds trunk or limbs and provides more than half the effort. 8-Endxplmjo-brlwlg does ALL the effort. Patient does none of the effort to complete the activity. Or, the assistance of 2 or more helpers is required for the patient to complete the activity. If activity was not attempted, code reason: 7-Patient Refused. 9-Not Applicable-not attempted and the patient did not perform the activity before the current illness, exacerbation or injury. 10-Not Attempted due to Environmental Limitations-(lack of equipment, weather restraints, etc.). 88-Not Attempted due to Medical Conditions or Safety Concerns. Roll Left to Right (QC): 6 Sit to Lying (QC): 6 Sit to Stand (QC): 6 Chair/Bhx-ef-Rsfxo Xfer(QC): 6 Car Transfer (QC): 6 Gait Training Does the Patient Walk?: Yes Distance: 150' x2 Walk 10 feet (QC): 6 Walk 50 ft with 2 Turns(QC): 6 Walk 150 ft (QC): 6 Walking 10ft/uneven surface-QC: 6 Gait Persons Needed: 0 Gait Assistive Device: FWW Wheelchair Training Does the Pt Use a Wheelchair?: No Stair Training Stair Training: Handrails/: 2 handrails #of Steps: 4 1 Step (curb) (QC): 6 4 Steps (QC): 6 12 Steps (QC): 88 (pt. with SOB this date) Stairs: Pattern: Step to Balance Picking up an Object (QC): 88 ADL-Treatment Eating (QC): 6 Oral Hygiene (QC): 6 Shower/Bathe Self (QC): 7 Upper Body Dressing (QC): 6 Lower Body Dressing (QC): 6 (without use of AE.) On/Off Footwear (QC): 6 (with sock aide.) Toileting Hygiene (QC): 6 Toilet Transfer (QC): 6 Assessment/Plan Assessment and Plan Assess & Plan/Chief Complaint Assessment: Left hip fracture s/p uncomplicated repair COPD O2 dependency Frail status Former smoker Post op anemia Post op constipation resolving Plan: BM regimen IRF protocol Monitor closely Pain control Maintain O2 at daytime may need that addition when she DC Xrays this week to see if wt restrictions can be lifted Very frail status BMI 18 DC Tuesday (1) Closed left hip fracture Status: Acute (2) Former smoker (3) Nocturnal hypoxia (4) Anemia (5) Constipation (6) COPD (chronic obstructive pulmonary disease) CARSON SCHAFFER DO Aug 31, 2019 09:10
[2019-08-31] MEDS: DOCUSATE SODIUM 100 MG (COLACE) CAP PO SCH ×2 (09:20→21:46)
[2019-08-31] MEDS: SENNA W/DOCUSATE (SENOKOT S) TABLET PO SCH ×2 (09:20→21:46)
[2019-08-31] MEDS: IRON POLYSAC 150 MG CAP (NIFEREX) PO SCH (09:20)
--- NOTE | 2019-08-31 09:54 | NUR ---
PATIENT WAS ON 2 L NC AND SATTING 97%; O2 WAS REMOVED FOR ATLEAST 15 MINS AND O2 SAT ON RA WAS 87% AND REMAINED LOW; RT ADDED 2 L NC AND O2 SAT CAME UP TO ATLEAST 90% AND STAYED UP; PATIENT AMBULATED ON 2 L NC AND O2 SAT DID NOT DROP BELOW 93%. PATIENT IS REQUIRING 2 L NC AT REST AND ON EXERTION AT THIS TIME.
--- NOTE | 2019-08-31 10:00 | NUR ---
ADMITS TO HAVING A LITTLE MORE PAIN IN LEFT LEG SINCE NOW FULL WEIGHT BEARING IN THAT LEG. WAS MORE SOB WITH P.T. THIS AM. PATIENT FELT IT WAS BECAUSE SHE HAD NOT HAD BREATHING TREATMENT.
--- NOTE | 2019-08-31 10:07 | Occupational Ther Daily Note ---
OT Current Status-Daily Note Subjective Pt seen in recliner, denies pain. Agreeable to OT tx session. No 02 on pt. Pt states respiratory just left. Mental Status/Objective Patient Orientation: Normal For Age Attachments: Oxygen ADL-Treatment Therapy Code Descriptions/Definitions Functional [place] Measure: 0=Not Assessed/NA 4=Minimal Assistance 1=Total Assistance 5=Supervision or Setup 2=Maximal Assistance 6=Modified [place] 3=Moderate Assistance 7=Complete IndependenceSCALE: Activities may be completed with or without assistive devices. 9-Kkllfyatzs-umqjexw completes the activity by him/herself with no assistance from a helper. 5-Set-up or Clean-up Assistance-helper sets up or cleans up; patient completes activity. [place] assists only prior to or following the activity. 4-Supervision or Touching Assistance-helper provides verbal cues and/or touching/steadying and/or contact guard assistance as patient completes activity. Assistance may be provided throughout the activity or intermittently. 3-Partial/Moderate Assistance-helper does LESS THAN HALF the effort. [place] lifts, holds or supports trunk or limbs, but provides less than half the effort. 2-Substantial/Maximal Assistance-helper does MORE THAN HALF the effort. [place] lifts or holds trunk or limbs and provides more than half the effort. 7-Tydixtaqs-kqxlvq does ALL the effort. Patient does none of the effort to complete the activity. Or, the assistance of 2 or more helpers is required for the patient to complete the activity. If activity was not attempted, code reason: 7-Patient Refused. 9-Not Applicable-not attempted and the patient did not perform the activity before the current illness, exacerbation or injury. 10-Not Attempted due to Environmental Limitations-(lack of equipment, weather restraints, etc.). 88-Not Attempted due to Medical Conditions or Safety Concerns. Eating (QC): 6 Oral Hygiene (QC): 6 Shower/Bathe Self (QC): 6 (completes on shower chair. 02 assessed post-shower: 93%) Upper Body Dressing (QC): 6 (IND) Lower Body Dressing (QC): 6 (IND without AE) On/Off Footwear: 6 (IND without AE) Toileting Hygiene (QC): 6 (IND: Sats taken post-toileting at 99%) Toilet Transfer (QC): 6 (with walker.) Other Treatment 02 cannula not on pt upon entry, respiratory states that 02 sats being assessed. Pt educated on process, RT comes in and pt >88% with seated inactivity. 02 placed back on. 02 sats completed throughout ADLs as above. Pt returns to recliner chair to complete standing/ UE activity for ~3 min of consistent a ctivity, maintains above 90%. Pt then completes 2 minutes of vigorous seated (UE theraband) exercises: 95% 02. Pt completes 10 reps bilaterally of UB theraband ex: back flies, shoulder scaption, shoulder extensions. Pt states she utilizes portable battery operated 02 at home, light-weight back pack and states she will use it in community. Pt educated on safety with use of 02 tubing throughout the home. Pt agrees. States readiness for d/c tomorrow. Pt declines needs, call light in reach. Education OT Patient Education: Exercise program, Home exercise program, Modified ADL techniques, Safety issues Teaching Recipient: Patient Teaching Methods: Demonstration, Discussion Response to Teaching: Verbalize Understanding, Return Demonstration OT Short Term Goals Short Term Goals Upper body dressin (met) Lower body dressin (met) OT Chcf Goals Chcf Goals Time Frame: Sep 03, 2019 Eating (QC): 6 (met) Oral Hygiene (QC): 6 (met) Toileting Hygiene (QC): 6 (met) Shower/Bathe Self (QC): 6 (met) Upper Body Dressing (QC): 6 (met) Lower Body Dressing (QC): 6 (met) On/Off Footwear (QC): 6 (met) Additional Goals: 1-Demonstrate ADL Tasks, 2-Verbalize Understanding, 3- ImproveStrength/Evelyn 1=Demonstrate adherence to instructed precautions during ADL tasks. 2=Patient will verbalize/demonstrate understanding of assistive devices/modifications for ADL. 3=Patient will improve strength/tolerance for activity to enable patient to perform ADL's. OT Education/Plan Problem List/Assessment Assessment: Decreased Activ Tolerance, Impaired I ADL's Discharge Recommendations Plan/Recommendations: Continue POC Therapy Discharge Recommendati: Home & Family Treatment Plan/Plan of Care Treatment,Training & Education: Yes Patient would benefit from OT for education, treatment and training to promote independence in ADL's, mobility, safety and/or upper extremity function for ADL's. Plan of Care: ADL Retraining, Functional Mobility, UE Funct Exercise/Act Treatment Duration: Sep 03, 2019 Frequency: At least 5 of 7 days/Wk (IRF) Estimated Hrs Per Day: 1.5 hours per day Agreement: Yes Rehab Potential: Fair Time/GCodes Start Time: 09:00 Stop Time: 10:00 Total Time Billed (hr/min): 60 Billed Treatment Time 1, ADL 3 (45), EX (15)= 60 FIDENCIO NARAYANAN OTChayo Aug 31, 2019 10:07
--- NOTE | 2019-08-31 14:27 | NUR ---
CM/SS DISCHARGE Patient will go home tomorrow and is independently arranging her ride with her daughter, Olive Javier. HHC: Medicare Compare reviewed with patient for agencies in her service area. She has selected [facility], arrangements completed for them to open services Tuesday. They understand to contact patient's daughter Olive to confirm initial visit time and confirm the house dog will be contained before staff arrive. DME: FWW arranged as planned through [facility], agency understands to deliver FWW today for tomorrow exit. Notified patient's established agency, [facility], of her upgrade from noc to continuous O2, faxed orders and supportive clinical documentation as required by [facility]. Patient has an [employer] concentrator, she understands to have her family bring this DME for her transport home. Patient expressed how good her care was and that she was very satisfied in all categories except food. She discussed this directly with Snipper. Addendum: 08/31/19 at 1440 by GORDO HERNANDEZ [facility] presented, signed, charted. Patient discharge has been discussed over several days of preparation, no intention to appeal.
--- NOTE | 2019-08-31 14:46 | Therapy Group Daily Note ---
Therapy Daily Group Note Patient Education Topic Other List Below (memory strategies , ARU expectations) Exercises LE Seated Exercise, UE Exercise Session Ratio (pt:therapist): 3:1 Goal of Session: Education on ARU Expectations, Memory Strategies Goal Met for this Session: Yes Pt Benefit of Group: Improved Cognition, Socialization Other/Notes Pt. participated in group PT OT session this date. Pt. ambulated to group with assist for O2.. Pts. were social and shared name, home town and "what they would tell the world in 2 mins or less". Pts shared U&L extremity exercises they recall and demonstrated and lead those in group as well as others lead by OT and PT. Pts were educated on memory strategies as well as participating in memory game utilizing imaging. Pts were also oriented (reoriented) on ARU practices and expectations. Pt. to room after group, call sanchez at hand, needs met Start Time: 13:00 Stop Time: 14:15 Total Billed Treatment Time: 75 Total Billed Treatment 1,GRP KATIE ZARATE [employer] LABOURER Aug 31, 2019 14:46
[2019-08-31 17:37] VITALS: BP 109/68
--- NOTE | 2019-08-31 21:25 | NUR ---
bedside report received from BELGICA WISEMAN, assume care of pt Addendum: 08/31/19 at 0839 by MATEUS WALTERS RN time should be [id number]
[2019-08-31] MEDS: polyethylene glycoL POWDER 17 GM (MIRALAX) PACK PO SCH (21:46)
[2019-08-31] MEDS: diphenhydrAMINE 25 MG TAB (BENADRYL) PO PRN (21:49)
--- NOTE | 2019-08-31 21:49 | NUR ---
pt refused singular because pt wanted Benadryl 25mg also wanted pain pill for lt hip pain level 5/10 on numeric scale, Lortab 5 1 tab given
[2019-08-31] MEDS: MONTELUKAST 10 MG (SINGULAIR) TAB PO SCH (21:52)
--- NOTE | 2019-08-31 22:30 | NUR ---
resting quietly in bed, pain level 0/10 on flacc scale
[2019-09-01 06:00] VITALS: BP 117/69
[2019-09-01] MEDS: ENOXAPARIN 30 MG/0.3 ML (LOVENOX) SYR SC SCH (06:58)
[2019-09-01] MEDS: IRON POLYSAC 150 MG CAP (NIFEREX) PO SCH (08:30)
[2019-09-01] MEDS: SENNA W/DOCUSATE (SENOKOT S) TABLET PO SCH (08:30)
[2019-09-01] MEDS: DOCUSATE SODIUM 100 MG (COLACE) CAP PO SCH (08:31)
[2019-09-01] MEDS: RT-ALBUTEROL/IPRATROPIUM 3 ML (DUONEB) VIAL INH SCH (08:31)
[2019-09-01 12:24] VITALS: BP 117/69
--- NOTE | 2019-09-01 12:53 | Discharge Summary ---
Diagnosis/Chief Complaint Date of Admission Aug 19, 2019 at 10:20 Date of Discharge Discharge Date: Sep 01, 2019 Discharge Diagnosis Assessment: Left hip fracture s/p uncomplicated repair COPD O2 dependency Frail status Former smoker Post op anemia Post op constipation resolving Plan: BM regimen IRF protocol Monitor closely Pain control Maintain O2 at daytime may need that addition when she DC Xrays this week to see if wt restrictions can be lifted Very frail status BMI 18 DC today (1) Closed left hip fracture Status: Acute (2) Former smoker (3) Nocturnal hypoxia (4) Anemia (5) Constipation (6) COPD (chronic obstructive pulmonary disease) Discharge Summary Discharge Physical Examination Allergies: Coded Allergies: No Known Drug Allergies (Unverified , 01/18/18) Vitals & I&Os Vital Signs Date Time Temp Pulse Resp B/P (MAP) Pulse Ox O2 Delivery O2 Flow Rate FiO2 09/01/19 12:24 36.9 79 18 117/69 98 Nasal Cannula 2.00 08/29/19 10:13 28 General Appearance: Alert, Oriented X3, Cooperative Respiratory: Clear to Auscultation Cardiovascular: Regular Rate Neuro: Normal Gait, Normal Speech, Strength at 5/5 X4 Ext Psych/Mental Status: Mental Status NL Hospital Course Was the Problem List Reviewed?: Yes Hospital course: patient had a standard 14 day hospital course in IRF after suffering a left hip fracture in a fall at home. Patient participated in all therapies and was maintained on Lovenox for the entire course and was able to have wt bearing restrictions lifted by Dr Doyle so she was DC in improved condition along with new daytime O2 at 2L/min to add to her night time O2 supplement and will have HH and close f/u with PCP Dr Branch and Dr Doyle. Labs (last 24 hrs) Laboratory Tests 08/20/19 05:45: White Blood Count 7.2, Red Blood Count 2.79L, Hemoglobin 8.2L, Hematocrit 26L, Mean Corpuscular Volume 91, Mean Corpuscular Hemoglobin 29, Mean Corpuscular Hemoglobin Concent 32, Red Cell Distribution Width 13.0, Platelet Count 236, M will Platelet Volume 9.6, Neutrophils (%) (Auto) 61, Lymphocytes (%) (Auto) 22, Monocytes (%) (Auto) 10, Eosinophils (%) (Auto) 7, Basophils (%) (Auto) 0, Neutrophils # (Auto) 4.4, Lymphocytes # (Auto) 1.6, Monocytes # (Auto) 0.7, Eosinophils # (Auto) 0.5H, Basophils # (Auto) 0.0, Sodium Level 143, Potassium Level 3.4L, Chloride Level 111H, Carbon Dioxide Level 26, Anion Gap 6, Blood Urea Nitrogen 7, Creatinine 0.59L, Estimat Glomerular Filtration Rate > 60, BUN/Creatinine Ratio 12, Glucose Level 102, Calcium Level 8.2L, Corrected Calcium 9.1, Total Bilirubin 0.7, Aspartate Amino Transf (AST/SGOT) 18, Alanine Aminotransferase (ALT/SGPT) 12, Alkaline Phosphatase 42, Total Protein 5.0L, Albumin 2.9L 08/23/19 05:23: White Blood Count 7.7, Red Blood Count 3.13L, Hemoglobin 9.4L, Hematocrit 30L, Mean Corpuscular Volume 95, Mean Corpuscular Hemoglobin 30, Mean Corpuscular Hemoglobin Concent 32, Red Cell Distribution Width 13.8, Platelet Count 343, Mean Platelet Volume 9.3, Creatinine 0.68 08/27/19 06:30: White Blood Count 8.5, Red Blood Count 3.39L, Hemoglobin 10.4L, Hematocrit 33L, Mean Corpuscular Volume 96, Mean Corpuscular Hemoglobin 31, Mean Corpuscular Hemoglobin Concent 32, Red Cell Distribution Width 14.6H, Platelet Count 440H, Mean Platelet Volume 9.1, Neutrophils (%) (Auto) 59, Lymphocytes (%) (Auto) 26, Monocytes (%) (Auto) 11, Eosinophils (%) (Auto) 4, Basophils (%) (Auto) 1, Neutrophils # (Auto) 5.0, Lymphocytes # (Auto) 2.2, Monocytes # (Auto) 0.9, Eosinophils # (Auto) 0.3, Basophils # (Auto) 0.1, Sodium Level 139, Potassium Level 4.7, Chloride Level 105, Carbon Dioxide Level 26, Anion Gap 8, Blood Urea Nitrogen 19H, Creatinine 0.69, Estimat Glomerular Filtration Rate > 60, BUN/Creatinine Ratio 28, Glucose Level 94, Calcium Level 9.2, Corrected Calcium 9.4, Total Bilirubin 1.0, Aspartate Amino Transf (AST/SGOT) 17, Alanine Aminotransferase (ALT/SGPT) 26, Alkaline Phosphatase 126, Total Protein 6.0L, Albumin 3.7 Pending Labs Laboratory Tests 08/20/19 05:45: White Blood Count 7.2, Red Blood Count 2.79, Hemoglobin 8.2, Hematocrit 26, Mean Corpuscular Volume 91, Mean Corpuscular Hemoglobin 29, Mean Corpuscular Hemoglobin Concent 32, Red Cell Distribution Width 13.0, Platelet Count 236, Mean Platelet Volume 9.6, Neutrophils (%) (Auto) 61, Lymphocytes (%) (Auto) 22, Monocytes (%) (Auto) 10, Eosinophils (%) (Auto) 7, Basophils (%) (Auto) 0, Neutrophils # (Auto) 4.4, Lymphocytes # (Auto) 1.6, Monocytes # (Auto) 0.7, Eosinophils # (Auto) 0.5, Basophils # (Auto) 0.0, Sodium Level 143, Potassium Level 3.4, Chloride Level 111, Carbon Dioxide Level 26, Anion Gap 6, Blood Urea Nitrogen 7, Creatinine 0.59, Estimat Glomerular Filtration Rate > 60, BUN/Creatinine Ratio 12, Glucose Level 102, Calcium Level 8.2, Corrected Calcium 9.1, Total Bilirubin 0.7, Aspartate Amino Transf (AST/SGOT) 18, Alanine Aminotransferase (ALT/SGPT) 12, Alkaline Phosphatase 42, Total Protein 5.0, Albumin 2.9 08/23/19 05:23: White Blood Count 7.7, Red Blood Count 3.13, Hemoglobin 9.4, Hematocrit 30, Mean Corpuscular Volume 95, Mean Corpuscular Hemoglobin 30, Mean Corpuscular Hemoglobin Concent 32, Red Cell Distribution Width 13.8, Platelet Count 343, Mean Platelet Volume 9.3, Creatinine 0.68 08/27/19 06:30: White Blood Count 8.5, Red Blood Count 3.39, Hemoglobin 10.4, Hematocrit 33, Mean Corpuscular Volume 96, Mean Corpuscular Hemoglobin 31, Mean Corpuscular Hemoglobin Concent 32, Red Cell Distribution Width 14.6, Platelet Count 440, Mean Platelet Volume 9.1, Neutrophils (%) (Auto) 59, Lymphocytes (%) (Auto) 26, Monocytes (%) (Auto) 11, Eosinophils (%) (Auto) 4, Basophils (%) (Auto) 1, Neutrophils # (Auto) 5.0, Lymphocytes # (Auto) 2.2, Monocytes # (Auto) 0.9, Eosinophils # (Auto) 0.3, Basophils # (Auto) 0.1, Sodium Level 139, Potassium Level 4.7, Chloride Level 105, Carbon Dioxide Level 26, Anion Gap 8, Blood Urea Nitrogen 19, Creatinine 0.69, Estimat Glomerular Filtration Rate > 60, BUN/Creatinine Ratio 28, Glucose Level 94, Calcium Level 9.2, Corrected Calcium 9.4, Total Bilirubin 1.0, Aspartate Amino Transf (AST/SGOT) 17, Alanine Aminotransferase (ALT/SGPT) 26, Alkaline Phosphatase 126, Total Protein 6.0, Albumin 3.7 Discharge Home Medications: Active Scripts Active Dok (Docusate Sodium) 100 Mg Capsule 100 Mg PO BID Hydrocodone/Acetaminophen 5/325mg Tablet (Acetaminophen/Hydrocodone Bitart) 1 Tab Tab 1 Tab PO Q4H PRN Ferrex 150 (Iron Polysaccharide Complex) 150 Mg Capsule 150 Mg PO DAILY Montelukast Sodium 10 Mg Tablet 10 Mg PO HS Reported Albuterol Sulfate 2.5 Mg/3 Ml Vial.neb 2.5 Mg NEB BID Ventolin Hfa (Albuterol Sulfate) 18 Gm Hfa.aer.ad 2 Puff INH Q4H PRN Instructions to patient/family Please see electronic discharge instructions given to patient. Diagnosis/Problems Diagnosis/Problems (1) Closed left hip fracture Status: Acute (2) Former smoker (3) Nocturnal hypoxia (4) Anemia (5) Constipation (6) COPD (chronic obstructive pulmonary disease) Clinical Quality Measures DVT/VTE Risk/Contraindication: Risk Factor Score Per Nursin RFS Level Per Nursing on Admit: 4+=Very High CARSON SCHAFFER DO Sep 01, 2019 12:53
--- NOTE | 2019-09-03 10:06 | Therapy Team Discharge Summary ---
Therapy Discharge Summary Discharge Recommendations Date of Discharge Sep 01, 2019 at 11:15 Therapy D/C Recommendations: Physical Therapy Home Care Physical Therapy This patient was admitted to ARU post acute hospital stay due to a left hip fx post repair. 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 Upon admission to ARU, pt was min to CGA with transfers and gait for short distances. Treatment has consisted of functional strength and mobiltiy to allow her to return home at a mod indep level of mobility. She has made good progress and achieved all goals to a satisfactory level. She is mod indep to indep with bed mobiltiy, transfers and gait. She is to DC home with spouse and recommend [facility] PT to follow. 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 Time Frame: Sep 10, 2019 Roll Left to Right (QC): 6 (met) Sit to Lying (QC): 6 (met) Lying-Sitting on Side/Bed(QC): 6 (met) Sit to Stand (QC): 6 (met) Chair/Yhi-ar-Dzaxl Xfer(QC): 6 (met) Car Transfer (QC): 6 (met) Walk 10 feet (QC): 6 (met) Walk 10ft-Uneven Surface(QC): 6 (met) Walk 50ft with 2 Turns (QC): 6 (met) Walk 150 ft (QC): 6 (met) 1 Step (curb) (QC): 4 (exceeded) 4 Steps (QC): 4 (exceeded) OT Penitentiary Goals Penitentiary Goals Time Frame: Sep 03, 2019 Eating (QC): 6 (met) Oral Hygiene (QC): 6 (met) Shower/Bathe Self (QC): 6 (met) Upper Body Dressing (QC): 6 (met) Lower Body Dressing (QC): 6 (met) On/Off Footwear (QC): 6 (met) Toileting Hygiene (QC): 6 (met) Toilet/Commode Transfer (QC): 6 Additional Goals: 1-Demonstrate ADL Tasks, 2-Verbalize Understanding, 3-Impr oveStrength/Evelyn 1=Demonstrate adherence to instructed precautions during ADL tasks. 2=Patient will verbalize/demonstrate understanding of assistive devices/modifications for ADL. 3=Patient will improve strength/tolerance for activity to enable patient to perform ADL's. FATMATA LEYVA PT Sep 03, 2019 10:06
== END 2019-09-01 11:15 | disposition home health service (06) | DRG 560 ==
PROVIDERS: ADMIT Internal Medicine; ATTEND Internal Medicine
DX: S72.142D Displaced intertrochanteric fracture of left femur, subsequent encounter for closed fracture with routine healing (principal); D62 Acute posthemorrhagic anemia; J44.9 Chronic obstructive pulmonary disease, unspecified; K59.09 Other constipation; G47.34 Idiopathic sleep related nonobstructive alveolar hypoventilation; I38 Endocarditis, valve unspecified; F41.9 Anxiety disorder, unspecified; F32.9 Major depressive disorder, single episode, unspecified; M81.0 Age-related osteoporosis without current pathological fracture; H54.3 Unqualified visual loss, both eyes; Z99.81 Dependence on supplemental oxygen; Z87.891 Personal history of nicotine dependence; Z23 Encounter for immunization
CPT/HCPCS: 36415; 73502; 80053; 82565; 85025; 85027; 94640; 94760; 94761

== ENCOUNTER → 2019-09-13 | Outpatient (CLI) | payer MEDICARE ==
[~2019-09-13] MED LIST changes: +ACHD5005 PO; -ALPRAZolam 0.25 MG (XANAX) TAB PO PRN; -BISACODYL 10 MG SUPP (DULCOLAX) PR PRN; -CALCIUM CARBONATE 500 MG (TUMS) TAB.CHEW PO PRN; +DOCU-244 PO; -DOCUSATE SODIUM 100 MG (COLACE) CAP PO PRN; -DOCUSATE SODIUM 100 MG (COLACE) CAP PO SCH; -FLEET ENEMA ADULT 1 EA BTL PR PRN; +IRON150C3 PO; -LACTULOSE SYRUP 10GM/15ML (ENULOSE) 30ML UDC PO PRN; -LOPERAMIDE 2 MG (IMODIUM) TABLET PO PRN; -SENNA W/DOCUSATE (SENOKOT S) TABLET PO SCH; -guaiFENesin/CODEINE (ROBITUSSIN AC) 10ML UDC PO PRN; -polyethylene glycoL POWDER 17 GM (MIRALAX) PACK PO SCH
--- NOTE | 2019-09-13 11:45 | Diagnostic Imaging Report ---
EXAMINATION: Left hip at 10:54 a.m. INDICATION: Hip fracture. AP and lateral views were obtained. FINDINGS: As noted on the prior exam of 08/30/2019 there is an intramedullary rajeev and orthopedic fixation screw securing a comminuted slightly displaced intertrochanteric fracture of the left femur. On this study, the orthopedic hardware remains in good position. The main fracture fragments are similar in alignment. There does seem to be a small healing callus formation present. There may also be some dystrophic calcifications in the soft tissues superior to the greater trochanter. No other fracture or acute bony abnormality is appreciated. IMPRESSION: The postoperative changes involving the left hip seen previously appear stable. There may be a small amount of healing callus formation present. There is no acute bony abnormality appreciated. Dictated by: Dictated on workstation # [id number]
== END ==
LOC: ORTHO 10:27
PROVIDERS: ATTEND Orthopaedic Surgery
DX: S72.142D Displaced intertrochanteric fracture of left femur, subsequent encounter for closed fracture with routine healing (principal)
CPT/HCPCS: 73502

== ENCOUNTER → 2019-09-27 | Outpatient (CLI) | payer MEDICARE ==
[~2019-09-27] MED LIST changes: +DCS100C PO; -DOCU-244 PO; -MONT10TA24 PO; +MONT10TA26 PO
--- NOTE | 2019-09-27 11:32 | Diagnostic Imaging Report ---
EXAMINATION: Left hip at 10:12 a.m. INDICATION: Follow-up fracture. AP and lateral views were obtained. FINDINGS: As noted on the prior exam of 09/13/2019 there is an intramedullary rajeev and an orthopedic fixation screw securing a slightly displaced intertrochanteric fracture of the left femur. The orthopedic hardware appears stable in position. The main fracture fragments are also unchanged. There does seem to be somewhat greater healing callus formation about the fracture site than noted on the prior exam. The calcifications in the soft tissues adjacent to the superior margin of the greater trochanter seen previously are again evident. There is no acute abnormality identified. IMPRESSION: 1. There has been an increase in healing callus formation about the medial aspect of the intertrochanteric fracture of the left femur seen on the prior study. There is no new abnormality noted. 2. The orthopedic hardware remains in good position. Dictated by: Dictated on workstation # [id number]
== END ==
LOC: ORTHO 09:54
PROVIDERS: ATTEND Orthopaedic Surgery
DX: S72.142D Displaced intertrochanteric fracture of left femur, subsequent encounter for closed fracture with routine healing (principal); X58.XXXD Exposure to other specified factors, subsequent encounter
CPT/HCPCS: 73502

== ENCOUNTER → 2019-10-25 | Outpatient (CLI) | payer MEDICARE ==
--- NOTE | 2019-10-25 08:59 | Diagnostic Imaging Report ---
EXAMINATION: Left hip radiographs, 2 views. COMPARISON: September 27, 2019. HISTORY: 74-year-old female, follow-up left intertrochanteric femur fracture. FINDINGS: There is an intramedullary rajeev with dynamic fixation screw in the left proximal femur. There is a redemonstrated prior fracture of the left intertrochanteric femur. The hardware appears intact. There is heterotopic bone formation adjacent to the left hip which is unchanged. There is no pronounced joint space loss of the left hip. There is no osteophyte formation. There is no subchondral cystic change. There is no identified new fracture. There is a chronic appearing deformity of the left inferior pubic ramus which is unchanged from the comparison study. IMPRESSION: 1. Grossly unchanged appearance of the known fracture of the left intertrochanteric femur with intact fixation hardware. No apparent interval complication. 2. Unremarkable evaluation of the left hip joint. 3. Chronic deformity of the left inferior pubic ramus which is stable from comparison exam. Dictated by: Dictated on workstation # [id number]
== END ==
LOC: ORTHO 08:20
PROVIDERS: ATTEND Orthopaedic Surgery
DX: S72.142A Displaced intertrochanteric fracture of left femur, initial encounter for closed fracture (principal); W19.XXXA Unspecified fall, initial encounter
CPT/HCPCS: 73502

== ENCOUNTER 2020-06-20 12:48 | Inpatient (IN) | payer MEDICARE ==
[~2020-06-20] VITALS: Ht 170 cm; Wt 48.6 kg
[2020-06-20] MEDS ORDERED: RT-ALBUTEROL INHALER HFA (VENTOLIN HFA) 18 GM IH ONE (12:57)
--- NOTE | 2020-06-20 13:11 | ED Cough/URI ---
General Chief Complaint: Respiratory Problems Stated Complaint: COVID+, COPD, SOB Nursing Triage Note: patient reports increasing SOA. Covid+ Sepsis Screen: No Definite Risk Source: patient Exam Limitations: no limitations History of Present Illness Date Seen by Provider: Jun 20, 2020 Time Seen by Provider: 13:10 Initial Comments To ER with reports of shortness of breath. 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 She has COPD, quit smoking about 6 years ago, wears oxygen occasionally at home. She was noted to be hypoxic while at [facility] and referred to the emergency room. She is positive for Covid. Her primary care provider is Dr. Boothe. She has been treated recently with prednisone and Keflex for COPD. Timing/Duration: constant Severity/Quality: moderate Modifying Factors: Improves With Oxygen Associated Symptoms: cough, shortness of breath, wheezing Allergies and Home Medications Allergies Coded Allergies: No Known Drug Allergies (Unverified , 01/18/18) Home Medications Albuterol Sulfate 18 Gm Hfa.aer.ad, 2 PUFF INH Q4H PRN for SHORTNESS OF BREATH, (Reported) Albuterol Sulfate 2.5 Mg/3 Ml Vial.neb, 2.5 MG NEB BID, (Reported) Docusate Sodium 100 Mg Capsule, 100 MG PO BID Prescribed by: CARSON SCHAFFER on 08/30/19 1019 Hydrocodone Bit/Acetaminophen 1 Tab Tab, 1 TAB PO Q4H PRN for PAIN-MODERATE (5- 7) Prescribed by: CARSON SCHAFFER on 08/30/19 1019 Iron Polysaccharide Complex 150 Mg Capsule, 150 MG PO DAILY Prescribed by: CARSON SCHAFFER on 08/30/19 1019 Montelukast Sodium 10 Mg Tablet, 10 MG PO HS Prescribed by: CARSON SCHAFFER on 08/30/19 1019 Patient Home Medication List Home Medication List Reviewed: Yes Review of Systems Review of Systems Constitutional: see HPI, chills EENTM: see HPI Respiratory: see HPI, cough, short of breath Cardiovascular: no symptoms reported Genitourinary: no symptoms reported Musculoskeletal: no symptoms reported Skin: no symptoms reported Psychiatric/Neurological: No Symptoms Reported Hematologic/Lymphatic: No Symptoms Reported Past Mcjjjri-Ullpvo-Ccsmsw Hx Patient Social History Alcohol Use: Denies Use Recreational Drug Use: No Type Used: Cigarettes Former Smoker, Quit: May 25, 2016 Recent Foreign Travel: No Contact w/Someone Who Travel: No Recent Infectious Disease Expo: No Recent Hopitalizations: Yes Immunizations Up To Date Tetanus Booster (TDap): Unknown Date of Pneumonia Vaccine: May 24, 2017 Date of Influenza Vaccine: May 09, 2017 Seasonal Allergies Seasonal Allergies: Yes (MILD) Past Medical History Surgeries: Yes Appendectomy Respiratory: Yes (O2 1L NC AT NIGHT) Pneumonia, COPD Cardiac: Yes (Mitral Valve Prolapse) Valvular Heart Disease Neurological: No Reproductive Disorders: No Sexually Transmitted Disease: No HIV/AIDS: No Genitourinary: No Gastrointestinal: No Musculoskeletal: Yes (Lt hip fx w nailing 08/16/19) Osteoporosis, Fractures Endocrine: No Loss of Vision: Bilateral Hearing Impairment: Denies Cancer: No Psychosocial: No Anxiety Integumentary: No Blood Disorders: No Adverse Reaction/Blood Tranf: No (N/A) Family Medical History Colitis 19 FATHER Dementia 19 MOTHER Parkinson's disease 19 MOTHER Physical Exam Vital Signs - First Documented 06/20/20 13:03 Temp 35.6 Pulse 81 Resp 18 B/P (MAP) 139/84 (102) Pulse Ox 92 O2 Delivery Nasal Cannula O2 Flow Rate 5.00 Capillary Refill : Less Than 3 Seconds Height: 5'7.00" Weight: 108lbs. 0.0oz. 48.736550pv; 16.00 BMI Method:Stated General Appearance: WD/WN, no apparent distress, thin Eyes: Bilateral Eye Normal Inspection, Bilateral Eye PERRL, Bilateral Eye EOMI HEENT: PERRL/EOMI, normal ENT inspection Neck: non-tender, full range of motion Respiratory: no respiratory distress, no accessory muscle use, decreased breath sounds, other (She has not tachypneic but she does have a SPO2 of 80% on 2 L upon arrival. This was increased to 6 L with resultant increase in SPO2 to 92%. Lungs are diminished.) Gastrointestinal: normal bowel sounds, non tender, soft Neurologic/Psychiatric: alert, normal mood/affect Skin: normal color, warm/dry Focused Exam Lactate Level 06/20/20 13:42: Lactic Acid Level Laboratory Tests Test 06/20/20 13:42 Progress/Results/Core Measures Suspected Sepsis Recent Fever Within 48 Hours: No Infection Criteria Present: None New/Unexplained Altered Menta: No Sepsis Screen: No Definite Risk SIRS Temperature: Pulse: 81 Respiratory Rate: 18 Laboratory Tests 06/20/20 13:06: White Blood Count 9.7 Blood Pressure 139 /84 Mean: 102 06/20/20 13:42: Laboratory Tests 06/20/20 13:06: Creatinine 1.04, Platelet Count 245, Total Bilirubin 0.6 Results/Orders Lab Results Laboratory Tests Test 06/20/20 13:06 06/20/20 13:28 06/20/20 13:42 Range/Units White Blood Count 9.7 4.3-11.0 10^3/uL Red Blood Count 5.46 H 3.80-5.11 10^6/uL Hemoglobin 15.9 11.5-16.0 g/dL Hematocrit 49 35-52 % Mean Corpuscular Volume 90 80-99 fL Mean Corpuscular Hemoglobin 29 25-34 pg Mean Corpuscular Hemoglobin Concent 32 32-36 g/dL Red Cell Distribution Width 12.8 10.0-14.5 % Platelet Count 245 130-400 10^3/uL Mean Platelet Volume 9.5 9.0-12.2 fL Immature Granulocyte % (Auto) 0 % Neutrophils (%) (Auto) 72 42-75 % Lymphocytes (%) (Auto) 16 12-44 % Monocytes (%) (Auto) 11 0-12 % Eosinophils (%) (Auto) 0 0-10 % Basophils (%) (Auto) 0 0-10 % Neutrophils # (Auto) 7.0 1.8-7.8 10^3/uL Lymphocytes # (Auto) 1.5 1.0-4.0 10^3/uL Monocytes # (Auto) 1.1 H 0.0-1.0 10^3/uL Eosinophils # (Auto) 0.0 0.0-0.3 10^3/uL Basophils # (Auto) 0.0 0.0-0.1 10^3/uL Immature Granulocyte # (Auto) 0.0 0.0-0.1 10^3/uL D-Dimer 0.73 H 0.00-0.49 UG/ML Sodium Level 141 135-145 MMOL/L Potassium Level 3.3 L 3.6-5.0 MMOL/L Chloride Level 101 98-107 MMOL/L Carbon Dioxide Level 25 21-32 MMOL/L Anion Gap 15 H 5-14 MMOL/L Blood Urea Nitrogen 17 7-18 MG/DL Creatinine 1.04 0.60-1.30 MG/DL Estimat Glomerular Filtration Rate 52 BUN/Creatinine Ratio 16 Glucose Level 101 70-105 MG/DL Calcium Level 8.8 8.5-10.1 MG/DL Corrected Calcium 8.7 8.5-10.1 MG/DL Total Bilirubin 0.6 0.1-1.0 MG/DL Aspartate Amino Transf (AST/SGOT) 22 5-34 U/L Alanine Aminotransferase (ALT/SGPT) 21 0-55 U/L Alkaline Phosphatase 49 40-136 U/L Troponin I < 0.028 <0.028 NG/ML C-Reactive Protein High Sensitivity 3.05 H 0.00-0.50 MG/DL B-Type Natriuretic Peptide < 10.0 <100.0 PG/ML Total Protein 7.0 6.4-8.2 GM/DL Albumin 4.1 3.2-4.5 GM/DL Blood Gas Puncture Site RR Blood Gas Patient Temperature 35.6 Arterial Blood pH 7.47 H 7.37-7.43 Arterial Blood Partial Pressure CO2 33 L 35-45 MMHG Arterial Blood Partial Pressure O2 75 L 79-93 MMHG Arterial Blood HCO3 24 23-27 MMOL/L Arterial Blood Total CO2 25.2 21.0-31.0 MMOL/L Arterial Blood Oxygen Saturation 97 94-100 % Arterial Blood Base Excess 0.5 -2.5-2.5 MMOL/L Dawson Test YES-POS Blood Gas Ventilator Setting NO Blood Gas Inspired Oxygen 6 My Orders Orders - SHRAVAN ERICKSON APRN Cbc With Automated Diff (06/20/20 13:08) Comprehensive Metabolic Panel (06/20/20 13:08) Hs C Reactive Protein (06/20/20 13:08) Fibrin Degradation Products (06/20/20 13:08) BNP (06/20/20 13:08) Ekg Tracing (06/20/20 13:08) Troponin I (06/20/20 13:08) Chest 1 View, Ap/Pa Only (06/20/20 13:08) Ed Iv/Invasive Line Start (06/20/20 13:08) Methylprednisolone Sod Succ (Solu-Medrol (06/20/20 13:15) Procalcitonin (Pct) (06/20/20 13:08) Blood Culture (06/20/20 13:08) Lactic Acid Analyzer (06/20/20 13:08) Arterial Blood Gas (06/20/20 13:28) Medications Given in ED Current Medications Medications Dose Ordered Sig/Missy Route Start Time Stop Time Status Last Admin Dose Admin Albuterol Sulfate 18 gm STK-MED ONCE IH 06/20/20 12:57 06/20/20 13:00 DC 06/20/20 13:07 18 GM Methylprednisolone Sodium Succinate 80 mg ONCE ONCE IV 06/20/20 13:15 06/20/20 13:16 DC 06/20/20 13:25 80 MG Vital Signs/I&O 06/20/20 13:03 Temp 35.6 Pulse 81 Resp 18 B/P (MAP) 139/84 (102) Pulse Ox 92 O2 Delivery Nasal Cannula O2 Flow Rate 5.00 Capillary Refill : Less Than 3 Seconds Blood Pressure Mean: 102 Departure Communication (Admissions) NAME: MAHESH CANTRELL [facility] REC#: [id number] PT STATUS: REG ER : 1945 PHYSICIAN: SHRAVAN ERICKSON APRN ADMIT DATE: 06/20/20/ER Draft Date of Exam:06/20/20 CHEST 1 VIEW, AP/PA ONLY INDICATION: Increasing dyspnea AP view of the chest is obtained with comparison made to study of 10/16/2018. Extensive background emphysema is again identified. There may be slight interval increase in prominence of basilar interstitial markings. This could be on the basis of mild interstitial edema and/or pneumonitis. There is no consolidation, pneumothorax or definite pleural fluid identified. IMPRESSION: Slight increase in interstitial edema and/or pneumonitis since 10/16/2018. Dictated on workstation # [id number] Dict: 06/20/20 1333 Trans: 06/20/20 1345 [facility] [id number] Interpreted by: GUSTAVO EDMOND MD Electronically signed by: Impression Primary Impression: RESPIRATORY FAILURE, UNSP, UNSP W HYPOXIA OR HYPERCAPNIA Additional Impression: COVID-19 Disposition: ADMITTED INPATIENT Condition: Stable Admissions Decision to Admit Reason: Admit from ER (General) Decision to Admit/Date: Jun 20, 2020 Time/Decision to Admit Time: 13:32 Departure-Patient Inst. Referrals: TYRON BOOTHE MD (PCP/Family) Primary Care Physician SHRAVAN ERICKSON APRN Jun 20, 2020 13:10
[2020-06-20 13:15] LABS: BASOPHILS % (AUTO) 0 % (0-10); EOSINOPHILS % (AUTO) 0 % (0-10); HEMATOCRIT 49 % (35-52); HEMOGLOBIN 15.9 g/dL (11.5-16.0); LYMPHOCYTES # (AUTO) 1.5 10^3/uL (1.0-4.0); LYMPHOCYTES % (AUTO) 16 % (12-44); MEAN CORPUSCULAR HEMOGLOBIN 29 pg (25-34); MEAN CORPUSCULAR HGB CONC 32 g/dL (32-36); MEAN CORPUSCULAR VOLUME 90 fL (80-99); MEAN PLATELET VOLUME 9.5 fL (9.0-12.2); MONOCYTES # (AUTO) 1.1 10^3/uL (0.0-1.0); MONOCYTES % (AUTO) 11 % (0-12); NEUTROPHILS % (AUTO) 72 % (42-75); PLATELET COUNT 245 10^3/uL (130-400); WHITE BLOOD COUNT 9.7 10^3/uL (4.3-11.0)
[2020-06-20] MEDS ORDERED: methylPREDNISolone 40 MG/ML (Solu-MEDROL) VIAL IV ONE (13:15)
[2020-06-20 13:22] LABS: ALBUMIN 4.1 GM/DL (3.2-4.5); CHLORIDE 101 MMOL/L (98-107); POTASSIUM 3.3 MMOL/L (3.6-5.0); SODIUM 141 MMOL/L (135-145)
[2020-06-20 13:23] LABS: CALCIUM 8.8 MG/DL (8.5-10.1)
[2020-06-20 13:25] LABS: GLUCOSE 101 MG/DL (70-105)
[2020-06-20 13:26] LABS: BILIRUBIN,TOTAL 0.6 MG/DL (0.1-1.0); CARBON DIOXIDE 25 MMOL/L (21-32)
[2020-06-20 13:28] LABS: ALKALINE PHOSPHATASE 49 U/L (40-136); CREATININE SERUM 1.04 MG/DL (0.60-1.30); GFR ESTIMATED 52
[2020-06-20 13:29] LABS: BUN/CREATININE RATIO 16
[2020-06-20 13:31] LABS: ALANINE AMINOTRANSFERASE 21 U/L (0-55)
[2020-06-20 13:39] LABS: ABG BASE EXCESS 0.5 MMOL/L (-2.5-2.5); ABG OXYGEN SATURATION 97 % (94-100); ABG PCO2 33 MMHG (35-45); ABG PH 7.47 (7.37-7.43); ABG PO2 75 MMHG (79-93); ABG TCO2 25.2 MMOL/L (21.0-31.0); ALLENS TEST YES-POS; INSPIRED O2 6; PATIENT TEMP 35.6; VENTILATOR NO
--- NOTE | 2020-06-20 13:45 | Diagnostic Imaging Report ---
INDICATION: Increasing dyspnea AP view of the chest is obtained with comparison made to study of 10/16/2018. Extensive background emphysema is again identified. There may be slight interval increase in prominence of basilar interstitial markings. This could be on the basis of mild interstitial edema and/or pneumonitis. There is no consolidation, pneumothorax or definite pleural fluid identified. IMPRESSION: Slight increase in interstitial edema and/or pneumonitis since 10/16/2018. Dictated by: Dictated on workstation # [id number]
--- NOTE | 2020-06-20 14:00 | NUR ---
Dr. Cobos in room at this time with patient.
--- NOTE | 2020-06-20 14:09 | History & Physical-Hospitalist ---
History of Present Illness HPI/Chief Complaint CC: COVID-19 PNA HPI: This is a 75yoWF known to me from prior left hip fracture 07/2019 and stay in IRF who presents to the ER after [facility] notified her she has COVID 19 when she became ore short of breath. Patient was found to be stable but has chronic debility and frail status and appears to be at high risk for decompensation so she met criteria for admission and COVID-19 treatment. Source: patient, RN/MD Exam Limitations: no limitations Date Seen 06/20/20 Time Seen by a Provider: 13:30 Attending Physician PCP Nithin Branch MD Referring Physician Date of Admission Home Medications & Allergies Home Medications Reviewed patient Home Medication Reconciliation performed by pharmacy medication reconciliations crime lab technician and/or nursing. Patients Allergies have been reviewed. Allergies Allergies Coded Allergies No Known Drug Allergies (Unverified01/18/18) Past Guczauh-Ccacew-Gonksi Hx Past Med/Social Hx: Reviewed Nursing Past Med/Soc Hx, Reviewed and Corrections made Patient Social History Marrital Status: single Employed/Student: retired Alcohol Use: Denies Use Recreational Drug Use: No Smoking Status: Former Smoker Former Smoker, Quit: May 25, 2016 Type Used: Cigarettes Recent Foreign Travel: No Contact w/other who traveled: No Recent Hopitalizations: Yes Recent Infectious Disease Expo: No Immunizations Up To Date Tetanus Booster (TDap): Unknown Date of Pneumonia Vaccine: May 24, 2017 Date of Influenza Vaccine: May 09, 2017 Seasonal Allergies Seasonal Allergies: Yes (MILD) Past Medical History Surgeries: Appendectomy, Orthopedic Respiratory: COPD nighttime hypoxia O2 at night at 2 L Cardiac: Valvular Heart Disease Reproductive: No Sexually Transmitted Disease: No HIV/AIDS: No Musculoskeletal: Osteoporosis, Fractures Loss of Vision: Bilateral Hearing Impairment: Denies Psychosocial: Anxiety History of Blood Disorders: No Adverse Reaction to Blood Louis: No (N/A) Family History Colitis 19 FATHER Dementia 19 MOTHER Parkinson's disease 19 MOTHER Review of Systems Constitutional: see HPI, weakness Respiratory: dyspnea on exertion, short of breath Physical Exam Physical Exam Vital Signs Vital Signs - First Documented 06/20/20 13:03 Temp 35.6 Pulse 81 Resp 18 B/P (MAP) 139/84 (102) Pulse Ox 92 O2 Delivery Nasal Cannula O2 Flow Rate 5.00 Capillary Refill : Less Than 3 Seconds Height, Weight, BMI Height: 5'7.00" Weight: 108lbs. 0.0oz. 48.157929ip; 16.00 BMI Method:Stated General Appearance: No Apparent Distress, Anxious, Chronically ill, Thin Eyes: Right Eye Normal Inspection, Right Eye PERRL HEENT: PERRL/EOMI, Normal ENT Inspection, Pharynx Normal, Moist Mucous Membranes Neck: Full Range of Motion, Normal Inspection, Non Tender Respiratory: Chest Non Tender, Lungs Clear, No Accessory Muscle Use, No Respiratory Distress, Decreased Breath Sounds Cardiovascular: Regular Rate, Rhythm, No Edema, No Gallop, No JVD, No Murmur, Normal Peripheral Pulses Gastrointestinal: Normal Bowel Sounds, No Organomegaly, No Pulsatile Mass, Non Tender, Soft Back: Normal Inspection, No CVA Tenderness, No Vertebral Tenderness Extremity: Normal Capillary Refill, Normal Inspection, Normal Range of Motion, Non Tender, No Calf Tenderness, No Pedal Edema Neurologic/Psychiatric: Alert, Oriented x3, No Motor/Sensory Deficits, Normal Mood/Affect Skin: Normal Color, Warm/Dry Lymphatic: No Adenopathy Results Results/Procedures Labs Laboratory Tests 06/20/20 13:06 06/21/20 05:16 Patient resulted labs reviewed. Assessment/Plan Admission Diagnosis Assessment: COVID-19 PNA Hypoxia Chronic night time hypoxia Former smoker COPD with exacerbation Frail status Plan: O2 IV steroids Remdesivir Plasma Monitor closely Admission Status: Inpatient Order (span 2 midnights) Reason for Inpatient Admission: COVID-19 PNA Diagnosis/Problems Diagnosis/Problems (1) COVID-19 Status: Acute (2) COPD (chronic obstructive pulmonary disease) (3) Nocturnal hypoxia (4) Former smoker CARSON SCHAFFER DO Jun 20, 2020 14:09
[2020-06-20] MEDS ORDERED: HYDROcodone/APAP 5 MG/325 MG (LORTAB) TAB PO PRN (15:00)
[2020-06-20] MEDS ORDERED: REMDESIVIR INJ 200 MG in NS (IVPB) 210 ML IV NR (15:00)
[2020-06-20] MEDS ORDERED: ACETAMINOPHEN 500 MG TAB (TYLENOL) PO PRN (15:00)
[2020-06-20] MEDS ORDERED: MELATONIN 3 MG TABLET PO PRN (15:00)
[2020-06-20] MEDS ORDERED: diphenhydrAMINE 25 MG TAB (BENADRYL) PO PRN (15:00)
[2020-06-20] MEDS ORDERED: CALCIUM CARBONATE 500 MG (TUMS) TAB.CHEW PO PRN (15:00)
[2020-06-20] MEDS ORDERED: ONDANSETRON 4 MG/2 ML (SDV) Z0FRAN IV PRN (15:00)
[2020-06-20] MEDS ORDERED: ONDANSETRON 4 MG/2 ML (SDV) Z0FRAN IVP PRN (15:00)
[2020-06-20] MEDS ORDERED: ALPRAZolam 0.25 MG (XANAX) TAB PO PRN (15:00)
[2020-06-20] MEDS ORDERED: guaiFENesin/CODEINE (ROBITUSSIN AC) 10ML UDC PO PRN (15:00)
[2020-06-20] MEDS ORDERED: DOCUSATE SODIUM 100 MG (COLACE) CAP PO PRN (15:00)
[2020-06-20] MEDS ORDERED: LOPERAMIDE 2 MG (IMODIUM) TABLET PO PRN (15:00)
[2020-06-20] MEDS ORDERED: ATOR80TA76 PO (15:07)
[2020-06-20] MEDS ORDERED: TICA90TA PO (15:07)
[2020-06-20] MEDS ORDERED: ASPI-1238 PO (15:07)
[2020-06-20] MEDS ORDERED: LISI2.5T PO (15:07)
--- NOTE | 2020-06-20 15:08 | NUR ---
SPOKE WITH THE PT (CALLED HIS ROOM PHONE) AND CALLED [facility] TO COMPLETE THE MED REC 04-16-2020 BRILINTA 90MG #180/90DS- WAS [facility]RU [facility] REPOSITORY 06-03-2020 LISINOPRIL 2.5MG #30/30DS 06-03-2020 ATORVASTATIN 80MG #30/30DS ON 05-29-2020 [facility] FILLED VIAGRA 50MG AND PANTOPRAZOLE 40MG AND ON 04-25-2020 FILLED TAMSULOSIN 0.4MG HOWEVER THE PT SAYS HE IS NO LONGER TAKING ANY OF THESE MEDS OTC MEDS: ASPIRIN 81 Addendum: 06/20/20 at 1519 by MURALI ANDREW CPhT DISREGARD- WRONG PT
--- NOTE | 2020-06-20 15:09 | NUR ---
REPORT RECEIVED FROM BOWEN WARD. THIS RN WILL ASSUME CARE OF THIS PATIENT WHEN SHE ARRIVES TO ROOM 428-1.
[2020-06-20] MEDS ORDERED: CATHETER FLUSH 10 ML SYR IV PRN (15:15)
--- NOTE | 2020-06-20 15:22 | NUR ---
PATIENT TO FLOOR AT THIS TIME.
[2020-06-20] MEDS ORDERED: MONT10TA26 PO (15:56)
[2020-06-20] MEDS ORDERED: CEPH500C PO (15:56)
[2020-06-20] MEDS ORDERED: CETI10TA49 PO (15:56)
[2020-06-20] MEDS ORDERED: ALBU18HF2 INH (15:56)
[2020-06-20] MEDS ORDERED: ALB0.5V INH (15:58)
[2020-06-20 15:59] VITALS: BP 117/70
--- NOTE | 2020-06-20 15:59 | NUR ---
SPOKE WITH THE PT (CALLED HER ROOM PHONE), WENT THRU THE EXT MED HISTORY AND CALLED [facility] TO COMPLETE THE MED REC MONTELUKAST 10MG LAST FILL DATE AT [facility] IS 03-19-2020 #90/90DS PT INDICATES SHE GETS ALBUTEROL BREATHING TREATMENTS THROUGH [facility]- I TRIED TO REACH THEM BUT THEY WERE ALREADY CLOSED. OTC MEDS: CETIRIZINE
[2020-06-20] MEDS: NS IV 1000 ML 1,000 ML IV SCH (16:02)
[2020-06-20 16:20] VITALS: BP 136/66
[2020-06-20 16:21] VITALS: BP 136/66
[2020-06-20] MEDS ORDERED: RT-ALBUTEROL INHALER HFA (VENTOLIN HFA) 18 GM IH SCH (18:00)
[2020-06-20] MEDS: RT-ALBUTEROL INHALER HFA (VENTOLIN HFA) 18 GM IH SCH ×2 (19:36→22:01)
[2020-06-20] MEDS: SENNA W/DOCUSATE (SENOKOT S) TABLET PO SCH (19:47)
[2020-06-20] MEDS: methylPREDNISolone 40 MG/ML (Solu-MEDROL) VIAL IV SCH (19:48)
[2020-06-20] MEDS: ENOXAPARIN 40 MG/0.4 ML (LOVENOX) SYR SC SCH (19:48)
[2020-06-20 19:50] VITALS: BP 156/71
[2020-06-20 20:55] VITALS: BP 156/71
[2020-06-20 23:27] VITALS: BP 123/71
[2020-06-21] VITALS (7 sets, daily range): BP systolic 127–150; BP diastolic 65–75
[2020-06-21 05:36] LABS: BASOPHILS % (AUTO) 0 % (0-10); EOSINOPHILS % (AUTO) 0 % (0-10); HEMATOCRIT 42 % (35-52); HEMOGLOBIN 13.7 g/dL (11.5-16.0); LYMPHOCYTES # (AUTO) 0.6 10^3/uL (1.0-4.0); LYMPHOCYTES % (AUTO) 19 % (12-44); MEAN CORPUSCULAR HEMOGLOBIN 30 pg (25-34); MEAN CORPUSCULAR HGB CONC 33 g/dL (32-36); MEAN CORPUSCULAR VOLUME 91 fL (80-99); MEAN PLATELET VOLUME 9.6 fL (9.0-12.2); MONOCYTES # (AUTO) 0.2 10^3/uL (0.0-1.0); MONOCYTES % (AUTO) 6 % (0-12); NEUTROPHILS # (AUTO) 2.2 10^3/uL (1.8-7.8); NEUTROPHILS % (AUTO) 74 % (42-75); PLATELET COUNT 198 10^3/uL (130-400)
[2020-06-21 05:48] LABS: ALBUMIN 3.6 GM/DL (3.2-4.5); CHLORIDE 106 MMOL/L (98-107); POTASSIUM 3.9 MMOL/L (3.6-5.0); SODIUM 139 MMOL/L (135-145)
[2020-06-21 05:49] LABS: CALCIUM 8.5 MG/DL (8.5-10.1)
[2020-06-21 05:50] LABS: GLUCOSE 158 MG/DL (70-105)
[2020-06-21 05:51] LABS: TOTAL PROTEIN 6.3 GM/DL (6.4-8.2)
[2020-06-21 05:52] LABS: BILIRUBIN,TOTAL 0.4 MG/DL (0.1-1.0); CARBON DIOXIDE 21 MMOL/L (21-32)
[2020-06-21 05:54] LABS: ALKALINE PHOSPHATASE 46 U/L (40-136); CREATININE SERUM 0.74 MG/DL (0.60-1.30); GFR ESTIMATED > 60
[2020-06-21 05:55] LABS: BUN/CREATININE RATIO 22
[2020-06-21 05:57] LABS: ALANINE AMINOTRANSFERASE 19 U/L (0-55)
[2020-06-21] MEDS: RT-ALBUTEROL INHALER HFA (VENTOLIN HFA) 18 GM IH SCH ×5 (07:07→20:47)
[2020-06-21] MEDS: NS IV 1000 ML 1,000 ML IV SCH (08:23)
[2020-06-21] MEDS: ENOXAPARIN 40 MG/0.4 ML (LOVENOX) SYR SC SCH ×2 (08:23→21:14)
[2020-06-21] MEDS: methylPREDNISolone 40 MG/ML (Solu-MEDROL) VIAL IV SCH ×2 (08:23→21:20)
[2020-06-21] MEDS: SENNA W/DOCUSATE (SENOKOT S) TABLET PO SCH ×2 (08:24→20:02)
--- NOTE | 2020-06-21 14:16 | Progress Note - Hospitalist ---
Subjective HPI/CC On Admission Date Seen by Provider: Jun 21, 2020 Time Seen by Provider: 13:00 CC: COVID-19 PNA HPI: This is a 75yoWF known to me from prior left hip fracture 07/2019 and stay in IRF who presents to the ER after [facility] notified her she has COVID 19 when she became ore short of breath. Patient was found to be stable but has chronic debility and frail status and appears to be at high risk for decompensation so she met criteria for admission and COVID-19 treatment. Subjective/Events-last exam Patient doing well O2 dependency chronically Dyspnea when up to bathroom No pain reported Home meds will be restarted Doesn't eat much normally Very frail status Review of Systems Pulmonary: Dyspnea Focused Exam Lactate Level 06/20/20 13:42: Lactic Acid Level 1.39 Objective Exam Vital Signs Vital Signs Date Time Temp Pulse Resp B/P (MAP) Pulse Ox O2 Delivery O2 Flow Rate FiO2 06/21/20 15:28 94 Nasal Cannula 3.00 06/21/20 12:00 36.9 105 20 147/69 (95) Capillary Refill : Less Than 3 Seconds General Appearance: No Apparent Distress, WD/WN, Chronically ill, Thin Respiratory: Chest Non Tender, No Accessory Muscle Use, No Respiratory Distress, Decreased Breath Sounds Cardiovascular: Regular Rate, Rhythm, No Edema, No Gallop, No JVD, No Murmur, Normal Peripheral Pulses Neurologic/Psychiatric: Alert, Oriented x3, No Motor/Sensory Deficits, Normal Mood/Affect Results/Procedures Lab Laboratory Tests 06/21/20 05:16 Patient resulted labs reviewed. Assessment/Plan Assessment and Plan Assess & Plan/Chief Complaint Assessment: COVID-19 PNA Hypoxia Chronic night time hypoxia Former smoker COPD with exacerbation Frail status Plan: O2 IV steroids Remdesivir Plasma Monitor closely Diagnosis/Problems Diagnosis/Problems (1) COVID-19 Status: Acute (2) COPD (chronic obstructive pulmonary disease) (3) Nocturnal hypoxia (4) Former smoker Clinical Quality Measures DVT/VTE Risk/Contraindication: Risk Factor Score Per Nursin RFS Level Per Nursing on Admit: 4+=Very High CARSON SCHAFFER DO Jun 21, 2020 14:16
[2020-06-21] MEDS: REMDESIVIR INJ 100 MG in NS (IVPB) 230 ML IV SCH (15:43)
[2020-06-21] MEDS ORDERED: VANCOMYCIN INJECTION 1,000 MG in NS (IVPB) 250 ML IV SCH (18:45)
[2020-06-21] MEDS ORDERED: VANCOMYCIN 1000 MG/VIAL ONE (20:09)
[2020-06-21] MEDS ORDERED: NS (IVPB) 250 ML ONE (20:09)
[2020-06-21] MEDS ORDERED: CEFEPIME 1 GM/10 ML (MAXIPIME) VIAL ONE (20:20)
[2020-06-21] MEDS ORDERED: WATER (STERILE) FOR INJECTION 10 ML ONE (20:20)
[2020-06-21] MEDS ORDERED: RT-ALBUTEROL INHALER HFA (VENTOLIN HFA) 18 GM IH PRN (20:45)
[2020-06-21] MEDS ORDERED: VANCOMYCIN 1 GM/NS 250 ML IVPB IV SCH ×2 (21:00)
[2020-06-21] MEDS: CEFEPIME INJECTION 1,000 MG in WATER (STERILE) FOR INJECTION 10 ML IV SCH (23:56)
[2020-06-22] MEDS: NS IV 1000 ML 1,000 ML IV SCH ×2 (02:28→15:10)
[2020-06-22 03:20] VITALS: BP 147/78
[2020-06-22] MEDS: RT-ALBUTEROL INHALER HFA (VENTOLIN HFA) 18 GM IH SCH ×4 (04:59→21:16)
[2020-06-22] MEDS: CEFEPIME INJECTION 1,000 MG in WATER (STERILE) FOR INJECTION 10 ML IV SCH ×3 (06:21→16:34)
--- NOTE | 2020-06-22 07:28 | Progress Note - Hospitalist ---
Subjective HPI/CC On Admission Date Seen by Provider: Jun 22, 2020 Time Seen by Provider: 11:30 CC: COVID-19 PNA HPI: This is a 75yoWF known to me from prior left hip fracture 07/2019 and stay in IRF who presents to the ER after [facility] notified her she has COVID 19 when she became ore short of breath. Patient was found to be stable but has chronic debility and frail status and appears to be at high risk for decompensation so she met criteria for admission and COVID-19 treatment. Subjective/Events-last exam Patient doing well Dyspnea on exertion Maintained on 3L/min Loose stools Abx initiated for BCx + Labs stable HLIVF Review of Systems Pulmonary: Dyspnea Focused Exam Lactate Level 06/20/20 13:42: Lactic Acid Level 1.39 Objective Exam Vital Signs Vital Signs Date Time Temp Pulse Resp B/P (MAP) Pulse Ox O2 Delivery O2 Flow Rate FiO2 06/22/20 14:53 93 Nasal Cannula 3.00 06/22/20 12:40 36.7 84 20 141/72 (95) 06/21/20 20:26 32 Capillary Refill : Less Than 3 Seconds General Appearance: No Apparent Distress, WD/WN, Chronically ill Respiratory: Chest Non Tender, Lungs Clear, No Accessory Muscle Use, No Respiratory Distress, Decreased Breath Sounds Cardiovascular: Regular Rate, Rhythm Neurologic/Psychiatric: Alert, Oriented x3, No Motor/Sensory Deficits, Normal Mood/Affect Results/Procedures Lab Laboratory Tests 06/22/20 07:35 Patient resulted labs reviewed. Assessment/Plan Assessment and Plan Assess & Plan/Chief Complaint Assessment: COVID-19 PNA Hypoxia Chronic night time hypoxia Former smoker COPD with exacerbation Frail status Plan: O2 IV steroids Remdesivir Plasma Monitor closely 06/22/20: COVID-19 treatment O2 Decadron IV abx Diagnosis/Problems Diagnosis/Problems (1) COVID-19 Status: Acute (2) COPD (chronic obstructive pulmonary disease) (3) Nocturnal hypoxia (4) Former smoker Clinical Quality Measures DVT/VTE Risk/Contraindication: Risk Factor Score Per Nursin RFS Level Per Nursing on Admit: 4+=Very High CARSON SCHAFFER DO Jun 22, 2020 07:28
[2020-06-22 07:44] LABS: HEMOGLOBIN 13.3 g/dL (11.5-16.0); MEAN PLATELET VOLUME 9.5 fL (9.0-12.2); WHITE BLOOD COUNT 9.7 10^3/uL (4.3-11.0)
[2020-06-22 07:52] LABS: ALBUMIN 3.6 GM/DL (3.2-4.5)
[2020-06-22 07:53] LABS: CHLORIDE 108 MMOL/L (98-107); POTASSIUM 3.6 MMOL/L (3.6-5.0); SODIUM 142 MMOL/L (135-145)
[2020-06-22 07:54] LABS: CALCIUM 8.2 MG/DL (8.5-10.1)
[2020-06-22 07:55] LABS: GLUCOSE 144 MG/DL (70-105); TOTAL PROTEIN 5.9 GM/DL (6.4-8.2)
[2020-06-22 07:56] LABS: CARBON DIOXIDE 22 MMOL/L (21-32)
[2020-06-22 07:57] LABS: BILIRUBIN,TOTAL 0.4 MG/DL (0.1-1.0)
[2020-06-22 07:58] LABS: ALKALINE PHOSPHATASE 47 U/L (40-136)
[2020-06-22 07:59] LABS: CREATININE SERUM 0.71 MG/DL (0.60-1.30); GFR ESTIMATED > 60
[2020-06-22 08:00] LABS: BUN/CREATININE RATIO 18
[2020-06-22] MEDS: methylPREDNISolone 40 MG/ML (Solu-MEDROL) VIAL IV SCH ×2 (08:00→21:27)
[2020-06-22] MEDS: ENOXAPARIN 40 MG/0.4 ML (LOVENOX) SYR SC SCH ×2 (08:01→21:27)
[2020-06-22] MEDS: SENNA W/DOCUSATE (SENOKOT S) TABLET PO SCH ×2 (08:01→20:40)
[2020-06-22 08:02] LABS: ALANINE AMINOTRANSFERASE 30 U/L (0-55)
[2020-06-22 08:10] VITALS: BP 127/69
[2020-06-22] MEDS: VANCOMYCIN 500 MG/NS 100 ML IVPB IV SCH ×4 (08:20→21:27)
[2020-06-22 12:40] VITALS: BP 141/72
[2020-06-22] MEDS: REMDESIVIR INJ 100 MG in NS (IVPB) 230 ML IV SCH (15:10)
[2020-06-22 16:00] VITALS: BP 143/71
[2020-06-23] MEDS: CEFEPIME INJECTION 1,000 MG in WATER (STERILE) FOR INJECTION 10 ML IV SCH ×5 (00:43→23:56)
[2020-06-23 00:44] VITALS: BP 154/87
[2020-06-23] MEDS: RT-ALBUTEROL INHALER HFA (VENTOLIN HFA) 18 GM IH SCH ×4 (03:25→19:35)
[2020-06-23 07:15] LABS: BASOPHILS % (AUTO) 0 % (0-10); EOSINOPHILS % (AUTO) 0 % (0-10); HEMATOCRIT 43 % (35-52); LYMPHOCYTES # (AUTO) 0.6 10^3/uL (1.0-4.0); LYMPHOCYTES % (AUTO) 5 % (12-44); MEAN CORPUSCULAR HEMOGLOBIN 29 pg (25-34); MEAN CORPUSCULAR HGB CONC 32 g/dL (32-36); MEAN CORPUSCULAR VOLUME 90 fL (80-99); MEAN PLATELET VOLUME 10.4 fL (9.0-12.2); MONOCYTES # (AUTO) 0.5 10^3/uL (0.0-1.0); MONOCYTES % (AUTO) 4 % (0-12); NEUTROPHILS # (AUTO) 10.9 10^3/uL (1.8-7.8); NEUTROPHILS % (AUTO) 90 % (42-75); PLATELET COUNT 247 10^3/uL (130-400); WHITE BLOOD COUNT 12.2 10^3/uL (4.3-11.0)
[2020-06-23 07:31] LABS: ALANINE AMINOTRANSFERASE 34 U/L (0-55); ALBUMIN 3.7 GM/DL (3.2-4.5); ALKALINE PHOSPHATASE 49 U/L (40-136); BILIRUBIN,TOTAL 0.5 MG/DL (0.1-1.0); BUN/CREATININE RATIO 19; CALCIUM 8.7 MG/DL (8.5-10.1); CARBON DIOXIDE 24 MMOL/L (21-32); CHLORIDE 102 MMOL/L (98-107); CREATININE SERUM 0.73 MG/DL (0.60-1.30); GFR ESTIMATED > 60; GLUCOSE 137 MG/DL (70-105); POTASSIUM 3.3 MMOL/L (3.6-5.0); SODIUM 143 MMOL/L (135-145); TOTAL PROTEIN 6.2 GM/DL (6.4-8.2)
[2020-06-23 07:45] VITALS: BP 165/83
[2020-06-23] MEDS ORDERED: TROUGH ORDER-PHARMACY XX NR (08:00)
[2020-06-23 08:10] LABS: BAND NEUTROPHILS 1 %; BASOPHILS % (MANUAL) 0 %; EOSINOPHILS % (MANUAL) 0 %; LYMPHOCYTES % (MANUAL) 7 %; MONOCYTES % (MANUAL) 9 %; NEUTROPHILS % (MANUAL) 83 %
[2020-06-23 08:11] LABS: RBC MORPH NORMAL
--- NOTE | 2020-06-23 08:12 | Progress Note - Hospitalist ---
Subjective HPI/CC On Admission Date Seen by Provider: Jun 23, 2020 Time Seen by Provider: 10:00 CC: COVID-19 PNA HPI: This is a 75yoWF known to me from prior left hip fracture 07/2019 and stay in IRF who presents to the ER after [facility] notified her she has COVID 19 when she became ore short of breath. Patient was found to be stable but has chronic debility and frail status and appears to be at high risk for decompensation so she met criteria for admission and COVID-19 treatment. Subjective/Events-last exam Pt doing pretty well Still pretty dyspneic on exertion Potassium supplement will be given Overall doing much better Review of Systems Pulmonary: Dyspnea, Cough Focused Exam Lactate Level Objective Exam Vital Signs Vital Signs Date Time Temp Pulse Resp B/P (MAP) Pulse Ox O2 Delivery O2 Flow Rate FiO2 06/24/20 02:41 96 Nasal Cannula 3.00 06/23/20 23:56 36.0 62 22 160/77 (104) 06/21/20 20:26 32 Capillary Refill : Less Than 3 Seconds General Appearance: No Apparent Distress, WD/WN, Chronically ill, Thin Respiratory: Chest Non Tender, Lungs Clear, No Accessory Muscle Use, No Respiratory Distress, Decreased Breath Sounds Cardiovascular: Regular Rate, Rhythm, No Edema, No Gallop, No JVD, No Murmur, Normal Peripheral Pulses Neurologic/Psychiatric: Alert, Oriented x3, No Motor/Sensory Deficits, Normal Mood/Affect Results/Procedures Lab Laboratory Tests 06/23/20 05:35 Patient resulted labs reviewed. Assessment/Plan Assessment and Plan Assess & Plan/Chief Complaint Assessment: COVID-19 PNA Hypoxia Chronic night time hypoxia Former smoker COPD with exacerbation Frail status Plan: O2 IV steroids Remdesivir Plasma Monitor closely 06/22/20: COVID-19 treatment O2 Decadron IV abx 06/13/20: COVID treatment O2 supplement Diagnosis/Problems Diagnosis/Problems (1) COVID-19 Status: Acute (2) COPD (chronic obstructive pulmonary disease) (3) Nocturnal hypoxia (4) Former smoker Clinical Quality Measures DVT/VTE Risk/Contraindication: Risk Factor Score Per Nursin RFS Level Per Nursing on Admit: 4+=Very High CARSON SCHAFFER DO Jun 23, 2020 08:12
[2020-06-23] MEDS: SENNA W/DOCUSATE (SENOKOT S) TABLET PO SCH ×2 (09:30→20:29)
[2020-06-23] MEDS: ENOXAPARIN 40 MG/0.4 ML (LOVENOX) SYR SC SCH ×2 (09:31→20:29)
[2020-06-23] MEDS: methylPREDNISolone 40 MG/ML (Solu-MEDROL) VIAL IV SCH ×2 (09:31→20:29)
[2020-06-23] MEDS: VANCOMYCIN 500 MG/NS 100 ML IVPB IV SCH ×2 (09:32)
--- NOTE | 2020-06-23 14:07 | Physician Query Clarification ---
PQ-Conflicting Diagnosis Admission/Discharge Admission Date: Jun 20, 2020 at 13:28 Discharge Date: Dr. Schaffer, The medical record reflects the following clinical scenario: History/Risk Factors: COVID 19 Pneumonia COPD exacerbation Night time hypoxia Clinical Findings: SP02 of 80% on 2 L upon arrival per ED record. PB 139/84, T 35.6, P 81, Resp 18, Pulse ox 92%. Treatment:IV Solu Medrol 80 mg, Albuterol Sulfate inhalation therapy, 02 flow rate 5L nasal cannula, Remdesivir and Convalescent Plasma. Question: Do you agree with the impression of the Respiratory Failure per Ulysses Zavala APRN in ED? If so, please specify whether acute, chronic or acute on chronic. Please document a response in Progress Note or Discharge Summary. 1. Yes 2. No 3. Other, with explanation of clinical findings 4. Clinically undetermined, no explanation for clinical findings. PHYSICIAN RESPONSE Do you agree w/Consulting Dx?: Yes Please remember a lack of response to the above will prompt a phone page by CDI/Coding staff. In responding to this query, please exercise your independent professional judgment. The purpose of this communication is to more accurately reflect the complexity of your patients condition. The fact that a question is asked does not imply that any particular answer is desired or expected. Thank you for your timely response to this clarification. Requestors name: Faustina Sena [facility] THIS PHYSICIAN QUERY FORM IS A PERMANENT PART OF THE MEDICAL RECORD FAUSTINA SENA Jun 23, 2020 14:07 CARSON SCHAFFER DO Jun 23, 2020 17:48
[2020-06-23 15:50] VITALS: BP 142/69
--- NOTE | 2020-06-23 16:08 | NUR ---
"RD ASSESSMENT PMHx: COPD; osteoporosis; hx of fractures; PT INTERACTION: Note pt is currently in COVID isolation, per chart review. Note all diet information for nutrition assessment is per Florentino RN, or per chart review. Florentino states current appetite appears fair. Note avg PO intake 53% x2d, per chart review. Florentino states issues with nausea, but not constipation or diarrhea that he is aware of. Note episode of emesis on 06/22, per chart review. Note last BM was 06/22, and pt currently on bowel regimen of senna BID, per chart review. Note unable to determine recent wt hx, per chart review. Note BMI of 17.2 (Underweight BMI for age). ABNORMAL NUTRITION-RELATED LAB VALUES LOW: K 3.3; Pro 6.2; HIGH: glu 137; Est. kcal needs: 1910-7297 kcal | 30-35 kcal/kg Est. Pro needs: 50-60 g Pro | 1.0-1.2 g Pro/kg PES STATEMENT: Inadequate oral intake (NI-2.1) related to loss of appetite, nausea, and vomiting, as evidenced by chart review, communication with RN, and avg PO intake 53% x2d. INTERVENTION: Continue with current diet order of Regular diet. Add Ensure Enlive (vary) to meals TID, for increased kcal intake. Provides 350 kcal and 20 g Pro per serving. Would encourage pt to eat when able. Will continue to follow and reassess as pt needs, intake, and status change. Vasiliy Villela, MS RD LD [phone] cell"
[2020-06-23] MEDS: REMDESIVIR INJ 100 MG in NS (IVPB) 230 ML IV SCH (16:17)
[2020-06-23] MEDS ORDERED: KCL 10 MEQ TAB (MICRO K) PO ONE (16:54)
[2020-06-23] MEDS: KCL 10 MEQ TAB (MICRO K) PO ONE ×2 (16:59→17:30)
[2020-06-23] MEDS ORDERED: VANCOMYCIN INJECTION 1,000 MG in NS (IVPB) 250 ML IV SCH (17:00)
[2020-06-23 23:56] VITALS: BP 160/77
[2020-06-24] MEDS: RT-ALBUTEROL INHALER HFA (VENTOLIN HFA) 18 GM IH SCH ×4 (02:41→20:06)
[2020-06-24] MEDS: CEFEPIME INJECTION 1,000 MG in WATER (STERILE) FOR INJECTION 10 ML IV SCH ×3 (06:24→17:41)
[2020-06-24] MEDS ORDERED: KCL 10 MEQ TAB (MICRO K) PO SCH (07:00)
[2020-06-24 07:29] LABS: HEMOGLOBIN 14.7 g/dL (11.5-16.0); WHITE BLOOD COUNT 12.1 10^3/uL (4.3-11.0)
[2020-06-24 07:39] LABS: ALBUMIN 3.6 GM/DL (3.2-4.5); CHLORIDE 101 MMOL/L (98-107); POTASSIUM 3.5 MMOL/L (3.6-5.0); SODIUM 139 MMOL/L (135-145)
[2020-06-24 07:41] LABS: CALCIUM 8.6 MG/DL (8.5-10.1)
[2020-06-24 07:42] LABS: GLUCOSE 155 MG/DL (70-105)
[2020-06-24 07:43] LABS: CARBON DIOXIDE 27 MMOL/L (21-32)
[2020-06-24 07:44] LABS: BILIRUBIN,TOTAL 0.5 MG/DL (0.1-1.0)
[2020-06-24 07:45] LABS: ALKALINE PHOSPHATASE 44 U/L (40-136); CREATININE SERUM 0.72 MG/DL (0.60-1.30); GFR ESTIMATED > 60
[2020-06-24 07:46] LABS: BUN/CREATININE RATIO 22
[2020-06-24 07:48] LABS: ALANINE AMINOTRANSFERASE 44 U/L (0-55)
[2020-06-24 07:50] VITALS: BP 132/79
[2020-06-24] MEDS: SENNA W/DOCUSATE (SENOKOT S) TABLET PO SCH ×2 (08:18→20:49)
[2020-06-24] MEDS: methylPREDNISolone 40 MG/ML (Solu-MEDROL) VIAL IV SCH ×2 (08:18→20:49)
[2020-06-24] MEDS: ENOXAPARIN 40 MG/0.4 ML (LOVENOX) SYR SC SCH ×2 (08:19→20:50)
--- NOTE | 2020-06-24 08:42 | Progress Note - Hospitalist ---
Subjective HPI/CC On Admission Date Seen by Provider: Jun 24, 2020 Time Seen by Provider: 10:00 CC: COVID-19 PNA HPI: This is a 75yoWF known to me from prior left hip fracture 07/2019 and stay in IRF who presents to the ER after [facility] notified her she has COVID 19 when she became ore short of breath. Patient was found to be stable but has chronic debility and frail status and appears to be at high risk for decompensation so she met criteria for admission and COVID-19 treatment. Subjective/Events-last exam Pt doing much better Breathing better Will decrease Solumedrol Last dose of Remdesivir will be tomorrow Overall feels like she is doing much better and will plan on going home tomorrow or may need a swingbed Review of Systems General: Fatigue, Malaise Pulmonary: Dyspnea, Cough Objective Exam Vital Signs Vital Signs Date Time Temp Pulse Resp B/P (MAP) Pulse Ox O2 Delivery O2 Flow Rate FiO2 06/25/20 02:42 93 Nasal Cannula 3.00 06/24/20 23:49 36.0 73 18 138/79 (98) 06/21/20 20:26 32 Capillary Refill : Less Than 3 Seconds General Appearance: No Apparent Distress, WD/WN, Chronically ill Respiratory: Chest Non Tender, Lungs Clear, Normal Breath Sounds, No Accessory Muscle Use, No Respiratory Distress Cardiovascular: Regular Rate, Rhythm, No Edema, No Gallop, No JVD, No Murmur, Normal Peripheral Pulses Neurologic/Psychiatric: Alert, Oriented x3, No Motor/Sensory Deficits, Normal Mood/Affect Results/Procedures Lab Laboratory Tests 06/24/20 06:28 Patient resulted labs reviewed. Assessment/Plan Assessment and Plan Assess & Plan/Chief Complaint Assessment: COVID-19 PNA Hypoxia Chronic night time hypoxia Former smoker COPD with exacerbation Frail status Plan: O2 IV steroids Remdesivir Plasma Monitor closely 06/22/20: COVID-19 treatment O2 Decadron IV abx 06/23/20: COVID treatment O2 supplement 06/24/20: Increase activity Eval DC tomorrow Diagnosis/Problems Diagnosis/Problems (1) COVID-19 Status: Acute (2) COPD (chronic obstructive pulmonary disease) (3) Nocturnal hypoxia (4) Former smoker Clinical Quality Measures DVT/VTE Risk/Contraindication: Risk Factor Score Per Nursin RFS Level Per Nursing on Admit: 4+=Very High SCHAFFER,CARSON DO Jun 24, 2020 08:42
[2020-06-24] MEDS: KCL 10 MEQ TAB (MICRO K) PO SCH ×2 (12:30→20:49)
--- NOTE | 2020-06-24 14:05 | NUR ---
Initial visit: the patient is Voodoo. 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 The patient has lived in the [place] area her entire life, being raised in [place]. She shared feelings of gratitude for her improving health and shared that her grandchildren, children and have been calling her daily during her hospital stay, which she describes as comforting. Pt became tearful when thanking this Corporate Director for visiting, adding that she is "tender-hearted." Corporate Director provided calming presence and engaged in compassionate conversation. The pt shared that she felt an increased sense of peace and comfort as a result of getting to share her thoughts and feelings.
[2020-06-24] MEDS: REMDESIVIR INJ 100 MG in NS (IVPB) 230 ML IV SCH (14:22)
[2020-06-24 15:53] VITALS: BP 134/73
[2020-06-24 23:49] VITALS: BP 138/79
[2020-06-25] MEDS: CEFEPIME INJECTION 1,000 MG in WATER (STERILE) FOR INJECTION 10 ML IV SCH ×3 (00:22→11:19)
[2020-06-25] MEDS: RT-ALBUTEROL INHALER HFA (VENTOLIN HFA) 18 GM IH SCH ×2 (02:41→07:30)
[2020-06-25 08:00] VITALS: BP 159/76
[2020-06-25] MEDS: ENOXAPARIN 40 MG/0.4 ML (LOVENOX) SYR SC SCH (08:48)
[2020-06-25] MEDS: methylPREDNISolone 40 MG/ML (Solu-MEDROL) VIAL IV SCH (08:48)
[2020-06-25] MEDS: SENNA W/DOCUSATE (SENOKOT S) TABLET PO SCH (08:48)
[2020-06-25] MEDS: KCL 10 MEQ TAB (MICRO K) PO SCH (08:48)
[2020-06-25] MEDS ORDERED: PRED10TA22 PO (11:16)
[2020-06-25] MEDS ORDERED: GUAI473L29 PO (11:16)
[2020-06-25] MEDS ORDERED: CEFD300C3 PO (11:16)
[2020-06-25] MEDS ORDERED: POTA10TA36 PO (11:17)
--- NOTE | 2020-06-25 11:17 | Discharge Summary ---
Discharge Summary Hospital Course Was the Problem List Reviewed?: Yes Problems/Dx: (1) COVID-19 Status: Acute (2) COPD (chronic obstructive pulmonary disease) (3) Nocturnal hypoxia (4) Former smoker Hospital Course Date of Admission: Jun 20, 2020 at 13:28 Admission Diagnosis : Family Physician/Provider: Nithin Branch MD Date of Discharge: 06/25/20 Discharge Diagnosis: COVID-19 PNA, Hypoxia, AECOPD, bronchitis Hospital Course: Hospital Course: Pt had an uneventful hospital course for 6 days when she was admitted for Covid-19 symptoms, she was positive with hypoxia and exacerbation of COPD. She was placed on IV antibiotics to cover for any bacterial bronchitis and placed on IV steroids for COPD exacerbation and ultimately she improved, completed Remdesivir. She was overall feeling much better and ready for DC. Labs and Pending Lab Test: Laboratory Tests 06/24/20 16:00: Lab Scanned Report Transfusion Reaction Form Microbiology 06/20/20 Blood Culture - Preliminary, Resulted No growth Home Meds Active Prednisone 10 Mg Tab.ds.pk 10 Mg PO DAILY Take 6 tabs(60mg)daily,decrease by 1 tab(10MG)daily. Cefdinir 300 Mg Capsule 300 Mg PO BID Guaifenesin AC Cough Syrup (Guaifenesin/Codeine Phosphate) 473 Ml Liquid 5 Ml PO Q4H PRN Reported Albuterol Sulfate 2.5 Mg/0.5 Ml Vial.neb 2.5 Mg INH BID Zyrtec (Cetirizine HCl) 10 Mg Tablet 10 Mg PO HS Montelukast Sodium 10 Mg Tablet 10 Mg PO HS Ventolin Hfa (Albuterol Sulfate) 18 Gm Hfa.aer.ad 2 Puff INH Q4H PRN Cephalexin 500 Mg Capsule 500 Mg PO TID FILLED 06-12-2020 #30/10 DAY SUPPLY Assessment/Pt Instructions Dr Branch Discharge Planning: <30 minutes discharge planning Discharge Physical Examination Vital Signs Vital Signs Date Time Temp Pulse Resp B/P (MAP) Pulse Ox O2 Delivery O2 Flow Rate FiO2 06/25/20 08:00 Nasal Cannula 3.00 06/25/20 08:00 36.0 79 18 159/76 (103) 96 06/21/20 20:26 32 General Appearance: No Apparent Distress, WD/WN, Chronically ill Respiratory: Chest Non Tender, Lungs Clear, Normal Breath Sounds, No Accessory Muscle Use, No Respiratory Distress Cardiovascular: Regular Rate, Rhythm, No Edema, No Gallop, No JVD, No Murmur, Normal Peripheral Pulses Neurologic/Psychiatric: Alert, Oriented x3, No Motor/Sensory Deficits, Normal Mood/Affect Allergies: Coded Allergies: No Known Drug Allergies (Unverified , 01/18/18) Discharge Summary Date of Admission Jun 20, 2020 at 13:28 Date of Discharge Discharge Date: Jun 25, 2020 Admission Diagnosis Assessment: COVID-19 PNA Hypoxia Chronic night time hypoxia Former smoker COPD with exacerbation Frail status Plan: O2 IV steroids Remdesivir Plasma Monitor closely Discharge Diagnosis Assessment: COVID-19 PNA Hypoxia Chronic night time hypoxia Former smoker COPD with exacerbation Frail status Plan: O2 IV steroids Remdesivir Plasma Monitor closely 06/22/20: COVID-19 treatment O2 Decadron IV abx 06/23/20: COVID treatment O2 supplement 06/24/20: Increase activity Eval DC tomorrow (1) COVID-19 Status: Acute (2) COPD (chronic obstructive pulmonary disease) (3) Nocturnal hypoxia (4) Former smoker Clinical Quality Measures DVT/VTE Risk/Contraindication: Risk Factor Score Per Nursin RFS Level Per Nursing on Admit: 4+=Very High CARSON SCHAFFER DO Jun 25, 2020 11:17
--- NOTE | 2020-06-25 15:06 | NUR ---
Patient discharged to home today self care. F/U with patient's reported DME company [employer] out of [place] and they report that they have the patient using 2LPM via [place] continuous per their orders. F/U with Ro hoskins she reports that she is using her oxygen at 2LPM via NC and is feeling much better after this hospitalization and now that she is at home. She denies any needs.
== END 2020-06-25 14:18 | disposition home or self-care (01) | DRG 177 ==
LOC: EDUNIT# 12:48 → ER 12:50 → 4TH 13:28 → EDLOC 13:28
PROVIDERS: ADMIT Internal Medicine; ATTEND Internal Medicine
PROC: XW033E5 Introduction of Remdesivir Anti-infective into Peripheral Vein, Percutaneous Approach, New Technology Group 5 (ICD-10-PCS; principal; 2020-06-20)
PROC: XW13325 Transfusion of Convalescent Plasma (Nonautologous) into Peripheral Vein, Percutaneous Approach, New Technology Group 5 (ICD-10-PCS; 2020-06-20)
DX: U07.1 COVID-19 (principal); J12.89 Other viral pneumonia; J96.91 Respiratory failure, unspecified with hypoxia; J44.0 Chronic obstructive pulmonary disease with (acute) lower respiratory infection; J44.1 Chronic obstructive pulmonary disease with (acute) exacerbation; G47.34 Idiopathic sleep related nonobstructive alveolar hypoventilation; J30.2 Other seasonal allergic rhinitis; I34.1 Nonrheumatic mitral (valve) prolapse; M81.0 Age-related osteoporosis without current pathological fracture; F41.9 Anxiety disorder, unspecified; R54 Age-related physical debility; Z87.891 Personal history of nicotine dependence; Z99.81 Dependence on supplemental oxygen; Z73.0 Burn-out
CPT/HCPCS: 36415; 71045; 80053; 80202; 82805; 83605; 83880; 84145; 84484; 85007; 85025; 85027; 85379; 86141; 86900; 86901; 87040; 93005; 94640; 94760

== ENCOUNTER 2021-05-21 12:48 | Inpatient (IN) | payer MEDICARE ==
[~2021-05-21] VITALS: Ht 170 cm; Wt 50.1 kg
[~2021-05-21 12:48] MED LIST changes: +ALB0.5V INH; +ASPI-1238 PO; +ATOR80TA76 PO; +CEFD300C3 PO; +CEPH500C PO; +CETI10TA49 PO; -DCS100C PO; +DOCU-239 PO; +GFCD10B PO; +LISI2.5T13 PO; -MONT10TA26 PO; +MONT10TA32 PO; +POTA10TA36 PO; +PRED10TA22 PO; +TICA90TA PO
--- NOTE | 2021-05-21 13:10 | ED General ---
General Stated Complaint: COUGH;TEMP;RUNNY NOSE Source of Information: Patient Exam Limitations: No Limitations History of Present Illness Date Seen by Provider: May 21, 2021 Time Seen by Provider: 13:07 Initial Comments To ER with reports of cough fever runny nose for 3 days. Has COPD and is oxygen dependent. Had Covid in May 2020 and has had both Moderna Covid vaccines. Timing/Duration: 1-2 Days Severity: Moderate Associated Systoms: Shortness of Air Allergies and Home Medications Allergies Coded Allergies: No Known Drug Allergies (Unverified , 01/18/18) Patient Home Medication List Home Medication List Reviewed: Yes Albuterol Sulfate (Ventolin Hfa) 18 Gm Hfa.aer.ad, 2 PUFF INH Q4H PRN for SHORTNESS OF BREATH, (Reported) Entered as Reported by: MURALI ANDREW on 06/20/20 155 Albuterol Sulfate (Albuterol Sulfate) 2.5 Mg/0.5 Ml Vial.neb, 2.5 MG INH BID, (Reported) Entered as Reported by: MURALI ANDREW on 06/20/20 1558 Cefdinir (Cefdinir) 300 Mg Capsule, 300 MG PO BID Prescribed by: CARSON SCHAFFER on 06/25/20 111 Cetirizine HCl (Zyrtec) 10 Mg Tablet, 10 MG PO HS, (Reported) Entered as Reported by: MURALI ANDREW on 06/20/20 155 Guaifenesin/Codeine (Robitussin Ac (Codeine) Syrup) 473 Ml Liquid, 5 ML PO Q4H PRN for COUGH Prescribed by: CARSON SCHAFFER on 06/25/20 111 Montelukast Sodium (Montelukast Sodium) 10 Mg Tablet, 10 MG PO HS, (Reported) Entered as Reported by: MURALI ANDREW on 06/20/20 155 Potassium Chloride (Potassium Chloride) 10 Meq Tab.er.prt, 10 MEQ PO DAILY Prescribed by: CARSON SCHAFFER on 06/25/20 111 Prednisone (Prednisone) 10 Mg Tab.ds.pk, 10 MG PO DAILY Prescribed by: CARSON SCHAFFER on 06/25/20 111 Review of Systems Review of Systems Constitutional: see HPI EENTM: see HPI Respiratory: see HPI, cough Cardiovascular: no symptoms reported Genitourinary: no symptoms reported Musculoskeletal: no symptoms reported Skin: no symptoms reported Psychiatric/Neurological: No Symptoms Reported Past Npornmx-Connhi-Ioudxq Hx Immunizations Up To Date Tetanus Booster (TDap): Unknown Seasonal Allergies Seasonal Allergies: Yes (MILD) Past Medical History Surgeries: Yes Appendectomy, Orthopedic Respiratory: Yes (O2 1L NC AT NIGHT) Pneumonia, COPD Cardiac: Yes (Mitral Valve Prolapse) Valvular Heart Disease Neurological: No Reproductive Disorders: No Sexually Transmitted Disease: No HIV/AIDS: No Genitourinary: No Gastrointestinal: No Musculoskeletal: Yes (Lt hip fx w nailing 08/16/19) Osteoporosis, Fractures Endocrine: No Loss of Vision: Bilateral Hearing Impairment: Denies Cancer: No Psychosocial: No Anxiety Integumentary: No Blood Disorders: No Adverse Reaction/Blood Tranf: No (N/A) Family Medical History Colitis 19 FATHER Dementia 19 MOTHER Parkinson's disease 19 MOTHER Physical Exam Vital Signs Capillary Refill : Height, Weight, BMI Height: 5'7.00" Weight: 108lbs. 0.0oz. 48.624886kr; 16.29 BMI Method:Stated General Appearance: No Apparent Distress, WD/WN Eyes: Bilateral Eye Normal Inspection, Bilateral Eye PERRL, Bilateral Eye EOMI Neck: Full Range of Motion, Normal Inspection Respiratory: Accessory Muscle Use, Decreased Breath Sounds, Respiratory Distress, Other (Oxygen saturation 88% on her baseline 2 L with accessory muscle use. Increased to 4 L with resultant rise in SPO2 up to 92%.) Cardiovascular: Regular Rate, Rhythm, Normal Peripheral Pulses Gastrointestinal: Normal Bowel Sounds, Non Tender, Soft Extremity: Normal Capillary Refill, Normal Inspection Neurologic/Psychiatric: Alert, Oriented x3 Skin: Normal Color, Warm/Dry Progress/Results/Core Measures Suspected Sepsis SIRS Temperature: Pulse: Respiratory Rate: Blood Pressure / Mean: Results/Orders My Orders Orders - SHRAVAN ERICKSON APRN Covid 19 Inhouse Test (05/21/21 12:52) Influenza A & B Antigens (05/21/21 12:52) Chest 1 View, Ap/Pa Only (05/21/21 12:52) Arterial Blood Gas (05/21/21 13:03) Vital Signs/I&O Capillary Refill : Departure Impression Primary Impression: RESPIRATORY FAILURE, UNSP, UNSP W HYPOXIA OR HYPERCAPNIA Disposition: ADMITTED INPATIENT Condition: Stable Departure-Patient Inst. Referrals: TYRON BOOTHE MD (PCP/Family) Primary Care Physician SHRAVAN ERICKSON APRN May 21, 2021 13:10
[2021-05-21 13:12] LABS: ABG BASE EXCESS -1.1 MMOL/L (-2.5-2.5); ABG OXYGEN SATURATION 93 % (94-100); ABG PCO2 48 MMHG (35-45); ABG PO2 61 MMHG (79-93)
[2021-05-21 13:13] LABS: ABG PH 7.32 (7.37-7.43); ALLENS TEST POS; INSPIRED O2 4L; PATIENT TEMP 36.2; VENTILATOR NO
[2021-05-21] MEDS ORDERED: RT-ALBUTEROL/IPRATROPIUM 3 ML (DUONEB) VIAL INH ONE (13:15)
[2021-05-21] MEDS ORDERED: methylPREDNISolone 125 MG (Solu-MEDROL) VIAL IVP ONE (13:15)
[2021-05-21 13:29] LABS: BASOPHILS # (AUTO) 0.1 10^3/uL (0.0-0.1); BASOPHILS % (AUTO) 1 % (0-10); EOSINOPHILS # (AUTO) 0.5 10^3/uL (0.0-0.3); EOSINOPHILS % (AUTO) 3 % (0-10); HEMATOCRIT 47 % (35-52); HEMOGLOBIN 14.9 g/dL (11.5-16.0); LYMPHOCYTES # (AUTO) 3.2 10^3/uL (1.0-4.0); LYMPHOCYTES % (AUTO) 21 % (12-44); MEAN CORPUSCULAR HEMOGLOBIN 30 pg (25-34); MEAN CORPUSCULAR HGB CONC 32 g/dL (32-36); MEAN CORPUSCULAR VOLUME 94 fL (80-99); MEAN PLATELET VOLUME 9.4 fL (9.0-12.2); MONOCYTES # (AUTO) 1.4 10^3/uL (0.0-1.0); MONOCYTES % (AUTO) 9 % (0-12); NEUTROPHILS % (AUTO) 64 % (42-75); PLATELET COUNT 298 10^3/uL (130-400); WHITE BLOOD COUNT 15.5 10^3/uL (4.3-11.0)
[2021-05-21 13:48] LABS: PROTHROMBIN TIME PATIENT 13.6 SEC (12.2-14.7)
[2021-05-21 13:50] LABS: ALBUMIN 4.3 GM/DL (3.2-4.5)
[2021-05-21 13:53] LABS: TOTAL PROTEIN 7.1 GM/DL (6.4-8.2)
[2021-05-21 13:55] LABS: BILIRUBIN,TOTAL 0.9 MG/DL (0.1-1.0)
[2021-05-21 13:56] LABS: CREATININE SERUM 0.93 MG/DL (0.60-1.30)
--- NOTE | 2021-05-21 14:21 | Diagnostic Imaging Report ---
INDICATION: Shortness of breath. COMPARISON: 06/20/2020. FINDINGS: Single view of the chest demonstrates hyperexpansion compatible with COPD. There is no acute infiltrate. The heart is normal. No pneumothorax is seen. No effusion. IMPRESSION: COPD without acute infiltrate. Dictated by: Dictated on workstation # [id number]
[2021-05-21 14:22] LABS: BAND NEUTROPHILS 0 %; BASOPHILS % (MANUAL) 0 %; EOSINOPHILS % (MANUAL) 0 %; LYMPHOCYTES % (MANUAL) 19 %; MONOCYTES % (MANUAL) 5 %; NEUTROPHILS % (MANUAL) 76 %; RBC MORPH NORMAL
[2021-05-21 16:27] VITALS: BP 127/83
[2021-05-21 16:39] VITALS: BP 134/88
--- NOTE | 2021-05-21 17:03 | History & Physicial ---
History of Present Illness History of Present Illness Reason for visit/HPI 76-year-old female presents 2 emergency room during the afternoon of May 21, 2021 with shortness of breath. She does have a history of oxygen and steroid dependent COPD. She did have coronavirus recently but did get over this and she has had both vaccines. She describes duration of illness over the past few days. Date of Admission May 21, 2021 at 15:01 Date Seen by a Provider: May 21, 2021 Time Seen by a Provider: 17:15 I consulted on this patient on 05/21/21 17:00 Attending Physician Tyron Boothe MD Admitting Physician Tyron Boothe MD Consult Allergies and Home Medications Allergies Coded Allergies: No Known Drug Allergies (Unverified , 05/21/21) Patient Home Medication List Home Medication List Reviewed: Yes Albuterol Sulfate (Ventolin Hfa) 18 Gm Hfa.aer.ad, 2 PUFF INH Q4H PRN for SHORTNESS OF BREATH, (Reported) Entered as Reported by: MURALI ANDREW on 06/20/20 1556 Albuterol Sulfate (Albuterol Sulfate) 2.5 Mg/0.5 Ml Vial.neb, 2.5 MG INH BID, (Reported) Entered as Reported by: MURALI ANDREW on 06/20/20 1558 Cefdinir (Cefdinir) 300 Mg Capsule, 300 MG PO BID Prescribed by: CARSON SCHAFFER on 06/25/20 111 Cetirizine HCl (Zyrtec) 10 Mg Tablet, 10 MG PO HS, (Reported) Entered as Reported by: MURALI ANDREW on 06/20/20 155 Guaifenesin/Codeine (Robitussin Ac (Codeine) Syrup) 473 Ml Liquid, 5 ML PO Q4H PRN for COUGH Prescribed by: CARSON SCHAFFER on 06/25/20 111 Montelukast Sodium (Montelukast Sodium) 10 Mg Tablet, 10 MG PO HS, (Reported) Entered as Reported by: MURALI ANDREW on 06/20/20 155 Potassium Chloride (Potassium Chloride) 10 Meq Tab.er.prt, 10 MEQ PO DAILY Prescribed by: CARSON SCHAFFER on 06/25/20 1117 Prednisone (Prednisone) 10 Mg Tab.ds.pk, 10 MG PO DAILY Prescribed by: CARSON SCHAFFER on 06/25/20 1116 Past Kbxvuri-Waapdf-Pmtoof Hx Patient Social History Marrital Status: Smoking Status: Former Smoker Former Smoker, Quit: May 25, 2016 Recent Hopitalizations: Yes Have you traveled recently?: No Alcohol Use?: No Pt feels they are or have been: No Immunizations Up To Date Tetanus Booster (TDap): Unknown Date of Pneumonia Vaccine: May 24, 2017 Date of Influenza Vaccine: May 06, 2017 Seasonal Allergies Seasonal Allergies: Yes (MILD) Surgeries Yes Appendectomy, Orthopedic Respiratory Yes (O2 1L NC AT NIGHT) COPD Cardiovascular Yes (Mitral Valve Prolapse) Valvular Heart Disease Neurological No Reproductive System Hx Reproductive Disorders: No Sexually Transmitted Disease: No HIV/AIDS: No Genitourinary No Gastrointestinal No Musculoskeletal Yes (Lt hip fx w nailing 08/16/19) Osteoporosis, Fractures Endocrine History of Endocrine Disorders: No HEENT Loss of Vision: Bilateral Hearing Impairment: Denies Cancer No Psychosocial History of Psychiatric Problem: No Behavioral Health Disorders: Anxiety Integumentary History of Skin or Integumenta: No Blood Transfusions History of Blood Disorders: No Adverse Reaction to a Blood Tr: No (N/A) Family Medical History Family Hx: Colitis 19 FATHER Dementia 19 MOTHER Parkinson's disease 19 MOTHER Review of Systems Constitutional: see HPI Physical Exam Vital Signs Vital Signs - First Documented 05/21/21 05/21/21 12:50 16:39 Temp 35.7 Pulse 103 Resp 32 B/P (MAP) 134/88 (103) FiO2 28 Capillary Refill : Less Than 3 Seconds Height, Weight, BMI Height: 5'7.00" Weight: 108lbs. 0.0oz. 48.130116sq; 16.95 BMI Method:Stated General Appearance: Mild Distress HEENT: Moist Mucous Membranes Neck: Supple Respiratory: Lungs Clear (but distant.), Accessory Muscle Use (slight) Cardiovascular: Regular Rate, Rhythm Gastrointestinal: Soft Rectal: Deferred Assessment/Plan Assessment and Plan 1. COPD exacerbation with respiratory distress -patient to be started on IV Solu-Medrol 125 mg every 8 hours. She has received initial dosing in ED. -Chest x-ray did not reveal infiltrate but due to the cough and productivity she is started on generic Rocephin. 2. Hypoxemia -oxygen supplementation by nasal cannula at 4 L Admission Diagnosis 1. COPD exacerbation with respiratory distress 2. Hypoxemia Admission Status: Inpatient Order (span 2 midnights) Reason for Inpatient Admission: further pulmonary care which will include nasal cannula oxygen, IV steroids as well as IV antibiotics. TYRON BOOTHE MD May 21, 2021 17:03
[2021-05-21] MEDS: cefTRIAXone 1,000 MG/SWFI 10 ML IV PUSH IV SCH ×2 (17:07)
[2021-05-21] MEDS: LACTATED RINGERS 1,000 ML IV SCH (17:08)
[2021-05-21] MEDS: ENOXAPARIN 30 MG/0.3 ML (LOVENOX) SYR SC SCH (17:08)
[2021-05-21] MEDS: RT-ALBUTEROL SULF 2.5 MG/3 ML PRE-MIX VIAL INH SCH ×2 (18:52→22:45)
[2021-05-21] MEDS ORDERED: RT-ALBUTEROL SULF 2.5 MG/3 ML PRE-MIX VIAL INH PRN (19:00)
[2021-05-21 19:34] VITALS: BP 120/68
[2021-05-21] MEDS ORDERED: RT-ALBUTEROL SULF 2.5 MG/3 ML PRE-MIX VIAL INH SCH (20:00)
[2021-05-21] MEDS: methylPREDNISolone 125 MG (Solu-MEDROL) VIAL IV SCH (20:17)
[2021-05-22] VITALS: BP 129/80
[2021-05-22] MEDS: RT-ALBUTEROL SULF 2.5 MG/3 ML PRE-MIX VIAL INH SCH ×6 (02:35→21:36)
[2021-05-22 04:00] VITALS: BP 135/81
[2021-05-22] MEDS: methylPREDNISolone 125 MG (Solu-MEDROL) VIAL IV SCH ×3 (05:41→21:30)
[2021-05-22] MEDS: LACTATED RINGERS 1,000 ML IV SCH ×2 (05:47→19:45)
[2021-05-22 06:13] LABS: BASOPHILS % (AUTO) 0 % (0-10); EOSINOPHILS % (AUTO) 0 % (0-10); HEMATOCRIT 44 % (35-52); HEMOGLOBIN 14.6 g/dL (11.5-16.0); LYMPHOCYTES # (AUTO) 1.5 10^3/uL (1.0-4.0); LYMPHOCYTES % (AUTO) 12 % (12-44); MEAN CORPUSCULAR HEMOGLOBIN 30 pg (25-34); MEAN CORPUSCULAR HGB CONC 33 g/dL (32-36); MEAN CORPUSCULAR VOLUME 91 fL (80-99); MEAN PLATELET VOLUME 9.5 fL (9.0-12.2); MONOCYTES # (AUTO) 0.3 10^3/uL (0.0-1.0); MONOCYTES % (AUTO) 2 % (0-12); NEUTROPHILS # (AUTO) 11.4 10^3/uL (1.8-7.8); NEUTROPHILS % (AUTO) 86 % (42-75); PLATELET COUNT 268 10^3/uL (130-400); WHITE BLOOD COUNT 13.2 10^3/uL (4.3-11.0)
[2021-05-22 06:26] LABS: POTASSIUM 4.1 MMOL/L (3.6-5.0)
[2021-05-22 06:27] LABS: CALCIUM 9.4 MG/DL (8.5-10.1)
[2021-05-22 06:32] LABS: CREATININE SERUM 0.82 MG/DL (0.60-1.30)
--- NOTE | 2021-05-22 06:50 | Progress Note ---
Subjective Date Seen by a Provider: May 22, 2021 Time Seen by a Provider: 06:55 Subjective/Events-last exam Still short of breath. On 4 L nasal cannula oxygen Focused Exam Lactate Level 05/21/21 12:55: Lactic Acid Level 1.26 Objective Exam Vital Signs Date Time Temp Pulse Resp B/P (MAP) Pulse Ox O2 Delivery O2 Flow Rate FiO2 05/22/21 04:00 36.8 82 20 135/81 (99) 94 Nasal Cannula 4.00 05/22/21 02:35 94 Nasal Cannula 4.00 05/22/21 00:00 36.0 75 20 129/80 (96) 96 Nasal Cannula 4.00 05/21/21 22:45 95 Nasal Cannula 4.00 05/21/21 20:15 Nasal Cannula 4.00 05/21/21 19:34 36.8 81 20 120/68 (85) 94 Nasal Cannula 4.00 05/21/21 18:53 Nasal Cannula 4.00 05/21/21 16:48 Nasal Cannula 4.00 05/21/21 16:42 Nasal Cannula 4.00 05/21/21 16:39 35.7 103 87 28 05/21/21 16:27 36.8 80 20 127/83 (98) 95 Nasal Cannula 4.00 05/21/21 15:55 85 20 127/87 96 Nasal Cannula 4.00 05/21/21 14:04 98 Nasal Cannula 4.00 05/21/21 12:50 35.7 103 32 134/88 (103) 87 Nasal Cannula 2.00 05/21/21 12:50 Nasal Cannula 2.00 05/21/21 12:50 96 Nasal Cannula 4.00 I & O 05/22/21 07:00 Intake Total 1870 ml Output Total 450 ml Balance 1420 ml Capillary Refill : Less Than 3 Seconds General Appearance: No Apparent Distress, Mild Distress Respiratory: Lungs Clear (Distant sounds), Normal Breath Sounds Cardiovascular: Regular Rate, Rhythm Extremity: Normal Capillary Refill Results Lab Laboratory Tests 05/21/21 12:55: White Blood Count 15.5H, Red Blood Count 4.98, Hemoglobin 14.9, Hematocrit 47, Mean Corpuscular Volume 94, Mean Corpuscular Hemoglobin 30, Mean Corpuscular Hemoglobin Concent 32, Red Cell Distribution Width 12.8, Platelet Count 298, Mean Platelet Volume 9.4, Immature Granulocyte % (Auto) 2, Neutrophils (%) (Auto) 64, Lymphocytes (%) (Auto) 21, Monocytes (%) (Auto) 9, Eosinophils (%) (Auto) 3, Basophils (%) (Auto) 1, Neutrophils # (Auto) 10.0H, Lymphocytes # (Auto) 3.2, Monocytes # (Auto) 1.4H, Eosinophils # (Auto) 0.5H, Basophils # (Auto) 0.1, Immature Granulocyte # (Auto) 0.3H, Neutrophils % (Manual) 76, Lymphocytes % (Manual) 19, Monocytes % (Manual) 5, Eosinophils % (Manual) 0, Basophils % (Manual) 0, Band Neutrophils 0, Blood Morphology Comment NORMAL, Blood Gas Puncture Site LF RAD, Blood Gas Patient Temperature 36.2, Arterial Blood pH 7.32*L, Arterial Blood Partial Pressure CO2 48H, Arterial Blood Partial Pressure O2 61L, Arterial Blood HCO3 25, Arterial Blood Total CO2 26.0, Arterial Blood Oxygen Saturation 93L, Arterial Blood Base Excess -1.1, Dawson Test POS, Blood Gas Ventilator Setting NO, Blood Gas Inspired Oxygen 4L, Sodium Level 141, Potassium Level 4.0, Chloride Level 106, Carbon Dioxide Level 22, Anion Gap 13, Blood Urea Nitrogen 13, Creatinine 0.93, Estimat Glomerular Filtration Rate 59, BUN/Creatinine Ratio 14, Glucose Level 121H, Lactic Acid Level 1.26, Calcium Level 10.0, Corrected Calcium 9.8, Total Bilirubin 0.9, Aspartate Amino Transf (AST/SGOT) 28, Alanine Aminotransferase (ALT/SGPT) 30, Alkaline Phosphatase 63, Total Protein 7.1, Albumin 4.3, Procalcitonin 0.10H 05/21/21 12:59: Influenza Type A (RT-PCR) Not Detected, Influenza Type B (RT-PCR) Not Detected, SARS-CoV-2 RNA (RT-PCR) Not Detected 05/21/21 13:14: Prothrombin Time 13.6, INR Comment 1.0, Activated Partial Thromboplast Time 32 05/22/21 06:02: White Blood Count 13.2H, Red Blood Count 4.83, Hemoglobin 14.6, Hematocrit 44, Mean Corpuscular Volume 91, Mean Corpuscular Hemoglobin 30, Mean Corpuscular Hemoglobin Concent 33, Red Cell Distribution Width 12.3, Platelet Count 268, Mean Platelet Volume 9.5, Immature Granulocyte % (Auto) 1, Neutrophils (%) (Auto) 86H, Lymphocytes (%) (Auto) 12, Monocytes (%) (Auto) 2, Eosinophils (%) (Auto) 0, Basophils (%) (Auto) 0, Neutrophils # (Auto) 11.4H, Lymphocytes # (Auto) 1.5, Monocytes # (Auto) 0.3, Eosinophils # (Auto) 0.0, Basophils # (Auto) 0.0, Immature Granulocyte # (Auto) 0.1, Sodium Level 139, Potassium Level 4.1, Chloride Level 104, Carbon Dioxide Level 20L, Anion Gap 15H, Blood Urea Nitrogen 16, Creatinine 0.82, Estimat Glomerular Filtration Rate 68, BUN/Creatinine Ratio 20, Glucose Level 154H, Calcium Level 9.4 Assessment/Plan Assessment/Plan Assess & Plan/Chief Complaint 1. COPD exacerbation with respiratory distress -patient to be started on IV Solu-Medrol 125 mg every 8 hours. She has received initial dosing in ED. -Chest x-ray did not reveal infiltrate but due to the cough and productivity she is started on generic Rocephin. 05/22 -Solumedrol 125 q8 continues 2. Hypoxemia -oxygen supplementation by nasal cannula at 4 L 05/22 -still on 4l NC oxygen -We will hopefully be able to wean to 3 L later today Clinical Quality Measures Admission Status Admission Dx 1. COPD exacerbation with respiratory distress 2. Hypoxemia TYRON BOOTHE MD May 22, 2021 06:50
[2021-05-22 08:00] VITALS: BP 147/82
[2021-05-22] MEDS ORDERED: PRED5TAB PO (10:04)
[2021-05-22] MEDS ORDERED: IPRA3AMP31 NEB (10:48)
[2021-05-22 12:00] VITALS: BP 128/75
[2021-05-22] MEDS: ENOXAPARIN 30 MG/0.3 ML (LOVENOX) SYR SC SCH (16:13)
[2021-05-22] MEDS: cefTRIAXone 1,000 MG/SWFI 10 ML IV PUSH IV SCH ×2 (16:13)
[2021-05-22 17:00] VITALS: BP 135/85
[2021-05-22 19:43] VITALS: BP 123/69
[2021-05-23] VITALS: BP 126/72
[2021-05-23] MEDS: RT-ALBUTEROL SULF 2.5 MG/3 ML PRE-MIX VIAL INH SCH ×6 (02:07→21:55)
[2021-05-23 04:55] VITALS: BP 118/68
[2021-05-23] MEDS: methylPREDNISolone 125 MG (Solu-MEDROL) VIAL IV SCH ×2 (06:14→14:36)
--- NOTE | 2021-05-23 07:20 | Progress Note ---
Subjective Date Seen by a Provider: May 23, 2021 Time Seen by a Provider: 07:00 Subjective/Events-last exam Patient was up to bathroom she reports significant shortness of breath. Overall her oxygen by nasal cannula is at 3 L. She was concerned about going home and still having this amount of shortness of breath. She also mentions she has been having some dyspepsia. She has not been on proton pump inhibitors in the past. Focused Exam Lactate Level 05/21/21 12:55: Lactic Acid Level 1.26 Objective Exam Vital Signs Date Time Temp Pulse Resp B/P (MAP) Pulse Ox O2 Delivery O2 Flow Rate FiO2 05/23/21 07:10 93 Nasal Cannula 3.00 05/23/21 04:55 36.2 72 20 118/68 (85) 96 Nasal Cannula 3.00 05/23/21 02:07 95 Nasal Cannula 3.00 05/23/21 00:00 36.5 85 20 126/72 (90) 94 Nasal Cannula 3.00 05/22/21 21:37 97 Nasal Cannula 3.00 05/22/21 20:03 Nasal Cannula 4.00 05/22/21 19:43 36.1 92 20 123/69 (87) 95 Nasal Cannula 3.00 05/22/21 18:34 95 Nasal Cannula 3.00 05/22/21 17:00 36.1 77 20 135/85 (102) 93 Nasal Cannula 3.00 05/22/21 14:51 95 Nasal Cannula 4.00 05/22/21 12:00 36.5 74 18 128/75 (92) 93 Nasal Cannula 4.00 05/22/21 10:35 94 Nasal Cannula 4.00 05/22/21 08:00 Nasal Cannula 4.00 05/22/21 08:00 36.0 76 20 147/82 (103) 94 Nasal Cannula 4.00 05/22/21 07:53 94 Nasal Cannula 4.00 I & O 05/23/21 07:00 Intake Total 1550 ml Output Total 1400 ml Balance 150 ml Capillary Refill : Less Than 3 Seconds General Appearance: Mild Distress Respiratory: Lungs Clear (But distant sounds) Cardiovascular: Regular Rate, Rhythm Gastrointestinal: soft Results Lab Microbiology 05/21/21 Blood Culture - Preliminary, Resulted No growth Assessment/Plan Assessment/Plan Assess & Plan/Chief Complaint 1. COPD exacerbation with respiratory distress -patient to be started on IV Solu-Medrol 125 mg every 8 hours. She has received initial dosing in ED. -Chest x-ray did not reveal infiltrate but due to the cough and productivity she is started on generic Rocephin. 05/22 -Solumedrol 125 q8 continues 05/23 -Overall she is improved but still somewhat exacerbated\ -We will continue with the Solu-Medrol 125 every 8 hours. Her IV fluids are going to be discontinued -I suspect she will be able to go home either later today or in the morning of May 24 2. Hypoxemia -oxygen supplementation by nasal cannula at 4 L 05/22 -still on 4l NC oxygen 3. Dyspepsia -We will give trial of Protonix Clinical Quality Measures Admission Status Admission Dx 1. COPD exacerbation with respiratory distress 2. Hypoxemia TYRON BOOTHE MD May 23, 2021 07:20
[2021-05-23 07:42] VITALS: BP 155/82
[2021-05-23] MEDS: PANTOPRAZOLE 40 MG (PROTONIX) TAB PO SCH (10:06)
[2021-05-23 12:00] VITALS: BP 150/86
[2021-05-23] MEDS ORDERED: LIDOCAINE 1% INJ 20 ML 20 ML VIAL INJ ONE (14:45)
[2021-05-23] MEDS ORDERED: predniSONE 20 MG TAB PO ONE (14:45)
[2021-05-23] MEDS ORDERED: cefTRIAXone 1,000 MG VIAL IM ONE (15:00)
[2021-05-23] MEDS: guaiFENesin (MUCINEX) 600 MG TAB PO PRN ×2 (15:50→23:17)
[2021-05-23 15:53] VITALS: BP 163/82
[2021-05-23] MEDS: ENOXAPARIN 30 MG/0.3 ML (LOVENOX) SYR SC SCH (18:38)
[2021-05-23 23:42] VITALS: BP 151/79
[2021-05-24] MEDS: RT-ALBUTEROL SULF 2.5 MG/3 ML PRE-MIX VIAL INH SCH ×3 (02:25→11:17)
[2021-05-24 07:55] VITALS: BP 170/90
[2021-05-24 08:34] VITALS: BP 178/87
[2021-05-24] MEDS: guaiFENesin (MUCINEX) 600 MG TAB PO PRN (08:34)
[2021-05-24] MEDS: PANTOPRAZOLE 40 MG (PROTONIX) TAB PO SCH (08:34)
[2021-05-24 08:45] VITALS: BP 158/82
[2021-05-24] MEDS ORDERED: CEPH500T PO (08:52)
[2021-05-24] MEDS ORDERED: PRD20T PO (08:52)
[2021-05-24] MEDS ORDERED: GUAI600T43 PO (08:52)
[2021-05-24] MEDS ORDERED: PANT40TA52 PO (08:52)
--- NOTE | 2021-05-24 08:54 | Discharge Inst-Simple/Standard ---
Discharge Inst-Standard Reconcile Patient Problems Problems Reviewed?: Yes Discharge Medications New, Converted or Re-Newed RX: Transmitted to Pharmacy ([facility]) Patient Instructions/Follow Up Plan of Care/Instructions/FU: Dr Boothe this Activity as Tolerated: Yes Discharge Diet: Regular Diet Return to The Hospital For: Worsening shortness of breath or return of fever TYRON BOOTHE MD May 24, 2021 08:54
--- NOTE | 2021-05-24 08:55 | Discharge Summary ---
Diagnosis/Chief Complaint Date of Admission May 23, 2021 at 09:38 Date of Discharge Discharge Date: May 24, 2021 Admission Diagnosis Admission Diagnosis 1. COPD exacerbation 2. Hypoxemia Discharge Diagnosis 1. COPD exacerbation 2. Hypoxemia 3. Bronchitis 4. Dyspepsia Reason Hospital Visit 76-year-old female presents 2 emergency room during the afternoon of May 21, 2021 with shortness of breath. She does have a history of oxygen and steroid dependent COPD. She did have coronavirus recently but did get over this and she has had both vaccines. She describes duration of illness over the past few day s. Discharge Summary Hospital Course Was the Problem List Reviewed?: Yes Hospital Course 1. COPD exacerbation with respiratory distress -patient to be started on IV Solu-Medrol 125 mg every 8 hours. She has received initial dosing in ED. -Chest x-ray did not reveal infiltrate but due to the cough and productivity she is started on generic Rocephin. 05/22 -Solumedrol 125 q8 continues 05/23 -Overall she is improved but still somewhat exacerbated\ -We will continue with the Solu-Medrol 125 every 8 hours. Her IV fluids are going to be discontinued -I suspect she will be able to go home either later today or in the morning of May 24 2. Hypoxemia -oxygen supplementation by nasal cannula at 4 L 05/22 -still on 4l NC oxygen 3. Dyspepsia -We will give trial of Protonix Labs Laboratory Tests 05/21/21 12:55: White Blood Count 15.5H, Neutrophils # (Auto) 10.0H, Monocytes # (Auto) 1.4H, Eosinophils # (Auto) 0.5H, Immature Granulocyte # (Auto) 0.3H, Arterial Blood pH 7.32*L, Arterial Blood Partial Pressure CO2 48H, Arterial Blood Partial Pressure O2 61L, Arterial Blood Oxygen Saturation 93L, Glucose Level 121H, Procalcitonin 0.10H 05/21/21 12:59: 05/21/21 13:14: 05/22/21 06:02: White Blood Count 13.2H, Neutrophils # (Auto) 11.4H, Glucose Level 154H, Neutrophils (%) (Auto) 86H, Carbon Dioxide Level 20L, Anion Gap 15H Procedures None. Discharge Physical Examination Allergies: Coded Allergies: No Known Drug Allergies (Unverified , 05/21/21) Vitals & I&Os Vital Signs Date Time Temp Pulse Resp B/P (MAP) Pulse Ox O2 Delivery O2 Flow Rate FiO2 05/24/21 08:34 178/87 (117) 98 Nasal Cannula 2.00 05/24/21 07:55 35.3 76 20 05/21/21 16:39 28 General Appearance: Alert, No Acute Distress Respiratory: Clear to Auscultation (but distant) Cardiovascular: Regular Rate Skin: No Rashes Neuro: Normal Speech Discharge Home Medications Reviewed and agree with Discharge Medication list on patient's Discharge Instruction sheet Instructions to Patient/Family Please see electronic discharge instructions given to patient. TYRON BOOTHE MD May 24, 2021 08:55
--- NOTE | 2021-05-26 17:34 | Physician Query Clarification ---
PQ-Intro New Diagnosis Admission/Discharge Admission Date: May 23, 2021 at 09:38 Discharge Date: May 24, 2021 at 11:55 The medical record reflects the following clinical scenario: History/Risk Factors: COPD Clinical Findings: AE COPD Treatment: Oxygen, Solu-Medrol Question: What condition best reflects the above clinical scenario? Conflicting documentation in chart. Please document a response in the Progress Noter or Discharge Summary. 1. Acute respiratory failure with hypoxia 2. Hypoxia with acute respiratory distress 3. Other, with explanation of the clinical findings. 4. Clinically undetermined, no explanation for the clinical findings. PHYSICIAN RESPONSE What condition reflects above: 1 Please remember a lack of response to the above will prompt a phone page by [facility]/Coding staff. In responding to this query, please exercise your independent professional judgment. The purpose of this communication is to more accurately reflect the complexity of your patients condition. The fact that a question is asked does not imply that any particular answer is desired or expected. Thank you for your timely response to this clarification. Requestors name: Mary THIS PHYSICIAN QUERY FORM IS A PERMANENT PART OF THE MEDICAL RECORD MARY SANCHEZ May 26, 2021 17:34 TYRON BOOTHE MD May 27, 2021 16:46
== END 2021-05-24 11:55 | disposition home or self-care (01) | DRG 190 ==
LOC: EDUNIT# 12:48 → ER 12:49 → INTOOBSV 15:01 → UNDOADMOB 15:01 → EDLOC 15:01 → 4TH 15:01 → OBSVTOIN 05-23 09:38 → INTOOBSV 05-23 09:38 → UNDODISIN 05-24 11:55
PROVIDERS: ADMIT Family Medicine; ATTEND Family Medicine
DX: J44.1 Chronic obstructive pulmonary disease with (acute) exacerbation (principal); J96.01 Acute respiratory failure with hypoxia; R10.13 Epigastric pain; J44.0 Chronic obstructive pulmonary disease with (acute) lower respiratory infection; J40 Bronchitis, not specified as acute or chronic; I34.1 Nonrheumatic mitral (valve) prolapse; H54.7 Unspecified visual loss; M81.0 Age-related osteoporosis without current pathological fracture; F41.9 Anxiety disorder, unspecified; Z99.81 Dependence on supplemental oxygen; Z86.16 Personal history of COVID-19; Z79.899 Other long term (current) drug therapy; Z20.822 Contact with and (suspected) exposure to COVID-19
CPT/HCPCS: 36415; 71045; 80048; 80053; 82805; 83605; 84145; 85007; 85025; 85027; 85610; 85730; 87040; 87636; 94640; 94760; G0378

== ENCOUNTER 2022-06-22 11:14 | Inpatient (IN) | payer MEDICARE ==
[~2022-06-22] VITALS: Ht 170.2 cm; Wt 52.4 kg
[~2022-06-22 11:14] MED LIST changes: +ALBU8.5H6 IH; +CEPH500T PO; +GUAI600T43 PO; +IPRA3AMP31 NEB; +MONT-40 PO; -MONT10TA32 PO; +PANT40TA52 PO; +POTA-177 PO; -POTA10TA36 PO; +PRD20T PO; +PRED5TAB PO; -RT-ALBUINH IH
--- NOTE | 2022-06-22 11:37 | ED Cough/URI ---
General Chief Complaint: COVID19 Suspect/Confirmed Stated Complaint: SOB | COUGH | COPD Nursing Triage Note: ARRIVED VIA AMB TO ROOM 06 ON HOME O2 AT 2L. INCREASED SOA STARTING YESTERDAY ALONG WITH A COUGH, DIARRHEA, AND THROWING UP PHLEM. Source: patient Exam Limitations: no limitations History of Present Illness Date Seen by Provider: Jun 22, 2022 Time Seen by Provider: 11:30 Initial Comments This is a 77-year-old female who presented to the ER via POV with her daughter for concerns of cough, shortness of breath, diarrhea and one episode of emesis this morning. Symptom onset was 2 days ago. She does have a history of COPD and uses albuterol only, states that she was prescribed maintenance inhalers but she is unable to afford these. She does take prednisone 5 mg daily as well. When she vomited this morning states that she just gagged on phlegm. She had intermittent chills, no known fevers, but felt "cold". She is oxygen dependent on 2 LPM at all times. Denies chest pain, nausea, abdominal pain, dysuria. Did have 1 episode of diarrhea as well. Allergies and Home Medications Allergies Coded Allergies: No Known Drug Allergies (Unverified , 05/21/21) Patient Home Medication List Home Medication List Reviewed: Yes Albuterol Sulfate (Ventolin Hfa) 18 Gm Hfa.aer.ad, 2 PUFF INH Q4H PRN for SHORTNESS OF BREATH, (Reported) Entered as Reported by: MURALI NADREW on 06/20/20 1556 Cephalexin (Cephalexin) 500 Mg Tablet, 500 MG PO TID Prescribed by: TYRON BOOTHE on 05/24/21 0852 Cetirizine HCl (Zyrtec) 10 Mg Tablet, 10 MG PO DAILY, (Reported) Entered as Reported by: MURALI ANDREW on 06/20/20 155 Guaifenesin (Mucinex) 600 Mg Tab.er.12h, 600 MG PO Q6HR PRN for cough Prescribed by: TYRON BOOTHE on 05/24/21 0852 Ipratropium/Albuterol Sulfate (Iprat-Albut 0.5-3(2.5) mg/3 ml) 3 Ml Ampul.neb, 3 ML NEB BID, (Reported) Entered as Reported by: MURALI ANDREW on 05/22/21 1048 Montelukast Sodium (Montelukast Sodium) 10 Mg Tablet, 10 MG PO DAILY, (Reported) Entered as Reported by: MURALI ANDREW on 06/20/20 1556 Pantoprazole Sodium (Pantoprazole Sodium) 40 Mg Tablet.dr, 40 MG PO DAILY Prescribed by: TYRON BOOTHE on 05/24/21 0852 Prednisone (Prednisone) 20 Mg Tab, 20 MG PO DAILY Prescribed by: TYRON BOOTHE on 05/24/21851 Review of Systems Review of Systems Constitutional: see HPI Past Xmhbkae-Ipnnsg-Nzbewr Hx Patient Social History Tobacco Use?: Yes Tobacco type used: Cigarettes Smoking Status: Former Smoker Substance use?: No Alcohol Use?: No Immunizations Up To Date Tetanus Booster (TDap): Unknown First/Initial COVID19 Vaccinat: 2 MODERNA VACCINES Second COVID19 Vaccination Prieto: 2 MODERNA VACCINES Third COVID19 Vaccination Date: 2 MODERNA VACCINES COVID19 Vaccine 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 Seasonal Allergies Seasonal Allergies: Yes (MILD) Past Medical History Surgeries: Yes Appendectomy, Orthopedic Respiratory: Yes (O2 1L NC AT NIGHT) Pneumonia, COPD Cardiac: Yes (Mitral Valve Prolapse) Valvular Heart Disease Neurological: No Reproductive Disorders: No Sexually Transmitted Disease: No HIV/AIDS: No Genitourinary: No Gastrointestinal: No Musculoskeletal: Yes (Lt hip fx w nailing 08/16/19) Osteoporosis, Fractures Endocrine: No Loss of Vision: Bilateral Hearing Impairment: Denies Cancer: No Psychosocial: No Anxiety Integumentary: No Blood Disorders: No Adverse Reaction/Blood Tranf: No (N/A) Family Medical History Colitis 19 FATHER Dementia 19 MOTHER Parkinson's disease 19 MOTHER Physical Exam Vital Signs - First Documented 06/22/22 06/22/22 11:15 11:45 Temp 38.0 Pulse 111 Resp 16 B/P (MAP) 127/84 (98) Pulse Ox 94 O2 Delivery Nasal Cannula O2 Flow Rate 2.00 Capillary Refill : Less Than 3 Seconds Height: 5'7.00" Weight: 108lbs. 0.0oz. 48.183573rd; 15.00 BMI Method:Stated General Appearance: WD/WN, no apparent distress Eyes: Bilateral Eye Normal Inspection, Bilateral Eye PERRL, Bilateral Eye EOMI HEENT: PERRL/EOMI, normal ENT inspection, pharynx normal Neck: full range of motion, normal inspection Respiratory: no respiratory distress, no accessory muscle use, crackles (LLL), wheezing, expiration Cardiovascular: regular rate, rhythm, no murmur Gastrointestinal: normal bowel sounds, non tender, soft Extremities: normal range of motion, normal inspection Neurologic/Psychiatric: no motor/sensory deficits, alert, normal mood/affect, oriented x 3 Skin: normal color, warm/dry Focused Exam Sepsis Stage: Sepsis Possible Source: Unknown Lactate Level 06/22/22 12:15: Lactic Acid Level 3.84*H Time of Focused Exam: 14:02 Respiratory: Lungs Clear, Normal Breath Sounds, No Accessory Muscle Use, No Respiratory Distress Cardiovascular: Regular Rate, Rhythm, No Edema, No Murmur, Normal Peripheral Pulses Capillary Refill: Less Than 3 Seconds Peripheral Pulses: 2+ Radial Pulses (R), 2+ Radial Pulses (L) Skin: normal color, warm/dry Lactic Acid Level Laboratory Tests Test 06/22/22 12:15 Lactic Acid Level 3.84 MMOL/L (0.50-2.00) *H Within 3hrs of presentation: Admin fluids, Admin 30ml/kg IBW due to BMI>30, Focus exam, Lactate level Progress/Results/Core Measures Suspected Sepsis SIRS Temperature: Pulse: 111 Respiratory Rate: 16 Laboratory Tests 06/22/22 11:40: White Blood Count 19.7H Blood Pressure 127 /84 Mean: 98 06/22/22 12:15: Lactic Acid Level 3.84*H Laboratory Tests 06/22/22 11:35: INR Comment 0.9 06/22/22 11:40: Creatinine 0.87, Platelet Count 265, Total Bilirubin 1.1H Results/Orders Lab Results Laboratory Tests Test 06/22/22 11:35 06/22/22 11:40 06/22/22 12:15 06/22/22 12:20 Range/Units Prothrombin Time 12.7 12.2-14.7 SEC INR Comment 0.9 0.8-1.4 Activated Partial Thromboplast Time 34 24-35 SEC White Blood Count 19.7 H 4.3-11.0 10^3/uL Red Blood Count 4.93 3.80-5.11 10^6/uL Hemoglobin 14.8 11.5-16.0 g/dL Hematocrit 45 35-52 % Mean Corpuscular Volume 91 80-99 fL Mean Corpuscular Hemoglobin 30 25-34 pg Mean Corpuscular Hemoglobin Concent 33 32-36 g/dL Red Cell Distribution Width 12.8 10.0-14.5 % Platelet Count 265 130-400 10^3/uL Mean Platelet Volume 9.2 9.0-12.2 fL Immature Granulocyte % (Auto) 1 % Neutrophils (%) (Auto) 88 H 42-75 % Lymphocytes (%) (Auto) 4 L 12-44 % Monocytes (%) (Auto) 7 0-12 % Eosinophils (%) (Auto) 1 0-10 % Basophils (%) (Auto) 0 0-10 % Neutrophils # (Auto) 17.3 H 1.8-7.8 10^3/uL Lymphocytes # (Auto) 0.8 L 1.0-4.0 10^3/uL Monocytes # (Auto) 1.4 H 0.0-1.0 10^3/uL Eosinophils # (Auto) 0.1 0.0-0.3 10^3/uL Basophils # (Auto) 0.1 0.0-0.1 10^3/uL Immature Granulocyte # (Auto) 0.1 0.0-0.1 10^3/uL Neutrophils % (Manual) 89 % Lymphocytes % (Manual) 3 % Monocytes % (Manual) 8 % Eosinophils % (Manual) 0 % Basophils % (Manual) 0 % Band Neutrophils 0 % Blood Morphology Comment NORMAL Sodium Level 142 135-145 MMOL/L Potassium Level 4.0 3.6-5.0 MMOL/L Chloride Level 106 98-107 MMOL/L Carbon Dioxide Level 22 21-32 MMOL/L Anion Gap 14 5-14 MMOL/L Blood Urea Nitrogen 12 7-18 MG/DL Creatinine 0.87 0.60-1.30 MG/DL Estimat Glomerular Filtration Rate 69 BUN/Creatinine Ratio 14 Glucose Level 127 H 70-105 MG/DL Calcium Level 9.4 8.5-10.1 MG/DL Corrected Calcium 9.1 8.5-10.1 MG/DL Total Bilirubin 1.1 H 0.1-1.0 MG/DL Aspartate Amino Transf (AST/SGOT) 16 5-34 U/L Alanine Aminotransferase (ALT/SGPT) 19 0-55 U/L Alkaline Phosphatase 55 40-136 U/L C-Reactive Protein High Sensitivity 2.81 H 0.00-0.50 MG/DL Total Protein 6.9 6.4-8.2 GM/DL Albumin 4.4 3.2-4.5 GM/DL Procalcitonin 0.10 H <0.10 NG/ML Influenza Type A (RT-PCR) Not Detected Not Detecte Influenza Type B (RT-PCR) Not Detected Not Detecte SARS-CoV-2 RNA (RT-PCR) Not Detected Not Detecte Lactic Acid Level 3.84 *H 0.50-2.00 MMOL/L Urine Color YELLOW Urine Clarity CLEAR Urine pH 6.0 5-9 Urine Specific [place] 1.025 H 1.016-1.022 Urine Protein TRACE H NEGATIVE Urine Glucose (UA) NEGATIVE NEGATIVE Urine Ketones NEGATIVE NEGATIVE Urine Nitrite NEGATIVE NEGATIVE Urine Bilirubin NEGATIVE NEGATIVE Urine Urobilinogen 0.2 < = 1.0 MG/DL Urine Leukocyte Esterase NEGATIVE NEGATIVE Urine RBC (Auto) NEGATIVE NEGATIVE Urine RBC NONE /HPF Urine WBC NONE /HPF Urine Squamous Epithelial Cells RARE /HPF Urine Crystals NONE /LPF Urine Bacteria NEGATIVE /HPF Urine Casts NONE /LPF Urine Mucus NEGATIVE /LPF Urine Culture Indicated NO My Orders Orders - VARGHESE JOHNSON [employer] Cbc With Automated Diff (06/22/22 11:42) Comprehensive Metabolic Panel (06/22/22 11:42) Covid 19 Inhouse Test (06/22/22 11:42) Hs C Reactive Protein (06/22/22 11:42) Influenza A And B By Pcr (06/22/22 11:42) Acetaminophen Tablet (Tylenol Tablet) (06/22/22 11:45) Albuterol/Ipra Inhalation Soln (Duoneb I (06/22/22 11:45) Svn Small Volume Nebulizer (06/22/22 11:42) Chest 1 View, Ap/Pa Only (06/22/22 11:52) Manual Differential (06/22/22 11:40) Blood Culture (06/22/22 12:08) Urinalysis (06/22/22 12:08) Urine Culture (06/22/22 12:08) Protime With Inr (06/22/22 12:08) Partial Thromboplastin Time (06/22/22 12:08) Lactic Acid Analyzer (06/22/22 12:08) Procalcitonin (Pct) (06/22/22 12:09) Ns Iv 1000 Ml (Sodium Chloride 0.9%) (06/22/22 12:15) Ct Abdomen/Pelvis W (06/22/22 12:28) Cefepime Injection (Maxipime Injection) (06/22/22 12:45) Ns Iv 1000 Ml (Sodium Chloride 0.9%) (06/22/22 12:45) Iohexol Injection (Omnipaque 350 Mg/Ml 1 (06/22/22 12:45) Received Contrast (Hold Metformin- Contr (06/22/22 12:45) Ns (Ivpb) (Sodium Chloride 0.9% Ivpb Bag (06/22/22 12:45) Medications Given in ED Current Medications Medications Dose Ordered Sig/Missy Route Start Time Stop Time Status Last Admin Dose Admin Acetaminophen 1,000 mg ONCE ONCE PO 06/22/22 11:45 06/22/22 11:46 DC 06/22/22 11:49 1,000 MG Albuterol/ Ipratropium 3 ml ONCE ONCE INH 06/22/22 11:45 06/22/22 11:46 DC 06/22/22 11:49 3 ML Cefepime HCl 1000 mg/Sodium Chloride 50 ml @ 100 mls/hr ONCE ONCE IV 06/22/22 12:45 06/22/22 13:14 DC 06/22/22 13:04 100 MLS/HR Iohexol 100 ml ONCE ONCE IV 06/22/22 12:45 06/22/22 12:46 DC 06/22/22 12:45 49 ML Sodium Chloride 100 ml ONCE ONCE IV 06/22/22 12:45 06/22/22 12:46 DC 06/22/22 12:45 80 ML Vital Signs/I&O 06/22/22 06/22/22 06/22/22 11:15 11:45 11:49 Temp 38.0 38.0 Pulse 111 Resp 16 B/P (MAP) 127/84 (98) Pulse Ox 94 O2 Delivery Nasal Cannula Nasal Cannula O2 Flow Rate 2.00 Capillary Refill : Less Than 3 Seconds Blood Pressure Mean: 98 Progress Note : Progress Note Patient examined and in no acute distress. We will go ahead and obtain flu, COVID swabs. Also obtain a chest x-ray and infectious work-up to rule out pneumonia. Tylenol PO for elevated temperature. Departure Communication (Admissions) Time/Spoke to Admitting Phy: 13:52 Dr. Boothe Time/Spoke to Consulting Phy: 13:55 Dr. Blanton Impression Primary Impression: Sepsis due to undetermined organism Departure-Patient Inst. Referrals: TYRON BOOTHE MD (PCP/Family) Primary Care Physician VARGHESE JOHNSON [employer] Jun 22, 2022 11:37
[2022-06-22] MEDS ORDERED: RT-ALBUTEROL/IPRATROPIUM 3 ML (DUONEB) VIAL INH ONE (11:45)
[2022-06-22] MEDS ORDERED: ACETAMINOPHEN 500 MG TAB (TYLENOL) PO ONE (11:45)
[2022-06-22 11:50] LABS: BASOPHILS # (AUTO) 0.1 10^3/uL (0.0-0.1); BASOPHILS % (AUTO) 0 % (0-10); EOSINOPHILS # (AUTO) 0.1 10^3/uL (0.0-0.3); EOSINOPHILS % (AUTO) 1 % (0-10); HEMATOCRIT 45 % (35-52); HEMOGLOBIN 14.8 g/dL (11.5-16.0); LYMPHOCYTES # (AUTO) 0.8 10^3/uL (1.0-4.0); LYMPHOCYTES % (AUTO) 4 % (12-44); MEAN CORPUSCULAR HEMOGLOBIN 30 pg (25-34); MEAN CORPUSCULAR HGB CONC 33 g/dL (32-36); MEAN CORPUSCULAR VOLUME 91 fL (80-99); MEAN PLATELET VOLUME 9.2 fL (9.0-12.2); MONOCYTES # (AUTO) 1.4 10^3/uL (0.0-1.0); MONOCYTES % (AUTO) 7 % (0-12); NEUTROPHILS # (AUTO) 17.3 10^3/uL (1.8-7.8); NEUTROPHILS % (AUTO) 88 % (42-75); PLATELET COUNT 265 10^3/uL (130-400); WHITE BLOOD COUNT 19.7 10^3/uL (4.3-11.0)
--- NOTE | 2022-06-22 12:03 | Diagnostic Imaging Report ---
INDICATION: Cough, shortness of breath. Frontal chest obtained at 11:48 a.m. and compared with 05/21/2021. FINDINGS: Heart is normal in size. Aorta is tortuous. Lungs show no focal infiltrate. There is hyperinflation compatible with COPD with biapical bullous disease. IMPRESSION: Severe COPD change with no acute infiltrate or pneumothorax or pleural fluid. Dictated by: Dictated on workstation # [id number]
[2022-06-22 12:10] LABS: ALBUMIN 4.4 GM/DL (3.2-4.5); BILIRUBIN,TOTAL 1.1 MG/DL (0.1-1.0); CALCIUM 9.4 MG/DL (8.5-10.1); CREATININE SERUM 0.87 MG/DL (0.60-1.30); TOTAL PROTEIN 6.9 GM/DL (6.4-8.2)
[2022-06-22] MEDS ORDERED: NS IV 1000 ML 1,000 ML IV SCH ×2 (12:15→12:45)
[2022-06-22 12:20] LABS: BAND NEUTROPHILS 0 %; BASOPHILS % (MANUAL) 0 %; EOSINOPHILS % (MANUAL) 0 %; LYMPHOCYTES % (MANUAL) 3 %; MONOCYTES % (MANUAL) 8 %; NEUTROPHILS % (MANUAL) 89 %; RBC MORPH NORMAL
[2022-06-22 12:25] LABS: INR 0.9 (0.8-1.4); PROTHROMBIN TIME PATIENT 12.7 SEC (12.2-14.7)
[2022-06-22 12:33] LABS: BILIRUBIN,URINE NEGATIVE (NEGATIVE); CLARITY,URINE CLEAR; COLOR,URINE YELLOW; GLUCOSE, URINE (UA) NEGATIVE (NEGATIVE); KETONES,URINE NEGATIVE (NEGATIVE); LEUKOCYTE ESTERASE ,URINE NEGATIVE (NEGATIVE); NITRITE,URINE NEGATIVE (NEGATIVE); PROTEIN,URINE TRACE (NEGATIVE)
[2022-06-22 12:39] LABS: BACTERIA,URINE NEGATIVE /HPF; SQUAMOUS EPITHELIAL CELL,UR RARE /HPF
[2022-06-22] MEDS ORDERED: HOLD METFORMIN - RECEIVED CONTRAST 20 ML VIAL IV SCH (12:45)
[2022-06-22] MEDS ORDERED: CEFEPIME INJECTION 1,000 MG in NS (IVPB) 50 ML IV ONE (12:45)
[2022-06-22] MEDS ORDERED: IOHEXOL 350 MG/ML 100 ML (OMNIPAQUE 350) VIAL IV ONE (12:45)
[2022-06-22] MEDS ORDERED: NS 100 ML (IVPB) BAG IV ONE (12:45)
--- NOTE | 2022-06-22 13:18 | Diagnostic Imaging Report ---
PROCEDURE: CT abdomen and pelvis with contrast. TECHNIQUE: Multiple contiguous axial images were obtained through the abdomen and pelvis after administration of intravenous contrast. Auto Exposure Controls were utilized during the CT exam to meet ALARA standards for radiation dose reduction. All CT scans use one or more of the following dose optimizing techniques: Automated exposure control, MA and/or KvP adjustment based on patient size and exam type or iterative reconstruction. INDICATION: Diarrhea, nausea, leukocytosis, fever. COMPARISON: None. FINDINGS: Lung bases appear to have emphysematous changes and scarring. The heart is normal in size. There is a moderate-sized hiatal hernia. The liver demonstrates a hypodensity in segment VII, which is too small to characterize but likely a small cyst. There is a calcified stone in the gallbladder measuring 1.5 cm in size. The gallbladder is distended, but no surrounding edema is seen. The spleen appears normal. The pancreas is unremarkable. The adrenal glands appear normal. There are multiple cysts in the kidneys bilaterally. There is no hydronephrosis or enhancing mass seen. The bowel loops are nondistended without obstruction. No free fluid or free air is seen. There is diverticulosis throughout the colon without findings of diverticulitis. No free fluid or free air is seen. The appendix is not seen, but no secondary findings of appendicitis are identified. No acute osseous abnormality is seen. There are degenerative changes in the spine. IMPRESSION: 1. Cholelithiasis. There is gallbladder distention without surrounding edema. If clinically indicated, ultrasound could be considered. 2. Hiatal hernia. 3. Colonic diverticulosis without diverticulitis. Dictated by: Dictated on workstation # [id number]
[2022-06-22] MEDS ORDERED: FLU QUAD HIGH DOSE 240 MCG/0.7 ML 2022-23 (FLUZONE) IM ONE (15:00)
[2022-06-22] MEDS: NS IV 1000 ML 1,000 ML IV SCH (15:13)
[2022-06-22] MEDS ORDERED: fentaNYL INJ 100 MCG/2 ML AMP IV PRN (15:15)
[2022-06-22] MEDS ORDERED: RT-ALBUTEROL SULF 2.5 MG/3 ML PRE-MIX VIAL IH PRN (15:15)
[2022-06-22] MEDS ORDERED: ONDANSETRON 4 MG/2 ML (SDV) Z0FRAN IV PRN (15:15)
[2022-06-22 16:02] VITALS: BP 135/75
--- NOTE | 2022-06-22 16:06 | Consultation - Surgery ---
SUE DOMINGUEZ 06/22/22 1606: History of Present Illness History of Present Illness Patient Consulted On(silvestre/time) 06/22/22 16:01 Date Seen by Provider: Jun 22, 2022 Time Seen by Provider: 16:01 History of Present Illness Pt being seen in consultation for possible sepsis and diarrhea 77 year old female with a past medical history of COPD presented to [facility] ER with a chief complaint of Diarrhea, Nausea, Emesis, and Chills. Patient states that this started yesterday evening with initially body aches. This then progressed to the above chief complaints overnight. Last night patient was up all night with diarrhea and vomiting. Patient wasn't feeling any better and decided to come to the ER. Patient states she did not try anything to make it better. Nothing seemed to make it worse, it just hit her all at once. Patient is not in any pain. I saw the patient on the floor and she now states she feels quite a bit better. Allergies and Home Medications Allergies Coded Allergies: No Known Drug Allergies (Unverified , 06/22/22) Patient Home Medication List Albuterol Sulfate (Ventolin Hfa) 18 Gm Hfa.aer.ad, 2 PUFF INH Q4H PRN for SHORTNESS OF BREATH, (Reported) Entered as Reported by: MURALI ANDREW on 06/20/20 788 Last Action: Reviewed Montelukast Sodium (Montelukast Sodium) 10 Mg Tablet, 10 MG PO DAILY, (Reported) Entered as Reported by: MURALI ANDREW on 06/20/201555 Last Action: Reviewed Pantoprazole Sodium (Pantoprazole Sodium) 40 Mg Tablet.dr, 40 MG PO DAILY, (Reported) Entered as Reported by: MURALI ANDREW on 06/22/22 1633 Last Action: Reviewed Prednisone (Prednisone) 5 Mg Tablet, 5 MG PO DAILY, (Reported) Entered as Reported by: MURALI ANDREW on 06/22/22 1633 Last Action: Reviewed Discontinued Medications Cephalexin (Cephalexin) 500 Mg Tablet, 500 MG PO TID Discontinued Reason: No Longer Taking Prescribed by: TYRON BOOTHE on 05/24/21 3837 Last Action: Discontinued Cetirizine HCl (Zyrtec) 10 Mg Tablet, 10 MG PO DAILY, (Reported) Discontinued Reason: No Longer Taking Entered as Reported by: MURALI ANDREW on 06/20/20 1556 Last Action: Discontinued Guaifenesin (Mucinex) 600 Mg Tab.er.12h, 600 MG PO Q6HR PRN for cough Discontinued Reason: No Longer Taking Prescribed by: TYRON BOOTHE on 05/24/21851 Last Action: Discontinued Pantoprazole Sodium (Pantoprazole Sodium) 40 Mg Tablet.dr, 40 MG PO DAILY Discontinued Reason: No Longer Taking Prescribed by: TYRON BOOTHE on 05/24/21851 Last Action: Discontinued Prednisone (Prednisone) 20 Mg Tab, 20 MG PO DAILY Discontinued Reason: No Longer Taking Prescribed by: TYRON BOOTHE on 05/24/21851 Last Action: Discontinued Past Pznbgjg-Bgslrh-Ffikse Hx Patient Social History Smoking Status: Former Smoker Former Smoker, Quit: May 25, 2016 Type Used: Cigarettes Recent Hopitalizations: Yes Alcohol Use?: No Have you traveled recently?: No Immunizations Up To Date Tetanus Booster (TDap): Unknown Date of Pneumonia Vaccine: May 24, 2017 Date of Influenza Vaccine: May 06, 2017 Seasonal Allergies Seasonal Allergies: Yes (MILD) Surgeries History of Surgeries: Yes Surgeries: Appendectomy, Eye Surgery (cataract ), Orthopedic Respiratory History of Respiratory Disorde: Yes (O2 1L NC AT NIGHT) Respiratory Disorders: Pneumonia, COPD Cardiovascular History of Cardiac Disorders: Yes (Mitral Valve Prolapse) Cardiac Disorders: Valvular Heart Disease Neurological History of Neurological Disord: No Reproductive System Hx Reproductive Disorders: No Sexually Transmitted Disease: No HIV/AIDS: No Genitourinary History of Genitourinary Disor: No Gastrointestinal History of Gastrointestinal Di: No Musculoskeletal History of Musculoskeletal Dis: Yes (Lt hip fx w nailing 08/16/19) Musculoskeletal Disorders: Osteoporosis, Fractures Endocrine History of Endocrine Disorders: No HEENT Loss of Vision: Bilateral Hearing Impairment: Denies Cancer History of Cancer: No Psychosocial History of Psychiatric Problem: No Integumentary History of Skin or Integumenta: No Blood Transfusions History of Blood Disorders: No Adverse Reaction to a Blood Tr: No (N/A) Family Medical History Significant Family History: GI Disease (ischemic bowel ), Other Conditions/Hx ( dementia ) Family Medial History: Colitis 19 FATHER Dementia 19 MOTHER Parkinson's disease 19 MOTHER Review of Systems-General Constitutional: No chills, No diaphoresis, No dizziness, No weakness EENTM: No blurred vision, No double vision, No vision loss Respiratory: No cough, No dyspnea on exertion, No short of breath (2L O2 is baseline) Cardiovascular: No chest pain, No palpitations Gastrointestinal: No abdominal pain, No constipation, No diarrhea, No nausea, No vomiting Genitourinary: No dysuria, No frequency Skin: change in color; No dryness Psychiatric/Neurological: Denies Anxiety; Depressed Physical Exam-General Problems Physical Exam Vital Signs Vital Signs - First Documented 06/22/22 06/22/22 11:15 11:45 Temp 38.0 Pulse 111 Resp 16 B/P (MAP) 127/84 (98) Pulse Ox 94 O2 Delivery Nasal Cannula O2 Flow Rate 2.00 Capillary Refill : Less Than 3 Seconds General Appearance: WD/WN, no apparent distress HEENT: PERRL/EOMI Neck: non-tender, supple Respiratory: chest non-tender, no respiratory distress, no accessory muscle use, decreased breath sounds, wheezing (at end of expiration ) Cardiovascular: regular rate, rhythm, no murmur Gastrointestinal: non tender, soft Rectal: deferred Back: normal inspection, no vertebral tenderness Extremities: non-tender, no pedal edema, no calf tenderness Neurologic/Psychiatric: alert, normal mood/affect, oriented x 3 Skin: normal color, warm/dry Data Review Labs Laboratory Tests 06/22/22 11:35: Prothrombin Time 12.7, INR Comment 0.9, Activated Partial Thromboplast Time 34 06/22/22 11:40: White Blood Count 19.7H, Red Blood Count 4.93, Hemoglobin 14.8, Hematocrit 45, Mean Corpuscular Volume 91, Mean Corpuscular Hemoglobin 30, Mean Corpuscular Hemoglobin Concent 33, Red Cell Distribution Width 12.8, Platelet Count 265, Mean Platelet Volume 9.2, Immature Granulocyte % (Auto) 1, Neutrophils (%) (Auto) 88H, Lymphocytes (%) (Auto) 4L, Monocytes (%) (Auto) 7, Eosinophils (%) (Auto) 1, Basophils (%) (Auto) 0, Neutrophils # (Auto) 17.3H, Lymphocytes # (Auto) 0.8L, Monocytes # (Auto) 1.4H, Eosinophils # (Auto) 0.1, Basophils # (Auto) 0.1, Immature Granulocyte # (Auto) 0.1, Neutrophils % (Manual) 89, Lympho cytes % (Manual) 3, Monocytes % (Manual) 8, Eosinophils % (Manual) 0, Basophils % (Manual) 0, Band Neutrophils 0, Blood Morphology Comment NORMAL, Sodium Level 142, Potassium Level 4.0, Chloride Level 106, Carbon Dioxide Level 22, Anion Gap 14, Blood Urea Nitrogen 12, Creatinine 0.87, Estimat Glomerular Filtration Rate 69, BUN/Creatinine Ratio 14, Glucose Level 127H, Calcium Level 9.4, Corrected Calcium 9.1, Total Bilirubin 1.1H, Aspartate Amino Transf (AST/SGOT) 16, Alanine Aminotransferase (ALT/SGPT) 19, Alkaline Phosphatase 55, C-Reactive Protein High Sensitivity 2.81H, Total Protein 6.9, Albumin 4.4, Procalcitonin 0.10H, Influenza Type A (RT-PCR) Not Detected, Influenza Type B (RT-PCR) Not Detected, SARS-CoV-2 RNA (RT-PCR) Not Detected 06/22/22 12:15: Lactic Acid Level 3.84*H 06/22/22 12:20: Urine Color YELLOW, Urine Clarity CLEAR, Urine pH 6.0, Urine Specific [place] 1.025H, Urine Protein TRACEH, Urine Glucose (UA) NEGATIVE, Urine Ketones NEGATIVE, Urine Nitrite NEGATIVE, Urine Bilirubin NEGATIVE, Urine Urobilinogen 0.2, Urine Leukocyte Esterase NEGATIVE, Urine RBC (Auto) NEGATIVE, Urine RBC NONE, Urine WBC NONE, Urine Squamous Epithelial Cells RARE, Urine Crystals NONE, Urine Bacteria NEGATIVE, Urine Casts NONE, Urine Mucus NEGATIVE, Urine Culture Indicated NO 06/22/22 14:14: Lactic Acid Level 0.80 Radiology [facility] [place], [place] NAME: MAHESH CANTRELL [facility] REC#: [id number] PT STATUS: ADM IN : 1945 PHYSICIAN: VARGHESE JOHNSON APRN ADMIT DATE: 06/22/22 Signed Date of Exam:06/22/22 CT ABDOMEN/PELVIS W PROCEDURE: CT abdomen and pelvis with contrast. TECHNIQUE: Multiple contiguous axial images were obtained through the abdomen and pelvis after administration of intravenous contrast. Auto Exposure Controls were utilized during the CT exam to meet ALARA standards for radiation dose reduction. All CT scans use one or more of the following dose optimizing techniques: Automated exposure control, MA and/or KvP adjustment based on patient size and exam type or iterative reconstruction. INDICATION: Diarrhea, nausea, leukocytosis, fever. COMPARISON: None. FINDINGS: Lung bases appear to have emphysematous changes and scarring. The heart is normal in size. There is a moderate-sized hiatal hernia. The liver demonstrates a hypodensity in segment VII, which is too small to characterize but likely a small cyst. There is a calcified stone in the gallbladder measuring 1.5 cm in size. The gallbladder is distended, but no surrounding edema is seen. The spleen appears normal. The pancreas is unremarkable. The adrenal glands appear normal. There are multiple cysts in the kidneys bilaterally. There is no hydronephrosis or enhancing mass seen. The bowel loops are nondistended without obstruction. No free fluid or free air is seen. There is diverticulosis throughout the colon without findings of diverticulitis. No free fluid or free air is seen. The appendix is not seen, but no secondary findings of appendicitis are identified. No acute osseous abnormality is seen. There are degenerative changes in the spine. IMPRESSION: 1. Cholelithiasis. There is gallbladder distention without surrounding edema. If clinically indicated, ultrasound could be considered. 2. Hiatal hernia. 3. Colonic diverticulosis without diverticulitis. Dictated by: Dictated on workstation # [id number] Dict: 06/22/22 1307 Trans: 06/22/22 1458 [id number] Interpreted by: DANA LUGO MD Electronically signed by: DANA LUGO MD 06/22/22 1458 [facility] [place], [place] NAME: MAHESH CANTRELL [facility] REC#: [id number] PT STATUS: REG ER : 1945 PHYSICIAN: VARGHESE JOHNSON APRN ADMIT DATE: 06/22/22/ER Signed Date of Exam:06/22/22 CHEST 1 VIEW, AP/PA ONLY INDICATION: Cough, shortness of breath. Frontal chest obtained at 11:48 a.m. and compared with 05/21/2021. FINDINGS: Heart is normal in size. Aorta is tortuous. Lungs show no focal infiltrate. There is hyperinflation compatible with COPD with biapical bullous disease. IMPRESSION: Severe COPD change with no acute infiltrate or pneumothorax or pleural fluid. Dictated by: Dictated on workstation # [id number] Dict: 06/22/22 1200 Trans: 06/22/22 1357 [id number] Interpreted by: ANALISA LEVY MD Electronically signed by: ANALISA LEVY MD 06/22/22 1357 Assessment/Plan Assessment/Plan Assessment/Plan Leukocytosis - Left Shift COPD Lactic Acidosis - Resolved Plan IVF, Anti-emetics, Breathing Treatments, Up and Ambulating Patient was started on Cefepime in the ER, patient has no obvious source of infection at this time and clinically looks okay. Will continue to monitor clinical status and await blood cultures before making a decision on D/C or continuing Abx. JAYE BURROUGHS DO 06/22/22 1747: History of Present Illness History of Present Illness Time Seen by Provider: 17:02 History of Present Illness Surgery asked to consult regarding Sepsis of unknown origin. HPI per ER: This is a 77-year-old female who presented to the ER via POV with her daughter for concerns of cough, shortness of breath, diarrhea and one episode of emesis this morning. Symptom onset was 2 days ago. She does have a history of COPD and uses albuterol only, states that she was prescribed maintenance inhalers but she is unable to afford these. She does take prednisone 5 mg daily as well. When she vomited this morning states that she just gagged on phlegm. She had intermittent chills, no known fevers, but felt "cold". She is oxygen dependent on 2 LPM at all times. Denies chest pain, nausea, abdominal pain, dysuria. Did have 1 episode of diarrhea as well. When I saw pt she stated she feels fine. Denied abdominal pain, N/V, hematochezia or melena. Allergies and Home Medications Allergies Coded Allergies: No Known Drug Allergies (Unverified , 06/22/22) Patient Home Medication List Home Medication List Reviewed: Yes Albuterol Sulfate (Ventolin Hfa) 18 Gm Hfa.aer.ad, 2 PUFF INH Q4H PRN for S HORTNESS OF BREATH, (Reported) Entered as Reported by: MURALI ANDREW on 06/20/201555 Last Action: Reviewed Montelukast Sodium (Montelukast Sodium) 10 Mg Tablet, 10 MG PO DAILY, (Reported) Entered as Reported by: MURALI ANDREW on 06/20/201555 Last Action: Reviewed Pantoprazole Sodium (Pantoprazole Sodium) 40 Mg Tablet.dr, 40 MG PO DAILY, (Reported) Entered as Reported by: MURALI ANDREW on 06/22/221632 Last Action: Reviewed Prednisone (Prednisone) 5 Mg Tablet, 5 MG PO DAILY, (Reported) Entered as Reported by: MURALI ANDREW on 06/22/221632 Last Action: Reviewed Discontinued Medications Cephalexin (Cephalexin) 500 Mg Tablet, 500 MG PO TID Discontinued Reason: No Longer Taking Prescribed by: TYRON BOOTHE on 05/24/21851 Last Action: Discontinued Cetirizine HCl (Zyrtec) 10 Mg Tablet, 10 MG PO DAILY, (Reported) Discontinued Reason: No Longer Taking Entered as Reported by: MURALI ANDREW on 06/20/201555 Last Action: Discontinued Guaifenesin (Mucinex) 600 Mg Tab.er.12h, 600 MG PO Q6HR PRN for cough Discontinued Reason: No Longer Taking Prescribed by: TYRON BOOTHE on 05/24/21851 Last Action: Discontinued Pantoprazole Sodium (Pantoprazole Sodium) 40 Mg Tablet.dr, 40 MG PO DAILY Discontinued Reason: No Longer Taking Prescribed by: TYRON BOOTHE on 05/24/21851 Last Action: Discontinued Prednisone (Prednisone) 20 Mg Tab, 20 MG PO DAILY Discontinued Reason: No Longer Taking Prescribed by: TYRON BOOTHE on 05/24/21851 Last Action: Discontinued Past Uhyugst-Bkpzvo-Rwtnrm Hx Patient Social History Smoking Status: Former Smoker Surgeries History of Surgeries: Yes Surgeries: Appendectomy, Eye Surgery (cataract ), Orthopedic Respiratory History of Respiratory Disorde: Yes Respiratory Disorders: COPD Cardiovascular History of Cardiac Disorders: No Neurological History of Neurological Disord: No Genitourinary History of Genitourinary Disor: No Gastrointestinal History of Gastrointestinal Di: No Musculoskeletal Musculoskeletal Disorders: Fractures (hip) Endocrine History of Endocrine Disorders: No HEENT History of HEENT Disorders: No HEENT Disorders: Cataract Loss of Vision: Bilateral Hearing Impairment: Denies Cancer Cancer: Skin Psychosocial History of Psychiatric Problem: No Family Medical History Significant Family History: GI Disease (ischemic bowel ), Other Conditions/Hx (dementia ) Family Medial History: Colitis 19 FATHER Dementia 19 MOTHER Parkinson's disease 19 MOTHER Review of Systems-General Constitutional: No chills, No diaphoresis, No dizziness, No weakness EENTM: No blurred vision, No double vision, No vision loss Respiratory: No cough, No dyspnea on exertion, No short of breath (2L O2 is baseline) Cardiovascular: No chest pain, No palpitations Gastrointestinal: No abdominal pain, No constipation, No diarrhea, No nausea, No vomiting Genitourinary: No dysuria, No frequency Musculoskeletal: joint pain, muscle stiffness Skin: change in color; No dryness Psychiatric/Neurological: Denies Anxiety, Denies Depressed Physical Exam-General Problems Physical Exam General Appearance: WD/WN, no apparent distress Eyes: Bilateral Eye PERRL, Bilateral Eye EOMI HEENT: pharynx normal; No scleral icterus (R), No scleral icterus (L) Neck: non-tender, supple Respiratory: chest non-tender, no respiratory distress, no accessory muscle use , decreased breath sounds, wheezing (at end of expiration ) Cardiovascular: regular rate, rhythm, no murmur Gastrointestinal: non tender, soft, no organomegaly; No hernia Rectal: deferred Back: no CVA tenderness, no vertebral tenderness Extremities: non-tender, no pedal edema, no calf tenderness Neurologic/Psychiatric: alert, normal mood/affect, oriented x 3 Skin: normal color, warm/dry Lymphatic: no adenopathy (neck, axilla or groin) Assessment/Plan Assessment/Plan Assessment/Plan Leukocytosis - Left Shift COPD Lactic Acidosis - Resolved Cholelithiasis - seen on CT Plan IVF, Anti-emetics, Breathing Treatments, Up and Ambulating Patient was started on Cefepime in the ER, patient has no obvious source of infection at this time and clinically looks okay. Will continue to monitor clinical status and await blood cultures before making a decision on D/C or continuing Abx. Pt does not look ill at all. I reviewed the CT myself and see a mildly distended GB with some stones, but did not appreciate any inflammation around it. CBD appeared normal size. I also discussed her case with the ER provider. I doubt she is septic and it is much more likely her elevated WBC is due to her chronic steroid use. In addition the Lactic acid resolved with just a little bit of fluid. I do agree that checking a CXR tomorrow after some IV fluids may give us a different picture in the lung. LFTs are not elevated at all; however, Bilirubin was 1.1 (which again I think is due to dehydration); check labs tomorrow. Supervisory-Addendum Brief Verification & Attestation Participated in pt care: history, MDM, physical Personally performed: exam, history, MDM, supervision of care Care discussed with: Medical Student Procedures: n/a Verification and Attestation of Medical Student E/M Service A medical student performed and documented this service. I then reviewed and verified all information documented by the medical student and made modifications to such information, when appropriate. I personally performed a physical exam, medical decision making and then discussed any differences between the notes and made revisions as necessary to create one note. Jaye Burroughs , 06/22/22 , 17:58 SUE DOMINGUEZ Jun 22, 2022 16:06 JAYE BURROUGHS DO Jun 22, 2022 17:47
[2022-06-22 16:22] VITALS: BP 135/75
[2022-06-22] MEDS ORDERED: PRED5TAB PO (16:33)
[2022-06-22] MEDS ORDERED: PANT40TA52 PO (16:33)
[2022-06-22] MEDS ORDERED: RT-ALBUTEROL/IPRATROPIUM 3 ML (DUONEB) VIAL INH PRN (16:45)
--- NOTE | 2022-06-22 17:02 | History & Physicial ---
History of Present Illness History of Present Illness Reason for visit/HPI 77-year-old female brought in by family member to emergency department this morning after apparently having shortness of breath. Additionally few episodes of diarrhea and one episode of emesis today. She has been bothered by this for the past 2 days. 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 She reports unable to afford steroid inhalers. She denies any fever. She does have a cough that has been a little bit more than usual for her. Her cough is slightly productive. She admits to not leaving the house and thus not exposing herself to various community infections. She currently does not admit to any abdominal pain and specifically not any right upper quadrant abdominal pain. Date of Admission Jun 22, 2022 at 13:52 Date Seen by a Provider: Jun 22, 2022 Time Seen by a Provider: 16:40 I consulted on this patient on 06/22/22 16:56 Attending Physician Nithin Boothe MD Admitting Physician Admitting Physician: Nithin Boothe MD Attending Physician: Nithin Boothe MD Consult Allergies and Home Medications Allergies Coded Allergies: No Known Drug Allergies (Unverified , 06/22/22) Patient Home Medication List Home Medication List Reviewed: Yes Albuterol Sulfate (Ventolin Hfa) 18 Gm Hfa.aer.ad, 2 PUFF INH Q4H PRN for SHORTNESS OF BREATH, (Reported) Entered as Reported by: MURALI ANDREW on 06/20/206 Last Action: Reviewed Montelukast Sodium (Montelukast Sodium) 10 Mg Tablet, 10 MG PO DAILY, (Reported) Entered as Reported by: MURALI ANDREW on 06/20/201555 Last Action: Reviewed Pantoprazole Sodium (Pantoprazole Sodium) 40 Mg Tablet.dr, 40 MG PO DAILY, (Reported) Entered as Reported by: MURALI ANDREW on 06/22/22 163 Last Action: Reviewed Prednisone (Prednisone) 5 Mg Tablet, 5 MG PO DAILY, (Reported) Entered as Reported by: MURALI ANDREW on 06/22/22 163 Last Action: Reviewed Discontinued Medications Cephalexin (Cephalexin) 500 Mg Tablet, 500 MG PO TID Discontinued Reason: No Longer Taking Prescribed by: NITHIN BOOTHE on 05/24/21851 Last Action: Discontinued Cetirizine HCl (Zyrtec) 10 Mg Tablet, 10 MG PO DAILY, (Reported) Discontinued Reason: No Longer Taking Entered as Reported by: MURALI ANDREW on 06/20/20 1556 Last Action: Discontinued Guaifenesin (Mucinex) 600 Mg Tab.er.12h, 600 MG PO Q6HR PRN for cough Discontinued Reason: No Longer Taking Prescribed by: NITHIN BOOTHE on 05/24/21851 Last Action: Discontinued Pantoprazole Sodium (Pantoprazole Sodium) 40 Mg Tablet.dr, 40 MG PO DAILY Discontinued Reason: No Longer Taking Prescribed by: NITHIN BOOTHE on 05/24/21851 Last Action: Discontinued Prednisone (Prednisone) 20 Mg Tab, 20 MG PO DAILY Discontinued Reason: No Longer Taking Prescribed by: NITHIN BOOTHE on 05/24/21851 Last Action: Discontinued Past Sbmchne-Njcysn-Wtzyab Hx Patient Social History Marrital Status: Smoking Status: Former Smoker Former Smoker, Quit: May 25, 2016 Recent Hopitalizations: Yes Have you traveled recently?: No Alcohol Use?: No Pt feels they are or have been: No Tobacco type used: Cigarettes Immunizations Up To Date Tetanus Booster (TDap): Unknown Date of Pneumonia Vaccine: May 24, 2017 Date of Influenza Vaccine: May 06, 2017 Seasonal Allergies Seasonal Allergies: Yes (MILD) Surgeries Yes Appendectomy, Eye Surgery (cataract ), Orthopedic Respiratory Yes (O2 1L NC AT NIGHT) COPD Cardiovascular Yes (Mitral Valve Prolapse) Valvular Heart Disease Neurological No Reproductive System Hx Reproductive Disorders: No Sexually Transmitted Disease: No HIV/AIDS: No Genitourinary No Gastrointestinal No Musculoskeletal Yes (Lt hip fx w nailing 08/16/19) Osteoporosis, Fractures Endocrine History of Endocrine Disorders: No HEENT Loss of Vision: Bilateral Hearing Impairment: Denies Cancer No Psychosocial History of Psychiatric Problem: No Integumentary History of Skin or Integumenta: No Blood Transfusions History of Blood Disorders: No Adverse Reaction to a Blood Tr: No (N/A) Family Medical History Significant Family History: GI Disease (ischemic bowel ), Other Conditions/Hx (dementia ) Family Hx: Colitis 19 FATHER Dementia 19 MOTHER Parkinson's disease 19 MOTHER Review of Systems Constitutional: see HPI Physical Exam Vital Signs Vital Signs - First Documented 11/29/22 11/29/22 11:15 11:45 Temp 38.0 Pulse 111 Resp 16 B/P (MAP) 127/84 (98) Pulse Ox 94 O2 Delivery Nasal Cannula O2 Flow Rate 2.00 Capillary Refill : Less Than 3 Seconds Height, Weight, BMI Height: 5'7.00" Weight: 108lbs. 0.0oz. 48.563182nm; 18.08 BMI Method:Stated General Appearance: No Apparent Distress, Mild Distress (Due to shortness of breath) Eyes: Bilateral Eye Normal Inspection HEENT: Pharynx Normal (And there is no erythema or exudates) Neck: Supple Respiratory: Lungs Clear, Normal Breath Sounds (But appears distant); No Accessory Muscle Use Cardiovascular: Regular Rate, Rhythm Gastrointestinal: Non Tender, Soft; No Distended, No Guarding Rectal: Deferred Back: Normal Inspection Extremity: Normal Capillary Refill Neurologic/Psychiatric: Alert, Oriented x3 Skin: Normal Color Comments [facility], [place] NAME: FLASHJOSEJeannaMAHESH Silverio [facility] REC#: [id number] PT STATUS: REG ER : 1945 PHYSICIAN: VARGHESE JOHNSON APRN ADMIT DATE: 06/22/22/ER Signed Date of Exam:06/22/22 CHEST 1 VIEW, AP/PA ONLY INDICATION: Cough, shortness of breath. Frontal chest obtained at 11:48 a.m. and compared with 05/21/2021. FINDINGS: Heart is normal in size. Aorta is tortuous. Lungs show no focal infiltrate. There is hyperinflation compatible with COPD with biapical bullous disease. IMPRESSION: Severe COPD change with no acute infiltrate or pneumothorax or pleural fluid. Dictated by: Dictated on workstation # [id number] Dict: 06/22/22 1200 Trans: 06/22/22 1357 [id number] Interpreted by: ANALISA LEVY MD Electronically signed by: ANALISA LEVY MD 06/22/22 1357 Assessment/Plan Assessment and Plan 1. Sepsisas evidenced by elevated white blood cell count and elevated lactic acid. She is noted to have no evidence for pneumonia at least by early chest x- ray. CT of the abdomen does reveal inflammation of her gallbladder region. -Surgical consultation to ensure status of cholecystitis -Cefepime has been initiated -Blood cultures pending -Recheck white blood cell count in the morning of June 23 2. COPDcurrently with mild exacerbation -We will maintain her on home COPD medications 3. Dehydration -Continue with IV fluids at 100 cc/h overnight -Recheck chemistries in the morning Admission Diagnosis 1. Sepsisas evidenced by elevated white blood cell count and elevated lactic acid. She is noted to have no evidence for pneumonia at least by early chest x- ray. CT of the abdomen does reveal inflammation of her gallbladder region. 2. COPDcurrently with mild exacerbation 3. Dehydration Admission Status: Inpatient Order (span 2 midnights) Reason for Inpatient Admission: Further IV fluids. Emergency department as already initiated cefepime 1 NITHIN Terry MD Jun 22, 2022 17:02
[2022-06-22 19:13] VITALS: BP 137/78
[2022-06-22] MEDS: RT-ALBUTEROL/IPRATROPIUM 3 ML (DUONEB) VIAL INH SCH ×2 (19:14→22:13)
[2022-06-22] MEDS: FAMOTIDINE 20 MG (PEPCID) TABLET PO SCH (20:13)
[2022-06-22] MEDS: CEFEPIME 1,000 MG/NS 50 ML IVPB IV SCH ×2 (21:15)
[2022-06-23] VITALS (7 sets, daily range): BP systolic 129–166; BP diastolic 65–84
[2022-06-23] MEDS: NS IV 1000 ML 1,000 ML IV SCH ×3 (01:15→20:55)
[2022-06-23] MEDS: RT-ALBUTEROL/IPRATROPIUM 3 ML (DUONEB) VIAL INH SCH ×6 (02:43→22:08)
[2022-06-23] MEDS: CEFEPIME 1,000 MG/NS 50 ML IVPB IV SCH ×6 (05:53→20:55)
[2022-06-23] MEDS: ACETAMINOPHEN 325 MG TABLET PO PRN ×2 (05:59→21:16)
[2022-06-23 07:10] LABS: BASOPHILS % (AUTO) 0 % (0-10); EOSINOPHILS # (AUTO) 0.2 10^3/uL (0.0-0.3); EOSINOPHILS % (AUTO) 2 % (0-10); HEMATOCRIT 36 % (35-52); HEMOGLOBIN 11.8 g/dL (11.5-16.0); LYMPHOCYTES % (AUTO) 10 % (12-44); MEAN CORPUSCULAR HEMOGLOBIN 31 pg (25-34); MEAN CORPUSCULAR HGB CONC 33 g/dL (32-36); MEAN CORPUSCULAR VOLUME 92 fL (80-99); MEAN PLATELET VOLUME 9.4 fL (9.0-12.2); MONOCYTES # (AUTO) 0.9 10^3/uL (0.0-1.0); MONOCYTES % (AUTO) 10 % (0-12); NEUTROPHILS # (AUTO) 7.5 10^3/uL (1.8-7.8); NEUTROPHILS % (AUTO) 78 % (42-75); PLATELET COUNT 160 10^3/uL (130-400); WHITE BLOOD COUNT 9.6 10^3/uL (4.3-11.0)
[2022-06-23 07:25] LABS: CALCIUM 8.2 MG/DL (8.5-10.1); CREATININE SERUM 0.71 MG/DL (0.60-1.30); POTASSIUM 3.5 MMOL/L (3.6-5.0)
--- NOTE | 2022-06-23 08:04 | Progress Note ---
Subjective Date Seen by a Provider: Jun 23, 2022 Time Seen by a Provider: 07:05 Subjective/Events-last exam She has slight SOB. She reports this is pretty common for her. Still having cough. Focused Exam Lactate Level 06/22/22 12:15: Lactic Acid Level 3.84*H 06/22/22 14:14: Lactic Acid Level 0.80 Time of Focused Exam: 14:02 Objective Exam Vital Signs Date Time Temp Pulse Resp B/P (MAP) Pulse Ox O2 Delivery O2 Flow Rate FiO2 06/23/22 06:37 37.1 06/23/22 06:29 37.1 06/23/22 05:59 38.0 06/23/22 04:00 38.0 96 20 159/81 (107) 95 Nasal Cannula 2.00 06/23/22 02:43 97 Nasal Cannula 2.00 06/23/22 00:18 37.0 86 18 129/65 (86) 94 Nasal Cannula 2.00 06/22/22 22:14 97 Nasal Cannula 2.00 06/22/22 20:00 Nasal Cannula 2.00 06/22/22 19:14 98 Nasal Cannula 2.00 06/22/22 19:13 37.0 101 20 137/78 (97) 97 Nasal Cannula 2.00 2.00 06/22/22 16:22 37.0 85 94 06/22/22 16:17 94 Nasal Cannula 2.00 06/22/22 16:02 37.0 85 18 135/75 (95) Nasal Cannula 06/22/22 14:25 36.9 88 18 125/79 94 Nasal Cannula 2.00 2.00 06/22/22 11:49 38.0 06/22/22 11:45 Nasal Cannula 2.00 06/22/22 11:15 38.0 111 16 127/84 (98) 94 Nasal Cannula I & O 06/23/22 07:00 Intake Total 3540 ml Output Total 600 ml Balance 2940 ml Capillary Refill : Less Than 3 Seconds General Appearance: Mild Distress HEENT: Pharynx Normal Respiratory: Lungs Clear (but distant), No Accessory Muscle Use, Wheezing (slight) Cardiovascular: Regular Rate, Rhythm Gastrointestinal: soft; No distended, No guarding, No rebound Neurologic/Psychiatric: Alert, Oriented x3 Results Lab Laboratory Tests 06/22/22 11:35: Prothrombin Time 12.7, INR Comment 0.9, Activated Partial Thromboplast Time 34 06/22/22 11:40: White Blood Count 19.7H, Red Blood Count 4.93, Hemoglobin 14.8, Hematocrit 45, Mean Corpuscular Volume 91, Mean Corpuscular Hemoglobin 30, Mean Corpuscular Hemoglobin Concent 33, Red Cell Distribution Width 12.8, Platelet Count 265, Mean Platelet Volume 9.2, Immature Granulocyte % (Auto) 1, Neutrophils (%) (Auto) 88H, Lymphocytes (%) (Auto) 4L, Monocytes (%) (Auto) 7, Eosinophils (%) (Auto) 1, Basophils (%) (Auto) 0, Neutrophils # (Auto) 17.3H, Lymphocytes # (Auto) 0.8L, Monocytes # (Auto) 1.4H, Eosinophils # (Auto) 0.1, Basophils # (Auto) 0.1, Immature Granulocyte # (Auto) 0.1, Neutrophils % (Manual) 89, Lymphocytes % (Manual) 3, Monocytes % (Manual) 8, Eosinophils % (Manual) 0, Basophils % (Manual) 0, Band Neutrophils 0, Blood Morphology Comment NORMAL, Sodium Level 142, Potassium Level 4.0, Chloride Level 106, Carbon Dioxide Level 22, Anion Gap 14, Blood Urea Nitrogen 12, Creatinine 0.87, Estimat Glomerular Filtration Rate 69, BUN/Creatinine Ratio 14, Glucose Level 127H, Calcium Level 9.4, Corrected Calcium 9.1, Total Bilirubin 1.1H, Aspartate Amino Transf (AST/SGOT) 16, Alanine Aminotransferase (ALT/SGPT) 19, Alkaline Phosphatase 55, C-Reactive Protein High Sensitivity 2.81H, Total Protein 6.9, Albumin 4.4, Procalcitonin 0.10H, Influenza Type A (RT-PCR) Not Detected, Influenza Type B (RT-PCR) Not Detected, SARS-CoV-2 RNA (RT-PCR) Not Detected 06/22/22 12:15: Lactic Acid Level 3.84*H 06/22/22 12:20: Urine Color YELLOW, Urine Clarity CLEAR, Urine pH 6.0, Urine Specific [place] 1.025H, Urine Protein TRACEH, Urine Glucose (UA) NEGATIVE, Urine Ketones NEGATIVE, Urine Nitrite NEGATIVE, Urine Bilirubin NEGATIVE, Urine Urobilinogen 0.2, Urine Leukocyte Esterase NEGATIVE, Urine RBC (Auto) NEGATIVE, Urine RBC NONE, Urine WBC NONE, Urine Squamous Epithelial Cells RARE, Urine Crystals NONE, Urine Bacteria NEGATIVE, Urine Casts NONE, Urine Mucus NEGATIVE, Urine Culture Indicated NO 06/22/22 14:14: Lactic Acid Level 0.80 06/23/22 06:53: White Blood Count 9.6, Red Blood Count 3.86, Hemoglobin 11.8#, Hematocrit 36, Mean Corpuscular Volume 92, Mean Corpuscular Hemoglobin 31, Mean Corpuscular Hemoglobin Concent 33, Red Cell Distribution Width 13.1, Platelet Count 160, Mean Platelet Volume 9.4, Immature Granulocyte % (Auto) 1, Neutrophils (%) (Auto) 78H, Lymphocytes (%) (Auto) 10L, Monocytes (%) (Auto) 10, Eosinophils (%) (Auto) 2, Basophils (%) (Auto) 0, Neutrophils # (Auto) 7.5, Lymphocytes # (Auto) 1.0, Monocytes # (Auto) 0.9, Eosinophils # (Auto) 0.2, Basophils # (Auto) 0.0, Immature Granulocyte # (Auto) 0.1, Sodium Level 142, Potassium Level 3.5L, Chloride Level 111H, Carbon Dioxide Level 20L, Anion Gap 11, Blood Urea Nitrogen 7, Creatinine 0.71, Estimat Glomerular Filtration Rate 88, BUN/Creatinine Ratio 10, Glucose Level 101, Calcium Level 8.2L Assessment/Plan Assessment/Plan Assess & Plan/Chief Complaint 1. Sepsisas evidenced by elevated white blood cell count and elevated lactic acid. She is noted to have no evidence for pneumonia at least by early chest x- ray. CT of the abdomen does reveal inflammation of her gallbladder region. -Surgical consultation to ensure status of cholecystitis -Cefepime has been initiated -Blood cultures pending -Recheck white blood cell count in the morning of June 2306/23 -recheck cxr this am 2. COPDcurrently with mild exacerbation -We will maintain her on home COPD medications 3. Dehydration -Continue with IV fluids at 100 cc/h overnight -Recheck chemistries in the morning 06/23 -plan on decreasing IVFs in the am of 06/24 Clinical Quality Measures Admission Status Admission Dx 1. Sepsisas evidenced by elevated white blood cell count and elevated lactic acid. She is noted to have no evidence for pneumonia at least by early chest x- ray. CT of the abdomen does reveal inflammation of her gallbladder region. 2. COPDcurrently with mild exacerbation 3. Dehydration TYRON BOOTHE MD Jun 23, 2022 08:04
--- NOTE | 2022-06-23 08:09 | Progress Note - Surgery ---
SUE DOMINGUEZ 06/23/22 0809: Subjective Date Seen by a Provider: Jun 23, 2022 Time Seen by a Provider: 08:04 Subjective/Events-last exam Patient resting in bed comfortably on 2L O2 NC. Patient had a 38.0 temp last night. States she did not ever feel feverish. States she feels okay this morning . Does have a dry cough and is maybe struggling to breathe a bit more than yesterday. Review of Systems General: No Chills, No Night Sweats HEENT: No Head Aches, No Visual Changes Pulmonary: Dyspnea (Slight increase from baseline), Cough Cardiovascular: No: Chest Pain, Palpitations Gastrointestinal: No: Nausea, Vomiting, Abdominal Pain Genitourinary: No Dysuria, No Frequency Neurological: No: Weakness, Numbness Focused Exam Lactate Level 06/22/22 12:15: Lactic Acid Level 3.84*H 06/22/22 14:14: Lactic Acid Level 0.80 Time of Focused Exam: 14:02 Objective Exam Vital Signs Date Time Temp Pulse Resp B/P (MAP) Pulse Ox O2 Delivery O2 Flow Rate FiO2 06/23/22 06:37 37.1 06/23/22 06:29 37.1 06/23/22 05:59 38.0 06/23/22 04:00 38.0 96 20 159/81 (107) 95 Nasal Cannula 2.00 06/23/22 02:43 97 Nasal Cannula 2.00 06/23/22 00:18 37.0 86 18 129/65 (86) 94 Nasal Cannula 2.00 06/22/22 22:14 97 Nasal Cannula 2.00 06/22/22 20:00 Nasal Cannula 2.00 06/22/22 19:14 98 Nasal Cannula 2.00 06/22/22 19:13 37.0 101 20 137/78 (97) 97 Nasal Cannula 2.00 2.00 06/22/22 16:22 37.0 85 94 06/22/22 16:17 94 Nasal Cannula 2.00 06/22/22 16:02 37.0 85 18 135/75 (95) Nasal Cannula 06/22/22 14:25 36.9 88 18 125/79 94 Nasal Cannula 2.00 2.00 06/22/22 11:49 38.0 06/22/22 11:45 Nasal Cannula 2.00 06/22/22 11:15 38.0 111 16 127/84 (98) 94 Nasal Cannula I & O 06/23/22 07:00 Intake Total 3540 ml Output Total 600 ml Balance 2940 ml Capillary Refill : Less Than 3 Seconds General Appearance: No Apparent Distress, Chronically ill HEENT: PERRL/EOMI Neck: Non Tender, Supple Respiratory: Lungs Clear, No Accessory Muscle Use, No Respiratory Distress; No Accessory Muscle Use; Decreased Breath Sounds, Wheezing (expiratory; slightly more prominent today than yesterday ) Cardiovascular: Regular Rate, Rhythm, No Murmur Peripheral Pulses: 2+ Radial Pulses (R), 2+ Radial Pulses (L) Gastrointestinal: non tender, soft; No hernia Extremity: Non Tender, No Calf Tenderness, No Pedal Edema Neurologic/Psychiatric: Alert, Oriented x3 Skin: Normal Color, Warm/Dry Results Lab Laboratory Tests 06/22/22 11:35: Prothrombin Time 12.7, INR Comment 0.9, Activated Partial Thromboplast Time 34 06/22/22 11:40: White Blood Count 19.7H, Red Blood Count 4.93, Hemoglobin 14.8, Hematocrit 45, Mean Corpuscular Volume 91, Mean Corpuscular Hemoglobin 30, Mean Corpuscular Hemoglobin Concent 33, Red Cell Distribution Width 12.8, Platelet Count 265, Mean Platelet Volume 9.2, Immature Granulocyte % (Auto) 1, Neutrophils (%) (Auto) 88H, Lymphocytes (%) (Auto) 4L, Monocytes (%) (Auto) 7, Eosinophils (%) (Auto) 1, Basophils (%) (Auto) 0, Neutrophils # (Auto) 17.3H, Lymphocytes # (Auto) 0.8L, Monocytes # (Auto) 1.4H, Eosinophils # (Auto) 0.1, Basophils # (Auto) 0.1, Immature Granulocyte # (Auto) 0.1, Neutrophils % (Manual) 89, Lymphocytes % (Manual) 3, Monocytes % (Manual) 8, Eosinophils % (Manual) 0, Basophils % (Manual) 0, Band Neutrophils 0, Blood Morphology Comment NORMAL, Sodium Level 142, Potassium Level 4.0, Chloride Level 106, Carbon Dioxide Level 22, Anion Gap 14, Blood Urea Nitrogen 12, Creatinine 0.87, Estimat Glomerular Filtration Rate 69, BUN/Creatinine Ratio 14, Glucose Level 127H, Calcium Level 9.4, Corrected Calcium 9.1, Total Bilirubin 1.1H, Aspartate Amino Transf (AST/SGOT) 16, Alanine Aminotransferase (ALT/SGPT) 19, Alkaline Phosphatase 55, C-Reactive Protein High Sensitivity 2.81H, Total Protein 6.9, Albumin 4.4, Procalcitonin 0.10H, Influenza Type A (RT-PCR) Not Detected, Influenza Type B (RT-PCR) Not Detected, SARS-CoV-2 RNA (RT-PCR) Not Detected 06/22/22 12:15: Lactic Acid Level 3.84*H 06/22/22 12:20: Urine Color YELLOW, Urine Clarity CLEAR, Urine pH 6.0, Urine Specific [place] 1.025H, Urine Protein TRACEH, Urine Glucose (UA) NEGATIVE, Urine Ketones NEGATIVE, Urine Nitrite NEGATIVE, Urine Bilirubin NEGATIVE, Urine Urobilinogen 0.2, Urine Leukocyte Esterase NEGATIVE, Urine RBC (Auto) NEGATIVE, Urine RBC NONE, Urine WBC NONE, Urine Squamous Epithelial Cells RARE, Urine Crystals NONE, Urine Bacteria NEGATIVE, Urine Casts NONE, Urine Mucus NEGATIVE, Urine Culture Indicated NO 06/22/22 14:14: Lactic Acid Level 0.80 06/23/22 06:53: White Blood Count 9.6, Red Blood Count 3.86, Hemoglobin 11.8#, Hematocrit 36, Mean Corpuscular Volume 92, Mean Corpuscular Hemoglobin 31, Mean Corpuscular Hemoglobin Concent 33, Red Cell Distribution Width 13.1, Platelet Count 160, Mean Platelet Volume 9.4, Immature Granulocyte % (Auto) 1, Neutrophils (%) (Auto) 78H, Lymphocytes (%) (Auto) 10L, Monocytes (%) (Auto) 10, Eosinophils (%) (Auto) 2, Basophils (%) (Auto) 0, Neutrophils # (Auto) 7.5, Lymphocytes # (Auto) 1.0, Monocytes # (Auto) 0.9, Eosinophils # (Auto) 0.2, Basophils # (Auto) 0.0, Immature Granulocyte # (Auto) 0.1, Sodium Level 142, Potassium Level 3.5L, Chloride Level 111H, Carbon Dioxide Level 20L, Anion Gap 11, Blood Urea Nitrogen 7, Creatinine 0.71, Estimat Glomerular Filtration Rate 88, BUN/Creatinine Ratio 10, Glucose Level 101, Calcium Level 8.2L Assessment/Plan Assessment/Plan Assessment/Plan Leukocytosis - Resolved COPD exacerbation Lactic Acidosis - Resolved Cholelithiasis - seen on CT Hypokalemia Plan IVF, Anti-emetics, Breathing Treatments, Up and Ambulating, Replete K+ Patient was started on Cefepime in the ER, patient has no obvious source of infection at this time and clinically looks okay. Still awaiting Repeat CXR. Patient's repeat labs are reassuring. Patient is having increase wheezing today, breathing tx per home meds/RT I reviewed the CT myself and see a mildly distended GB with some stones, but did not appreciate any inflammation around it. CBD appeared normal size. JAMAR BLANTON DO 06/23/22 1140: Subjective Time Seen by a Provider: 10:57 Subjective/Events-last exam Pt seen and examined, states she feels fine today and is hoping she can go home. Review of Systems General: No Chills, No Night Sweats Pulmonary: Dyspnea (Slight increase from baseline), Cough Cardiovascular: No: Chest Pain, Palpitations Gastrointestinal: No: Nausea, Vomiting, Abdominal Pain Genitourinary: No Dysuria, No Frequency Objective Exam General Appearance: No Apparent Distress, Chronically ill, Thin HEENT: PERRL/EOMI Respiratory: No Accessory Muscle Use, No Respiratory Distress, Decreased Breath Sounds, Wheezing (expiratory; slightly more prominent today than yesterday ) Cardiovascular: Regular Rate, Rhythm, No Murmur Gastrointestinal: non tender, soft; No hernia Extremity: No Calf Tenderness, No Pedal Edema Neurologic/Psychiatric: Alert, Oriented x3 Skin: Normal Color, Warm/Dry Assessment/Plan Assessment/Plan Assessment/Plan Leukocytosis - Resolved COPD exacerbation Lactic Acidosis - Resolved Cholelithiasis - seen on CT Hypokalemia Plan IVF, Anti-emetics, Breathing Treatments, Up and Ambulating, Replete K+ Patient was started on Cefepime in the ER, patient has no obvious source of infection at this time and clinically looks okay. Still awaiting Repeat CXR. Patient's repeat labs are reassuring. Patient is having increase wheezing today, breathing tx per home meds/RT I reviewed the CT myself and see a mildly distended GB with some stones, but did not appreciate any inflammation around it. CBD appeared normal size. Supervisory-Addendum Brief Verification & Attestation Participated in pt care: history, MDM, physical Personally performed: exam, history, MDM, supervision of care Care discussed with: Medical Student Procedures: n/a Verification and Attestation of Medical Student E/M Service A medical student performed and documented this service. I then reviewed and verified all information documented by the medical student and made modifications to such information, when appropriate. I personally performed a physical exam, medical decision making and then discussed any differences between the notes and made revisions as necessary to create one note. Jamar Blanton , 06/23/22 , 11:40 SUE DOMINGUEZ Jun 23, 2022 08:09 JAMAR BLANTON DO Jun 23, 2022 11:40
--- NOTE | 2022-06-23 15:23 | Diagnostic Imaging Report ---
INDICATION: Shortness of breath, cough. COMPARISON: 06/22/2022. FINDINGS: Today's film is mismarked "left and right". Air trapping and COPD, chronic. No failure, effusion or pneumothorax. IMPRESSION: Clear hyperexpanded lungs. No change or acute appearing abnormality. Dictated by: Dictated on workstation # [id number]
[2022-06-23] MEDS: FAMOTIDINE 20 MG (PEPCID) TABLET PO SCH (20:55)
[2022-06-23] MEDS: guaiFENesin/CODEINE (ROBITUSSIN AC) 10ML UDC PO PRN (21:50)
[2022-06-24 00:22] VITALS: BP 129/76
[2022-06-24] MEDS: RT-ALBUTEROL/IPRATROPIUM 3 ML (DUONEB) VIAL INH SCH ×6 (02:35→21:56)
[2022-06-24 04:34] VITALS: BP 161/84
[2022-06-24] MEDS: CEFEPIME 1,000 MG/NS 50 ML IVPB IV SCH ×6 (06:16→21:45)
[2022-06-24] MEDS: NS IV 1000 ML 1,000 ML IV SCH (06:16)
[2022-06-24] MEDS: guaiFENesin/CODEINE (ROBITUSSIN AC) 10ML UDC PO PRN ×3 (07:33→23:07)
[2022-06-24 07:52] VITALS: BP 158/90
[2022-06-24] MEDS ORDERED: methylPREDNISolone 40 MG/ML (Solu-MEDROL) VIAL IV NR (08:00)
--- NOTE | 2022-06-24 08:00 | Progress Note ---
Subjective Date Seen by a Provider: Jun 24, 2022 Time Seen by a Provider: 07:10 Subjective/Events-last exam overall patient feeling a little bit better. She still is having some shortness of breath. No reported fever. She hasn't been taking her steroid Focused Exam Lactate Level 06/22/22 12:15: Lactic Acid Level 3.84*H 06/22/22 14:14: Lactic Acid Level 0.80 Time of Focused Exam: 14:02 Objective Exam Vital Signs Date Time Temp Pulse Resp B/P (MAP) Pulse Ox O2 Delivery O2 Flow Rate FiO2 06/24/22 07:52 36.4 80 18 158/90 (112) 96 Nasal Cannula 2.00 06/24/22 06:55 98 Nasal Cannula 2.00 06/24/22 04:34 36.3 82 20 161/84 (109) 99 Nasal Cannula 2.50 06/24/22 02:35 97 Nasal Cannula 2.00 06/24/22 00:22 36.1 81 18 129/76 (93) 97 Nasal Cannula 2.50 06/23/22 22:08 96 Nasal Cannula 2.00 06/23/22 20:10 38.3 85 18 160/83 (108) 96 Nasal Cannula 2.50 06/23/22 20:00 Nasal Cannula 2.00 06/23/22 19:18 97 Nasal Cannula 2.50 06/23/22 15:43 37.8 86 20 166/84 (111) 97 Nasal Cannula 2.00 06/23/22 15:30 96 Nasal Cannula 2.00 06/23/22 12:21 36.7 79 18 137/81 (99) 96 Nasal Cannula 2.00 06/23/22 12:00 37.2 92 18 150/81 (104) 97 Nasal Cannula 2.00 2.00 06/23/22 10:55 97 Nasal Cannula 2.00 06/23/22 08:11 97 Nasal Cannula 2.00 06/23/22 08:00 97 Nasal Cannula 2.00 06/23/22 08:00 37.2 92 18 150/81 (104) 96 Room Air 2.00 I & O 06/24/22 07:00 Intake Total 1610 ml Output Total 3500 ml Balance -1890 ml Capillary Refill : Less Than 3 Seconds General Appearance: Mild Distress (due to shortness of breath) Respiratory: Lungs Clear (but distant lung sounds.) Cardiovascular: Regular Rate, Rhythm Gastrointestinal: soft; No guarding, No rebound, No tenderness Extremity: Normal Capillary Refill Neurologic/Psychiatric: Alert, Oriented x3 Results Lab Microbiology 06/22/22 Blood Culture - Preliminary, Resulted No growth 06/22/22 Urine Culture - Final, Complete >=3 Gram Positive Isolates Assessment/Plan Assessment/Plan Assess & Plan/Chief Complaint 1. Sepsisas evidenced by elevated white blood cell count and elevated lactic acid. She is noted to have no evidence for pneumonia at least by early chest x- ray. CT of the abdomen does reveal inflammation of her gallbladder region. -Surgical consultation to ensure status of cholecystitis -Cefepime has been initiated -Blood cultures pending -Recheck white blood cell count in the morning of June 2306/23 -recheck cxr this am 06/24 -blood cultures are noted to be negative. Her chest x-ray also did not reveal any infiltrates. -appreciate surgical consultation she is noted to have mild distention of the gallbladder with some stones but, and bile duct is not enlarged. 2. COPDcurrently with mild exacerbation -We will maintain her on home COPD medications 06/24 -give dose of solumedrol 80mg this am 3. Dehydration -Continue with IV fluids at 100 cc/h overnight -Recheck chemistries in the morning 06/24 -decrease IV fluids to 50 cc per hour. 06/23 -plan on decreasing IVFs in the am of 06/24 Clinical Quality Measures Admission Status Admission Dx 1. Sepsisas evidenced by elevated white blood cell count and elevated lactic acid. She is noted to have no evidence for pneumonia at least by early chest x- ray. CT of the abdomen does reveal inflammation of her gallbladder region. 2. COPDcurrently with mild exacerbation 3. Dehydration TYRON BOOTHE MD Jun 24, 2022 08:00
--- NOTE | 2022-06-24 08:34 | Progress Note - Surgery ---
RATNAIDACHONG GOODMAN 06/24/22 0834: Subjective Date Seen by a Provider: Jun 24, 2022 Time Seen by a Provider: 08:30 Subjective/Events-last exam Pt is sitting up in bed sleeping. Pt states no change in her SOB today and notes a new cough producing green mucus today. Pt also notes that she felt nauseous this morning but it has since resolved after receiving medications this morning. Pt notes no issues with BMs or voiding but does note that she has been told to "drink more water". Pt states that she hasn't been drinking because she does not want to use the restroom due to the IVs. Pt has been tolerating diet, eating one meal per day as is her usual. Pt denies current nausea, vomiting, CP, abd pain, lightheadness, REN, diarrhea, and leg swelling. CXR 06/23: Clear hyperexpanded lungs. No acute abnormalities Review of Systems General: No Night Sweats, No Appetite HEENT: No Head Aches, No Visual Changes Pulmonary: Dyspnea; No Cough Cardiovascular: No: Chest Pain, Lt Headedness Gastrointestinal: No: Nausea, Vomiting, Abdominal Pain, Diarrhea Genitourinary: No Dysuria, No Hematuria Musculoskeletal: No: neck pain, shoulder pain Neurological: No: Weakness, Numbness Focused Exam Lactate Level 06/22/22 12:15: Lactic Acid Level 3.84*H 06/22/22 14:14: Lactic Acid Level 0.80 Time of Focused Exam: 14:02 Objective Exam Vital Signs Date Time Temp Pulse Resp B/P (MAP) Pulse Ox O2 Delivery O2 Flow Rate FiO2 06/24/22 07:52 36.4 80 18 158/90 (112) 96 Nasal Cannula 2.00 06/24/22 06:55 98 Nasal Cannula 2.00 06/24/22 04:34 36.3 82 20 161/84 (109) 99 Nasal Cannula 2.50 06/24/22 02:35 97 Nasal Cannula 2.00 06/24/22 00:22 36.1 81 18 129/76 (93) 97 Nasal Cannula 2.50 06/23/22 22:08 96 Nasal Cannula 2.00 06/23/22 20:10 38.3 85 18 160/83 (108) 96 Nasal Cannula 2.50 06/23/22 20:00 Nasal Cannula 2.00 06/23/22 19:18 97 Nasal Cannula 2.50 06/23/22 15:43 37.8 86 20 166/84 (111) 97 Nasal Cannula 2.00 06/23/22 15:30 96 Nasal Cannula 2.00 06/23/22 12:21 36.7 79 18 137/81 (99) 96 Nasal Cannula 2.00 06/23/22 12:00 37.2 92 18 150/81 (104) 97 Nasal Cannula 2.00 2.00 06/23/22 10:55 97 Nasal Cannula 2.00 I & O 06/24/22 07:00 Intake Total 1610 ml Output Total 3500 ml Balance -1890 ml Capillary Refill : Less Than 3 Seconds General Appearance: No Apparent Distress, Thin HEENT: PERRL/EOMI, Moist Mucous Membranes; No Photophobia Neck: Normal Inspection, Non Tender Respiratory: No Accessory Muscle Use, Wheezing (slight expiratory wheezes diffusely ) Cardiovascular: Regular Rate, Rhythm, No Gallop, No Murmur Peripheral Pulses: 2+ Radial Pulses (R), 2+ Radial Pulses (L) Gastrointestinal: non tender, soft; No distended, No guarding, No rebound Extremity: No Calf Tenderness, No Pedal Edema Neurologic/Psychiatric: Alert, Oriented x3 Skin: Normal Color, Warm/Dry Lymphatic: No Adenopathy Results Lab Microbiology 06/22/22 Blood Culture - Preliminary, Resulted No growth 06/22/22 Urine Culture - Final, Complete >=3 Gram Positive Isolates Assessment/Plan Assessment/Plan Assessment/Plan Leukocytosis - Resolved COPD exacerbation Lactic Acidosis - Resolved Cholelithiasis - seen on CT Hypokalemia Plan Continue Abx Continues to have wheezing, continue current breathing treatments and home meds NS IVF Continue ambulation as tolerated Anti-emetics prn JAYE BURROUGHS DO 06/24/22 1149: Subjective Time Seen by a Provider: 10:11 Subjective/Events-last exam Pt is sitting up in bed sleeping; easilyr arousable. Pt states no change in her SOB today, but notes a new cough producing green mucus today. Pt also notes that she felt nauseous this morning but it has since resolved after receiving medications this morning. Pt notes no issues with BMs or voiding but does note that she has been told to "drink more water". Pt states that she hasn't been drinking because she does not want to use the restroom due to the IVs. Pt has been tolerating diet, eating one meal per day as is her usual. Pt thinks she is going home tomorrow. There is nothing for surgery to do at this time and I will sign off. Supervisory-Addendum Brief Verification & Attestation Participated in pt care: history, MDM, physical Personally performed: exam, history, MDM, supervision of care Care discussed with: Medical Student Procedures: n/a Verification and Attestation of Medical Student E/M Service A medical student performed and documented this service. I then reviewed and verified all information documented by the medical student and made modifications to such information, when appropriate. I personally performed a physical exam, medical decision making and then discussed any differences between the notes and made revisions as necessary to create one note. Jaye Burroughs , 06/24/22 , 11:49 CHONG AMARO Jun 24, 2022 08:34 JAYE BURROUGHS DO Jun 24, 2022 11:49
[2022-06-24 11:17] VITALS: BP 135/78
[2022-06-24 15:53] VITALS: BP 128/80
[2022-06-24 19:09] VITALS: BP 134/70
[2022-06-24] MEDS: FAMOTIDINE 20 MG (PEPCID) TABLET PO SCH (20:17)
[2022-06-25] VITALS: BP 160/79
[2022-06-25] MEDS: NS IV 1000 ML 1,000 ML IV SCH (01:58)
[2022-06-25] MEDS: RT-ALBUTEROL/IPRATROPIUM 3 ML (DUONEB) VIAL INH SCH ×2 (02:32→07:15)
[2022-06-25 03:24] VITALS: BP 133/79
[2022-06-25] MEDS: CEFEPIME 1,000 MG/NS 50 ML IVPB IV SCH ×4 (05:53→14:04)
--- NOTE | 2022-06-25 07:46 | Discharge Summary ---
Diagnosis/Chief Complaint Date of Admission Jun 22, 2022 at 13:52 Date of Discharge June 25, 2022 Discharge Date: Jun 25, 2022 Discharge Time: 14:00 Admission Diagnosis Admission Diagnosis 1. Sepsisas evidenced by elevated white blood cell count and elevated lactic acid. 2. COPDcurrently with mild exacerbation 3. Dehydration Discharge Diagnosis 1. Sepsisas evidenced by elevated white blood cell count and elevated lactic acid. 2. COPDcurrently with mild exacerbation 3. Dehydration Reason Hospital Visit 77-year-old female brought in by family member to emergency department this morning after apparently having shortness of breath. Additionally few episodes of diarrhea and one episode of emesis today. She has been bothered by this for the past 2 days. 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 She reports unable to afford steroid inhalers. She denies any fever. She does have a cough that has been a little bit more than usual for her. Her cough is slightly productive. She admits to not leaving the house and thus not exposing herself to various community infections. She currently does not admit to any abdominal pain and specifically not any right upper quadrant abdominal pain. Discharge Summary Hospital Course Was the Problem List Reviewed?: Yes Hospital Course patient was admitted on June 22 with diagnosis of sepsisas evidenced by elevated white blood cell count and elevated lactic acid. She is noted to have no evidence for pneumonia at least by early chest x-ray. CT of the abdomen does reveal inflammation of her gallbladder region. -Surgical consultation to ensure status of cholecystitis. Cefepime was initiated in the emergency department. Blood cultures were also obtained. Plan was to recheck white blood cell count in the morning of June 23. Also at that time chest x-ray was performed and did not reveal any infiltrates. Her white blood cell count returned back to normal. In addition on June 22 her second lactic acid had decreased from 3.8-0.8. Surgery had noted her CT of abdomen which revealed some mild distention of the gallbladder with few stones but common bile duct was not dilated She was also treated for COPD nd is with mild to exacerbation. She was given her home medications and did receive albuterol breathing treatments during the course of her stay. Ultimately she was given IV Solu-Medrol 80 mg on June 24 and is to give her quite a bit of relief. Also during the course of her hospital stay she was treated for dehydration. She had received fluid rehydration in the emergency department and this was continued on the floor at 100 cc per hour. Ultimately this was continued at 100 until June 24 when it was decreased to 50 cc per hour. Her chemistries were also followed during the course of her stay. She was felt ready for dismissal on June 25, 2022. She was breathing much easier and she was tolerating diet. She will be released to home on her regular home medications but her prednisone is increased to 10 mg daily. Labs Laboratory Tests 06/22/22 11:35: 06/22/22 11:40: White Blood Count 19.7H, Neutrophils (%) (Auto) 88H, Lymphocytes (%) (Auto) 4L, Neutrophils # (Auto) 17.3H, Lymphocytes # (Auto) 0.8L, Monocytes # (Auto) 1.4H, Glucose Level 127H, Total Bilirubin 1.1H, C-Reactive Protein High Sensitivity 2.81H, Procalcitonin 0.10H 06/22/22 12:15: Lactic Acid Level 3.84*H 06/22/22 12:20: Urine Specific [place] 1.025H, Urine Protein TRACEH 06/22/22 14:14: 06/23/22 06:53: Neutrophils (%) (Auto) 78H, Lymphocytes (%) (Auto) 10L, Potassium Level 3.5L, Chloride Level 111H, Carbon Dioxide Level 20L, Calcium Level 8.2L Procedures None. Consultations [facility] [place] Discharge Physical Examination Allergies: Coded Allergies: No Known Drug Allergies (Unverified , 06/22/22) Vitals & I&Os Vital Signs Date Time Temp Pulse Resp B/P (MAP) Pulse Ox O2 Delivery O2 Flow Rate FiO2 06/25/22 07:15 98 Nasal Cannula 2.00 06/25/22 03:24 36.9 65 16 133/79 (97) General Appearance: Alert, Oriented X3 Respiratory: Clear to Auscultation Cardiovascular: Regular Rate Abdominal: Normal Bowel Sounds, Soft, No Tenderness Discharge Home Medications Reviewed and agree with Discharge Medication list on patient's Discharge Instruction sheet Instructions to Patient/Family Please see electronic discharge instructions given to patient. TYRON BOOTHE MD Jun 25, 2022 07:46
[2022-06-25] MEDS ORDERED: methylPREDNISolone 40 MG/ML (Solu-MEDROL) VIAL IV ONE (08:00)
[2022-06-25] MEDS ORDERED: FAMO20TA5 PO (08:03)
--- NOTE | 2022-06-25 08:05 | Discharge Inst-Simple/Standard ---
Discharge Inst-Standard Reconcile Patient Problems Problems Reviewed?: Yes Discharge Medications New, Converted or Re-Newed RX: Transmitted to Pharmacy ([facility]) Patient Instructions/Follow Up Plan of Care/Instructions/FU: May take 2 of the 5mg prednisone daily until seen by Dr Boothe within the week. Activity as Tolerated: Yes Discharge Diet: Regular Diet Return to The Hospital For: Fever greater than 101. Difficulty breathing TYRON BOOTHE MD Jun 25, 2022 08:05
[2022-06-25 09:00] VITALS: BP 151/75
[2022-06-25] MEDS: guaiFENesin/CODEINE (ROBITUSSIN AC) 10ML UDC PO PRN (11:02)
[2022-06-25 12:00] VITALS: BP 134/71
[2022-06-25 14:53] VITALS: BP 134/71
== END 2022-06-25 14:50 | disposition home or self-care (01) | DRG 872 ==
LOC: EDUNIT# 11:14 → ER 11:16 → 4TH 13:52
PROVIDERS: ADMIT Family Medicine; ATTEND Family Medicine
DX: A41.9 Sepsis, unspecified organism (principal); E87.20 Acidosis, unspecified; J43.9 Emphysema, unspecified; Z87.891 Personal history of nicotine dependence; F41.9 Anxiety disorder, unspecified; M81.0 Age-related osteoporosis without current pathological fracture; E87.6 Hypokalemia; K80.20 Calculus of gallbladder without cholecystitis without obstruction; Z20.822 Contact with and (suspected) exposure to COVID-19
CPT/HCPCS: 36415; 71045; 71046; 74177; 80048; 80053; 81000; 83605; 84145; 85007; 85025; 85027; 85610; 85730; 86141; 87040; 87088; 87636; 90662; 94640; 94760

== ENCOUNTER → 2022-07-12 | Outpatient (CLI) | payer MEDICARE ==
[~2022-07-12] MED LIST changes: +FAMO20TA5 PO; +RT-ALBUTEROL SULF 2.5 MG/3 ML PRE-MIX VIAL INH ONE
--- NOTE | 2022-07-12 15:49 | Diagnostic Imaging Report ---
INDICATION: COPD COMPARISON: 06/23/2022 FINDINGS: Frontal and lateral views of the chest demonstrate normal heart size and pulmonary vascularity. The lungs are hyperinflated, but are otherwise clear. There are no signs of infiltrate, pleural effusions or pneumothoraces. The visualized osseous structures show no acute abnormalities. IMPRESSION: 1. No acute process. No signs of infiltrates, effusions or pneumothoraces. 2. Background obstructive pulmonary disease. Dictated by: Dictated on workstation # [id number]
== END ==
LOC: RT 10:24
PROVIDERS: ATTEND Internal Medicine Critical Care Medicine
DX: J44.9 Chronic obstructive pulmonary disease, unspecified (principal)
CPT/HCPCS: 71046; 94726

== ENCOUNTER 2022-10-19 07:10 | Inpatient (IN) | payer MEDICARE ==
[~2022-10-19] VITALS: Ht 170.2 cm; Wt 46.5 kg
[2022-10-19] VITALS (8 sets, daily range): BP systolic 106–135; BP diastolic 63–82
[~2022-10-19 07:10] MED LIST changes: -RT-ALBUTEROL SULF 2.5 MG/3 ML PRE-MIX VIAL INH ONE
[2022-10-19 07:29] LABS: BASOPHILS # (AUTO) 0.1 10^3/uL (0.0-0.1); BASOPHILS % (AUTO) 0 % (0-10); EOSINOPHILS # (AUTO) 0.3 10^3/uL (0.0-0.3); EOSINOPHILS % (AUTO) 1 % (0-10); HEMATOCRIT 45 % (35-52); HEMOGLOBIN 14.7 g/dL (11.5-16.0); LYMPHOCYTES # (AUTO) 3.6 10^3/uL (1.0-4.0); LYMPHOCYTES % (AUTO) 16 % (12-44); MEAN CORPUSCULAR HEMOGLOBIN 30 pg (25-34); MEAN CORPUSCULAR HGB CONC 33 g/dL (32-36); MEAN CORPUSCULAR VOLUME 92 fL (80-99); MEAN PLATELET VOLUME 9.1 fL (9.0-12.2); MONOCYTES % (AUTO) 9 % (0-12); NEUTROPHILS # (AUTO) 16.7 10^3/uL (1.8-7.8); NEUTROPHILS % (AUTO) 73 % (42-75); PLATELET COUNT 238 10^3/uL (130-400); WHITE BLOOD COUNT 22.9 10^3/uL (4.3-11.0)
--- NOTE | 2022-10-19 07:29 | ED Respiratory ---
General Chief Complaint: Respiratory Problems Stated Complaint: COPD EXACERBATION | SOB Nursing Triage Note: Patient to ER via [facility] w c/o shortness of breath, cough. EMS reports patient had a lung infection 2 weeks ago. Patient states she completed her abx treatment for that. EMS reports o2 was 90% on 2 liters upon arrival. Patient on 2L o2 at home. Duoneb brought patient to 100% o2. Home breathing treatments were not working per patient. Source: patient Exam Limitations: no limitations History of Present Illness Date Seen by Provider: Oct 19, 2022 Time Seen by Provider: 07:11 Initial Comments This 77-year-old woman presents to the emergency room via EMS with complaints of worsening shortness of breath and hypoxia. 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 She has recently completed a round of antibiotics and steroids. She improved during treatment but rebounded afterward. Symptoms have been worsening again since October 17. She has a wet cough, shortness of breath, and wheezing. She usually wears nasal cannula at 2 L/min continuously. EMS reports that she had oxygen saturation of 90% on her usual 2 L. They bumped up her flow to 6 L. A DuoNeb treatment was administered in route with good results. She had not taken any rescue bronchodilators prior to the DuoNeb given by EMS. She is calm and alert on arrival. Expiratory phase is prolonged but she has no beverly wheezing. She den ies chest pain or fever during this illness. She had a small amount of diarrhea but no nausea or vomiting. She reports history of mitral valve prolapse with no other cardiac conditions that she is aware of. Dr. Boothe is her primary care provider. According to her medication filling record, she filled prednisone and Keflex on October 04. Patient comments that she has had increasing respiratory difficulties since some of her medications were changed by Dr. Wyman in August. Allergies and Home Medications Allergies Coded Allergies: No Known Drug Allergies (Unverified , 06/22/22) Patient Home Medication List Home Medication List Reviewed: Yes Albuterol Sulfate (Ventolin Hfa) 18 Gm Hfa.aer.ad, 2 PUFF INH Q4H PRN for SHORTNESS OF BREATH, (Reported) Entered as Reported by: MURALI ANDREW on 06/20/20 5733 Famotidine (Famotidine) 20 Mg Tablet, 20 MG PO Q24H Prescribed by: TYRON BOOTHE on 06/25/22 0803 Montelukast Sodium (Montelukast Sodium) 10 Mg Tablet, 10 MG PO DAILY, (Reported) Entered as Reported by: MURALI ANDREW on 06/20/20 1556 Pantoprazole Sodium (Pantoprazole Sodium) 40 Mg Tablet.dr, 40 MG PO DAILY, (Reported) Entered as Reported by: MURALI ANDREW on 06/22/22 1633 Prednisone (Prednisone) 5 Mg Tablet, 5 MG PO DAILY, (Reported) Entered as Reported by: MURALI ANDREW on 06/22/22 1633 Review of Systems Review of Systems Constitutional: no symptoms reported EENTM: no symptoms reported Respiratory: see HPI Cardiovascular: no symptoms reported Gastrointestinal: see HPI Genitourinary: no symptoms reported : No Musculoskeletal: no symptoms reported Skin: no symptoms reported Psychiatric/Neurological: No Symptoms Reported Hematologic/Lymphatic: No Symptoms Reported Immunological/Allergic: no symptoms reported Past Gdstgfo-Rcsnjv-Tjruhx Hx Patient Social History Tobacco Use?: No Substance use?: No Alcohol Use?: No Immunizations Up To Date Tetanus Booster (TDap): Unknown First/Initial COVID19 Vaccinat: unknown Second COVID19 Vaccination Prieto: 2 MODERNA VACCINES Third COVID19 Vaccination Date: 2 MODERNA VACCINES COVID19 Vaccine It Infrastructure Engineer: Moderna Seasonal Allergies Seasonal Allergies: Yes (MILD) Past Medical History Surgery/Hospitalization HX: CATARACTS SURGERY LEFT HIP NAILING Surgeries: Yes Appendectomy, Eye Surgery, Orthopedic (ORIF of left femur with rajeev) Respiratory: Yes COPD (Wears nasal cannula at 2 L continuously) Cardiac: Yes Valvular Heart Disease (MVP) Neurological: No Reproductive Disorders: No Sexually Transmitted Disease: No HIV/AIDS: No Genitourinary: No Gastrointestinal: No Musculoskeletal: Yes (Lt hip fx w nailing 08/16/19) Fractures Endocrine: No HEENT: No Cataract Loss of Vision: Bilateral Hearing Impairment: Denies Cancer: Yes Skin Psychosocial: No Integumentary: No Blood Disorders: No Adverse Reaction/Blood Tranf: No (N/A) Family Medical History Colitis 19 FATHER Dementia 19 MOTHER Parkinson's disease 19 MOTHER GI Disease, Other Conditions/Hx Physical Exam Vital Signs - First Documented 10/19/22 07:15 Temp 37.3 Pulse 115 Resp 20 B/P (MAP) 133/85 (101) Pulse Ox 96 O2 Delivery Nasal Cannula O2 Flow Rate 2.00 Capillary Refill : Less Than 3 Seconds Height: 5'7.00" Weight: 108lbs. 0.0oz. 48.367204os; 15.00 BMI Method:Stated General Appearance: WD/WN, no apparent distress HEENT: normal ENT inspection Neck: normal inspection Respiratory: lungs clear, no respiratory distress, no accessory muscle use; No crackles; other (Wet coarse cough noted. Prolonged expiratory phase without beverly wheezing.) Cardiovascular: regular rate, rhythm, no edema, no murmur Gastrointestinal: non tender, soft; No distended Extremities: normal inspection, no pedal edema Neurologic/Psychiatric: alert, normal mood/affect, oriented x 3 Skin: normal color, warm/dry Focused Exam Lactate Level 10/19/22 07:20: Lactic Acid Level 1.40 Lactic Acid Level Laboratory Tests Test 10/19/22 07:20 Lactic Acid Level 1.40 MMOL/L (0.50-2.00) Progress/Results/Core Measures Suspected Sepsis SIRS Temperature: Pulse: 115 Respiratory Rate: 20 Laboratory Tests 10/19/22 07:25: White Blood Count 22.9H Blood Pressure 133 /85 Mean: 101 10/19/22 07:20: Lactic Acid Level 1.40 Laboratory Tests 10/19/22 07:25: Creatinine 0.84, Platelet Count 238 Results/Orders Lab Results Laboratory Tests Test 10/19/22 07:20 10/19/22 07:25 10/19/22 07:26 Range/Units Lactic Acid Level 1.40 0.50-2.00 MMOL/L White Blood Count 22.9 H 4.3-11.0 10^3/uL Red Blood Count 4.87 3.80-5.11 10^6/uL Hemoglobin 14.7 11.5-16.0 g/dL Hematocrit 45 35-52 % Mean Corpuscular Volume 92 80-99 fL Mean Corpuscular Hemoglobin 30 25-34 pg Mean Corpuscular Hemoglobin Concent 33 32-36 g/dL Red Cell Distribution Width 13.2 10.0-14.5 % Platelet Count 238 130-400 10^3/uL Mean Platelet Volume 9.1 9.0-12.2 fL Immature Granulocyte % (Auto) 1 % Neutrophils (%) (Auto) 73 42-75 % Lymphocytes (%) (Auto) 16 12-44 % Monocytes (%) (Auto) 9 0-12 % Eosinophils (%) (Auto) 1 0-10 % Basophils (%) (Auto) 0 0-10 % Neutrophils # (Auto) 16.7 H 1.8-7.8 10^3/uL Lymphocytes # (Auto) 3.6 1.0-4.0 10^3/uL Monocytes # (Auto) 2.0 H 0.0-1.0 10^3/uL Eosinophils # (Auto) 0.3 0.0-0.3 10^3/uL Basophils # (Auto) 0.1 0.0-0.1 10^3/uL Immature Granulocyte # (Auto) 0.2 H 0.0-0.1 10^3/uL Neutrophils % (Manual) 76 % Lymphocytes % (Manual) 15 % Monocytes % (Manual) 9 % Sodium Level 140 135-145 MMOL/L Potassium Level 4.0 3.6-5.0 MMOL/L Chloride Level 100 98-107 MMOL/L Carbon Dioxide Level 29 21-32 MMOL/L Anion Gap 11 5-14 MMOL/L Blood Urea Nitrogen 9 7-18 MG/DL Creatinine 0.84 0.60-1.30 MG/DL Estimat Glomerular Filtration Rate 72 BUN/Creatinine Ratio 11 Glucose Level 120 H 70-105 MG/DL Calcium Level 9.8 8.5-10.1 MG/DL C-Reactive Protein High Sensitivity 5.14 H 0.00-0.50 MG/DL B-Type Natriuretic Peptide < 10.0 <100.0 PG/ML Influenza Type A (RT-PCR) Not Detected Not Detecte Influenza Type B (RT-PCR) Not Detected Not Detecte SARS-CoV-2 RNA (RT-PCR) Detected H Not Detecte My Orders Orders - ISAIAH NARVAEZ MD Basic Metabolic Panel (10/19/22 07:22) Bnp Galina (10/19/22 07:22) Cbc With Automated Diff (10/19/22 07:22) Hs C Reactive Protein (10/19/22 07:22) Ed Iv/Invasive Line Start (10/19/22 07:22) Albuterol/Ipra Inhalation Soln (Duoneb I (10/19/22 07:30) Svn Small Volume Nebulizer (10/19/22 07:22) Covid 19 Inhouse Test (10/19/22 07:22) Influenza A And B By Pcr (10/19/22 07:22) Manual Differential (10/19/22 07:25) Chest 1 View, Ap/Pa Only (10/19/22 07:56) Dexamethasone Injection (Decadron Inje (10/19/22 08:15) Blood Culture (10/19/22 08:31) Sputum Culture (10/19/22 08:31) Vital Signs Adult Sepsis Patie Q15M (10/19/22 08:31) O2 (10/19/22 08:31) Remove Rings In Anticipation O (10/19/22 08:31) Lactic Acid Analyzer (10/19/22 08:31) Cefepime Injection (Maxipime Injection) (10/19/22 08:45) Rx-Nirmatrelvir/Ritonavir(Eua) (Rx-Paxlo (10/19/22 09:00) Medications Given in ED Current Medications Medications Dose Ordered Sig/Missy Route Start Time Stop Time Status Last Admin Dose Admin Albuterol/ Ipratropium 3 ml ONCE ONCE INH 10/19/22 07:30 10/19/22 07:31 DC 10/19/22 07:30 3 ML Cefepime HCl 2000 mg/Sodium Chloride 50 ml @ 100 mls/hr ONCE ONCE IV 10/19/22 08:45 10/19/22 09:14 DC 10/19/22 08:49 100 MLS/HR Vital Signs/I&O 10/19/22 10/19/22 10/19/22 07:15 07:15 07:24 Temp 37.3 Pulse 115 Resp 20 B/P (MAP) 133/85 (101) Pulse Ox 96 96 O2 Delivery Nasal Cannula Room Air Nasal Cannula O2 Flow Rate 2.00 2.00 Capillary Refill : Less Than 3 Seconds Blood Pressure Mean: 101 Progress Note #1: Time: 07:31 Progress Note Patient was interviewed and examined. Labs including CBC, BMP, BNP, CRP, and viral swabs for COVID-19 and flu are pending. Chest x-ray will also be obtained. Although she is no longer wheezing, she still has prolonged expiratory phase. We will therefore administer another DuoNeb treatment. Oxygen saturation was 97% on room air. She is being placed back on her 2 L/min for comfort. Progress Note #2: Time: 08:54 Progress Note Labs were reviewed in their entirety. Patient had an elevated WBC which may be related to acute infection and or recent steroid use. BMP was unremarkable. BNP was normal. CRP was modestly elevated. Chest x-ray was reviewed and compared with prior. Although the radiologist noted no acute abnormalities, there appears to be a subtle right lower lobe infiltrate by my interpretation when compared with prior. Given patient's worsening symptoms, course wet cough, abnormal labs and exacerbation of oxygen dependent COPD, this is presumed to be a pneumonia concurrent or secondary to COVID-19. The acuity of her COVID-19 infection is uncertain, but since her symptoms improved proved but then worsened again on October 17, I presume that COVID infection started at that time. She does qualify for Paxlovid therapy as she returned to her baseline oxygen re quirements after a DuoNeb treatment. I discussed disposition with the patient. She does not feel safe returning home because she does not have full-time support there and would be exposing family who comes to care for her. Patient is at high risk for severe decompensation. In addition to treatment for COVID- 19 with dexamethasone and Paxlovid, she will be treated for presumed pneumonia with cefepime. The initial cefepime 2 g dose was administered in the ER after collection of blood cultures and lactic acid. Patient's respiratory status improved significantly after the DuoNeb treatments. I discussed her nebulized maintenance medications with Dr. Brody, clinical pharmacist. Given her COVID- 19 status, he will convert her nebulized medications to inhaled medications. I discussed CODE STATUS with the patient and her daughter. Patient would like to remain full code at this time but would not want long-term life support on a ventilator. Admission was discussed with Dr. Brody. Patient has presumed pneumonia with the infiltrate in the right lower lung and therefore meets septic criteria with elevated WBC and mild tachycardia. Fluid boluses were not administered as patient was not hypotensive, had no evidence of renal failure or hypovolemia, and has history of valvular disease which could be problematic if large volume of fluid boluses were administered. Emergency use authorization of Paxlovid was explained to the patient. She elected to proceed with treatment. The FDA fact sheet was provided. Diagnostic Imaging Diagonstic Imaging: Xray Plain Films/CT/US/NM/MRI: chest Comments Chest x-ray viewed by me and compared with prior. By my interpretation there is a right lower lobe infiltrate. This was not appreciated by the radiologist. See radiologist's report below: NAME: MAHESH CANTRELL [facility] REC#: [id number] PT STATUS: REG ER : 1945 PHYSICIAN: ISAIAH NARVAEZ MD ADMIT DATE: 10/19/22/ER Draft Date of Exam:10/19/22 CHEST 1 VIEW, AP/PA ONLY INDICATION: Cough, Covid pneumonia COMPARISON: 07/12/2022 TECHNIQUE: Single frontal radiograph of the chest dated 10/19/2022. FINDINGS: The cardiac silhouette is within normal limits in size. No significant pulmonary vascular congestion. Significant background chronic obstructive pulmonary disease and emphysematous changes are again noted, with emphysematous changes greatest in the upper lungs. No new focal pulmonary opacity. No pleural effusion. No pneumothorax. No acute osseous abnormality. IMPRESSION: Significant background chronic obstructive pulmonary disease and emphysematous changes without superimposed acute cardiopulmonary abnormality. Dictated on workstation # [id number] Dict: 10/19/22 0834 Trans: 10/19/22 0838 [facility] [id number] Interpreted by: WILLIAM AVILA MD Departure Communication (Admissions) Time/Spoke to Admitting Phy: 08:30 Dr. Boothe Impression Primary Impression: Pneumonia due to COVID-19 virus Additional Impressions: COPD exacerbation Sepsis Qualified Codes: A41.9 - Sepsis, unspecified organism Disposition: ADMITTED INPATIENT Condition: Improved Admissions Decision to Admit Reason: Admit from ER (General) Decision to Admit/Date: Oct 19, 2022 Time/Decision to Admit Time: 08:30 Departure-Patient Inst. Referrals: TYRON BOOTHE MD (PCP/Family) Primary Care Physician Copy Copies To 1: TYRON BOOTHE MD, JOSHUA T MD Oct 19, 2022 07:29
[2022-10-19] MEDS ORDERED: RT-ALBUTEROL/IPRATROPIUM 3 ML (DUONEB) VIAL INH ONE (07:30)
[2022-10-19 07:43] LABS: CALCIUM 9.8 MG/DL (8.5-10.1)
[2022-10-19 07:45] LABS: LYMPHOCYTES % (MANUAL) 15 %; MONOCYTES % (MANUAL) 9 %; NEUTROPHILS % (MANUAL) 76 %
[2022-10-19 07:48] LABS: CREATININE SERUM 0.84 MG/DL (0.60-1.30)
--- NOTE | 2022-10-19 08:38 | Diagnostic Imaging Report ---
INDICATION: Cough, Covid pneumonia COMPARISON: 07/12/2022 TECHNIQUE: Single frontal radiograph of the chest dated 10/19/2022. FINDINGS: The cardiac silhouette is within normal limits in size. No significant pulmonary vascular congestion. Significant background chronic obstructive pulmonary disease and emphysematous changes are again noted, with emphysematous changes greatest in the upper lungs. No new focal pulmonary opacity. No pleural effusion. No pneumothorax. No acute osseous abnormality. IMPRESSION: Significant background chronic obstructive pulmonary disease and emphysematous changes without superimposed acute cardiopulmonary abnormality. Dictated by: Dictated on workstation # [id number]
[2022-10-19] MEDS ORDERED: CEFEPIME INJECTION 2,000 MG in NS (IVPB) 50 ML IV ONE (08:45)
[2022-10-19] MEDS ORDERED: NIRMATRELVIR/RITONAVIR (PAXLOVID) TABLET PO SCH (08:45)
[2022-10-19] MEDS ORDERED: RX-NIRMATRELVIR/RITONAVIR (PAXLOVID) #30 TABS PO SCH ×3 (09:00→09:45)
[2022-10-19] MEDS ORDERED: ONDANSETRON 4 MG/2 ML (SDV) Z0FRAN IV PRN (10:15)
[2022-10-19] MEDS ORDERED: ACETAMINOPHEN 325 MG TABLET PO PRN (10:15)
[2022-10-19] MEDS: FAMOTIDINE 20 MG (PEPCID) TABLET PO SCH (10:27)
[2022-10-19] MEDS ORDERED: RT-ALBUTEROL HFA 8.5 GM INHALER IH PRN (10:30)
[2022-10-19] MEDS: RT-ALBUTEROL HFA 8.5 GM INHALER IH SCH ×3 (14:41→22:28)
[2022-10-19] MEDS ORDERED: FAMO20TA5 PO ×2 (14:46)
[2022-10-19] MEDS ORDERED: MULT-1136 PO ×2 (14:46)
[2022-10-19] MEDS ORDERED: CETI10TA17 PO ×2 (14:46)
[2022-10-19] MEDS ORDERED: FORM20VI3 PO ×2 (14:46)
[2022-10-19] MEDS ORDERED: BUDE0.5A NEB ×2 (14:46)
[2022-10-19] MEDS ORDERED: REVE175V PO ×2 (14:46)
[2022-10-19] MEDS: RT--FLUTICASONE/SALMETEROL 113-14 (AIRDUO RespiCLICK) IH SCH (19:01)
--- NOTE | 2022-10-19 19:17 | History & Physicial ---
History of Present Illness History of Present Illness Reason for visit/HPI 77-year-old female presents to emergency room via car [facility] after she apparently suffered shortness of breath and hypoxemia at home. She apparently had this come on fairly abruptly within the last 24 hours. She does have known COPD and has been recently seen by Dr. Wyman pulmonology in [facility]. She is also seen myself within the last few weeks and at that time was having exacerbation of her COPD and was placed on steroids and antibiotics. She seemed to be improving. She also admits to having a wet cough shortness of breath and wheezing. She does utilize 2 L nasal cannula oxygen at home. Date of Admission Oct 19, 2022 at 09:20 Date Seen by a Provider: Oct 19, 2022 Time Seen by a Provider: 16:45 I consulted on this patient on 10/19/22 19:12 Attending Physician Nithin Boothe MD Admitting Physician Admitting Physician: Nithin Boothe MD Attending Physician: Nithin Boothe MD Consult Allergies and Home Medications Allergies Coded Allergies: No Known Drug Allergies (Unverified , 06/22/22) Patient Home Medication List Home Medication List Reviewed: Yes Albuterol Sulfate (Ventolin Hfa) 18 Gm Hfa.aer.ad, 2 PUFF INH Q4H PRN for SHORTNESS OF BREATH, (Reported) Entered as Reported by: MURALI ANDREW on 06/20/20 1556 Last Action: Reviewed Budesonide (Budesonide) 0.5 Mg/2 Ml Ampul.neb, 0.5 MG NEB Q12H, (Reported) Entered as Reported by: MURALI ANDREW on 10/19/22 144 Last Action: Reviewed Cetirizine HCl (Cetirizine HCl) 10 Mg Tablet, 10 MG PO DAILY, (Reported) Entered as Reported by: MURALI ANDREW on 10/19/221445 Last Action: Reviewed Famotidine (Famotidine) 20 Mg Tablet, 20 MG PO DAILY PRN for HEARTBURN, (Reported) Entered as Reported by: MURALI ANDREW on 10/19/221445 Last Action: Reviewed Formoterol Fumarate (Formoterol Fumarate) 20 Mcg/2 Ml Vial.neb, 20 MCG PO Q12H, (Reported) Entered as Reported by: MURALI ANDREW on 10/19/22 1446 Last Action: Reviewed Montelukast Sodium (Montelukast Sodium) 10 Mg Tablet, 10 MG PO HS, (Reported) Entered as Reported by: MURALI ANDREW on 06/20/20 1556 Last Action: Reviewed Multivitamin (Multivitamin) 1 Each Tablet, 1 EACH PO DAILY, (Reported) Entered as Reported by: MURALI ANDREW on 10/19/22 1446 Last Action: Reviewed Pantoprazole Sodium (Pantoprazole Sodium) 40 Mg Tablet.dr, 40 MG PO DAILY, (Reported) Entered as Reported by: MURALI ANDREW on 06/22/22 1633 Last Action: Reviewed Prednisone (Prednisone) 5 Mg Tablet, 5 MG PO DAILY, (Reported) Entered as Reported by: MURALI ANDREW on 06/22/22 163 Last Action: Reviewed Revefenacin (Yupelri) 175 Mcg/3 Ml Vial.neb, 175 MCG PO DAILY, (Reported) Entered as Reported by: MURALI ANDREW on 10/19/22 1446 Last Action: Reviewed Discontinued Medications Famotidine (Famotidine) 20 Mg Tablet, 20 MG PO Q24H Discontinued Reason: No Longer Taking Prescribed by: NITHIN BOOTHE on 06/25/22 0803 Last Action: Discontinued Past Jygdupr-Egxlmn-Musdpk Hx Patient Social History Marrital Status: 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) Smoking Status: Former Smoker Former Smoker, Quit: May 25, 2016 Recent Hopitalizations: Yes Have you traveled recently?: No Alcohol Use?: No Pt feels they are or have been: No Immunizations Up To Date Tetanus Booster (TDap): Unknown Date of Pneumonia Vaccine: May 24, 2017 Date of Influenza Vaccine: May 06, 2017 Seasonal Allergies Seasonal Allergies: Yes (MILD) Surgeries Yes Appendectomy, Eye Surgery, Orthopedic (ORIF of left femur with rajeev) Respiratory Yes COPD Cardiovascular Yes Valvular Heart Disease (MVP) Neurological No Reproductive System Hx Reproductive Disorders: No Sexually Transmitted Disease: No HIV/AIDS: No Genitourinary No Gastrointestinal No Musculoskeletal Yes (Lt hip fx w nailing 08/16/19) Fractures Endocrine History of Endocrine Disorders: No HEENT History of HEENT Disorders: No HEENT Disorders: Cataract Loss of Vision: Bilateral Hearing Impairment: Denies Cancer Yes Skin Psychosocial History of Psychiatric Problem: No Integumentary History of Skin or Integumenta: No Blood Transfusions History of Blood Disorders: No Adverse Reaction to a Blood Tr: No (N/A) Family Medical History Significant Family History: GI Disease, Other Conditions/Hx Family Hx: Colitis 19 FATHER Dementia 19 MOTHER Parkinson's disease 19 MOTHER Review of Systems Constitutional: see HPI Physical Exam Vital Signs Vital Signs - First Documented 10/19/22 07:15 Temp 37.3 Pulse 115 Resp 20 B/P (MAP) 133/85 (101) Pulse Ox 96 O2 Delivery Nasal Cannula O2 Flow Rate 2.00 Capillary Refill : Less Than 3 Seconds Height, Weight, BMI Height: 5'7.00" Weight: 108lbs. 0.0oz. 48.635860pb; 16.05 BMI Method:Stated General Appearance: Anxious, Mild Distress Eyes: Bilateral Eye Normal Inspection HEENT: Pharynx Normal, Moist Mucous Membranes, Other (Nasal congestion noted) Neck: Supple Respiratory: Accessory Muscle Use (Mild), Decreased Breath Sounds Cardiovascular: Regular Rate, Rhythm Gastrointestinal: Soft Rectal: Deferred Back: Normal Inspection Extremity: Normal Capillary Refill Neurologic/Psychiatric: Alert, Oriented x3 Skin: Normal Color Comments [facility] [place], [place] NAME: MAHESH CANTRELL [facility] REC#: [id number] PT STATUS: ADM IN : 1945 PHYSICIAN: ISAIAH NARVAEZ MD ADMIT DATE: 10/19/22/ Signed Date of Exam:10/19/22 CHEST 1 VIEW, AP/PA ONLY INDICATION: Cough, Covid pneumonia COMPARISON: 07/12/2022 TECHNIQUE: Single frontal radiograph of the chest dated 10/19/2022. FINDINGS: The cardiac silhouette is within normal limits in size. No significant pulmonary vascular congestion. Significant background chronic obstructive pulmonary disease and emphysematous changes are again noted, with emphysematous changes greatest in the upper lungs. No new focal pulmonary opacity. No pleural effusion. No pneumothorax. No acute osseous abnormality. IMPRESSION: Significant background chronic obstructive pulmonary disease and emphysematous changes without superimposed acute cardiopulmonary abnormality. Dictated by: Dictated on workstation # [id number] Dict: 10/19/22 0834 Trans: 10/19/22 1337 JOSE [id number] Interpreted by: WILLIAM AVILA MD Electronically signed by: WILLIAM AVILA MD 10/19/22 1333 Assessment/Plan Assessment and Plan 1. Covid 19 respiratory infection with early clinical pneumonia -admit patient for further pulmonary care. She will be continued on nasal cannula oxygen to keep saturations above 93%. Also respiratory therapy for breathing treatments -She is also started on cefepime -plaxovid for the Covid 19 2. Known COPD with exacerbation -As above -oral dexamethasone while inpatient she had received IV dexamethasone in ED 3. Clinically septic -Blood cultures pending -Sputum culture pending as well -Recheck CBC in the morning of October 20 due to her current white blood cell count of 22K Admission Diagnosis 1. Covid 19 respiratory infection with early clinical pneumonia 2. Known COPD with exacerbation 3. Clinically septic Admission Status: Inpatient Order (span 2 midnights) Reason for Inpatient Admission: Further pulmonary care. She will be started on IV antibiotics as well as Continue with dexamethasone NITHIN BOOTHE MD Oct 19, 2022 19:17
[2022-10-19] MEDS: RX-NIRMATRELVIR/RITONAVIR (PAXLOVID) #30 TABS PO SCH (20:15)
[2022-10-19] MEDS: CEFEPIME 1,000 MG/NS 50 ML IVPB IV SCH ×2 (20:17)
[2022-10-20] MEDS: RT-ALBUTEROL HFA 8.5 GM INHALER IH SCH ×6 (02:18→21:53)
[2022-10-20 04:00] VITALS: BP 103/65
[2022-10-20] MEDS: CEFEPIME 1,000 MG/NS 50 ML IVPB IV SCH ×6 (04:39→21:17)
[2022-10-20 05:49] LABS: BASOPHILS % (AUTO) 0 % (0-10); EOSINOPHILS % (AUTO) 0 % (0-10); HEMATOCRIT 39 % (35-52); HEMOGLOBIN 13.2 g/dL (11.5-16.0); LYMPHOCYTES # (AUTO) 0.5 10^3/uL (1.0-4.0); LYMPHOCYTES % (AUTO) 2 % (12-44); MEAN CORPUSCULAR HEMOGLOBIN 30 pg (25-34); MEAN CORPUSCULAR HGB CONC 34 g/dL (32-36); MEAN CORPUSCULAR VOLUME 90 fL (80-99); MEAN PLATELET VOLUME 9.1 fL (9.0-12.2); MONOCYTES # (AUTO) 0.8 10^3/uL (0.0-1.0); MONOCYTES % (AUTO) 4 % (0-12); NEUTROPHILS # (AUTO) 17.5 10^3/uL (1.8-7.8); NEUTROPHILS % (AUTO) 93 % (42-75); PLATELET COUNT 211 10^3/uL (130-400); WHITE BLOOD COUNT 18.9 10^3/uL (4.3-11.0)
--- NOTE | 2022-10-20 07:09 | Progress Note ---
Subjective Date Seen by a Provider: Oct 20, 2022 Time Seen by a Provider: 07:20 Subjective/Events-last exam short of breath this morning. She reports her cough is starting to become productive and she is working very hard to get it up. She did give a sputum specimen yesterday. Her eating is fair. Focused Exam Lactate Level 10/19/22 07:20: Lactic Acid Level 1.40 Objective Exam Vital Signs Date Time Temp Pulse Resp B/P (MAP) Pulse Ox O2 Delivery O2 Flow Rate FiO2 10/20/22 04:00 37.0 91 18 103/65 (78) 92 Nasal Cannula 2.00 10/20/22 02:18 91 Nasal Cannula 2.00 10/19/22 23:26 36.8 93 18 117/72 (87) 95 Nasal Cannula 2.00 10/19/22 22:28 93 Nasal Cannula 2.00 10/19/22 20:00 Nasal Cannula 2.00 10/19/22 19:43 36.1 98 19 106/63 (77) 96 Room Air 10/19/22 19:01 95 Nasal Cannula 2.00 10/19/22 15:52 36.6 91 18 135/82 (99) 95 Nasal Cannula 2.00 10/19/22 14:41 95 Nasal Cannula 2.00 10/19/22 13:30 37.0 95 20 110/72 (85) 100 Nasal Cannula 2.00 10/19/22 12:30 36.7 95 18 109/69 (82) 95 Nasal Cannula 2.00 10/19/22 11:37 37.3 97 20 112/69 (83) 96 Nasal Cannula 2.00 10/19/22 11:08 96 Nasal Cannula 2.00 10/19/22 10:13 37.7 95 95 10/19/22 10:02 37.7 95 18 118/75 (89) 95 Nasal Cannula 2.00 10/19/22 09:27 98 20 119/73 96 Nasal Cannula 2.00 10/19/22 07:24 Nasal Cannula 2.00 10/19/22 07:15 37.3 115 20 133/85 (101) 96 Room Air 10/19/22 07:15 96 Nasal Cannula 2.00 I & O 10/20/22 07:00 Intake Total 1670 ml Balance 1670 ml Capillary Refill : Less Than 3 Seconds General Appearance: Anxious Neck: Supple Respiratory: Accessory Muscle Use (Slight), Decreased Breath Sounds Cardiovascular: Regular Rate, Rhythm Gastrointestinal: soft Extremity: Normal Capillary Refill Results Lab Laboratory Tests 10/19/22 07:20: Lactic Acid Level 1.40 10/19/22 07:25: White Blood Count 22.9H, Red Blood Count 4.87, Hemoglobin 14.7, Hematocrit 45, Mean Corpuscular Volume 92, Mean Corpuscular Hemoglobin 30, Mean Corpuscular Hemoglobin Concent 33, Red Cell Distribution Width 13.2, Platelet Count 238, Mean Platelet Volume 9.1, Immature Granulocyte % (Auto) 1, Neutrophils (%) (Auto) 73, Lymphocytes (%) (Auto) 16, Monocytes (%) (Auto) 9, Eosinophils (%) (Auto) 1, Basophils (%) (Auto) 0, Neutrophils # (Auto) 16.7H, Lymphocytes # (Auto) 3.6, Monocytes # (Auto) 2.0H, Eosinophils # (Auto) 0.3, Basophils # (Auto) 0.1, Immature Granulocyte # (Auto) 0.2H, Neutrophils % (Manual) 76, Lymphocytes % (Manual) 15, Monocytes % (Manual) 9, Sodium Level 140, Potassium Level 4.0, Chloride Level 100, Carbon Dioxide Level 29, Anion Gap 11, Blood Urea Nitrogen 9, Creatinine 0.84, Estimat Glomerular Filtration Rate 72, BUN/Creatinine Ratio 11, Glucose Level 120H, Calcium Level 9.8, C-Reactive Protein High Sensitivity 5.14H, B-Type Natriuretic Peptide < 10.0 10/19/22 07:26: Influenza Type A (RT-PCR) Not Detected, Influenza Type B (RT-PCR) Not Detected, SARS-CoV-2 RNA (RT-PCR) DetectedH 10/20/22 05:40: White Blood Count 18.9H, Red Blood Count 4.36, Hemoglobin 13.2, Hematocrit 39, Mean Corpuscular Volume 90, Mean Corpuscular Hemoglobin 30, Mean Corpuscular Hemoglobin Concent 34, Red Cell Distribution Width 13.0, Platelet Count 211, Mean Platelet Volume 9.1, Immature Granulocyte % (Auto) 1, Neutrophils (%) (Auto) 93H, Lymphocytes (%) (Auto) 2L, Monocytes (%) (Auto) 4, Eosinophils (%) (Auto) 0, Basophils (%) (Auto) 0, Neutrophils # (Auto) 17.5H, Lymphocytes # (Auto) 0.5L, Monocytes # (Auto) 0.8, Eosinophils # (Auto) 0.0, Basophils # (Auto) 0.0, Immature Granulocyte # (Auto) 0.1, C-Reactive Protein High Sensitivity 10.74H Assessment/Plan Assessment/Plan Assess & Plan/Chief Complaint 1. Covid 19 respiratory infection with early clinical pneumonia -admit patient for further pulmonary care. She will be continued on nasal cannula oxygen to keep saturations above 93%. Also respiratory therapy for breathing treatments -She is also started on cefepime -plaxovid for the Covid 19 10/20 -WBC down slightly -continue current care 2. Known COPD with exacerbation -As above -oral dexamethasone while inpatient she had received IV dexamethasone in ED 3. Clinically septic -Blood cultures pending -Sputum culture pending as well -Recheck CBC in the morning of October 20 due to her current white blood cell count of 22K Clinical Quality Measures Admission Status Admission Dx 1. Covid 19 respiratory infection with early clinical pneumonia -admit patient for further pulmonary care. She will be continued on nasal cannula oxygen to keep saturations above 93%. Also respiratory therapy for breathing treatments -She is also started on cefepime -plaxovid for the Covid 19 2. Known COPD with exacerbation -As above -oral dexamethasone while inpatient she had received IV dexamethasone in ED 3. Clinically septic -Blood cultures pending -Sputum culture pending as well -Recheck CBC in the morning of October 20 due to her current white blood cell count of 22K TYRON BOOTHE MD Oct 20, 2022 07:09
[2022-10-20] MEDS: RT--FLUTICASONE/SALMETEROL 113-14 (AIRDUO RespiCLICK) IH SCH ×2 (07:24→21:53)
[2022-10-20] MEDS: UMECLIDINIUM BROMIDE (INCRUSE ELLIPTA) 7'S IH SCH (07:24)
[2022-10-20 08:41] VITALS: BP 115/67
[2022-10-20] MEDS: dexAMETHasone 6 MG TAB (DECADRON) PO SCH (09:16)
[2022-10-20] MEDS: FAMOTIDINE 20 MG (PEPCID) TABLET PO SCH (09:16)
[2022-10-20] MEDS: RX-NIRMATRELVIR/RITONAVIR (PAXLOVID) #30 TABS PO SCH ×2 (09:17→20:19)
[2022-10-20 16:18] VITALS: BP 134/71
[2022-10-20 20:00] VITALS: BP 134/76
[2022-10-21] VITALS: BP 133/76
[2022-10-21] MEDS: RT-ALBUTEROL HFA 8.5 GM INHALER IH SCH ×6 (02:12→22:30)
[2022-10-21 03:44] VITALS: BP 123/69
[2022-10-21] MEDS: CEFEPIME 1,000 MG/NS 50 ML IVPB IV SCH ×6 (05:21→21:30)
--- NOTE | 2022-10-21 07:39 | Progress Note ---
Subjective Date Seen by a Provider: Oct 21, 2022 Time Seen by a Provider: 07:05 Subjective/Events-last exam patient was resting in bed this morning. She has shortness of breath. Cough is productive of phlegm and she reports this is new that it is becoming more productive. She has not ran a fever. Her oral intake is adequate Focused Exam Lactate Level 10/19/22 07:20: Lactic Acid Level 1.40 Objective Exam Vital Signs Date Time Temp Pulse Resp B/P (MAP) Pulse Ox O2 Delivery O2 Flow Rate FiO2 10/21/22 03:44 36.5 82 18 123/69 (87) 97 Nasal Cannula 3.00 10/21/22 02:12 96 Nasal Cannula 3.00 10/21/22 00:00 36.6 86 16 133/76 (95) 96 Nasal Cannula 3.00 10/20/22 21:55 94 Nasal Cannula 3.00 10/20/22 20:00 Nasal Cannula 3.00 10/20/22 20:00 36.8 98 18 134/76 (95) 97 Nasal Cannula 3.00 10/20/22 19:18 95 Nasal Cannula 3.00 10/20/22 16:18 36.7 104 18 134/71 (92) 95 Room Air 10/20/22 14:38 97 Nasal Cannula 3.00 10/20/22 11:45 36.8 93 18 96 Nasal Cannula 3.00 10/20/22 10:42 96 Nasal Cannula 3.00 10/20/22 08:41 36.7 98 18 115/67 (83) 97 Nasal Cannula 3.00 10/20/22 08:00 Nasal Cannula 2.00 I & O 10/21/22 06:59 Intake Total 1880 ml Balance 1880 ml Capillary Refill : Less Than 3 Seconds General Appearance: Anxious, Mild Distress (And she will take a breath before finishing sentences.) Neck: Supple Respiratory: Accessory Muscle Use (Very slight), Decreased Breath Sounds Cardiovascular: Regular Rate, Rhythm Gastrointestinal: soft Extremity: Normal Capillary Refill Neurologic/Psychiatric: Alert, Oriented x3 Skin: Normal Color Results Lab Microbiology 10/19/22 Blood Culture - Preliminary, Resulted No growth Assessment/Plan Assessment/Plan Assess & Plan/Chief Complaint 1. Covid 19 respiratory infection with early clinical pneumonia -admit patient for further pulmonary care. She will be continued on nasal cannula oxygen to keep saturations above 93%. Also respiratory therapy for breathing treatments -She is also started on cefepime -plaxovid for the Covid 19 10/20 -WBC down slightly -continue current care 10/21 -overall patient's condition has shown improvement. Cough is very productive of phlegm with less dyspneic spells -I suspect she may be on the verge of dismissal tomorrow morning. For now she will continue with cefepime and this is day #3 2. Known COPD with exacerbation -As above -oral dexamethasone while inpatient she had received IV dexamethasone in ED 3. Clinically septic -Blood cultures pending -Sputum culture pending as well -Recheck CBC in the morning of October 20 due to her current white blood cell count of 22K Clinical Quality Measures Admission Status Admission Dx 1. Covid 19 respiratory infection with early clinical pneumonia -admit patient for further pulmonary care. She will be continued on nasal cannula oxygen to keep saturations above 93%. Also respiratory therapy for breathing treatments -She is also started on cefepime -plaxovid for the Covid 19 2. Known COPD with exacerbation -As above -oral dexamethasone while inpatient she had received IV dexamethasone in ED 3. Clinically septic -Blood cultures pending -Sputum culture pending as well -Recheck CBC in the morning of October 20 due to her current white blood cell count of 22K TYRON BOOTHE MD Oct 21, 2022 07:39
[2022-10-21 07:50] VITALS: BP 131/82
[2022-10-21] MEDS: FAMOTIDINE 20 MG (PEPCID) TABLET PO SCH (09:07)
[2022-10-21] MEDS: dexAMETHasone 6 MG TAB (DECADRON) PO SCH (09:07)
[2022-10-21] MEDS: RX-NIRMATRELVIR/RITONAVIR (PAXLOVID) #30 TABS PO SCH ×2 (09:07→21:30)
[2022-10-21] MEDS: RT--FLUTICASONE/SALMETEROL 113-14 (AIRDUO RespiCLICK) IH SCH ×2 (11:16→22:29)
[2022-10-21] MEDS: UMECLIDINIUM BROMIDE (INCRUSE ELLIPTA) 7'S IH SCH (11:17)
[2022-10-21 11:41] VITALS: BP 135/75
[2022-10-21 15:57] VITALS: BP 146/73
[2022-10-21 19:29] VITALS: BP 134/70
--- NOTE | 2022-10-21 20:41 | Physician Query Clarification ---
Physician Query-General Query to Physician: The medical record reflects the following clinical scenario: The patient, in the setting of History/Risk factors, Covid 19, COPD with SOB on admission Clinical Findings Admission VS/LABS: HR 115, RR 20, BP 133/85, SpO2 96% sat on 2L, 3 T 37.3, WBC 22.9, lactic acid 1.4, COVID-19 positive, Treatment Cefepime IV, Paxlovid PO, Question: Can you further specify "Clinically septic" per the clinical indicators above? Please document your response in the Progress Notes or Discharge Summary. Sepsis, Present on admission Other, with explanation of clinical findings Clinically undetermined, no explanation for clinical findings Please clarify and document your clinical opinion in the Progress Notes and Discharge Summary including the definitive and/or presumptive diagnosis, (suspected or probable), related to the above clinical findings. Please include clinical findings supporting your diagnosis. In responding to this query, please exercise your independent professional judgment. The purpose of this communication is to more accurately reflect the complexity of your patients condition. The fact that a question is asked does not imply that any particular answer is desired or expected. Thank you for timely response to this clarification. Melinda Islas, MSN, RN Clinical Radius Grinder [phone] [email or web address] PHYSICIAN RESPONSE: Based on the clinical findings in the record, please respond to the query above on this document as an addendum. Physician Response: Physician Response sepsis, present on admission If you have questions please contact: University Administrative Assistant: Ext: Thank you for your time and cooperation. Clinical Radius Grinder/University Administrative Assistant This is a permanent part of the medical record MELINDA ISLAS Oct 21, 2022 20:41 TYRON BOOTHE MD Nov 09, 2022 07:45
[2022-10-22 00:08] VITALS: BP 134/70
[2022-10-22 04:00] VITALS: BP 144/71
[2022-10-22] MEDS: CEFEPIME 1,000 MG/NS 50 ML IVPB IV SCH ×2 (05:09)
[2022-10-22 06:04] LABS: BASOPHILS % (AUTO) 0 % (0-10); EOSINOPHILS % (AUTO) 0 % (0-10); HEMATOCRIT 37 % (35-52); HEMOGLOBIN 12.3 g/dL (11.5-16.0); LYMPHOCYTES # (AUTO) 0.5 10^3/uL (1.0-4.0); LYMPHOCYTES % (AUTO) 2 % (12-44); MEAN CORPUSCULAR HEMOGLOBIN 30 pg (25-34); MEAN CORPUSCULAR HGB CONC 33 g/dL (32-36); MEAN CORPUSCULAR VOLUME 90 fL (80-99); MEAN PLATELET VOLUME 9.4 fL (9.0-12.2); MONOCYTES # (AUTO) 0.7 10^3/uL (0.0-1.0); MONOCYTES % (AUTO) 4 % (0-12); NEUTROPHILS # (AUTO) 18.1 10^3/uL (1.8-7.8); NEUTROPHILS % (AUTO) 92 % (42-75); PLATELET COUNT 218 10^3/uL (130-400); WHITE BLOOD COUNT 19.6 10^3/uL (4.3-11.0)
[2022-10-22 06:37] LABS: ALBUMIN 3.4 GM/DL (3.2-4.5); BILIRUBIN,TOTAL 0.3 MG/DL (0.1-1.0); CALCIUM 9.1 MG/DL (8.5-10.1); CREATININE SERUM 0.77 MG/DL (0.60-1.30); TOTAL PROTEIN 5.7 GM/DL (6.4-8.2)
[2022-10-22] MEDS: RT-ALBUTEROL HFA 8.5 GM INHALER IH SCH ×2 (07:16→09:27)
[2022-10-22] MEDS ORDERED: NIRM1TAB PO ×4 (07:31→08:01)
[2022-10-22] MEDS ORDERED: CEFP500T4 PO ×2 (07:31)
--- NOTE | 2022-10-22 07:33 | Discharge Inst-Simple/Standard ---
Discharge Inst-Standard Reconcile Patient Problems Problems Reviewed?: Yes Discharge Medications New, Converted or Re-Newed RX: Transmitted to Pharmacy ([facility]) Patient Instructions/Follow Up Plan of Care/Instructions/FU: Dr. Boothe within the week Activity as Tolerated: Yes Discharge Diet: Regular Diet Return to The Hospital For: Worsening shortness of breath or significant fever TYRON BOOTHE MD Oct 22, 2022 07:33
--- NOTE | 2022-10-22 07:39 | Discharge Summary ---
Diagnosis/Chief Complaint Date of Admission Oct 19, 2022 at 09:20 Date of Discharge Discharge Date: Oct 22, 2022 Admission Diagnosis Admission Diagnosis 1. Covid 19 respiratory infection with early clinical pneumonia 2. COPD with exacerbation 3. Clinically septic Discharge Diagnosis 1. Covid 19 respiratory infection with clinical pneumonia/bronchopneumonia 2. Acute COPD exacerbation Reason Hospital Visit 77-year-old female presents to emergency room via car [facility] after she apparently suffered shortness of breath and hypoxemia at home. She apparently had this come on fairly abruptly within the last 24 hours. She does have known COPD and has been recently seen by Dr. Wyman pulmonology in [facility]. She is also seen myself within the last few weeks and at that time was having exacerbation of her COPD and was placed on steroids and antibiotics. She seemed to be improving. She also admits to having a wet cough shortness of breath and wheezing. She does utilize 2 L nasal cannula oxygen at home. Discharge Summary Hospital Course Was the Problem List Reviewed?: Yes Hospital Course 1. Covid 19 respiratory infection with early clinical pneumonia -admit patient for further pulmonary care. She will be continued on nasal cannula oxygen to keep saturations above 93%. Also respiratory therapy for breathing treatments -She is also started on cefepime -plaxovid for the Covid 19 10/20 -WBC down slightly -continue current care 10/21 -overall patient's condition has shown improvement. Cough is very productive of phlegm with less dyspneic spells -I suspect she may be on the verge of dismissal tomorrow morning. For now she will continue with cefepime and this is day #3 10/22 patient was with cough and it is productive. She reports getting it out. Her white blood cell count did not change dramatically remaining at 19 K. I believe the white count is due to Decadron. More importantly she did have a CRP that returns fairly close to normal range of 1.05. She does not appear to be in any respiratory distress this morning. Will discharge to home and have her continue with the paxlovid for 2 additional day 300 mg twice a day as well as an oral cephalosporin outpatient. 2. Known COPD with exacerbation -As above -oral dexamethasone while inpatient she had received IV dexamethasone in ED 10/22 -patient is going to contact her black and white printer operator on [place] regarding her breathing treatments as well as steroid inhalers. For now she will continue with her current COPD treatment including 10 mg prednisone daily. 3. Clinically septic -Blood cultures pending -Sputum culture pending as well -Recheck CBC in the morning of October 20 due to her current white blood cell count of 22K 10/22 Blood cultures were noted to be final as no growth. Her temperature has normalized. Labs Laboratory Tests 10/20/22 05:40: White Blood Count 18.9H, Neutrophils (%) (Auto) 93H, Lymphocytes (%) (Auto) 2L, Neutrophils # (Auto) 17.5H, Lymphocytes # (Auto) 0.5L, C-Reactive Protein High Sensitivity 10.74H 10/22/22 05:50: White Blood Count 19.6H, Neutrophils (%) (Auto) 92H, Lymphocytes (%) (Auto) 2L, Neutrophils # (Auto) 18.1H, Lymphocytes # (Auto) 0.5L, C-Reactive Protein High Sensitivity 1.05H, Immature Granulocyte # (Auto) 0.3H, Glucose Level 141H, Total Protein 5.7L Procedures None. Discharge Physical Examination Allergies: Coded Allergies: No Known Drug Allergies (Unverified , 06/22/22) Vitals & I&Os Vital Signs Date Time Temp Pulse Resp B/P (MAP) Pulse Ox O2 Delivery O2 Flow Rate FiO2 10/22/22 04:00 36.5 82 16 144/71 (95) 96 Nasal Cannula 3.00 3.00 General Appearance: No Acute Distress Respiratory: Clear to Auscultation (By lungs sounds are distant) Cardiovascular: Regular Rate Abdominal: Soft Neuro: Normal Speech Psych/Mental Status: Mental Status NL Discussion & Recommendations she was made aware to continue the paxlovid twice daily for an additional 2 days. 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 She will stay on her COPD regimen at home and start back on prednisone 10 mg daily. She has also informed me that she will talk to Dr. Wyman her black and white printer operator on Tuesday with update. Discharge Home Medications Reviewed and agree with Discharge Medication list on patient's Discharge Instruction sheet Instructions to Patient/Family Please see electronic discharge instructions given to patient. TYRON BOOTHE MD Oct 22, 2022 07:39
[2022-10-22] MEDS ORDERED: RELABEL FOR HOME USE MC SCH (08:00)
[2022-10-22] MEDS: dexAMETHasone 6 MG TAB (DECADRON) PO SCH (08:24)
[2022-10-22] MEDS: FAMOTIDINE 20 MG (PEPCID) TABLET PO SCH (08:24)
[2022-10-22] MEDS: RX-NIRMATRELVIR/RITONAVIR (PAXLOVID) #30 TABS PO SCH (08:27)
[2022-10-22] MEDS: RT--FLUTICASONE/SALMETEROL 113-14 (AIRDUO RespiCLICK) IH SCH (08:27)
[2022-10-22] MEDS: UMECLIDINIUM BROMIDE (INCRUSE ELLIPTA) 7'S IH SCH (08:28)
[2022-10-22 08:34] VITALS: BP 166/89
--- NOTE | 2022-10-25 06:23 | Physician Query Clarification ---
PQ-Uncertain Diagnosis Admission/Discharge Admission Date: Oct 19, 2022 at 09:20 Discharge Date: Oct 22, 2022 at 11:02 TYRON Feldman MD The medical record reflects the following clinical scenario: History/Risk Factors: 77 y/o female admitted with acute covid 19 respiratory infection with pneumonia, sepsis was documented in medical record. ER physician notes, 10/19: Pneumonia due to COVID-19 virus, COPD exacerbation, sepsis. H and P, 10/19: Covid 19 respiratory infection with pneumonia, known COPD exacer bation, clinically septic. Clinical Findings: HR 115, RR 20, BP 133/85, SpO2 96% sat on 2L, 3 T 37.3, WBC 22.9, lactic acid 1.4, COVID-19 positive, blood cultures no growth. Treatment: Cefepime IV, Paxlovid PO. Question: Is Sepsis a clinically valid diagnosis? Sepsis was documented in the ER provider notes, 10/19 with no further documentation in the medical record. Please document a response in Progress Note or Discharge Summary. 1. Yes, clinically valid, condition resolved. 2. No, condition ruled out. 3. Other, with explanation of clinical findings. 4. Undetermined, no explanation for clinical findings. PHYSICIAN RESPONSE Diagnosis clinically valid: Yes, Conditon resolved In responding to this query, please exercise your independent professional judgment. The purpose of this communication is to more accurately reflect the complexity of your patients condition. The fact that a question is asked does not imply that any particular answer is desired or expected. Thank you for your timely response to this clarification. Requestors name: [ ] Phone # [ ] THIS PHYSICIAN QUERY FORM IS A PERMANENT PART OF THE MEDICAL RECORD BONNY BRANDON Oct 25, 2022 06:23 TYRON BOOTHE MD Nov 09, 2022 07:46
== END 2022-10-22 11:02 | disposition home or self-care (01) | DRG 871 ==
LOC: EDUNIT# 07:10 → ER 07:11 → 4TH 09:20
PROVIDERS: ADMIT Family Medicine; ATTEND Family Medicine
PROC: 8E0ZXY6 Isolation (ICD-10-PCS; principal; 2022-10-19)
DX: A41.89 Other specified sepsis (principal); J12.82 Pneumonia due to coronavirus disease 2019; U07.1 COVID-19; J18.0 Bronchopneumonia, unspecified organism; J44.1 Chronic obstructive pulmonary disease with (acute) exacerbation; J44.0 Chronic obstructive pulmonary disease with (acute) lower respiratory infection; Z87.891 Personal history of nicotine dependence
CPT/HCPCS: 36415; 71045; 80048; 80053; 83605; 83880; 85007; 85025; 85027; 86141; 87040; 87636; 94640; 94760; 96365; 96375

== ENCOUNTER 2022-11-07 09:59 | Emergency (ER) | payer MEDICARE ==
[~2022-11-07] VITALS: Ht 170.2 cm; Wt 45.8 kg
[~2022-11-07 09:59] MED LIST changes: +BUDE0.5A NEB; +CEFP500T4 PO; +CETI10TA17 PO; +FORM20VI3 PO; +MULT-1136 PO; +NIRM1TAB PO; +REVE175V PO
--- NOTE | 2022-11-07 11:14 | ED Respiratory ---
General Chief Complaint: Respiratory Problems Stated Complaint: SOA Nursing Triage Note: PT TO RM 8 BY WITH COMPLAINT OF SOB AND FATIGUE. PT HAS COPD AND IS ON 2.5LNC ALL THE TIME. WAS ADMITTED RECENTLY FOR COVID PNEUMONIA. Source: patient Exam Limitations: no limitations History of Present Illness Date Seen by Provider: Nov 07, 2022 Time Seen by Provider: 11:00 Initial Comments 77-year-old female presents the ED with complaints of shortness of air starting Tuesday. She has a history of COPD, wears 2 to 3 L of oxygen at all times. She states she feels as though she cannot take a deep breath through her nose due to nasal congestion and feeling as though his nose is stuffed. She also reports worsening shortness of breath with exertion. She reports chest heaviness, wet cough, phlegm that she cannot clear, and chest pain that occurs after she has been coughing for a long time. She reports that her hat and cap parts cutter hand is Dr. Wyman in [place]. She states that he started her on budesonide and Perforomist, she states that her shortness of breath is worse after using these. She reports he took her off albuterol, but she used her albuterol inhaler this morning and felt better. She denies fevers, abdominal pain, nausea, vomiting. Allergies and Home Medications Allergies Coded Allergies: No Known Drug Allergies (Unverified , 06/22/22) Patient Home Medication List Home Medication List Reviewed: Yes Albuterol Sulfate (Ventolin Hfa) 18 Gm Hfa.aer.ad, 2 PUFF INH Q4H PRN for SHORTNESS OF BREATH, (Reported) Entered as Reported by: MURALI ANDREW on 06/20/20 1556 Azithromycin (Azithromycin) 250 Mg Tablet, 250 MG PO UD Prescribed by: Cori Hardin on 11/07/22 1214 Budesonide (Budesonide) 0.5 Mg/2 Ml Ampul.neb, 0.5 MG NEB Q12H, (Reported) Entered as Reported by: MURALI ANDREW on 10/19/22 1446 Cefprozil (Cefprozil) 500 Mg Tablet, 500 MG PO BID Prescribed by: TYRON BOOTHE on 10/22/22 0731 Cetirizine HCl (Cetirizine HCl) 10 Mg Tablet, 10 MG PO DAILY, (Reported) Entered as Reported by: MURALI ANDREW on 10/19/22 1446 Famotidine (Famotidine) 20 Mg Tablet, 20 MG PO DAILY PRN for HEARTBURN, (Reported) Entered as Reported by: MURALI ANDREW on 10/19/22 1446 Formoterol Fumarate (Formoterol Fumarate) 20 Mcg/2 Ml Vial.neb, 20 MCG PO Q12H, (Reported) Entered as Reported by: MURALI ANDREW on 10/19/22 1446 Montelukast Sodium (Montelukast Sodium) 10 Mg Tablet, 10 MG PO HS, (Reported) Entered as Reported by: MURALI ANDREW on 06/20/20 1556 Multivitamin (Multivitamin) 1 Each Tablet, 1 EACH PO DAILY, (Reported) Entered as Reported by: MURALI ANDREW on 10/19/22 144 Nirmatrelvir/Ritonavir (Paxlovid 300-100 mg Pack (Eua)) 300 Mg (150 Mg X 2)-100 Mg Tab.ds.pk, 1 EACH PO Q12H Prescribed by: TYRON BOOTHE on 10/22/22 0801 Pantoprazole Sodium (Pantoprazole Sodium) 40 Mg Tablet.dr, 40 MG PO DAILY, (Reported) Entered as Reported by: MURALI ANDREW on 06/22/22 1633 Prednisone (Prednisone) 5 Mg Tablet, 5 MG PO DAILY, (Reported) Entered as Reported by: MURALI ANDREW on 06/22/22 1633 Prednisone (Prednisone) 20 Mg Tab, 40 MG PO DAILY Prescribed by: Cori Hardin on 11/07/22 1214 Revefenacin (Yupelri) 175 Mcg/3 Ml Vial.neb, 175 MCG PO DAILY, (Reported) Entered as Reported by: MURALI ANDREW on 10/19/22 1446 Review of Systems Review of Systems Constitutional: see HPI Past Bdlxssi-Zqcjen-Erirqv Hx Patient Social History Tobacco Use?: No Smoking Status: Former Smoker Use of E-Cig and/or Vaping dev: No Substance use?: No Alcohol Use?: No Pt feels they are or have been: No Immunizations Up To Date Tetanus Booster (TDap): Unknown First/Initial COVID19 Vaccinat: unknown Second COVID19 Vaccination Prieto: unknown Third COVID19 Vaccination Date: unknown Seasonal Allergies Seasonal Allergies: Yes (MILD) Past Medical History Surgery/Hospitalization HX: CATARACTS SURGERY LEFT HIP NAILING Surgeries: Yes Appendectomy, Eye Surgery, Orthopedic Respiratory: Yes COPD Cardiac: Yes Valvular Heart Disease Neurological: No Reproductive Disorders: No Sexually Transmitted Disease: No HIV/AIDS: No Genitourinary: No Gastrointestinal: No Musculoskeletal: Yes (Lt hip fx w nailing 08/16/19) Fractures Endocrine: No HEENT: No Cataract Loss of Vision: Bilateral Hearing Impairment: Denies Cancer: Yes Skin Psychosocial: No Integumentary: No Blood Disorders: No Adverse Reaction/Blood Tranf: No (N/A) Family Medical History Colitis 19 FATHER Dementia 19 MOTHER Parkinson's disease 19 MOTHER GI Disease, Other Conditions/Hx Physical Exam Vital Signs - First Documented Capillary Refill : Height: 5'7.00" Weight: 108lbs. 0.0oz. 48.335154yj; 15.00 BMI Method:Stated General Appearance: WD/WN, no apparent distress Neck: supple, normal inspection Respiratory: no respiratory distress, no accessory muscle use, decreased breath sounds, wheezing (Slight expiratory wheeze upper lobes) Cardiovascular: regular rate, rhythm, no edema, no gallop, no JVD, no murmur Extremities: normal range of motion, normal inspection Neurologic/Psychiatric: alert, normal mood/affect Skin: normal color, warm/dry Progress/Results/Core Measures Suspected Sepsis SIRS Temperature: Pulse: 84 Respiratory Rate: 20 Laboratory Tests 11/07/22 11:13: White Blood Count 12.1H Blood Pressure 141 /85 Mean: 103 Laboratory Tests 11/07/22 11:13: Creatinine 0.82, Platelet Count 193, Total Bilirubin 0.7 Results/Orders Lab Results Laboratory Tests Test 11/07/22 11:13 11/07/22 11:15 11/07/22 11:32 Range/Units White Blood Count 12.1 H 4.3-11.0 10^3/uL Red Blood Count 5.00 3.80-5.11 10^6/uL Hemoglobin 14.8 11.5-16.0 g/dL Hematocrit 46 35-52 % Mean Corpuscular Volume 91 80-99 fL Mean Corpuscular Hemoglobin 30 25-34 pg Mean Corpuscular Hemoglobin Concent 32 32-36 g/dL Red Cell Distribution Width 13.4 10.0-14.5 % Platelet Count 193 130-400 10^3/uL Mean Platelet Volume 9.1 9.0-12.2 fL Immature Granulocyte % (Auto) 1 % Neutrophils (%) (Auto) 85 H 42-75 % Lymphocytes (%) (Auto) 7 L 12-44 % Monocytes (%) (Auto) 6 0-12 % Eosinophils (%) (Auto) 1 0-10 % Basophils (%) (Auto) 1 0-10 % Neutrophils # (Auto) 10.2 H 1.8-7.8 10^3/uL Lymphocytes # (Auto) 0.9 L 1.0-4.0 10^3/uL Monocytes # (Auto) 0.8 0.0-1.0 10^3/uL Eosinophils # (Auto) 0.1 0.0-0.3 10^3/uL Basophils # (Auto) 0.1 0.0-0.1 10^3/uL Immature Granulocyte # (Auto) 0.1 0.0-0.1 10^3/uL Neutrophils % (Manual) 86 % Lymphocytes % (Manual) 7 % Monocytes % (Manual) 5 % Eosinophils % (Manual) 0 % Basophils % (Manual) 1 % Band Neutrophils 1 % Blood Morphology Comment NORMAL Sodium Level 143 135-145 MMOL/L Potassium Level 3.8 3.6-5.0 MMOL/L Chloride Level 102 98-107 MMOL/L Carbon Dioxide Level 27 21-32 MMOL/L Anion Gap 14 5-14 MMOL/L Blood Urea Nitrogen 10 7-18 MG/DL Creatinine 0.82 0.60-1.30 MG/DL Estimat Glomerular Filtration Rate 74 BUN/Creatinine Ratio 12 Glucose Level 129 H 70-105 MG/DL Calcium Level 10.4 H 8.5-10.1 MG/DL Corrected Calcium 10.1 8.5-10.1 MG/DL Magnesium Level 2.3 1.6-2.4 MG/DL Total Bilirubin 0.7 0.1-1.0 MG/DL Aspartate Amino Transf (AST/SGOT) 19 5-34 U/L Alanine Aminotransferase (ALT/SGPT) 26 0-55 U/L Alkaline Phosphatase 60 40-136 U/L B-Type Natriuretic Peptide 12.2 <100.0 PG/ML Total Protein 7.5 6.4-8.2 GM/DL Albumin 4.4 3.2-4.5 GM/DL Troponin I < 0.028 <0.028 NG/ML D-Dimer 0.35 0.00-0.49 UG/ML My Orders Orders - CORI HARDIN APRN Cbc With Automated Diff (11/07/22 11:10) Magnesium (11/07/22 11:10) Chest 1 View, Ap/Pa Only (11/07/22 11:10) Comprehensive Metabolic Panel (11/07/22 11:10) O2 (11/07/22 11:10) Monitor-Rhythm Ecg Trace Only (11/07/22 11:10) Ed Iv/Invasive Line Start (11/07/22 11:10) Bnp [place] (11/07/22 11:10) Albuterol/Ipra Inhalation Soln (Duoneb I (11/07/22 11:15) Svn Small Volume Nebulizer (11/07/22 11:10) Methylprednisolone Sod Succ (Solu-Medrol (11/07/22 11:15) Troponin I [place] (11/07/22 11:14) Manual Differential (11/07/22 11:13) Fibrin Degradation Products (11/07/22 11:30) Medications Given in ED Current Medications Medications Dose Ordered Sig/Missy Route Start Time Stop Time Status Last Admin Dose Admin Albuterol/ Ipratropium 3 ml ONCE ONCE INH 11/07/22 11:15 11/07/22 11:16 DC 11/07/22 11:31 3 ML Methylprednisolone Sodium Succinate 125 mg ONCE ONCE IVP 11/07/22 11:15 11/07/22 11:16 DC 11/07/22 11:48 125 MG Vital Signs/I&O 11/07/22 11/07/22 11/07/22 11/07/22 10:19 10:19 10:19 11:32 Temp 36.2 Pulse 84 Resp 20 B/P (MAP) 141/85 (103) Pulse Ox 98 94 O2 Delivery Nasal Cannula Nasal Cannula Room Air Nasal Cannula O2 Flow Rate 2.50 2.50 2.00 11/07/22 12:20 Pulse 83 Resp 16 B/P (MAP) 144/94 Pulse Ox 96 O2 Delivery Nasal Cannula O2 Flow Rate 2.50 Capillary Refill : Blood Pressure Mean: 103 Progress Note : Time: 11:18 Progress Note Patient seen and evaluated, resting comfortably in bed, no acute distress. Based on exam and symptoms, differential diagnosis includes but not limited to, COPD exacerbation, pneumonia, work-up initiated including CBC, CMP, magnesium, troponin, BNP, chest x-ray. DuoNeb and Solu-Medrol ordered. 1208 labs and chest x-ray reviewed. CBC shows slightly elevated BC 12.1. This may be related to her prednisone use. Does show elevated neutrophil percentage 85%. CMP grossly normal, glucose slightly elevated 129. BNP negative. Troponin negative. D-dimer negative. Chest x-ray shows. Stable mild interstitial opacities in the lung bases which could represent background chronic lung disease versus superimposed edema, atelectasis, or atypical pneumonia. I believe this is likely a COPD exacerbation. Results discussed with patient and daughter. Discussed discharge plan of prednisone and azithromycin. Patient informed to also use her albuterol inhaler as needed. Patient is agreeable to discharge and discharge plan. Patient instructed to call hat and cap parts cutter hand office in the morning to schedule a follow-up appointment for the soonest available. Discharge instructions and return precaution provided. Diagnostic Imaging Diagonstic Imaging: Xray Plain Films/CT/US/NM/MRI: chest Comments [facility] [place] NAME: MAHESH CANTRELL [facility] REC#: [id number] PT STATUS: REG ER : 1945 PHYSICIAN: CORI HARDIN APRN ADMIT DATE: 11/07/22/ER Signed Date of Exam:11/07/22 CHEST 1 VIEW, AP/PA ONLY EXAMINATION: Chest 1 view HISTORY: Chest pain COMPARISON: 10/19/2022 FINDINGS: Heart size and pulmonary vasculature are normal. There are mild interstitial opacities in the lung bases. No pleural effusion or pneumothorax. The osseous structures are intact. IMPRESSION: 1. Stable mild interstitial opacities in the lung bases which could represent background chronic lung disease versus superimposed edema, atelectasis, or atypical pneumonia. Dictated by: Dictated on workstation # [id number] Dict: 11/07/22 1130 Trans: 11/07/22 1146 [facility] [id number] Interpreted by: FARA ONEILL DO Electronically signed by: FARA ONEILL DO 11/07/22 1146 Departure Impression Primary Impression: COPD exacerbation Disposition: 01 HOME, SELF-CARE Condition: Stable Departure-Patient Inst. Decision time for Depature: 12:09 Referrals: TYRON BOOTHE MD (PCP/Family) Primary Care Physician Patient Instructions: COPD Exacerbation, Adult ED Add. Discharge Instructions: Take azithromycin, complete full course of antibiotic even begin to feel better. Take the higher dose of prednisone once a day for 5 days. Continue using your albuterol inhaler as needed for shortness of breath. Call your hat and cap parts cutter hand in the morning to schedule a sooner appointment. You may also try to follow-up with your primary care provider. Return for worsening shortness of breath, chest pain, fever, dizziness or lightheadedness, confusion, or any other new, concerning, or worse symptoms. All discharge instructions reviewed with patient and/or family. Voiced understanding. Scripts Azithromycin (Azithromycin) 250 Mg Tablet 250 MG PO UD, #6 TAB TAKE 2 TABLETS ON DAY ONE THEN TAKE 1 TABLET DAILY FOR FOUR MORE DAYS Prov: CORI HARDIN APRN 11/07/22 Prednisone (Prednisone) 20 Mg Tab 40 MG PO DAILY for 5 Days, #5 TAB 0 Refills Prov: CORI HARDIN APRN 11/07/22 CORI HARDIN APRN Nov 07, 2022 11:14
[2022-11-07] MEDS ORDERED: RT-ALBUTEROL/IPRATROPIUM 3 ML (DUONEB) VIAL INH ONE (11:15)
[2022-11-07] MEDS ORDERED: methylPREDNISolone 125 MG (Solu-MEDROL) VIAL IVP ONE (11:15)
[2022-11-07 11:16] LABS: BASOPHILS # (AUTO) 0.1 10^3/uL (0.0-0.1); BASOPHILS % (AUTO) 1 % (0-10); EOSINOPHILS # (AUTO) 0.1 10^3/uL (0.0-0.3); EOSINOPHILS % (AUTO) 1 % (0-10); HEMATOCRIT 46 % (35-52); HEMOGLOBIN 14.8 g/dL (11.5-16.0); LYMPHOCYTES # (AUTO) 0.9 10^3/uL (1.0-4.0); LYMPHOCYTES % (AUTO) 7 % (12-44); MEAN CORPUSCULAR HEMOGLOBIN 30 pg (25-34); MEAN CORPUSCULAR HGB CONC 32 g/dL (32-36); MEAN CORPUSCULAR VOLUME 91 fL (80-99); MEAN PLATELET VOLUME 9.1 fL (9.0-12.2); MONOCYTES # (AUTO) 0.8 10^3/uL (0.0-1.0); MONOCYTES % (AUTO) 6 % (0-12); NEUTROPHILS # (AUTO) 10.2 10^3/uL (1.8-7.8); NEUTROPHILS % (AUTO) 85 % (42-75); PLATELET COUNT 193 10^3/uL (130-400); WHITE BLOOD COUNT 12.1 10^3/uL (4.3-11.0)
[2022-11-07 11:26] LABS: ALBUMIN 4.4 GM/DL (3.2-4.5)
[2022-11-07 11:27] LABS: POTASSIUM 3.8 MMOL/L (3.6-5.0)
[2022-11-07 11:28] LABS: CALCIUM 10.4 MG/DL (8.5-10.1)
[2022-11-07 11:29] LABS: TOTAL PROTEIN 7.5 GM/DL (6.4-8.2)
[2022-11-07 11:31] LABS: BILIRUBIN,TOTAL 0.7 MG/DL (0.1-1.0)
[2022-11-07 11:32] LABS: CREATININE SERUM 0.82 MG/DL (0.60-1.30)
--- NOTE | 2022-11-07 11:33 | Diagnostic Imaging Report ---
EXAMINATION: Chest 1 view HISTORY: Chest pain COMPARISON: 10/19/2022 FINDINGS: Heart size and pulmonary vasculature are normal. There are mild interstitial opacities in the lung bases. No pleural effusion or pneumothorax. The osseous structures are intact. IMPRESSION: 1. Stable mild interstitial opacities in the lung bases which could represent background chronic lung disease versus superimposed edema, atelectasis, or atypical pneumonia. Dictated by: Dictated on workstation # [id number]
[2022-11-07 11:35] LABS: MAGNESIUM 2.3 MG/DL (1.6-2.4)
[2022-11-07 11:53] LABS: BAND NEUTROPHILS 1 %; BASOPHILS % (MANUAL) 1 %; EOSINOPHILS % (MANUAL) 0 %; LYMPHOCYTES % (MANUAL) 7 %; MONOCYTES % (MANUAL) 5 %; NEUTROPHILS % (MANUAL) 86 %; RBC MORPH NORMAL
[2022-11-07] MEDS ORDERED: AZIT250T12 PO (12:14)
[2022-11-07] MEDS ORDERED: PRD20T PO (12:14)
[2022-11-07 12:20] VITALS: BP 144/94
== END 2022-11-07 12:27 | disposition home or self-care (01) ==
LOC: EDUNIT# 09:59 → ER 09:59
DX: J44.1 Chronic obstructive pulmonary disease with (acute) exacerbation (principal); Z87.891 Personal history of nicotine dependence; Z86.16 Personal history of COVID-19; Z99.81 Dependence on supplemental oxygen
CPT/HCPCS: 36415; 71045; 80053; 83735; 83880; 84484; 85007; 85027; 85379; 94640

== ENCOUNTER 2022-12-31 12:03 | Emergency (ER) | payer MEDICARE ==
[~2022-12-31] VITALS: Ht 170 cm; Wt 48.0 kg
[~2022-12-31 12:03] MED LIST changes: +AZIT250T12 PO
[2022-12-31 12:34] LABS: BASOPHILS # (AUTO) 0.1 10^3/uL (0.0-0.1); BASOPHILS % (AUTO) 1 % (0-10); EOSINOPHILS # (AUTO) 0.1 10^3/uL (0.0-0.3); EOSINOPHILS % (AUTO) 1 % (0-10); HEMATOCRIT 45 % (35-52); HEMOGLOBIN 14.6 g/dL (11.5-16.0); LYMPHOCYTES # (AUTO) 1.5 10^3/uL (1.0-4.0); LYMPHOCYTES % (AUTO) 16 % (12-44); MEAN CORPUSCULAR HEMOGLOBIN 30 pg (25-34); MEAN CORPUSCULAR HGB CONC 32 g/dL (32-36); MEAN CORPUSCULAR VOLUME 92 fL (80-99); MEAN PLATELET VOLUME 9.3 fL (9.0-12.2); MONOCYTES # (AUTO) 0.4 10^3/uL (0.0-1.0); MONOCYTES % (AUTO) 5 % (0-12); NEUTROPHILS # (AUTO) 7.4 10^3/uL (1.8-7.8); NEUTROPHILS % (AUTO) 77 % (42-75); PLATELET COUNT 275 10^3/uL (130-400); WHITE BLOOD COUNT 9.6 10^3/uL (4.3-11.0)
[2022-12-31 12:53] LABS: ALBUMIN 4.7 GM/DL (3.2-4.5); CHLORIDE 104 MMOL/L (98-107); POTASSIUM 3.8 MMOL/L (3.6-5.0); SODIUM 143 MMOL/L (135-145)
--- NOTE | 2022-12-31 12:53 | Diagnostic Imaging Report ---
INDICATION: Shortness of breath. COMPARISON: 11/07/2022 FINDINGS: Severe pulmonary emphysema and bilateral air trapping, chronic. No acute pneumonia superimposed. There was no failure pattern. No effusion. No pneumothorax. IMPRESSION: Stable chronic severe emphysematous lung disease. Dictated by: Dictated on workstation # [id number]
[2022-12-31 12:54] LABS: CALCIUM 10.8 MG/DL (8.5-10.1)
[2022-12-31 12:56] LABS: GLUCOSE 105 MG/DL (70-105); TOTAL PROTEIN 7.5 GM/DL (6.4-8.2)
[2022-12-31 12:57] LABS: BILIRUBIN,TOTAL 0.5 MG/DL (0.1-1.0); CARBON DIOXIDE 27 MMOL/L (21-32)
[2022-12-31 12:59] LABS: ALKALINE PHOSPHATASE 61 U/L (40-136); CREATININE SERUM 0.86 MG/DL (0.60-1.30); GFR ESTIMATED 70
[2022-12-31 13:00] LABS: BUN/CREATININE RATIO 14
[2022-12-31 13:02] LABS: ALANINE AMINOTRANSFERASE 17 U/L (0-55)
[2022-12-31] MEDS ORDERED: predniSONE 20 MG TAB PO ONE (14:00)
[2022-12-31] MEDS ORDERED: PRD20T PO (14:00)
--- NOTE | 2022-12-31 14:00 | ED Respiratory ---
General Chief Complaint: Respiratory Problems Stated Complaint: SOB Nursing Triage Note: PT TO RM 7 PER W/C PT STATES HAS BEEN SOB FOR APPROX 1 WEEK. PT DENIES FEVERS. INTERMITTENT COUGH NON PRODUCTIVE. IS CURRENTLY ON ANTIBIOTIC FROM DR CROWE. Source: patient, family, old records Exam Limitations: no limitations History of Present Illness Date Seen by Provider: Dec 31, 2022 Time Seen by Provider: 12:15 Initial Comments This 77 year old woman presents to the ER with complaints of increased SOA. She has COPD and had a recent COVID infection and hospitalization. She uses albuterol nebs about 3-4 times daily as needed. Her doughnut dough mixer Dr. Castillo placed her on Azithromycin on Tuesday. She continues to have SOA, COLEMAN, and dry cough. She denies chest pain or fever. She is stable on her usual NC O2 flow of 2-2.5 lpm. Allergies and Home Medications Allergies Coded Allergies: No Known Drug Allergies (Unverified , 06/22/22) Patient Home Medication List Home Medication List Reviewed: Yes Albuterol Sulfate (Ventolin Hfa) 18 Gm Hfa.aer.ad, 2 PUFF INH Q4H PRN for SHORTNESS OF BREATH, (Reported) Entered as Reported by: MURALI ANDREW on 06/20/20 1556 Azithromycin (Azithromycin) 250 Mg Tablet, 250 MG PO UD Prescribed by: Cori Marroquin on 11/07/22 1214 Budesonide (Budesonide) 0.5 Mg/2 Ml Ampul.neb, 0.5 MG NEB Q12H, (Reported) Entered as Reported by: MURALI ANDREW on 10/19/22 1446 Cefprozil (Cefprozil) 500 Mg Tablet, 500 MG PO BID Prescribed by: TYRON BOOTHE on 10/22/22 0731 Cetirizine HCl (Cetirizine HCl) 10 Mg Tablet, 10 MG PO DAILY, (Reported) Entered as Reported by: MURALI ANDREW on 10/19/22 1446 Famotidine (Famotidine) 20 Mg Tablet, 20 MG PO DAILY PRN for HEARTBURN, (Reported) Entered as Reported by: MURALI ANDREW on 10/19/22 1446 Formoterol Fumarate (Formoterol Fumarate) 20 Mcg/2 Ml Vial.neb, 20 MCG PO Q12H, (Reported) Entered as Reported by: MURALI ANDREW on 10/19/22 1446 Montelukast Sodium (Montelukast Sodium) 10 Mg Tablet, 10 MG PO HS, (Reported) Entered as Reported by: MURALI ANDREW on 06/20/20 1556 Multivitamin (Multivitamin) 1 Each Tablet, 1 EACH PO DAILY, (Reported) Entered as Reported by: MURALI ANDREW on 10/19/22 1446 Nirmatrelvir/Ritonavir (Paxlovid 300-100 mg Pack (Eua)) 300 Mg (150 Mg X 2)-100 Mg Tab.ds.pk, 1 EACH PO Q12H Prescribed by: TYRON BOOTHE on 10/22/22 0801 Pantoprazole Sodium (Pantoprazole Sodium) 40 Mg Tablet.dr, 40 MG PO DAILY, (Reported) Entered as Reported by: MURALI ANDREW on 06/22/22 1633 Prednisone (Prednisone) 5 Mg Tablet, 5 MG PO DAILY, (Reported) Entered as Reported by: MURALI ANDREW on 06/22/22 1633 Prednisone (Prednisone) 20 Mg Tab, 40 MG PO DAILY Prescribed by: Cori Marroquin on 11/07/22 1214 Prednisone (Prednisone) 20 Mg Tab, 40 MG PO DAILY Prescribed by: ISAIAH SIN on 12/31/22 1400 Revefenacin (Yupelri) 175 Mcg/3 Ml Vial.neb, 175 MCG PO DAILY, (Reported) Entered as Reported by: MURALI ANDREW on 10/19/22 1446 Review of Systems Review of Systems Constitutional: no symptoms reported EENTM: no symptoms reported Respiratory: see HPI Cardiovascular: no symptoms reported Gastrointestinal: no symptoms reported Genitourinary: no symptoms reported Musculoskeletal: no symptoms reported Skin: no symptoms reported Psychiatric/Neurological: No Symptoms Reported Hematologic/Lymphatic: No Symptoms Reported Past Jagxudj-Amiawi-Xswmel Hx Patient Social History Tobacco Use?: No Smoking Status: Former Smoker Substance use?: No Alcohol Use?: No Pt feels they are or have been: No Immunizations Up To Date Tetanus Booster (TDap): Unknown First/Initial COVID19 Vaccinat: YES Second COVID19 Vaccination Prieto: YES Third COVID19 Vaccination Date: unknown Seasonal Allergies Seasonal Allergies: Yes (MILD) Past Medical History Surgery/Hospitalization HX: CATARACTS SURGERY LEFT HIP NAILING , COPD, Surgeries: Yes Appendectomy, Eye Surgery, Orthopedic Respiratory: Yes COPD (uses O2 by NC at 2-2.5 lpm) Cardiac: Yes Valvular Heart Disease Neurological: No Reproductive Disorders: No Sexually Transmitted Disease: No HIV/AIDS: No Genitourinary: No Gastrointestinal: No Musculoskeletal: Yes (Lt hip fx w nailing 08/16/19) Fractures Endocrine: No HEENT: No Cataract Loss of Vision: Bilateral Hearing Impairment: Denies Cancer: Yes Skin Psychosocial: No Integumentary: No Blood Disorders: No Adverse Reaction/Blood Tranf: No (N/A) Family Medical History Colitis 19 FATHER Dementia 19 MOTHER Parkinson's disease 19 MOTHER GI Disease, Other Conditions/Hx Physical Exam Vital Signs - First Documented 12/31/22 12:05 Temp 36.5 Pulse 79 Resp 34 B/P (MAP) 152/84 (106) Pulse Ox 98 O2 Delivery Nasal Cannula O2 Flow Rate 2.50 Capillary Refill : Less Than 3 Seconds Height: 5'7.00" Weight: 108lbs. 0.0oz. 48.538931pn; 16.00 BMI Method:Stated General Appearance: WD/WN, no apparent distress, thin HEENT: PERRL/EOMI, normal ENT inspection Neck: normal inspection, other (no JVD) Respiratory: lungs clear, normal breath sounds, no respiratory distress, no accessory muscle use, decreased breath sounds Cardiovascular: regular rate, rhythm, no edema, no murmur Gastrointestinal: non tender, soft Extremities: normal inspection, no pedal edema, no calf tenderness Neurologic/Psychiatric: no motor/sensory deficits, alert, normal mood/affect, oriented x 3 Skin: normal color, warm/dry Progress/Results/Core Measures Suspected Sepsis SIRS Temperature: Pulse: 79 Respiratory Rate: 34 Laboratory Tests 12/31/22 12:12: White Blood Count 9.6 Blood Pressure 152 /84 Mean: 106 Laboratory Tests 12/31/22 12:12: Creatinine 0.86, Platelet Count 275, Total Bilirubin 0.5 Results/Orders Lab Results Laboratory Tests Test 12/31/22 12:12 Range/Units White Blood Count 9.6 4.3-11.0 10^3/uL Red Blood Count 4.88 3.80-5.11 10^6/uL Hemoglobin 14.6 11.5-16.0 g/dL Hematocrit 45 35-52 % Mean Corpuscular Volume 92 80-99 fL Mean Corpuscular Hemoglobin 30 25-34 pg Mean Corpuscular Hemoglobin Concent 32 32-36 g/dL Red Cell Distribution Width 13.4 10.0-14.5 % Platelet Count 275 130-400 10^3/uL Mean Platelet Volume 9.3 9.0-12.2 fL Immature Granulocyte % (Auto) 1 % Neutrophils (%) (Auto) 77 H 42-75 % Lymphocytes (%) (Auto) 16 12-44 % Monocytes (%) (Auto) 5 0-12 % Eosinophils (%) (Auto) 1 0-10 % Basophils (%) (Auto) 1 0-10 % Neutrophils # (Auto) 7.4 1.8-7.8 10^3/uL Lymphocytes # (Auto) 1.5 1.0-4.0 10^3/uL Monocytes # (Auto) 0.4 0.0-1.0 10^3/uL Eosinophils # (Auto) 0.1 0.0-0.3 10^3/uL Basophils # (Auto) 0.1 0.0-0.1 10^3/uL Immature Granulocyte # (Auto) 0.1 0.0-0.1 10^3/uL Sodium Level 143 135-145 MMOL/L Potassium Level 3.8 3.6-5.0 MMOL/L Chloride Level 104 98-107 MMOL/L Carbon Dioxide Level 27 21-32 MMOL/L Anion Gap 12 5-14 MMOL/L Blood Urea Nitrogen 12 7-18 MG/DL Creatinine 0.86 0.60-1.30 MG/DL Estimat Glomerular Filtration Rate 70 BUN/Creatinine Ratio 14 Glucose Level 105 70-105 MG/DL Calcium Level 10.8 H 8.5-10.1 MG/DL Corrected Calcium 8.5-10.1 MG/DL Total Bilirubin 0.5 0.1-1.0 MG/DL Aspartate Amino Transf (AST/SGOT) 20 5-34 U/L Alanine Aminotransferase (ALT/SGPT) 17 0-55 U/L Alkaline Phosphatase 61 40-136 U/L C-Reactive Protein High Sensitivity 0.11 0.00-0.50 MG/DL B-Type Natriuretic Peptide 10.0 <100.0 PG/ML Total Protein 7.5 6.4-8.2 GM/DL Albumin 4.7 H 3.2-4.5 GM/DL My Orders Orders - ISAIAH NARVAEZ MD Bnp [place] (12/31/22 12:23) Cbc With Automated Diff (12/31/22 12:23) Comprehensive Metabolic Panel (12/31/22 12:23) Hs C Reactive Protein (12/31/22 12:23) Ed Iv/Invasive Line Start (12/31/22 12:23) Chest Pa/Lat (2 View) (12/31/22 12:33) Prednisone Tablet (Deltasone Tablet) (12/31/22 14:00) Vital Signs/I&O 12/31/22 12/31/22 12/31/22 12:05 12:05 14:15 Temp 36.5 Pulse 79 75 Resp 34 22 B/P (MAP) 152/84 (106) 131/79 Pulse Ox 98 98 O2 Delivery Nasal Cannula Nasal Cannula O2 Flow Rate 2.50 2.50 2.50 Capillary Refill : Less Than 3 Seconds Blood Pressure Mean: 106 Progress Note : Progress Note Labs and chest x-rays all viewed and interpreted by me including CBC, BMP, CRP, BNP. No COVID swab was obtained because patient had recent COVID infection. All labs were unremarkable. Chest x-ray demonstrated not evidence of pneumonia or other acute changes. Vital signs were unremarkable. Respiratory status was stable. Prednisone burst was added to her therapy to help get her through the weekend. Discharge instructions were reviewed with her and son as noted below. Diagnostic Imaging Diagonstic Imaging: Xray Plain Films/CT/US/NM/MRI: chest Comments NAME: MAHESH CANTRELL [facility] REC#: [id number] PT STATUS: DEP ER : 1945 PHYSICIAN: ISAIAH NARVAEZ MD ADMIT DATE: 12/31/22/ER Signed Date of Exam:12/31/22 CHEST PA/LAT (2 VIEW) INDICATION: Shortness of breath. COMPARISON: 11/07/2022 FINDINGS: Severe pulmonary emphysema and bilateral air trapping, chronic. No acute pneumonia superimposed. There was no failure pattern. No effusion. No pneumothorax. IMPRESSION: Stable chronic severe emphysematous lung disease. Dictated by: Dictated on workstation # [id number] Dict: 12/31/22 1250 Trans: 12/31/22 1511 [facility] [id number] Interpreted by: GUSTAVO JEAN-BAPTISTE Electronically signed by: GUSTAVO JEAN-BAPTISTE 12/31/22 1511 Departure Impression Primary Impression: COPD exacerbation Additional Impression: Dyspnea Qualified Codes: R06.00 - Dyspnea, unspecified Disposition: 01 HOME, SELF-CARE Condition: Stable Departure-Patient Inst. Decision time for Depature: 13:58 Referrals: TYRON BOOTHE MD (PCP/Family) Primary Care Physician Patient Instructions: COPD Exacerbation, Adult ED Add. Discharge Instructions: Start your prednisone prescription tomorrow morning. Take prednisone early in the day to avoid sleep disturbance and with food or milk to avoid upset stomach. You may increase your albuterol nebulizer treatments to every 4 hours as needed to help you get through the weekend. Follow-up with Dr. Wyman with a phone call on Tuesday to discuss further treatment and to give him an update on your status. Complete the azithromycin as previously prescribed. If necessary, you may titrate your oxygen up to 3 to 4 L/min over the weekend to keep your oxygen saturations greater than 92%. If you require more than 4 L/min, return to the emergency room. Return to the ER if you have worsening symptoms despite following these instructions. All discharge instructions reviewed with patient and/or family. Voiced understanding. Scripts Prednisone (Prednisone) 20 Mg Tab 40 MG PO DAILY, #8 TAB 0 Refills Prov: ISAIAH NARVAEZ MD 12/31/22 Copy Copies To 1: TYRON BOOTHE MD Copies To 2: ALFNOSO CROWE MD, JOSHUA T MD Dec 31, 2022 14:00
[2022-12-31 14:15] VITALS: BP 131/79
== END 2022-12-31 14:15 | disposition home or self-care (01) ==
LOC: EDUNIT# 12:03 → ER 12:04
DX: J44.1 Chronic obstructive pulmonary disease with (acute) exacerbation (principal); Z87.891 Personal history of nicotine dependence; Z86.16 Personal history of COVID-19; Z99.81 Dependence on supplemental oxygen
CPT/HCPCS: 36415; 71046; 80053; 83880; 85025; 86141

== ENCOUNTER 2023-02-20 17:44 | Emergency (ER) | payer MEDICARE ==
[~2023-02-20] VITALS: Ht 170.2 cm; Wt 47.6 kg
--- NOTE | 2023-02-20 17:57 | ED Respiratory ---
General Chief Complaint: Respiratory Problems Stated Complaint: SOA History of Present Illness Date Seen by Provider: Feb 20, 2023 Time Seen by Provider: 17:57 Initial Comments 77-year-old female presents with shortness of breath. She feels like she is not moving air. Patient is normally on 2 L home oxygen and feels like she has had to move it up to 2.5-3L Patient worse with the time it has been going on for the last couple days. She denies any fever, chills, increased cough or increased sputum. She does report a history of COPD. Allergies and Home Medications Allergies Coded Allergies: No Known Drug Allergies (Unverified , 06/22/22) Patient Home Medication List Home Medication List Reviewed: Yes Albuterol Sulfate (Ventolin Hfa) 18 Gm Hfa.aer.ad, 2 PUFF INH Q4H PRN for SHORTNESS OF BREATH, (Reported) Entered as Reported by: MURALI ANDREW on 06/20/20 1556 Azithromycin (Azithromycin) 250 Mg Tablet, 250 MG PO UD Prescribed by: Cori Marroquin on 11/07/22 1214 Budesonide (Budesonide) 0.5 Mg/2 Ml Ampul.neb, 0.5 MG NEB Q12H, (Reported) Entered as Reported by: MURALI ANDREW on 10/19/22 1446 Cefprozil (Cefprozil) 500 Mg Tablet, 500 MG PO BID Prescribed by: TYRON BOOTHE on 10/22/22 0731 Cetirizine HCl (Cetirizine HCl) 10 Mg Tablet, 10 MG PO DAILY, (Reported) Entered as Reported by: MURALI ANDREW on 10/19/22 1446 Famotidine (Famotidine) 20 Mg Tablet, 20 MG PO DAILY PRN for HEARTBURN, (Reported) Entered as Reported by: MURALI ANDREW on 10/19/22 1446 Formoterol Fumarate (Formoterol Fumarate) 20 Mcg/2 Ml Vial.neb, 20 MCG PO Q12H, (Reported) Entered as Reported by: MURALI ANDREW on 10/19/22 1446 Montelukast Sodium (Montelukast Sodium) 10 Mg Tablet, 10 MG PO HS, (Reported) Entered as Reported by: MURALI ANDREW on 06/20/20 1556 Multivitamin (Multivitamin) 1 Each Tablet, 1 EACH PO DAILY, (Reported) Entered as Reported by: MURALI ANDREW on 10/19/22 1446 Nirmatrelvir/Ritonavir (Paxlovid 300-100 mg Pack (Eua)) 300 Mg (150 Mg X 2)-100 Mg Tab.ds.pk, 1 EACH PO Q12H Prescribed by: TYRON BOOTHE on 10/22/22 0801 Pantoprazole Sodium (Pantoprazole Sodium) 40 Mg Tablet.dr, 40 MG PO DAILY, (Reported) Entered as Reported by: MURALI ANDREW on 06/22/22 1633 Prednisone (Prednisone) 5 Mg Tablet, 5 MG PO DAILY, (Reported) Entered as Reported by: MURALI ANDREW on 06/22/22 1633 Prednisone (Prednisone) 20 Mg Tab, 40 MG PO DAILY Prescribed by: Cori Marroquin on 11/07/22 1214 Prednisone (Prednisone) 20 Mg Tab, 40 MG PO DAILY Prescribed by: ISAIAH SIN on 12/31/22 1400 Revefenacin (Yupelri) 175 Mcg/3 Ml Vial.neb, 175 MCG PO DAILY, (Reported) Entered as Reported by: MURALI ANDREW on 10/19/22 1446 Review of Systems Review of Systems Constitutional: No chills, No fever Respiratory: No cough; short of breath Cardiovascular: No chest pain, No palpitations Gastrointestinal: No abdominal pain, No nausea, No vomiting Musculoskeletal: no symptoms reported Skin: no symptoms reported Psychiatric/Neurological: No Symptoms Reported Hematologic/Lymphatic: No Symptoms Reported Immunological/Allergic: no symptoms reported Past Fendivx-Hpbkcp-Humzpo Hx Immunizations Up To Date Tetanus Booster (TDap): Unknown First/Initial COVID19 Vaccinat: YES Second COVID19 Vaccination Prieto: YES Third COVID19 Vaccination Date: unknown Seasonal Allergies Seasonal Allergies: Yes (MILD) Past Medical History Surgery/Hospitalization HX: CATARACTS SURGERY LEFT HIP NAILING , COPD, Surgeries: Yes Appendectomy, Eye Surgery, Orthopedic Respiratory: Yes COPD Cardiac: Yes Valvular Heart Disease Neurological: No Reproductive Disorders: No Sexually Transmitted Disease: No HIV/AIDS: No Genitourinary: No Gastrointestinal: No Musculoskeletal: Yes (Lt hip fx w nailing 08/16/19) Fractures Endocrine: No HEENT: No Cataract Loss of Vision: Bilateral Hearing Impairment: Denies Cancer: Yes Skin Psychosocial: No Integumentary: No Blood Disorders: No Adverse Reaction/Blood Tranf: No (N/A) Family Medical History Colitis 19 FATHER Dementia 19 MOTHER Parkinson's disease 19 MOTHER GI Disease, Other Conditions/Hx Physical Exam Vital Signs - First Documented 02/20/23 17:48 Temp 36.3 Pulse 94 Resp 26 B/P (MAP) 150/80 (103) Pulse Ox 95 O2 Delivery Nasal Cannula O2 Flow Rate 2.00 Capillary Refill : Height: 5'7.00" Weight: 108lbs. 0.0oz. 48.100093qp; 16.00 BMI Method:Stated General Appearance: WD/WN, no apparent distress Respiratory: decreased breath sounds (moderate diffuse ) Neurologic/Psychiatric: alert, normal mood/affect, oriented x 3 Skin: normal color, warm/dry Progress/Results/Core Measures Suspected Sepsis SIRS Temperature: Pulse: Respiratory Rate: Laboratory Tests 02/20/23 17:50: White Blood Count 10.9 Blood Pressure / Mean: Laboratory Tests 02/20/23 17:50: Creatinine 1.07, Platelet Count 292, Total Bilirubin 0.7 Results/Orders Lab Results Laboratory Tests Test 02/20/23 17:50 Range/Units White Blood Count 10.9 4.3-11.0 10^3/uL Red Blood Count 5.10 3.80-5.11 10^6/uL Hemoglobin 15.7 11.5-16.0 g/dL Hematocrit 49 35-52 % Mean Corpuscular Volume 95 80-99 fL Mean Corpuscular Hemoglobin 31 25-34 pg Mean Corpuscular Hemoglobin Concent 32 32-36 g/dL Red Cell Distribution Width 12.7 10.0-14.5 % Platelet Count 292 130-400 10^3/uL Mean Platelet Volume 9.3 9.0-12.2 fL Immature Granulocyte % (Auto) 1 % Neutrophils (%) (Auto) 61 42-75 % Lymphocytes (%) (Auto) 31 12-44 % Monocytes (%) (Auto) 5 0-12 % Eosinophils (%) (Auto) 2 0-10 % Basophils (%) (Auto) 1 0-10 % Neutrophils # (Auto) 6.6 1.8-7.8 10^3/uL Lymphocytes # (Auto) 3.3 1.0-4.0 10^3/uL Monocytes # (Auto) 0.6 0.0-1.0 10^3/uL Eosinophils # (Auto) 0.2 0.0-0.3 10^3/uL Basophils # (Auto) 0.1 0.0-0.1 10^3/uL Immature Granulocyte # (Auto) 0.1 0.0-0.1 10^3/uL Sodium Level 142 135-145 MMOL/L Potassium Level 4.0 3.6-5.0 MMOL/L Chloride Level 104 98-107 MMOL/L Carbon Dioxide Level 23 21-32 MMOL/L Anion Gap 15 H 5-14 MMOL/L Blood Urea Nitrogen 16 7-18 MG/DL Creatinine 1.07 0.60-1.30 MG/DL Estimat Glomerular Filtration Rate 53 BUN/Creatinine Ratio 15 Glucose Level 194 H 70-105 MG/DL Calcium Level 10.2 H 8.5-10.1 MG/DL Corrected Calcium 8.5-10.1 MG/DL Magnesium Level 2.2 1.6-2.4 MG/DL Total Bilirubin 0.7 0.1-1.0 MG/DL Aspartate Amino Transf (AST/SGOT) 24 5-34 U/L Alanine Aminotransferase (ALT/SGPT) 20 0-55 U/L Alkaline Phosphatase 58 40-136 U/L Troponin I < 0.028 <0.028 NG/ML Total Protein 7.3 6.4-8.2 GM/DL Albumin 4.7 H 3.2-4.5 GM/DL My Orders Orders - YUKI IBRAHIMR L DO Albuterol/Ipra Inhalation Soln (Duoneb I (02/20/23 18:15) Chest Pa/Lat (2 View) (02/20/23 18:04) Dexamethasone Injection (Decadron Inje (02/20/23 18:15) Svn Small Volume Nebulizer (02/20/23 18:04) Cbc With Automated Diff (02/20/23 18:04) Comprehensive Metabolic Panel (02/20/23 18:04) Magnesium (02/20/23 18:04) Troponin I [place] (02/20/23 18:04) Medications Given in ED Current Medications Medications Dose Ordered Sig/Missy Route Start Time Stop Time Status Last Admin Dose Admin Albuterol/ Ipratropium 3 ml ONCE ONCE INH 02/20/23 18:15 02/20/23 18:16 DC 02/20/23 18:36 3 ML Dexamethasone Sodium Phosphate 10 mg ONCE ONCE IV 02/20/23 18:15 02/20/23 18:16 DC 02/20/23 18:18 10 MG Vital Signs/I&O 02/20/23 02/20/23 02/20/23 17:48 17:48 18:36 Temp 36.3 Pulse 94 Resp 26 B/P (MAP) 150/80 (103) Pulse Ox 95 99 O2 Delivery Nasal Cannula Nasal Cannula Nasal Cannula O2 Flow Rate 2.00 3.00 2.00 Capillary Refill : Progress Note : Progress Note Patient's diagnostic studies were ordered reviewed and interpreted by me. Patient has no acute findings on her labs. Patient's checks x-ray was ordered reviewed by me with initial interpretation by me and final interpretation per radiology report with no acute pneumonia or changes noted. Patient felt better following DuoNeb. Patient's oxygen remained in the upper 90s on her baseline 2 L. Also given 10 mg of Decadron IV while in the ER. This time patient is having a mild COPD flare but likely just some difficulty with humidity. At this time there is no signs of pneumonia or need for antibiotic based on her daily once is provided to her by her lung doctor. I did recommend she use her albuterol every 4 hours while awake for the next 24 hours then as needed. She should call her black jack dealer if her symptoms continue to worsen or needs her inhaler more frequently. Patient was stable and discharged home. Diagnostic Imaging Diagonstic Imaging: Xray Plain Films/CT/US/NM/MRI: chest Comments ADMIT DATE: 02/20/23/ER Draft Date of Exam:02/20/23 CHEST PA/LAT (2 VIEW) History: Shortness of breath and COPD TECHNIQUE: 2 views of the chest COMPARISON: 12/31/2022 FINDINGS: Lung volumes are large and hyperlucent. No consolidation is seen. There is no pleural effusion or pneumothorax. The cardiac silhouette is normal in size. There is aortic atherosclerosis. Bone density is diffusely low. IMPRESSION: 1. Findings of chronic obstructive disease. No acute pulmonary abnormality is seen. Departure Impression Primary Impression: COPD (chronic obstructive pulmonary disease) Qualified Codes: J42 - Unspecified chronic bronchitis Disposition: HOME, SELF-CARE Condition: Stable Departure-Patient Inst. Referrals: TYRON BOOTHE MD (PCP/Family) Primary Care Physician Patient Instructions: Chronic Obstructive Pulmonary Disease (COPD) (DC), PULMONARY REHAB Add. Discharge Instructions: Your albuterol inhaler every 4 hours while awake for the next 24 hours. Please continue to use your dehumidifier. Please call your black jack dealer if your symptoms become more frequent or you feel that you need to frequently increase your oxygen. Return to ER as needed. All discharge instructions reviewed with patient and/or family. Voiced understanding. ZARA IBRAHIM DO Feb 20, 2023 17:57
[2023-02-20 18:09] LABS: BASOPHILS # (AUTO) 0.1 10^3/uL (0.0-0.1); BASOPHILS % (AUTO) 1 % (0-10); EOSINOPHILS # (AUTO) 0.2 10^3/uL (0.0-0.3); EOSINOPHILS % (AUTO) 2 % (0-10); HEMATOCRIT 49 % (35-52); HEMOGLOBIN 15.7 g/dL (11.5-16.0); LYMPHOCYTES # (AUTO) 3.3 10^3/uL (1.0-4.0); LYMPHOCYTES % (AUTO) 31 % (12-44); MEAN CORPUSCULAR HEMOGLOBIN 31 pg (25-34); MEAN CORPUSCULAR HGB CONC 32 g/dL (32-36); MEAN CORPUSCULAR VOLUME 95 fL (80-99); MEAN PLATELET VOLUME 9.3 fL (9.0-12.2); MONOCYTES # (AUTO) 0.6 10^3/uL (0.0-1.0); MONOCYTES % (AUTO) 5 % (0-12); NEUTROPHILS # (AUTO) 6.6 10^3/uL (1.8-7.8); NEUTROPHILS % (AUTO) 61 % (42-75); PLATELET COUNT 292 10^3/uL (130-400); WHITE BLOOD COUNT 10.9 10^3/uL (4.3-11.0)
[2023-02-20 18:14] LABS: ALBUMIN 4.7 GM/DL (3.2-4.5); CHLORIDE 104 MMOL/L (98-107); SODIUM 142 MMOL/L (135-145)
[2023-02-20] MEDS ORDERED: RT-ALBUTEROL/IPRATROPIUM 3 ML (DUONEB) VIAL INH ONE (18:15)
[2023-02-20] MEDS ORDERED: dexAMETHasone INJ 10 MG/ML 1 ML VIAL IV ONE (18:15)
[2023-02-20 18:16] LABS: CALCIUM 10.2 MG/DL (8.5-10.1)
[2023-02-20 18:17] LABS: GLUCOSE 194 MG/DL (70-105); TOTAL PROTEIN 7.3 GM/DL (6.4-8.2)
[2023-02-20 18:18] LABS: CARBON DIOXIDE 23 MMOL/L (21-32)
[2023-02-20 18:19] LABS: BILIRUBIN,TOTAL 0.7 MG/DL (0.1-1.0)
[2023-02-20 18:20] LABS: ALKALINE PHOSPHATASE 58 U/L (40-136); CREATININE SERUM 1.07 MG/DL (0.60-1.30); GFR ESTIMATED 53
[2023-02-20 18:21] LABS: BUN/CREATININE RATIO 15
[2023-02-20 18:23] LABS: ALANINE AMINOTRANSFERASE 20 U/L (0-55); MAGNESIUM 2.2 MG/DL (1.6-2.4)
--- NOTE | 2023-02-20 18:58 | Diagnostic Imaging Report ---
History: Shortness of breath and COPD TECHNIQUE: 2 views of the chest COMPARISON: 12/31/2022 FINDINGS: Lung volumes are large and hyperlucent. No consolidation is seen. There is no pleural effusion or pneumothorax. The cardiac silhouette is normal in size. There is aortic atherosclerosis. Bone density is diffusely low. IMPRESSION: 1. Findings of chronic obstructive disease. No acute pulmonary abnormality is seen. Dictated by: Dictated on workstation # [id number]
[2023-02-20 19:13] VITALS: BP 132/88
== END 2023-02-20 19:16 | disposition home or self-care (01) ==
LOC: EDUNIT# 17:44 → ER 17:46
DX: J44.9 Chronic obstructive pulmonary disease, unspecified (principal); Z99.81 Dependence on supplemental oxygen
CPT/HCPCS: 36415; 71046; 80053; 83735; 84484; 85025; 94640

== ENCOUNTER 2023-02-24 12:28 | Emergency (ER) | payer MEDICARE ==
[~2023-02-24] VITALS: Ht 170 cm; Wt 47.0 kg
--- NOTE | 2023-02-24 12:41 | ED Respiratory ---
General Chief Complaint: Respiratory Problems Stated Complaint: DIFFICULTY BREATHING | O2 LOW Source: patient Exam Limitations: no limitations History of Present Illness Date Seen by Provider: Feb 24, 2023 Time Seen by Provider: 12:29 Initial Comments 77-year-old female with COPD on chronic oxygen, 2 L via nasal cannula and concentrator, presents for worsening shortness of breath. She states she was seen here on Tuesday for the same symptoms. Overall symptoms have been present for about 6 days now. She denies any fevers or chills. She did have some left chest pain that was fleeting this morning, none since that time. No change in her chronic productive cough. She states she just feels like she cannot get her air. She has been using her nebulizer at home every 3-4 hours, albuterol alone. She is on daily prednisone 5 mg but has not had a steroid bolus recently All other systems reviewed and negative except documented per HPI. Voice recognition software was used to help create this chart Allergies and Home Medications Allergies Coded Allergies: No Known Drug Allergies (Unverified , 06/22/22) Patient Home Medication List Home Medication List Reviewed: Yes Albuterol Sulfate (Ventolin Hfa) 18 Gm Hfa.aer.ad, 2 PUFF INH Q4H PRN for S HORTNESS OF BREATH, (Reported) Entered as Reported by: MURALI ANDREW on 06/20/20 1556 Azithromycin (Azithromycin) 250 Mg Tablet, 250 MG PO UD Prescribed by: Cori Marroquin on 11/07/22 1214 Budesonide (Budesonide) 0.5 Mg/2 Ml Ampul.neb, 0.5 MG NEB Q12H, (Reported) Entered as Reported by: MURALI ANDREW on 10/19/22 1446 Cefprozil (Cefprozil) 500 Mg Tablet, 500 MG PO BID Prescribed by: TYRON BOOTHE on 10/22/22 0731 Cetirizine HCl (Cetirizine HCl) 10 Mg Tablet, 10 MG PO DAILY, (Reported) Entered as Reported by: MURALI ANDREW on 10/19/22 1446 Famotidine (Famotidine) 20 Mg Tablet, 20 MG PO DAILY PRN for HEARTBURN, (Reported) Entered as Reported by: MURALI ANDREW on 10/19/22 1446 Formoterol Fumarate (Formoterol Fumarate) 20 Mcg/2 Ml Vial.neb, 20 MCG PO Q12H, (Reported) Entered as Reported by: MURALI ANDREW on 10/19/22 1446 Montelukast Sodium (Montelukast Sodium) 10 Mg Tablet, 10 MG PO HS, (Reported) Entered as Reported by: MURALI ANDREW on 06/20/20 1556 Multivitamin (Multivitamin) 1 Each Tablet, 1 EACH PO DAILY, (Reported) Entered as Reported by: MURALI ANDREW on 10/19/22 1446 Nirmatrelvir/Ritonavir (Paxlovid 300-100 mg Pack (Eua)) 300 Mg (150 Mg X 2)-100 Mg Tab.ds.pk, 1 EACH PO Q12H Prescribed by: TYRON BOOTHE on 10/22/22 0801 Pantoprazole Sodium (Pantoprazole Sodium) 40 Mg Tablet.dr, 40 MG PO DAILY, (Reported) Entered as Reported by: MURALI ANDREW on 06/22/22 1633 Prednisone (Prednisone) 5 Mg Tablet, 5 MG PO DAILY, (Reported) Entered as Reported by: MURALI ANDREW on 06/22/22 1633 Prednisone (Prednisone) 20 Mg Tab, 40 MG PO DAILY Prescribed by: Cori Marroquin on 11/07/22 1214 Prednisone (Prednisone) 20 Mg Tab, 40 MG PO DAILY Prescribed by: ISAIAH SIN on 12/31/22 1400 Revefenacin (Yupelri) 175 Mcg/3 Ml Vial.neb, 175 MCG PO DAILY, (Reported) Entered as Reported by: MURALI ANDREW on 10/19/22 1446 Review of Systems Review of Systems Constitutional: see HPI Past Oqrlqhg-Zmcbip-Zpaqay Hx Patient Social History Tobacco Use?: No Use of E-Cig and/or Vaping dev: No Substance use?: No Alcohol Use?: No Immunizations Up To Date Tetanus Booster (TDap): Unknown First/Initial COVID19 Vaccinat: YES Second COVID19 Vaccination Prieto: YES Third COVID19 Vaccination Date: unknown Seasonal Allergies Seasonal Allergies: Yes (MILD) Past Medical History Surgery/Hospitalization HX: CATARACTS SURGERY LEFT HIP NAILING , COPD, Surgeries: Yes Appendectomy, Eye Surgery, Orthopedic Respiratory: Yes COPD Cardiac: Yes Valvular Heart Disease Neurological: No Reproductive Disorders: No Sexually Transmitted Disease: No HIV/AIDS: No Genitourinary: No Gastrointestinal: No Musculoskeletal: Yes (Lt hip fx w nailing 08/16/19) Fractures Endocrine: No HEENT: No Cataract Loss of Vision: Bilateral Hearing Impairment: Denies Cancer: Yes Skin Psychosocial: No Integumentary: No Blood Disorders: No Adverse Reaction/Blood Tranf: No (N/A) Family Medical History Colitis 19 FATHER Dementia 19 MOTHER Parkinson's disease 19 MOTHER GI Disease, Other Conditions/Hx Physical Exam Vital Signs - First Documented 02/24/23 12:31 Temp 36.8 Pulse 85 Resp 22 B/P (MAP) 135/98 (110) Pulse Ox 98 O2 Delivery Nasal Cannula O2 Flow Rate 2.00 Capillary Refill : Height: 5'7.00" Weight: 108lbs. 0.0oz. 48.280019fg; 16.00 BMI Method:Stated General Appearance: WD/WN, moderate distress (Appears to be in respiratory distress with pursed lip breathing) Eyes: Bilateral Eye Normal Inspection, Bilateral Eye PERRL, Bilateral Eye EOMI HEENT: normal ENT inspection, pharynx normal Neck: non-tender, full range of motion, supple, normal inspection Respiratory: chest non-tender, other (Pursed lip breathing with use of accessory muscles, moderate respiratory distress she is wheezing bilateral lung yu with minimal air movement.) Cardiovascular: regular rate, rhythm, no murmur Gastrointestinal: normal bowel sounds, non tender, soft, no organomegaly Extremities: non-tender, normal inspection, no pedal edema Neurologic/Psychiatric: alert, oriented x 3 Skin: normal color, warm/dry Progress/Results/Core Measures Suspected Sepsis SIRS Temperature: Pulse: Respiratory Rate: Laboratory Tests 02/24/23 12:42: White Blood Count 12.6H Blood Pressure / Mean: Laboratory Tests 02/24/23 12:42: Creatinine 0.87, Platelet Count 306 Results/Orders Lab Results Laboratory Tests Test 02/24/23 12:40 02/24/23 12:42 Range/Units SARS-CoV-2 RNA (RT-PCR) Not Detected Not Detecte White Blood Count 12.6 H 4.3-11.0 10^3/uL Red Blood Count 5.13 H 3.80-5.11 10^6/uL Hemoglobin 15.7 11.5-16.0 g/dL Hematocrit 47 35-52 % Mean Corpuscular Volume 92 80-99 fL Mean Corpuscular Hemoglobin 31 25-34 pg Mean Corpuscular Hemoglobin Concent 33 32-36 g/dL Red Cell Distribution Width 12.7 10.0-14.5 % Platelet Count 306 130-400 10^3/uL Mean Platelet Volume 9.0 9.0-12.2 fL Immature Granulocyte % (Auto) 1 % Neutrophils (%) (Auto) 79 H 42-75 % Lymphocytes (%) (Auto) 13 12-44 % Monocytes (%) (Auto) 6 0-12 % Eosinophils (%) (Auto) 1 0-10 % Basophils (%) (Auto) 0 0-10 % Neutrophils # (Auto) 10.0 H 1.8-7.8 10^3/uL Lymphocytes # (Auto) 1.6 1.0-4.0 10^3/uL Monocytes # (Auto) 0.7 0.0-1.0 10^3/uL Eosinophils # (Auto) 0.1 0.0-0.3 10^3/uL Basophils # (Auto) 0.1 0.0-0.1 10^3/uL Immature Granulocyte # (Auto) 0.1 0.0-0.1 10^3/uL Sodium Level 142 135-145 MMOL/L Potassium Level 4.2 3.6-5.0 MMOL/L Chloride Level 105 98-107 MMOL/L Carbon Dioxide Level 28 21-32 MMOL/L Anion Gap 9 5-14 MMOL/L Blood Urea Nitrogen 12 7-18 MG/DL Creatinine 0.87 0.60-1.30 MG/DL Estimat Glomerular Filtration Rate 69 BUN/Creatinine Ratio 14 Glucose Level 109 H 70-105 MG/DL Calcium Level 10.2 H 8.5-10.1 MG/DL Troponin I < 0.028 <0.028 NG/ML My Orders Orders - ROBVENANCIO PIERRE DO Troponin I [place] (02/24/23 12:37) Chest 1 View, Ap/Pa Only (02/24/23 12:37) Ekg Tracing (02/24/23 12:37) Basic Metabolic Panel (02/24/23 12:37) Cbc With Automated Diff (02/24/23 12:37) Iv/Invasive Line Insertion .IV INSERT (02/24/23 12:37) Albuterol/Ipra Inhalation Soln (Duoneb I (02/24/23 12:45) Methylprednisolone Sod Succ (Solu-Medrol (02/24/23 12:45) Svn Small Volume Nebulizer (02/24/23 12:38) Covid 19 Inhouse Test (02/24/23 13:11) Medications Given in ED Current Medications Medications Dose Ordered Sig/Missy Route Start Time Stop Time Status Last Admin Dose Admin Albuterol/ Ipratropium 3 ml ONCE ONCE INH 02/24/23 12:45 02/24/23 12:46 DC 02/24/23 13:12 3 ML Methylprednisolone Sodium Succinate 120 mg ONCE ONCE IV 02/24/23 12:45 02/24/23 12:46 DC 02/24/23 12:57 120 MG Vital Signs/I&O 02/24/23 02/24/23 02/24/23 12:31 12:35 13:13 Temp 36.8 Pulse 85 Resp 22 B/P (MAP) 135/98 (110) Pulse Ox 98 96 O2 Delivery Nasal Cannula Nasal Cannula Nasal Cannula O2 Flow Rate 2.00 2.00 2.00 Capillary Refill : ECG Comment Baseline artifact makes interpretation more difficult however overall sinus rhythm with 2 bpm. Normal intervals. Normal axis. No ST or T wave abnormalities and no ectopy. No STEMI. Departure Communication (Admissions) On reevaluation at 1345 patient's respiratory issues have completely resolved. She is breathing normally, about 16-18 times a minute with no further wheezing. Her oxygen saturation is 96% on 2 L of oxygen via nasal cannula which she uses at home. She subjectively states she is feeling much better as well. We will go ahead and discharge her with some oral steroids for the next few days. Advise she stop taking for 5 mg tablets and take these until they are gone and then resume 5 mg thereafter. She was given 120 mg of IV Solu-Medrol here as well as a DuoNeb treatment. Her chest x-ray on my independent review shows no acute cardiopulmonary abnormalities but she does have some chronic changes consistent with COPD. She is afebrile nontoxic she has no focal infiltrates to suggest pneumonia. No pneumothorax. No stigmata of pulmonary embolism. Impression Primary Impression: COPD exacerbation Disposition: 01 HOME, SELF-CARE Condition: Stable Departure-Patient Inst. Referrals: TYRON BOOTHE MD (PCP/Family) Primary Care Physician Patient Instructions: COPD Exacerbation, Adult ED Add. Discharge Instructions: Take the steroid medication daily in the morning as prescribed starting tomorrow morning. Stop taking your 5 mg prednisone while you are taking this but resume it once it is completed. Continue to use your nebulized treatments at home as needed. Avoid the heat. Follow-up with your primary doctor in the next 48 hours for reevaluation. Return to the emergency department for any severe concerns. All discharge instructions reviewed with patient and/or family. Voiced understanding. Scripts Prednisone (Prednisone) 50 Mg Tab 50 MG PO DAILY for 5 Days, #5 TAB Prov: VENANCIO RIVAS DO 02/24/23 VENANCIO RIVAS DO Feb 24, 2023 12:41
[2023-02-24] MEDS ORDERED: methylPREDNISolone 40 MG/ML (Solu-MEDROL) VIAL IV ONE (12:45)
[2023-02-24] MEDS ORDERED: RT-Ipratropium/Albuterol NEB 3 ML VIAL INH ONE (12:45)
[2023-02-24 12:49] LABS: BASOPHILS # (AUTO) 0.1 10^3/uL (0.0-0.1); BASOPHILS % (AUTO) 0 % (0-10); EOSINOPHILS # (AUTO) 0.1 10^3/uL (0.0-0.3); EOSINOPHILS % (AUTO) 1 % (0-10); HEMATOCRIT 47 % (35-52); HEMOGLOBIN 15.7 g/dL (11.5-16.0); LYMPHOCYTES # (AUTO) 1.6 10^3/uL (1.0-4.0); LYMPHOCYTES % (AUTO) 13 % (12-44); MEAN CORPUSCULAR HEMOGLOBIN 31 pg (25-34); MEAN CORPUSCULAR HGB CONC 33 g/dL (32-36); MEAN CORPUSCULAR VOLUME 92 fL (80-99); MONOCYTES # (AUTO) 0.7 10^3/uL (0.0-1.0); MONOCYTES % (AUTO) 6 % (0-12); NEUTROPHILS % (AUTO) 79 % (42-75); PLATELET COUNT 306 10^3/uL (130-400); WHITE BLOOD COUNT 12.6 10^3/uL (4.3-11.0)
[2023-02-24 13:01] LABS: CHLORIDE 105 MMOL/L (98-107); POTASSIUM 4.2 MMOL/L (3.6-5.0); SODIUM 142 MMOL/L (135-145)
[2023-02-24 13:02] LABS: CALCIUM 10.2 MG/DL (8.5-10.1)
[2023-02-24 13:03] LABS: GLUCOSE 109 MG/DL (70-105)
--- NOTE | 2023-02-24 13:03 | Diagnostic Imaging Report ---
INDICATION: Dyspnea Single AP view of chest is obtained with comparison made to study of 11/07/2022. Extensive background emphysema is again identified with upper lobe predominance. There is no evidence of pneumothorax, consolidation or pleural fluid. No overt edema is seen. IMPRESSION: Stable chronic emphysema without acute abnormality detected. Dictated by: Dictated on workstation # [id number]
[2023-02-24 13:04] LABS: CARBON DIOXIDE 28 MMOL/L (21-32)
[2023-02-24 13:07] LABS: CREATININE SERUM 0.87 MG/DL (0.60-1.30); GFR ESTIMATED 69
[2023-02-24 13:08] LABS: BUN/CREATININE RATIO 14
[2023-02-24] MEDS ORDERED: PRD50T PO (13:55)
[2023-02-24 14:12] VITALS: BP 140/98
== END 2023-02-24 14:12 | disposition home or self-care (01) ==
LOC: EDUNIT# 12:28 → ER 12:30
DX: J44.1 Chronic obstructive pulmonary disease with (acute) exacerbation (principal); Z99.81 Dependence on supplemental oxygen; Z79.51 Long term (current) use of inhaled steroids; Z79.52 Long term (current) use of systemic steroids; Z20.822 Contact with and (suspected) exposure to COVID-19
CPT/HCPCS: 36415; 71045; 80048; 84484; 85025; 87636; 93005; 94640; 96374

== ENCOUNTER 2023-07-01 09:52 | Emergency (ER) | payer MEDICARE ==
[~2023-07-01 09:52] MED LIST changes: +PRD50T PO
[2023-07-01 10:33] LABS: BASOPHILS # (AUTO) 0.1 10^3/uL (0.0-0.1); BASOPHILS % (AUTO) 1 % (0-10); EOSINOPHILS # (AUTO) 0.2 10^3/uL (0.0-0.3); EOSINOPHILS % (AUTO) 1 % (0-10); HEMATOCRIT 46 % (35-52); LYMPHOCYTES # (AUTO) 1.4 10^3/uL (1.0-4.0); LYMPHOCYTES % (AUTO) 9 % (12-44); MEAN CORPUSCULAR HEMOGLOBIN 31 pg (25-34); MEAN CORPUSCULAR HGB CONC 33 g/dL (32-36); MEAN CORPUSCULAR VOLUME 95 fL (80-99); MEAN PLATELET VOLUME 9.2 fL (9.0-12.2); MONOCYTES # (AUTO) 0.9 10^3/uL (0.0-1.0); MONOCYTES % (AUTO) 6 % (0-12); NEUTROPHILS # (AUTO) 12.7 10^3/uL (1.8-7.8); NEUTROPHILS % (AUTO) 83 % (42-75); PLATELET COUNT 288 10^3/uL (130-400); WHITE BLOOD COUNT 15.3 10^3/uL (4.3-11.0)
[2023-07-01 10:39] LABS: POTASSIUM 3.6 MMOL/L (3.6-5.0)
[2023-07-01 10:40] LABS: CALCIUM 10.4 MG/DL (8.5-10.1)
--- NOTE | 2023-07-01 10:40 | ED General ---
General Chief Complaint: Respiratory Problems Stated Complaint: DIFFICULTY BREATHING | COPD Nursing Triage Note: PT TO RM 7 PER W/C. PT CO OF INCREASING SOA PAST COUPLE DAYS. STATES HAS HAD LOW SAT DESPITE WEARING O2 SATS 80% THIS AM. AT PRESENT 02 96% ON 3L.DENIES FEVERS OR INCREASED COUGH Source of Information: Patient, Old Records Exam Limitations: No Limitations History of Present Illness Date Seen by Provider: Jul 01, 2023 Time Seen by Provider: 10:23 Initial Comments Ms. Cantrell is a 78-year-old woman with significant history of COPD who presents to the emergency room with concerns about increased dyspnea on exertion. She denies increase in cough. She denies any chest pain, fever, or chills. She reports her oxygen saturation at home with exertion was 80% on her usual 3 L nasal cannula. During triage oxygen saturation is 96% on 3 L nasal cannula. She does use O2 continuously. She reports feeling relatively well when at rest. Her simplex operator is Dr. Wyman at [place]. Her primary care provider is Dr. Boothe she is on chronic low-dose prednisone. She last had a prednisone taper prescribed in mid April. She also had a round of azithromycin in March. She had COVID-19 in September. She has not had any formal cardiac workup in recent years. Allergies and Home Medications Allergies Coded Allergies: No Known Drug Allergies (Unverified , 06/22/22) Patient Home Medication List Home Medication List Reviewed: Yes Albuterol Sulfate (Ventolin Hfa) 18 Gm Hfa.aer.ad, 2 PUFF INH Q4H PRN for SHORTNESS OF BREATH, (Reported) Entered as Reported by: MURALI ANDREW on 06/20/20 1556 Azithromycin (Azithromycin) 250 Mg Tablet, 250 MG PO UD Prescribed by: Cori Marroquin on 11/07/22 1214 Budesonide (Budesonide) 0.5 Mg/2 Ml Ampul.neb, 0.5 MG NEB Q12H, (Reported) Entered as Reported by: MURALI ANDREW on 10/19/22 1446 Cefprozil (Cefprozil) 500 Mg Tablet, 500 MG PO BID Prescribed by: TYRON BOOTHE on 10/22/22 0731 Cetirizine HCl (Cetirizine HCl) 10 Mg Tablet, 10 MG PO DAILY, (Reported) Entered as Reported by: MURALI ANDREW on 10/19/22 1446 Famotidine (Famotidine) 20 Mg Tablet, 20 MG PO DAILY PRN for HEARTBURN, (Reported) Entered as Reported by: MURALI ANDREW on 10/19/22 1446 Formoterol Fumarate (Formoterol Fumarate) 20 Mcg/2 Ml Vial.neb, 20 MCG PO Q12H, (Reported) Entered as Reported by: MURALI ANDREW on 10/19/22 1446 Montelukast Sodium (Montelukast Sodium) 10 Mg Tablet, 10 MG PO HS, (Reported) Entered as Reported by: MURALI ANDREW on 06/20/20 1556 Multivitamin (Multivitamin) 1 Each Tablet, 1 EACH PO DAILY, (Reported) Entered as Reported by: MURALI ANDREW on 10/19/22 144 Nirmatrelvir/Ritonavir (Paxlovid 300-100 mg Pack (Eua)) 300 Mg (150 Mg X 2)-100 Mg Tab.ds.pk, 1 EACH PO Q12H Prescribed by: TYRON BOOTHE on 10/22/22 0801 Pantoprazole Sodium (Pantoprazole Sodium) 40 Mg Tablet.dr, 40 MG PO DAILY, (Reported) Entered as Reported by: MURALI ANDREW on 06/22/22 1633 Prednisone (Prednisone) 5 Mg Tablet, 5 MG PO DAILY, (Reported) Entered as Reported by: MURALI ANDREW on 06/22/22 1633 Prednisone (Prednisone) 20 Mg Tab, 40 MG PO DAILY Prescribed by: Cori Marroquin on 11/07/22 1214 Prednisone (Prednisone) 20 Mg Tab, 40 MG PO DAILY Prescribed by: ISAIAH SIN on 12/31/22 1400 Prednisone (Prednisone) 50 Mg Tab, 50 MG PO DAILY Prescribed by: VENANCIO RIVAS MD on 02/24/23 1355 Prednisone (Prednisone) 20 Mg Tab, 40 MG PO DAILY Prescribed by: ISAIAH SIN on 07/01/23 1307 Revefenacin (Yupelri) 175 Mcg/3 Ml Vial.neb, 175 MCG PO DAILY, (Reported) Entered as Reported by: MURALI ANDREW on 10/19/22 144 Review of Systems Review of Systems Constitutional: no symptoms reported EENTM: no symptoms reported Respiratory: see HPI Cardiovascular: no symptoms reported Gastrointestinal: no symptoms reported Genitourinary: no symptoms reported : No Musculoskeletal: no symptoms reported Skin: no symptoms reported Psychiatric/Neurological: No Symptoms Reported Hematologic/Lymphatic: No Symptoms Reported Past Djqsuif-Ozylpw-Sdhmmu Hx Patient Social History Tobacco Use?: No Smoking Status: Former Smoker Substance use?: No Alcohol Use?: No Pt feels they are or have been: No Immunizations Up To Date Tetanus Booster (TDap): Unknown Influenza Vaccine Up-to-Date: Yes; Up-to-Date First/Initial COVID19 Vaccinat: YES Second COVID19 Vaccination Prieto: YES Third COVID19 Vaccination Date: unknown Seasonal Allergies Seasonal Allergies: Yes (MILD) Past Medical History Surgery/Hospitalization HX: CATARACTS SURGERY LEFT HIP NAILING , COPD, Surgeries: Yes Appendectomy, Eye Surgery, Orthopedic Respiratory: Yes COPD (Chronic supplemental oxygen use at 3 L nasal cannula) Cardiac: Yes Valvular Heart Disease (Reported history of mitral valve prolapse) Neurological: No Reproductive Disorders: No Sexually Transmitted Disease: No HIV/AIDS: No Genitourinary: No Gastrointestinal: No Musculoskeletal: Yes (Lt hip fx w nailing 08/16/19) Fractures Endocrine: No HEENT: No Cataract Loss of Vision: Bilateral Hearing Impairment: Denies Cancer: Yes Skin Psychosocial: No Integumentary: No Blood Disorders: No Adverse Reaction/Blood Tranf: No (N/A) Family Medical History Colitis 19 FATHER Dementia 19 MOTHER Parkinson's disease 19 MOTHER GI Disease, Other Conditions/Hx Physical Exam Vital Signs Vital Signs - First Documented Capillary Refill : Less Than 3 Seconds Height, Weight, BMI Height: 5'7.00" Weight: 108lbs. 0.0oz. 48.289159rm; 16.00 BMI Method:Stated General Appearance: No Apparent Distress, WD/WN, Thin HEENT: PERRL/EOMI, Normal ENT Inspection Neck: Normal Inspection; No JVD Respiratory: Lungs Clear, Normal Breath Sounds, No Accessory Muscle Use, No Respiratory Distress Cardiovascular: Regular Rate, Rhythm, No Edema, No Murmur Extremity: Normal Inspection, No Pedal Edema Neurologic/Psychiatric: Alert, Oriented x3, No Motor/Sensory Deficits, Normal Mood/Affect Skin: Normal Color, Warm/Dry Progress/Results/Core Measures Suspected Sepsis SIRS Temperature: Pulse: 87 Respiratory Rate: 20 Laboratory Tests 07/01/23 10:10: White Blood Count 15.3H Blood Pressure 105 /86 Mean: 92 Laboratory Tests 07/01/23 10:10: Creatinine 0.89, Platelet Count 288 Results/Orders Lab Results Laboratory Tests Test 07/01/23 10:10 07/01/23 10:32 Range/Units White Blood Count 15.3 H 4.3-11.0 10^3/uL Red Blood Count 4.83 3.80-5.11 10^6/uL Hemoglobin 15.0 11.5-16.0 g/dL Hematocrit 46 35-52 % Mean Corpuscular Volume 95 80-99 fL Mean Corpuscular Hemoglobin 31 25-34 pg Mean Corpuscular Hemoglobin Concent 33 32-36 g/dL Red Cell Distribution Width 12.6 10.0-14.5 % Platelet Count 288 130-400 10^3/uL Mean Platelet Volume 9.2 9.0-12.2 fL Immature Granulocyte % (Auto) 1 % Neutrophils (%) (Auto) 83 H 42-75 % Lymphocytes (%) (Auto) 9 L 12-44 % Monocytes (%) (Auto) 6 0-12 % Eosinophils (%) (Auto) 1 0-10 % Basophils (%) (Auto) 1 0-10 % Neutrophils # (Auto) 12.7 H 1.8-7.8 10^3/uL Lymphocytes # (Auto) 1.4 1.0-4.0 10^3/uL Monocytes # (Auto) 0.9 0.0-1.0 10^3/uL Eosinophils # (Auto) 0.2 0.0-0.3 10^3/uL Basophils # (Auto) 0.1 0.0-0.1 10^3/uL Immature Granulocyte # (Auto) 0.1 0.0-0.1 10^3/uL Neutrophils % (Manual) 81 % Lymphocytes % (Manual) 14 % Monocytes % (Manual) 4 % Eosinophils % (Manual) 1 % Platelet Estimate ADEQUATE Blood Morphology Comment NORMAL Sodium Level 142 135-145 MMOL/L Potassium Level 3.6 3.6-5.0 MMOL/L Chloride Level 105 98-107 MMOL/L Carbon Dioxide Level 26 21-32 MMOL/L Anion Gap 11 5-14 MMOL/L Blood Urea Nitrogen 18 7-18 MG/DL Creatinine 0.89 0.60-1.30 MG/DL Estimat Glomerular Filtration Rate 66 BUN/Creatinine Ratio 20 Glucose Level 80 70-105 MG/DL Calcium Level 10.4 H 8.5-10.1 MG/DL Troponin I < 0.028 <0.028 NG/ML C-Reactive Protein High Sensitivity 0.18 0.00-0.50 MG/DL B-Type Natriuretic Peptide 11.9 <100.0 PG/ML Influenza Type A (RT-PCR) Not Detected Not Detecte Influenza Type B (RT-PCR) Not Detected Not Detecte SARS-CoV-2 RNA (RT-PCR) Not Detected Not Detecte My Orders Orders - ISAIAH NARVAEZ MD Basic Metabolic Panel (07/01/23 10:25) Bnp [place] (07/01/23 10:25) Cbc And Automated Diff (07/01/23 10:25) Hs C Reactive Protein (07/01/23 10:25) Ed Iv/Invasive Line Start (07/01/23 10:25) Covid 19 Inhouse Test (07/01/23 10:25) Influenza A And B By Pcr (07/01/23 10:25) Ekg Tracing (07/01/23 10:35) Monitor-Rhythm Ecg Trace Only (07/01/23 10:35) Troponin I [place] (07/01/23 10:35) Manual Differential (07/01/23 10:10) Chest Pa/Lat (2 View) (07/01/23 11:22) Vital Signs/I&O 07/01/23 07/01/23 07/01/23 10:00 10:00 13:14 Temp 36.9 Pulse 87 85 Resp 20 20 B/P (MAP) 105/86 (92) 124/86 Pulse Ox 97 97 O2 Delivery Nasal Cannula Nasal Cannula Nasal Cannula O2 Flow Rate 3.00 2.00 3.00 3.00 Capillary Refill : Less Than 3 Seconds Blood Pressure Mean: 92 Progress Note : Progress Note Chest x-rays were reviewed by me. Compared with prior there were no acute abnormalities appreciated on my interpretation. Radiologist report was also reviewed as noted below. Labs were obtained and interpreted by me. Leukocytosis was noted which is likely secondary to chronic steroid use. CBC was otherwise unremarkable. BMP, CRP, BNP, and troponin were also all unremarkable. Swabs for influenza and COVID-19 were negative. Patient requested a burst of steroids which usually helps her recover from this type of exacerbation. Prednisone was prescribed and a 4-day burst. I also advised that she discuss a cardiac stress test with her primary care provider. ECG Initial ECG Impression Date: Jul 01, 2023 Initial ECG Impression Time: 10:46 Initial ECG Rate: 81 Initial ECG Rhythm: Normal Sinus Initial ECG Intervals: Normal Initial ECG Impression: Normal Comment Normal sinus rhythm with no ST elevation or depression. No abnormal intervals or axis deviation. Diagnostic Imaging Diagonstic Imaging: Xray Plain Films/CT/US/NM/MRI: chest Comments NAME: MAHESH CANTRELL [facility] REC#: [id number] PT STATUS: REG ER : 1945 PHYSICIAN: ISAIAH NARVAEZ MD ADMIT DATE: 07/01/23/ER Draft Date of Exam:07/01/23 CHEST PA/LAT (2 VIEW) CLINICAL INDICATION: Patient complains of shortness of breath for the past couple of days. Patient has had low saturations despite wearing oxygen. EXAM: Chest x-ray, PA and lateral views. COMPARISON: Chest x-ray dated 02/24/2023. FINDINGS: Lungs/pleura: There is no interval lung infiltrate. There are slightly hyperinflated lungs, increased retrosternal clear space, and flattened hemidiaphragms which can be seen with COPD changes. There is no pneumothorax. There is no pleural effusion. Mediastinum: Unremarkable. Pulmonary vasculature: Unremarkable. Heart: Unremarkable. Bones/extrathoracic soft tissue: Unremarkable. IMPRESSION: There is no interval lung infiltrate. Stable COPD lung changes. Dictated on workstation # [id number] Dict: 07/01/23 1201 Trans: 07/01/23 1209 [id number] Interpreted by: QUIRINO CABALLERO MD Departure Impression Primary Impression: Dyspnea on exertion Additional Impression: COPD exacerbation Disposition: 01 HOME, SELF-CARE Condition: Stable Departure-Patient Inst. Decision time for Depature: 13:04 Referrals: TYRON BOOTHE MD (PCP/Family) Primary Care Physician Patient Instructions: Cardiac Stress Test, Exacerbation of COPD Add. Discharge Instructions: Complete the 4-day steroid burst as prescribed. Follow-up with your primary care provider in the very near future. Discuss the potential for further workup. I suggest discussing a cardiac stress test since you are specifically having abrupt shortness of breath on exertion. Return to care if you have worsening symptoms. All discharge instructions reviewed with patient and/or family. Voiced understanding. Scripts Prednisone (Prednisone) 20 Mg Tab 40 MG PO DAILY, #8 TAB Prov: ISAIAH NARVAEZ MD 07/01/23 Copy Copies To 1: TYRON BOOTHE MD, JOSHUA T MD Jul 01, 2023 10:40
[2023-07-01 10:44] LABS: CREATININE SERUM 0.89 MG/DL (0.60-1.30)
[2023-07-01 10:49] LABS: EOSINOPHILS % (MANUAL) 1 %; LYMPHOCYTES % (MANUAL) 14 %; MONOCYTES % (MANUAL) 4 %; NEUTROPHILS % (MANUAL) 81 %; PLATELET ESTIMATE ADEQUATE; RBC MORPH NORMAL
--- NOTE | 2023-07-01 12:10 | Diagnostic Imaging Report ---
CLINICAL INDICATION: Patient complains of shortness of breath for the past couple of days. Patient has had low saturations despite wearing oxygen. EXAM: Chest x-ray, PA and lateral views. COMPARISON: Chest x-ray dated 02/24/2023. FINDINGS: Lungs/pleura: There is no interval lung infiltrate. There are slightly hyperinflated lungs, increased retrosternal clear space, and flattened hemidiaphragms which can be seen with COPD changes. There is no pneumothorax. There is no pleural effusion. Mediastinum: Unremarkable. Pulmonary vasculature: Unremarkable. Heart: Unremarkable. Bones/extrathoracic soft tissue: Unremarkable. IMPRESSION: There is no interval lung infiltrate. Stable COPD lung changes. Dictated by: Dictated on workstation # [id number]
[2023-07-01] MEDS ORDERED: PRD20T PO (13:07)
[2023-07-01 13:14] VITALS: BP 124/86
[2023-07-02] MEDS ORDERED: AZIT250T12 PO ×2 (02:10→02:19)
[2023-07-02] MEDS ORDERED: FLUT1BLS3 IH (02:10)
[2023-07-02] MEDS ORDERED: ACET600C5 PO (02:31)
[2023-07-04] MEDS ORDERED: NYST1000 PO (13:47)
[2023-07-04] MEDS ORDERED: IPRA3AMP31 IH (14:19)
== END 2023-07-01 13:16 | disposition home or self-care (01) ==
LOC: EDUNIT# 09:52 → ER 09:54
DX: J44.1 Chronic obstructive pulmonary disease with (acute) exacerbation (principal); Z99.81 Dependence on supplemental oxygen; Z87.891 Personal history of nicotine dependence
CPT/HCPCS: 36415; 71046; 80048; 83880; 84484; 85007; 85025; 85027; 86141; 87636; 93005